=== PATIENT | female | born 1955 | race Caucasian/White ===

== ENCOUNTER → 2018-01-21 11:10 | Outpatient (CLI) | payer OTHER, SELFPAY ==
--- NOTE | 2018-01-21 11:16 | XR_ITS ---
XR hand RT min 3V HISTORY: ITS.REASON: RT THUMB PAIN ORDERING PHYSICIAN: Dee Winter PATIENT AGE: 62 years FINDINGS: No fracture or dislocation. No lytic or blastic change. There are mild osteoarthritic changes of the third metacarpophalangeal joint and minimal osteoarthritic change of the first metacarpophalangeal joint. No abnormal subluxation or abnormal soft tissue calcification. Minimal osteoarthritic changes also involve the first interphalangeal joint. IMPRESSION: Mild osteoarthritic change of the first metacarpal phalangeal joint, third metacarpophalangeal joint, and first interphalangeal joint otherwise negative
== END ==
PROVIDERS: PCP Family Medicine; Visit Provider Nurse Practitioner Family
DX: M79.644 Pain in right finger(s) (principal)
CPT/HCPCS: 73130

== ENCOUNTER → 2018-02-13 08:21 | Outpatient (CLI) | payer OTHER, SELFPAY ==
[2018-02-13 11:04] LABS: Chol/HDL Ratio 3.6 (1-3.5); Cholesterol 182 mg/dL (140-200); HDL Cholesterol 50 mg/dL (29-89); LDL Cholesterol 84 mg/dL (0-130); Triglycerides 241 mg/dL (30-200); Uric Acid 3.3 mg/dL (2.6-7.2); VLDL Cholesterol 48 mg/dL (0-40)
== END ==
PROVIDERS: Visit Provider Nurse Practitioner Family
DX: E78.2 Mixed hyperlipidemia (principal); I10 Essential (primary) hypertension; M79.644 Pain in right finger(s)
CPT/HCPCS: 36415; 80061; 84550

== ENCOUNTER → 2019-01-29 09:52 | Outpatient (CLI) | payer BC, SELFPAY ==
--- NOTE | 2019-01-29 10:01 | XR_ITS ---
XR knee RT 4V HISTORY: Pain ITS.REASON: ap, lateral, sunrise, mccracken weight bearing ORDERING PHYSICIAN: Monica Morgan MD PATIENT AGE: 63 years COMPARISON: None FINDINGS: There are mild osteoarthritic changes involving all 3 compartments greatest at the medial compartment. Small osteophytes are present in the radius small suprapatellar effusion. No fracture or dislocation. IMPRESSION: Mild osteoarthritis with possible small suprapatellar effusion
--- NOTE | 2019-01-29 10:01 | XR_ITS ---
XR knee LT 4V HISTORY: Knee pain ITS.REASON: ap, lateral, sunrise, mccracken weight bearing ORDERING PHYSICIAN: Monica Morgan MD PATIENT AGE: 63 years COMPARISON: None FINDINGS: Mild osteoarthritic changes involve all 3 compartments slightly greater at the medial compartment. No fracture or dislocation. There may be a small suprapatellar effusion. No lytic or blastic change. IMPRESSION: Mild osteoarthritis with possible small suprapatellar effusion
== END ==
PROVIDERS: PCP Family Medicine; Visit Provider Orthopaedic Surgery
DX: M25.562 Pain in left knee (principal); M25.561 Pain in right knee
CPT/HCPCS: 73564

== ENCOUNTER → 2019-02-03 08:08 | Outpatient (CLI) | payer BC, SELFPAY ==
[2019-02-03 09:47] LABS: Alanine Aminotransferase 28 U/L (12-78); Albumin Level 3.7 gm/dL (3.4-5.0); Albumin/Globulin Ratio 1.1 (1.1-1.8); Alkaline Phosphatase 86 U/L (46-116); Anion Gap 12.9 mEq/L (5-15); Aspartate Amino Transferase 15 U/L (15-37); Bilirubin,Total 0.6 mg/dL (0.2-1.0); Blood Urea Nitrogen 16 mg/dL (7-18); Calcium 8.9 mg/dL (8.5-10.1); Carbon Dioxide 30 mmol/L (21.0-32.0); Chloride 103 mmol/L (98-107); Chol/HDL Ratio 3.9 (1-3.5); Cholesterol 174 mg/dL (140-200); Creatinine,Serum 0.75 mg/dL (0.55-1.02); Estimated Glomerular Filt Rate 78 ml/min (>60); GFR (African American) 94 ML/MIN (>60); Globulin 3.3 gm/dl (1.3-3.2); Glucose 105 mg/dL (74-106); HDL Cholesterol 45 mg/dL (29-89); LDL Cholesterol 78 mg/dL (0-130); Potassium 3.9 mmoL/L (3.5-5.1); Sodium 142 mmol/L (136-145); Triglycerides 256 mg/dL (30-200); VLDL Cholesterol 51 mg/dL (0-40)
== END ==
PROVIDERS: Visit Provider Nurse Practitioner Family
DX: E78.2 Mixed hyperlipidemia (principal); E87.6 Hypokalemia; I10 Essential (primary) hypertension
CPT/HCPCS: 36415; 80053; 80061

== ENCOUNTER → 2019-06-10 09:50 | Outpatient (CLI) | payer BC, MEDICARE, SELFPAY ==
--- NOTE | 2019-06-10 09:55 | MM_ITS ---
PROCEDURE: MM DIG SCREENING MAMM BI W/CAD CLINICAL INDICATION: screening There is no personal or family history of breast cancer COMPARISON: [facility]B DIG MAMM-SCREEN NIDA from 01/19/2014 [facility]B DIG MAMM-SCREEN NIDA from 02/18/2015 DMSB DIG MAMM-SCREEN NIDA from 03/15/2016 TECHNIQUE: Standard CC and MLO images were obtained. R2 CAD reviewed. FINDINGS: Prominent somewhat heterogenic fibroglandular densities are seen in both breasts. There is a mole marker left breast. There are few benign-appearing calcifications in each breast. The findings are bilateral and symmetrical. There is no suspicious lesion and no suspicious microcalcifications. IMPRESSION: Moderate diffuse breast density with no suspicious lesions seen BI-RAD Category: 2 Benign Finding(s) FOLLOW-UP: 1YR 1 Year Follow-up (A letter has been sent to the patient regarding results of the study.) Dictated by: Dr. Haider Ackerman MD 06/16/2019 17:[address] Haider Ackerman MD in [place] 06/16/2019 17:04
--- NOTE | 2019-06-10 09:55 | XR_ITS ---
PROCEDURE: XR DEXA AXIAL SKELETON CLINICAL HISTORY: screening COMPARISON: No exams were available for comparison FINDINGS: The L1-L4 density has a T-score of 1.6. Mean hip density is 1.124 grams/centimeter sq with a T-score of 0.6 IMPRESSION: Normal bone density with low fracture risk. Recommend follow-up exam June 2021 Dictated by: Luc Uribe MD 06/10/2019 18:10 Electronically signed by Luc Uribe MD in [place] 06/10/2019 18:10
== END ==
PROVIDERS: PCP Family Medicine; Visit Provider Obstetrics & Gynecology
DX: Z12.31 Encounter for screening mammogram for malignant neoplasm of breast (principal); Z13.820 Encounter for screening for osteoporosis; Z78.0 Asymptomatic menopausal state
CPT/HCPCS: 77067; 77080

== ENCOUNTER → 2022-05-21 08:48 | Outpatient (CLI) | payer BC, MEDICARE, SELFPAY | PROVIDERS: PCP Family Medicine; Visit Provider Ophthalmology | DX: Z01.812 Encounter for preprocedural laboratory examination (principal); Z20.822 Contact with and (suspected) exposure to COVID-19 | CPT/HCPCS: C9803; U0003; U0005 ==

== ENCOUNTER → 2022-05-22 15:57 | Outpatient (CLI) | payer BC, MEDICARE, SELFPAY ==
--- NOTE | 2022-05-22 16:06 | MM_ITS ---
PROCEDURE INFORMATION: Exam: MG Bilateral Screening 3D Mammography Exam date and time: 05/22/2022 4:00 PM Age: 67 years old Clinical indication: Screening examination. No family history of breast cancer. TECHNIQUE: Imaging protocol: Bilateral Screening tomosynthesis and 2D mammography including computer-aided detection (CAD) when performed. COMPARISON: 1. MG MM DIG SCREENING MAMM BI W/CAD 06/10/2019 10:13 AM 2. MG DMSB DIG MAMM-SCREEN NIDA 03/15/2016 10:22 AM 3. MG DMSB DIG MAMM-SCREEN NIDA 02/18/2015 10:05 AM 4. MG DMSB DIG MAMM-SCREEN NIDA 01/19/2014 10:16 AM FINDINGS: MAMMOGRAPHY: Breast composition: There are scattered areas of fibroglandular density. Mass: No suspicious mass. Architectural distortion: None. Calcifications: No suspicious calcifications. Asymmetric density: None. Skin thickening: None. Axillary adenopathy: None. IMPRESSION: No mammographic evidence of malignancy. Annual screening is recommended unless otherwise clinically indicated. ASSESSMENT: BI-RADS Category 1: Negative
== END ==
PROVIDERS: PCP Family Medicine; Visit Provider Nurse Practitioner Family
DX: Z12.31 Encounter for screening mammogram for malignant neoplasm of breast (principal)
CPT/HCPCS: 77063; 77067

== ENCOUNTER → 2022-06-20 16:11 | Outpatient (POV) | payer BC, MEDICARE, SELFPAY | PROVIDERS: Visit Provider Dermatology | DX: Z00.00 Encounter for general adult medical examination without abnormal findings (principal) ==

== ENCOUNTER → 2022-06-24 08:50 | Outpatient (CLI) | payer BC, MEDICARE, SELFPAY | PROVIDERS: PCP Family Medicine; Visit Provider Ophthalmology | DX: Z01.812 Encounter for preprocedural laboratory examination (principal); Z20.822 Contact with and (suspected) exposure to COVID-19; H25.011 Cortical age-related cataract, right eye | CPT/HCPCS: C9803; U0003; U0005 ==

== ENCOUNTER 2022-06-27 08:07 | Day surgery (SDC) | payer BC, MEDICARE, SELFPAY ==
[2022-06-22 11:01] VITALS: BMI 30.3
[2022-06-27 08:48] VITALS: BP 148/74; PULSE 66; RESP 18; TEMP 36.2; O2SAT 96
[2022-06-27 09:50] VITALS: BP 131/63; PULSE 64; RESP 16; O2SAT 96
[2022-06-27 09:55] VITALS: BP 122/60; PULSE 58; RESP 16; O2SAT 97
[2022-06-27 10:00] VITALS: BP 120/62; PULSE 54; RESP 16; O2SAT 98
[2022-06-27 10:05] VITALS: BP 116/60; PULSE 55; RESP 16; O2SAT 99
[2022-06-27 10:08] VITALS: BP 114/70; PULSE 65; RESP 16; TEMP 36.8; O2SAT 95
== END 2022-06-27 10:24 | disposition home or self-care (01) ==
LOC: OR 08:09
PROVIDERS: PCP Family Medicine; Visit Provider Ophthalmology
PROC: (CPT 66984; principal; 2022-06-27 10:00)
DX: H26.9 Unspecified cataract (principal); Z79.899 Other long term (current) drug therapy
CPT/HCPCS: 66984; V2632

== ENCOUNTER 2022-12-12 08:29 | Emergency (ER) | payer MEDICARE, SELFPAY ==
[2022-12-12 08:40] VITALS: BP 140/78; PULSE 76; RESP 23; TEMP 36.9; O2SAT 94; BMI 31.1
--- NOTE | 2022-12-12 08:53 | XR_ITS ---
FINAL REPORT CLINICAL HISTORY: cough FINDINGS: Two views of the chest were obtained. The heart size and pulmonary vascularity are within normal limits. The mediastinum is normal. There are left mid lung opacities which may represent atelectasis or pneumonia. There is mild right lung base atelectasis. There is no pneumothorax. The bony thorax is intact. IMPRESSION: Left mid lung atelectasis or pneumonia. Mild right basilar atelectasis. Reviewed, Interpreted and Dictated by Bon Abreu III, MD Transcribed by Viky Mcfadden Authenticated and [facility]
--- NOTE | 2022-12-12 08:53 | EXP.UTC ---
Discharge Plan Disposition Patient Disposition: Home, Self-Care Condition: Good Prescriptions Prescriptions: New benzonatate 100 mg capsule 100 mg PO TID PRN (Reason: cough) Qty: 30 0RF azithromycin [Zithromax Z-Charly] 250 mg tablet See Rx Instructions .ROUTE .COMPLEX 5 Days Qty: 6 0RF Rx Instructions: For 250 mg dose pack: take 500 mg today (day 1), then 250 mg for 4 days (days 2-5) prednisone [prednisone] 20 mg tablet 20 mg PO BID 5 Days Qty: 10 0RF cefdinir 300 mg capsule 300 mg PO BID Qty: 20 0RF guaifenesin [Mucinex] 600 mg tablet extended release 12hr 1,200 mg PO BID PRN (Reason: cough) Qty: 20 0RF No Action celecoxib [Celebrex] 200 mg capsule 200 mg PO BID potassium chloride 10 mEq capsule, extended release 10 meq PO BID omeprazole 40 mg capsule,delayed release(DR/EC) 40 mg PO ONCE metoprolol tartrate 50 mg tablet 50 mg PO BID felodipine 10 mg tablet extended release 24 hr 10 mg PO ONCE hydrochlorothiazide 25 mg tablet 25 mg PO QAM conjugated estrogens [Premarin] 0.45 mg tablet 0.45 mg PO ONCE rosuvastatin [Crestor] 20 mg tablet 20 mg PO ONCE aspirin 81 mg tablet,chewable 81 mg PO ONCE cholecalciferol (vitamin D3) [Baby Vitamin D3] 400 unit/drop drops 400 unit PO ONCE omega 3-zuk-wee-fish oil [Fish Oil] 1,000 mg (120 mg-180 mg) capsule 1 cap PO DAILY Referrals Follow up/Referrals: Provider,Referral, MD [Primary Care Provider] - See instructions Activity Restrictions/Add. Instructions Additional Instructions/Restrictions: Start antibiotic today. Be sure to complete entire prescription even if feeling better Monitor temp. Tylenol every 4 hours as needed and / or ibuprofen every 6 hours as needed ( As long as your primary care physician has told you that it ok to take both. For fever/aches/pains ER if no less than 101 despite Tylenol or Motrin Humidifier/vaporizer or hot steamy shower Inhaler every 4-6 hours as needed like we discussed. If unsure how to use it, ask pharmacist to demonstrate how. Should help open airways and improve cough, wheezing, and shortness of breath Mucinex during the day for your cough and cough suppressant only at night. Be sure to drink lots of water. Insurance may not cover a prescriptions for mucinex. Might be cheaper to get 400mg tablets and take 2 tablet in the morning, mid-day and evening with lots of water. *Promethazine DM cough syrup will cause drowsiness. Use only at night. No driving, operating machinery or caring for small children after taking it *Tessalon Perles will not cause drowsiness but use at bedtime to help stop cough so that you may get some rest. *Start steroid today. Helps with inflammation therefore, cough and wheezing. Follow directions on the package. Reviewed side effects. Patient reports taking them before. Follow up IMMEDIATELY for new or worsening of symptoms OR no noticeable improvement over the next 48-72 hours. 911 immediately for any life threatening symptoms such as chest pain or difficulty breathing Clinical Impressions Clinical Impression: Pneumonia Stand Alone Forms Stand Alone Forms: Work/School Release Instructions Patient Instructions: Pneumonia-Adult Discharge ED Provider: Chikis Kuo [facility] General Stated complaint: Persistant cough Mode of Arrival: Ambulatory Source of Information: Patient Limitations: No Limitations Time Seen by Provider: 12/12/22 08:54 Description of Symptoms (Recalled from Triage Doc. by RN): PATIENT C/O COUGH X 1 WEEK HEENT Symptoms (Recalled from RN notes): No Resp Symptoms (Recalled from RN notes): Yes Skin Symptoms (Recalled from RN notes): No MS Symptoms (Recalled from RN notes): No Functional Status (Recalled from RN notes): WNL History of Present Illness Provider Complaint: Patient states that she has a lot of sinus issues Stat
[2022-12-12 09:42] VITALS: BP 140/78; PULSE 76; RESP 23; TEMP 36.9; O2SAT 94
== END 2022-12-12 09:46 | disposition home or self-care (01) ==
PROVIDERS: Emergency Provider Nurse Practitioner
DX: J18.9 Pneumonia, unspecified organism (principal); I10 Essential (primary) hypertension; E78.5 Hyperlipidemia, unspecified
CPT/HCPCS: 71046; 99212; 99214; G0463

== ENCOUNTER 2024-01-03 11:56 | Outpatient (CLI) | payer MEDICARE, SELFPAY ==
[2024-01-03 12:15] LABS: Basophils # 0.1 K/mm3 (0-0.2); Basophils % 1.1 % (0.1-2.0); Eosinophils # 0.1 K/mm3 (0.0-0.4); Eosinophils % 1.7 % (0.1-12.0); Hematocrit 36.4 % (37.0-47.0); Lymphocytes % 17.7 % (10-50); Mean Corpuscular HGB Conc 30.2 g/dL (31.8-35.4); Mean Corpuscular Hemoglobin 23.2 pg (27.0-31.2); Mean Corpuscular Volume 76.8 fl (81-99); Mean Platelet Volume 7.8 fl (7.4-10.4); Monocytes # 0.4 K/mm3 (0.1-1.0); Monocytes % 6.2 % (1.7-9.3); Neutrophils # 4.3 K/mm3 (1.8-7.8); Neutrophils % 73.4 % (37.0-80.0); Platelet Count 273 K/mm3 (142-424); Red Blood Count 4.74 M/mm3 (4.20-5.40); Red Cell Distribution Width 17.4 % (11.5-17.5); White Blood Count 5.8 K/mm3 (4.8-10.8)
[2024-01-03 13:00] LABS: Alanine Aminotransferase 44 U/L (12-78); Albumin Level 4.6 g/dl (3.5-5.0); Albumin/Globulin Ratio 1.9 (1.1-1.8); Alkaline Phosphatase 110 U/L (38-126); Anion Gap 10.7 mEq/L (5-15); Aspartate Amino Transferase 41 U/L (14-36); Bilirubin,Total 0.6 mg/dl (0.2-1.3); Blood Urea Nitrogen 18 mg/dl (7-17); Calcium 9.7 mg/dl (8.4-10.2); Carbon Dioxide 28 mmol/L (22.0-30.0); Chloride 105 mmol/L (98-107); Estimated Glomerular Filt Rate 83 ml/min (>60); GFR (African American) 100 ML/MIN (>60); Globulin 2.4 g/dL (1.3-3.2); Glucose 108 mg/dl (74-100); Potassium 3.7 mmoL/L (3.5-5.1); Sodium 140 mmol/L (136-145)
[2024-01-03 15:34] LABS: Iron 36 ug/dL (37-170)
[2024-01-03 15:43] LABS: Total Iron Binding Capacity 392 ug/dL (265-497)
[2024-01-03 16:09] LABS: Ferritin 6.58 ng/ml (11.1-264)
== END 2024-01-03 23:59 ==
LOC: LAB 11:57
PROVIDERS: PCP Nurse Practitioner; Visit Provider Internal Medicine Medical Oncology
DX: C67.9 Malignant neoplasm of bladder, unspecified (principal)
CPT/HCPCS: 36415; 80053; 82728; 83540; 83550; 85025

== ENCOUNTER 2024-01-10 13:56 | Outpatient (CLI) | payer MEDICARE, SELFPAY ==
--- NOTE | 2024-01-10 14:10 | CT_ITS ---
FINAL REPORT CLINICAL HISTORY: BLADDER CANCER FINDINGS: Axial CT images of the chest were obtained with contrast. Coronal reformatted images were also obtained. This study was performed with techniques to keep radiation doses as low as reasonably achievable, (ALARA). Individualized dose reduction techniques using automated exposure control or adjustment of mA and/or KV according to the patient''''s size were employed. There is mild mediastinal adenopathy. An AP window lymph node is seen measuring 26 mm which may be reactive or neoplastic. No axillary mass or adenopathy is identified. There is a calcified granuloma in the right upper lobe. There is mild atelectasis or scarring. No localized pulmonary inflammatory process is identified. Limited images of the upper abdomen reveal demonstrates fatty infiltration of the liver. There are several left renal cysts noted. IMPRESSION: Mild mediastinal adenopathy which may be reactive or neoplastic. Reviewed, Interpreted and Dictated by Bon Abreu III, MD Transcribed by Maggy Caballero Authenticated and [facility]
[2024-01-10] MEDS: SODIUM CHLORIDE 0.9% 10ML SYR (RAD ONLY) 10 ML IV (14:41)
[2024-01-10] MEDS: IOPAMIDOL-370 (76%);100ML BOTTLE 75 ML IV (14:41)
== END 2024-01-10 23:59 | disposition home or self-care (01) ==
LOC: RAD 13:56
PROVIDERS: PCP Nurse Practitioner; Visit Provider Internal Medicine Medical Oncology
DX: C67.9 Malignant neoplasm of bladder, unspecified (principal)
CPT/HCPCS: 71260; Q9967

== ENCOUNTER 2024-01-22 08:00 | Outpatient (CLI) | payer MEDICARE, SELFPAY ==
[2024-01-22] VITALS (15 sets, daily range): BP systolic 112–159; BP diastolic 55–71; PULSE 64–85; RESP 17–18; O2SAT 96–97; BMI 33.9
[2024-01-22 08:26] LABS: Basophils # 0.1 K/mm3 (0-0.2); Eosinophils # 0.1 K/mm3 (0.0-0.4); Eosinophils % 2.6 % (0.1-12.0); Hematocrit 37.5 % (37.0-47.0); Hemoglobin 11.7 g/dL (12.2-16.2); Lymphocytes # 0.8 K/mm3 (0.7-4.5); Lymphocytes % 17.5 % (10-50); Mean Corpuscular HGB Conc 31.2 g/dL (31.8-35.4); Mean Corpuscular Hemoglobin 24.6 pg (27.0-31.2); Mean Corpuscular Volume 78.9 fl (81-99); Mean Platelet Volume 9.2 fl (7.4-10.4); Monocytes # 0.3 K/mm3 (0.1-1.0); Monocytes % 6.1 % (1.7-9.3); Neutrophils # 3.4 K/mm3 (1.8-7.8); Neutrophils % 72.8 % (37.0-80.0); Platelet Count 249 K/mm3 (142-424); Red Blood Count 4.75 M/mm3 (4.20-5.40); Red Cell Distribution Width 22.2 % (11.5-17.5); White Blood Count 4.7 K/mm3 (4.8-10.8)
[2024-01-22 08:29] LABS: Chloride 106 mmol/L (98-107); Potassium 3.2 mmoL/L (3.5-5.1); Sodium 140 mmol/L (136-145)
[2024-01-22 08:32] LABS: Alanine Aminotransferase 56 U/L (12-78); Albumin Level 4.2 g/dl (3.5-5.0); Albumin/Globulin Ratio 1.7 (1.1-1.8); Alkaline Phosphatase 99 U/L (38-126); Anion Gap 8.2 mEq/L (5-15); Aspartate Amino Transferase 51 U/L (14-36); Bilirubin,Total 0.7 mg/dl (0.2-1.3); Blood Urea Nitrogen 18 mg/dl (7-17); Calcium 9.6 mg/dl (8.4-10.2); Carbon Dioxide 29 mmol/L (22.0-30.0); Creatinine Clearance Estimated 85 mL/min (50-200); Estimated Glomerular Filt Rate 83 ml/min (>60); GFR (African American) 100 ML/MIN (>60); Globulin 2.5 g/dL (1.3-3.2); Glucose 181 mg/dl (74-100); Total Protein,Serum 6.7 g/dl (6.3-8.2)
[2024-01-22] MEDS: POTASSIUM CHLORIDE 20 MEQ, MAGNESIUM SULFATE 2 GM in 0.9 % SODIUM CHLORIDE 1000ML 1,000 ML 507 MEQ IV ×2 (09:19→13:29)
[2024-01-22] MEDS: APREPITANT 125MG/80MG TRIFOLD PACK 1 PACKET PO (10:59)
[2024-01-22] MEDS: DEXAMETHASONE 4MG TABLET 12 MG PO (10:59)
[2024-01-22] MEDS: ONDANSETRON 4MG ODT 16 MG SL (11:00)
[2024-01-22] MEDS: CISPLATIN IV (11:27)
[2024-01-22] MEDS: SODIUM CHLORIDE 0.9% IV ×2 (11:27→15:25)
[2024-01-22] MEDS: GEMCITABINE HCL IV (15:25)
--- NOTE | 2024-01-24 15:54 | DIET.NUTRFU ---
Consulted secondary to first chemo visit. Patient denies any N/V, has anti-nausea medication prescribed. Wt stable no changes. No dietary concerns at this time. Provided contact information for any future concerns
== END 2024-01-22 16:10 | disposition home or self-care (01) ==
LOC: INF 08:02
PROVIDERS: PCP Nurse Practitioner; Visit Provider Internal Medicine Medical Oncology
DX: C67.9 Malignant neoplasm of bladder, unspecified (principal)
CPT/HCPCS: 80053; 85025; 96413; 96415; 96417; J8501; J9060; J9201

== ENCOUNTER 2024-01-29 08:58 | Outpatient (CLI) | payer MEDICARE, SELFPAY ==
[2024-01-29 09:12] VITALS: BMI 33.9
[2024-01-29 09:27] LABS: Basophils % 0.4 % (0.1-2.0); Eosinophils # 0.1 K/mm3 (0.0-0.4); Eosinophils % 0.6 % (0.1-12.0); Hematocrit 40.6 % (37.0-47.0); Hemoglobin 13.1 g/dL (12.2-16.2); Lymphocytes # 0.7 K/mm3 (0.7-4.5); Lymphocytes % 9.8 % (10-50); Mean Corpuscular HGB Conc 32.2 g/dL (31.8-35.4); Mean Corpuscular Volume 77.7 fl (81-99); Mean Platelet Volume 9.5 fl (7.4-10.4); Monocytes # 0.1 K/mm3 (0.1-1.0); Monocytes % 0.9 % (1.7-9.3); Neutrophils # 6.4 K/mm3 (1.8-7.8); Neutrophils % 88.2 % (37.0-80.0); Platelet Count 194 K/mm3 (142-424); Red Blood Count 5.22 M/mm3 (4.20-5.40); Red Cell Distribution Width 21.9 % (11.5-17.5); White Blood Count 7.3 K/mm3 (4.8-10.8)
[2024-01-29 09:28] LABS: MANUAL DIFFERENTIAL MANUAL DIFFERENTIAL (MANUAL DIFF)
[2024-01-29 09:38] LABS: Chloride 100 mmol/L (98-107); Sodium 133 mmol/L (136-145)
[2024-01-29 09:39] LABS: Potassium 3.1 mmoL/L (3.5-5.1)
[2024-01-29 09:40] LABS: Lymphocytes % 14 % (10-50); Neutrophils % 86 % (42-76); Platelet Estimate Normal; RBC Morphology Normal; Total Cells Counted 100
[2024-01-29 09:41] LABS: Alanine Aminotransferase 109 U/L (12-78); Alkaline Phosphatase 99 U/L (38-126); Aspartate Amino Transferase 41 U/L (14-36); Bilirubin,Total 0.7 mg/dl (0.2-1.3); Blood Urea Nitrogen 23 mg/dl (7-17); Creatinine Clearance Estimated 85 mL/min (50-200); Estimated Glomerular Filt Rate 71 ml/min (>60); GFR (African American) 86 ML/MIN (>60)
[2024-01-29 09:42] LABS: Albumin Level 4.2 g/dl (3.5-5.0); Albumin/Globulin Ratio 1.6 (1.1-1.8); Anion Gap 9.1 mEq/L (5-15); Calcium 9.3 mg/dl (8.4-10.2); Carbon Dioxide 27 mmol/L (22.0-30.0); Globulin 2.6 g/dL (1.3-3.2); Glucose 176 mg/dl (74-100); Total Protein,Serum 6.8 g/dl (6.3-8.2)
[2024-01-29 10:01] LABS: Magnesium 2.3 mg/dl (1.6-2.3)
[2024-01-29] MEDS: ONDANSETRON 4MG ODT 16 MG SL (10:07)
[2024-01-29] MEDS: DEXAMETHASONE 4MG TABLET 12 MG (10:08)
[2024-01-29] MEDS: GEMCITABINE HCL IV (10:41)
[2024-01-29] MEDS: SODIUM CHLORIDE 0.9% IV (10:41)
[2024-01-29] MEDS: 0.9 % SODIUM CHLORIDE 1000ML 1,000 ML 999 ML IV (10:42)
[2024-01-29 10:45] VITALS: BP 145/67; PULSE 63; RESP 18; TEMP 36.7; O2SAT 99
[2024-01-29 11:00] VITALS: BP 138/72; PULSE 65
[2024-01-29 11:15] VITALS: BP 144/68; PULSE 63
[2024-01-29 11:45] VITALS: BP 146/71; PULSE 68
[2024-01-29 12:15] VITALS: BP 145/70; PULSE 63
== END 2024-01-29 12:26 | disposition home or self-care (01) ==
LOC: INF 08:59
PROVIDERS: PCP Nurse Practitioner; Visit Provider Internal Medicine Medical Oncology
DX: C67.9 Malignant neoplasm of bladder, unspecified (principal)
CPT/HCPCS: 80053; 83735; 85007; 85025; 96413; J9201

== ENCOUNTER 2024-02-02 00:30 | Emergency (ER) | payer MEDICARE, SELFPAY ==
[2024-02-02 00:33] VITALS: BP 146/97; PULSE 86; RESP 16; TEMP 36.6; O2SAT 96; BMI 32.6
[2024-02-02] MEDS: ONDANSETRON 4MG/2ML VIAL 4 MG IV (01:01)
[2024-02-02] MEDS: LACTATED RINGERS 1000ML 1,000 ML 999 ML IV (01:01)
[2024-02-02 01:12] LABS: Basophils % 0.2 % (0.1-2.0); Eosinophils % 0.6 % (0.1-12.0); Hematocrit 37.3 % (37.0-47.0); Hemoglobin 12.2 g/dL (12.2-16.2); Lymphocytes # 0.7 K/mm3 (0.7-4.5); Mean Corpuscular HGB Conc 32.7 g/dL (31.8-35.4); Mean Corpuscular Hemoglobin 25.3 pg (27.0-31.2); Mean Corpuscular Volume 77.4 fl (81-99); Mean Platelet Volume 9.3 fl (7.4-10.4); Monocytes % 0.4 % (1.7-9.3); Neutrophils # 3.7 K/mm3 (1.8-7.8); Neutrophils % 82.8 % (37.0-80.0); Platelet Count 124 K/mm3 (142-424); Red Blood Count 4.81 M/mm3 (4.20-5.40); Red Cell Distribution Width 21.7 % (11.5-17.5); White Blood Count 4.4 K/mm3 (4.8-10.8)
[2024-02-02 01:13] LABS: Chloride 103 mmol/L (98-107); Sodium 133 mmol/L (136-145)
[2024-02-02 01:14] LABS: Potassium 3.1 mmoL/L (3.5-5.1)
[2024-02-02 01:16] LABS: Alanine Aminotransferase 88 U/L (12-78); Alkaline Phosphatase 89 U/L (38-126); Anion Gap 11.1 mEq/L (5-15); Aspartate Amino Transferase 55 U/L (14-36); Bilirubin,Total 0.6 mg/dl (0.2-1.3); Blood Urea Nitrogen 24 mg/dl (7-17); Carbon Dioxide 22 mmol/L (22.0-30.0); Creatinine Clearance Estimated 82 mL/min (50-200); Estimated Glomerular Filt Rate 99 ml/min (>60); GFR (African American) 120 ML/MIN (>60); Lipase 182 U/L (23-300)
[2024-02-02 01:17] LABS: Albumin Level 3.6 g/dl (3.5-5.0); Albumin/Globulin Ratio 1.3 (1.1-1.8); Calcium 9.4 mg/dl (8.4-10.2); Globulin 2.7 g/dL (1.3-3.2); Glucose 132 mg/dl (74-100); Total Protein,Serum 6.3 g/dl (6.3-8.2)
--- NOTE | 2024-02-02 01:31 | CT_ITS ---
PROCEDURE INFORMATION: Exam: CT Abdomen And Pelvis With Contrast Exam date and time: 02/02/2024 1:36 AM Age: 68 years old Clinical indication: Abdominal pain; Additional info: Lower abd pain/diarrhea, on chemo for bladder CA TECHNIQUE: Imaging protocol: Computed tomography of the abdomen and pelvis with contrast. Radiation optimization: All CT scans at this facility use at least one of these dose optimization techniques: automated exposure control; mA and/or kV adjustment per patient size (includes targeted exams where dose is matched to clinical indication); or iterative reconstruction. Contrast material: ISOVUE; Contrast volume: 75 ml; Contrast route: IV; COMPARISON: 1. CT CHEST W CON 01/10/2024 2:27 PM 2. CR XR CHEST 2V 12/12/2022 8:51 AM FINDINGS: Lungs: Scattered areas of bronchial wall thickening which are likely chronic inflammatory. A few areas of subpleural reticulation are noted, nonspecific. Liver: There are calcifications in the liver which most likely reflect calcified granulomas. Gallbladder and bile ducts: No acute process. Pancreas: There is fatty replacement of the pancreas. Mild peripancreatic stranding is noted, correlate for any concern of acute pancreatitis. Spleen: Normal. Adrenal glands: The adrenal glands appear normal. Kidneys and ureters: Simple appearing left upper pole renal cyst. Stomach and bowel: The patient is status post prior partial colectomy. Appendix: No evidence of appendicitis. Intraperitoneal space: Unremarkable. Vasculature: There is atherosclerotic disease of the visualized aorta and its major branch vessels. Lymph nodes: No lymphadenopathy. Urinary bladder: Mild wall thickening of the urinary bladder which appears nodular and asymmetric along the right lateral wall (image 42 series 1001). This is consistent with given history of bladder cancer. Reproductive: The patient has undergone prior hysterectomy. Bones/joints: There is diffuse degenerative disease of the visualized osseous structures. Soft tissues: Unremarkable. IMPRESSION: Mild peripancreatic stranding is noted, correlate for any concern of acute pancreatitis. COMMENTS: Consistent with the [employer]'s Incidental Findings Committee white paper (J Am Purnima Radiol 2018): Any incidental renal lesion less than 1 cm or classified as too small to characterize, or any incidental cystic renal lesion characterized as simple-appearing, is likely benign. No follow-up imaging is recommended for these lesions per consensus recommendations based on imaging criteria.
--- NOTE | 2024-02-02 01:37 | HMH.EDGENADL ---
Discharge Plan Disposition Patient Disposition: Home, Self-Care Condition: Good Prescriptions Prescriptions: New ondansetron 4 mg tablet,disintegrating 4 mg PO Q8H PRN (Reason: nausea and vomiting) 4 Days Qty: 12 0RF No Action meloxicam 15 mg tablet 15 mg PO DAILY calcium carbonate 600 mg calcium (1,500 mg) tablet 600 mg PO DAILY ferrous sulfate 325 mg (65 mg iron) tablet 325 mg PO DAILY ascorbate calcium (vitamin C) 500 mg tablet 500 mg PO DAILY omeprazole 40 mg capsule,delayed release(DR/EC) 40 mg PO ONCE metoprolol tartrate 50 mg tablet 50 mg PO BID felodipine 10 mg tablet extended release 24 hr 10 mg PO ONCE hydrochlorothiazide 25 mg tablet 25 mg PO QAM rosuvastatin [Crestor] 20 mg tablet 20 mg PO ONCE aspirin 81 mg tablet,chewable 81 mg PO ONCE cholecalciferol (vitamin D3) [Baby Vitamin D3] 400 unit/drop drops 400 unit PO ONCE potassium chloride 10 mEq capsule, extended release 20 meq PO BID Referrals Follow up/Referrals: Jocelyn Krishnan APRN [Primary Care Provider] - See instructions Activity Restrictions/Add. Instructions Additional Instructions/Restrictions: You were evaluated in the emergency department today. 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 Make sure that you are staying hydrated. Eat a very bland diet. Please follow-up closely with your oncologist as well as your primary care provider. Return to the emergency department for new or worsening symptoms. Clinical Impressions Clinical Impression: Nausea, vomiting and diarrhea, Chemotherapy induced diarrhea, Hypokalemia Instructions Patient Instructions: Coping with Nausea and Vomiting From Chemotherapy, Coping With Diarrhea Related to Chemotherapy Discharge ED Provider: Marlene Franklin General Adult HPI General Chief complaint: Nausea/Vomiting/Diarrhea Stated complaint: chemo treatment,diarrhea,abd pain,fatigue Time Seen by Provider: 02/02/24 00:39 Mode of Arrival: Wheelchair Source of Information: Patient Limitations: No Limitations Description of Symptoms (Recalled from ER Triage Doc. by RN): patient to ED in wheelchair with complaints of increased weakness, diarrhea, nausea, and stomach cramping. Patient with recent dx of bladder cancer and last chemo treatment was completed on 01/28. History of Present Illness HPI narrative: This patient is a 68-year-old female with a history of hypertension, hyperlipidemia, GERD, and bladder cancer for which she is currently on chemotherapy presenting to the emergency department for evaluation with concern for nausea, vomiting, and diarrhea. Patient reports that she had her most recent chemo treatment 01/29/2024, and since then she has not felt well. She has had a bad taste in her mouth, poor appetite, and profuse, loose diarrhea that is green-haroon in color. She states she is intermittently having lower abdominal pain and cramping. She notes that she is having to go to the bathroom to have a bowel movement approximately every 1/2 hour. She states she has had nausea and poor appetite, but she only vomited once around lunchtime. No fevers or other concerns noted at this time. She notes no changes in urine output or significant urinary symptoms. Related Data Home Medications Medication Instructions Recorded Confirmed aspirin 81 mg chewable tablet 81 mg PO ONCE Blood thinner 03/19/18 01/29/24 cholecalciferol (vitamin D3) 10 400 unit PO ONCE Supplement 03/19/18 01/29/24 mcg/drop (400 unit/drop) oral drops (Baby Vitamin D3) felodipine 10 mg tablet,extended 10 mg PO ONCE * 03/19/18 01/29/24 release 24 hr hydrochlorothiazide 25 mg tablet 25 mg PO QAM bp 03/19/18 01/29/24 metoprolol tartrate 50 mg tablet 50 mg PO BID bp 03/19/18 01/29/24 omeprazole 40 mg capsule,delayed 40 mg PO ONCE acid reflux 03/19/18 01/29/24 release rosuvastatin 20 mg tablet (Crestor) 20 mg PO ONCE Cholesterol 03/19/18 01/29/24 meloxicam 15 mg tablet 15 mg PO DAILY 01/03/24 01/29/24 potassium chloride 10 mEq 20 meq PO BID Supplement 01/03/24 01/29/24 capsule,extended release ascorbate calcium (vitamin C) 500 500 mg PO DAILY 01/11/24 01/29/24 mg tablet calcium carbonate 600 mg PO DAILY 01/11/24 01/29/24 ferrous sulfate 325 mg (65 mg 325 mg PO DAILY 01/11/24 01/29/24 iron) tablet Previous Rx's Medication Instructions Recorded ondansetron 4 mg disintegrating 4 mg PO Q8H PRN nausea and 02/02/24 tablet vomiting 4 days #12 tabs Allergies Allergy/AdvReac Type Severity Reaction Status Date / Time lisinopril Allergy Verified 01/11/24 10:43 [facility] Disclaimer: The information contained in this section may have been updated after the patient was seen, as this information can be updated by other users. Medical History Arthritis Sinus headache History of gastroesophageal reflux (GERD) History of cataract Allergies Hyperlipidemia Hypertension Surgical History Hx of oophorectomy History of partial hysterectomy H/O eye surgery Family History Grandfather Heart attack Grandmother Heart attack Social History Smoking Status: Never smoker alcohol intake: never substance use type: denies use current occupational status: retired Travel in the last 8 weeks: None ROS Obtained: Yes All systems reviewed & no additional complaints except as documented Physical Exam General General appearance: alert and in no apparent distress Head Head exam: atraumatic and normocephalic Eye Eye exam: Present normal appearance, PERRL and EOMI ENT ENT exam: Present normal exam, normal oropharynx, mucous membranes moist and normal external ear exam Neck Neck exam: Present normal inspection, full ROM and trachea midline; Absent tenderness Chest Chest inspection: Present normal inspection and symmetric chest wall rise; Absent tenderness Respiratory Respiratory exam: Present normal lung sounds bilaterally; Absent respiratory distress, wheezes, stridor or accessory muscle use Cardiovascular Cardiovascular exam: Present regular rate and normal rhythm Abdominal Exam Abdominal exam: Present soft; Absent distention, tenderness or guarding Extremities Exam Extremities exam: Present normal inspection, full ROM and normal capillary refill; Absent tenderness or edema Back Exam Back exam: Present normal inspection and full ROM; Absent tenderness Neurological Exam Neurological exam: Present alert, oriented X3, CN II-XII intact and normal gait; Absent motor sensory deficit Psychiatric Psychiatric exam: Present normal affect and normal mood Skin Skin exam: Present warm and dry Medical Decision Making Medical Records Medical records reviewed: Yes I reviewed the patient's medical records. Klever Inquiry Pt receiving controlled substance: No Vital Signs: 02/02/24 00:33 02/02/24 04:29 Temperature 97.8 F 97.8 F Temperature Source Oral Oral Pulse Rate 65 Pulse Rate [Right] 86 Respiratory Rate 16 14 Blood Pressure 128/74 Blood Pressure [Right Arm] 146/97 H Blood Pressure Mean [Right Arm] 113 Blood Pressure Source Automatic Cuff Blood Pressure Source [Right Arm] Automatic Cuff Blood Pressure Position Sitting Blood Pressure Position [Right Arm] Sitting 02 Sat by Pulse Oximetry 96 Oxygen Delivery Method Room Air Room Air Lab Data Lab results reviewed: Yes I reviewed the patient's lab results. Lab Results 02/02/24 01:00: WBC 4.4 L, RBC 4.81, Hgb 12.2, Hct 37.3, MCV 77.4 L, MCH 25.3 L, MCHC 32.7, RDW 21.7 H, Plt Count 124 L D, MPV 9.3, Neut % (Auto) 82.8 H, Lymph % (Auto) 16.0, [place] % (Auto) 0.4 L, Eos % (Auto) 0.6, Baso % (Auto) 0.2, Neut # (Auto) 3.7, Lymph # (Auto) 0.7, [place] # (Auto) 0.0 L, Eos # (Auto) 0.0, Baso # (Auto) 0.0, Sodium 133 L, Potassium 3.1 L, Chloride 103, Carbon Dioxide 22, Anion Gap 11.1, BUN 24 H, Creatinine 0.60, Estimated Creat Clear 82, Estimated GFR 99, Est GFR ( Amer) 120, Glucose 132 H, Calcium 9.4, Total Bilirubin 0.6, AST 55 H, ALT 88 H, Alkaline Phosphatase 89, Total Protein 6.3, Albumin 3.6, Globulin 2.7, Albumin/Globulin Ratio 1.3, Lipase 182 02/02/24 01:00: Lipase 217 02/02/24 01:00 02/02/24 01:00 Orders (Tests/Meds): ED MEDICATIONS Discontinued Medications Generic Name Dose Route Start Last Admin Trade Name Freq PRN Reason Stop Dose Admin Lactated Ringer's 1,000 mls @ 999 mls/hr 02/02/24 00:53 02/02/24 01:01 Lactated Ringer's 1000 Ml Bag IV 02/02/24 01:53 999 mls/hr .Q1H1M ONE Administration Potassium Chloride/Water 100 mls @ 100 mls/hr 02/02/24 01:45 02/02/24 03:14 Potassium Chloride 10meq/100ml Ivpb IV 02/02/24 03:44 100 mls/hr Q1H ABELARDO Administration Iopamidol 75 ml 02/02/24 01:51 02/02/24 01:52 Iopamidol-370 (76%);100ml Bottle IV 02/02/24 01:52 75 ml ONCE ONE Administration Ondansetron HCl 4 mg 02/02/24 00:53 02/02/24 01:01 Ondansetron 4mg/2ml Vial IV 02/02/24 00:54 4 mg ONCE ONE Administration Potassium Chloride 40 meq 02/02/24 01:45 02/02/24 01:52 Potassium Chloride 20meq Tab PO 02/02/24 01:46 40 meq ONCE ONE Administration Sodium Chloride 10 ml 02/02/24 01:51 02/02/24 01:52 Sodium Chloride 0.9% 10ml Syr (Rad Only) IV 03/03/24 01:50 10 ml NEEDED PRN Administration Maintain IV Site ORDERS Category Date Time Status CT abdomen pelvis w con Stat Cat Scan 02/02/24 01:31 Completed Complete Blood Count Auto Diff Stat Lab 02/02/24 01:00 Completed Comprehensive Metabolic Panel Stat Lab 02/02/24 01:00 Completed Lipase Stat Lab 02/02/24 01:00 Completed Lipase Stat Lab 02/02/24 01:00 Completed Medical Decision Narrative: In summary, this patient is a 68-year-old female presenting to the Emergency Department for evaluation of nausea, vomiting, and diarrhea after chemotherapy. Differential diagnoses considered include but are not limited to chemotherapy adverse reaction, colitis, viral gastroenteritis, bacterial gastroenteritis, dehydration, electrolyte derangements. Ruling out the most morbid conditions drove assessment. It should be noted patient's history includes bladder cancer on chemotherapy which is not at goal therapy. This complicates all aspects of care by increasing patient's risk for morbidity. I reviewed patient's past medical records and noted previous evaluation by oncology and 2 previous infusions on 01/22/2024 as well as 01/29/2024. On exam, the patient is nontoxic-appearing with reassuring vital signs on cardiac telemetry. She has some mild lower abdominal tenderness but otherwise abdominal exam is benign. Workup included BC, CMP, lipase, and CT abdomen pelvis with IV contrast. She was given a bolus of IV fluids as well as IV Zofran for symptomatic improvement.. I independently interpreted CT scan prior to the radiologist read and noted no obvious acute infection or colonic inflammation. Please see their read for final interpretation. They noted that she may have peripancreatic edema, however she has no epigastric tenderness and normal lipase. Labs were obtained that demonstrated hypokalemia, for which IV and oral replacement was ordered. She also has a very mild transaminitis, which is present on prior lab evaluation as well. She has mild leukopenia without neutropenia.. On multiple subsequent reassessments, the patient is resting comfortably with benign abdominal exam and reassuring vital signs on cardiac telemetry. Stool panel was ordered, however she was unable to have a bowel movement while here in the emergency department. She is tolerating oral intake with sips of fluids. After potassium replacement, patient was deemed to be appropriate for discharge home. Prescription for Zofran was provided as well as instructions for supportive management as an outpatient. Strict return precautions were given, and the patient was discharged after all questions were answered. Critical Care Critical Care Time Critical Care Time: No
[2024-02-02] MEDS: SODIUM CHLORIDE 0.9% 10ML SYR (RAD ONLY) 10 ML IV (01:52)
[2024-02-02] MEDS: IOPAMIDOL-370 (76%);100ML BOTTLE 75 ML IV (01:52)
[2024-02-02] MEDS: POTASSIUM CHLORIDE 20MEQ TAB 40 MEQ PO (01:52)
[2024-02-02] MEDS: KCl 10mEq/100ml 100 ML 100 MEQ IV ×2 (01:52→03:14)
[2024-02-02 04:29] VITALS: BP 128/74; PULSE 65; RESP 14; TEMP 36.6; O2SAT 94
[2024-02-02 04:31] LABS: Lipase 217 U/L (23-300)
== END 2024-02-02 04:48 | disposition home or self-care (01) ==
PROVIDERS: Emergency Provider Emergency Medicine; PCP Nurse Practitioner
DX: R10.9 Unspecified abdominal pain (principal); R19.7 Diarrhea, unspecified; R53.83 Other fatigue
CPT/HCPCS: 74177; 80053; 83690; 85025; J2405; Q9967

== ENCOUNTER 2024-02-04 10:33 | Outpatient (CLI) | payer MEDICARE, SELFPAY ==
[2024-02-04 10:42] VITALS: BMI 43.0
[2024-02-04 11:02] LABS: Chloride 105 mmol/L (98-107); Sodium 131 mmol/L (136-145)
[2024-02-04 11:03] LABS: Potassium 3.2 mmoL/L (3.5-5.1)
[2024-02-04 11:05] LABS: Alanine Aminotransferase 306 U/L (12-78); Albumin Level 3.7 g/dl (3.5-5.0); Albumin/Globulin Ratio 1.3 (1.1-1.8); Alkaline Phosphatase 167 U/L (38-126); Anion Gap 7.2 mEq/L (5-15); Aspartate Amino Transferase 258 U/L (14-36); Blood Urea Nitrogen 14 mg/dl (7-17); Calcium 8.9 mg/dl (8.4-10.2); Carbon Dioxide 22 mmol/L (22.0-30.0); Creatinine Clearance Estimated 54 mL/min (50-200); Estimated Glomerular Filt Rate 83 ml/min (>60); GFR (African American) 100 ML/MIN (>60); Globulin 2.9 g/dL (1.3-3.2); Glucose 155 mg/dl (74-100); Total Protein,Serum 6.6 g/dl (6.3-8.2)
[2024-02-04 11:23] LABS: Eosinophils % 1.3 % (0.1-12.0); Hemoglobin 12.2 g/dL (12.2-16.2); Lymphocytes # 0.1 K/mm3 (0.7-4.5); Lymphocytes % 33.3 % (10-50); Mean Corpuscular HGB Conc 32.2 g/dL (31.8-35.4); Mean Corpuscular Hemoglobin 25.1 pg (27.0-31.2); Mean Corpuscular Volume 77.9 fl (81-99); Mean Platelet Volume 9.6 fl (7.4-10.4); Monocytes % 1.9 % (1.7-9.3); Neutrophils # 0.2 K/mm3 (1.8-7.8); Neutrophils % 62.5 % (37.0-80.0); Platelet Count 65 K/mm3 (142-424); Red Blood Count 4.87 M/mm3 (4.20-5.40); Red Cell Distribution Width 21.6 % (11.5-17.5)
[2024-02-04 11:24] LABS: White Blood Count 0.4 K/mm3 (4.8-10.8)
[2024-02-04 11:26] LABS: MANUAL DIFFERENTIAL MANUAL DIFFERENTIAL (MANUAL DIFF)
[2024-02-04 12:11] LABS: Hypochromasia 1+; Lymphocytes % 28 % (10-50); Monocytes % 4 % (2-9); Neutrophils % 68 % (42-76); Platelet Estimate Marked Decrease; Total Cells Counted 25
--- NOTE | 2024-02-04 13:11 | PC.NURSE ---
1040 Patient here for complaints of vomiting, diarrhea, weakness, intermittent abdominal pain bilateral upper quadrants. Dr. Sorenson informed and order given to check CBC/CMP and would give further orders as needed pending results of labs. 1125 Dr. Sorenson notified of lab results WBC 0.4, platelets 65, neutrophil #0.2, sodium 131, potassium 3.2, AST 258, ALT 306, alkaline phosphatase 167. Patient to present to ED for further evaluation/admission per Dr. Sorenson recommendation. Patient and patient's verbalize understanding and patient assisted to ED admissions area/stable.
== END 2024-02-04 11:45 | disposition home or self-care (01) ==
PROVIDERS: PCP Family Medicine; Visit Provider Internal Medicine Medical Oncology
DX: C67.9 Malignant neoplasm of bladder, unspecified (principal)
CPT/HCPCS: 36415; 80053; 85007; 85025

== ENCOUNTER 2024-02-04 12:08 | Inpatient (IN) | payer MEDICARE, SELFPAY ==
[2024-02-04] VITALS (16 sets, daily range): BP systolic 110–147; BP diastolic 70–93; PULSE 80–114; RESP 16–24; TEMP 36.8–38.9; O2SAT 94–98; BMI 32.2; BMI 31.5
--- NOTE | 2024-02-04 12:20 | PC.NURSE ---
ROUNDED ON PT NO NEEDS AT THIS TIME,CALL LIGHT IN REACH
--- NOTE | 2024-02-04 12:23 | PC.NURSE ---
called lab to add on lipase to labs already obtained.
[2024-02-04] MEDS: LACTATED RINGERS 1000ML 1,000 ML 999 ML IV (12:26)
--- NOTE | 2024-02-04 12:27 | ED_ITS ---
Discharge Plan Disposition Patient Disposition: Admitted Chief Complaint: Abdominal Pain Prescriptions Prescriptions: No Action meloxicam 15 mg tablet 15 mg PO DAILY calcium carbonate 600 mg calcium (1,500 mg) tablet 600 mg PO DAILY ferrous sulfate 325 mg (65 mg iron) tablet 325 mg PO DAILY ascorbate calcium (vitamin C) 500 mg tablet 500 mg PO DAILY omeprazole 40 mg capsule,delayed release(DR/EC) 40 mg PO ONCE metoprolol tartrate 50 mg tablet 50 mg PO BID felodipine 10 mg tablet extended release 24 hr 10 mg PO ONCE hydrochlorothiazide 25 mg tablet 25 mg PO QAM rosuvastatin [Crestor] 20 mg tablet 20 mg PO ONCE aspirin 81 mg tablet,chewable 81 mg PO ONCE cholecalciferol (vitamin D3) [Baby Vitamin D3] 400 unit/drop drops 400 unit PO ONCE potassium chloride 10 mEq capsule, extended release 20 meq PO BID ondansetron 4 mg tablet,disintegrating 4 mg PO Q8H PRN (Reason: nausea and vomiting) 4 Days Qty: 12 0RF Referrals Follow up/Referrals: Jocelyn Krishnan APRN [Primary Care Provider] - See instructions Clinical Impressions Clinical Impression: Neutropenic fever, Thrombocytopenia, Transaminitis, Adverse effect of chemotherapy Instructions Patient Instructions: DI for Acute Abdominal Pain Discharge ED Provider: Tom Herr General Adult HPI General Chief complaint: Abdominal Pain Stated complaint: sick from chemo Time Seen by Provider: 02/04/24 12:12 Mode of Arrival: Wheelchair Source of Information: Patient Limitations: No Limitations Description of Symptoms (Recalled from ER Triage Doc. by RN): pt presents to ED from infusion c/o diarrhea and abdominal pain. pt states that she came into infusion this date to receive fluids. pt reports she is currently having chemo every 2 weeks for bladder cancer. pt states last chemo was last Sunday. History of Present Illness HPI narrative: Patient is a 68-year-old female past medical history of bladder cancer currently on chemotherapy who presents emergency department for evaluation of laboratory abnormalities. Patient was getting her blood drawn today, she gets her chemotherapy every 2 weeks, she had cycle 2 last week, per chart review it appears to be cisplatin/gemcitabine. She followed up for routine lab work today and was referred here for continued evaluation due to the abnormalities. Labs today are remarkable for leukopenia 0.4, platelet count 65, absolute neutropenia, mild hypokalemia 3.2, uptrending transaminitis without elevated bilirubin. Patient states that she has lower abdominal pain for which she was seen previously on Sunday where CT imaging was conducted which showed mild peripancreatic stranding, no nodule or asymmetric thickening of the bladder consistent with her history of bladder cancer and patient was deemed appropriate for discharge. Patient states her lower abdominal pain is persistent and unchanged since Sunday, she has no epigastric pain, no right upper quadrant pain. There is associated nonbloody vomiting and diarrhea that has been present since her chemotherapy was initiated. Related Data Home Medications Medication Instructions Recorded Confirmed aspirin 81 mg chewable tablet 81 mg PO ONCE Blood thinner 03/19/18 01/29/24 cholecalciferol (vitamin D3) 10 400 unit PO ONCE Supplement 03/19/18 01/29/24 mcg/drop (400 unit/drop) oral drops (Baby Vitamin D3) felodipine 10 mg tablet,extended 10 mg PO ONCE * 03/19/18 01/29/24 release 24 hr hydrochlorothiazide 25 mg tablet 25 mg PO QAM bp 03/19/18 01/29/24 metoprolol tartrate 50 mg tablet 50 mg PO BID bp 03/19/18 01/29/24 omeprazole 40 mg capsule,delayed 40 mg PO ONCE acid reflux 03/19/18 01/29/24 release rosuvastatin 20 mg tablet (Crestor) 20 mg PO ONCE Cholesterol 03/19/18 01/29/24 meloxicam 15 mg tablet 15 mg PO DAILY 01/03/24 01/29/24 potassium chloride 10 mEq 20 meq PO BID Supplement 01/03/24 01/29/24 capsule,extended release ascorbate calcium (vitamin C) 500 500 mg PO DAILY 01/11/24 01/29/24 mg tablet calcium carbonate 600 mg PO DAILY 01/11/24 01/29/24 ferrous sulfate 325 mg (65 mg 325 mg PO DAILY 01/11/24 01/29/24 iron) tablet Previous Rx's Medication Instructions Recorded ondansetron 4 mg disintegrating 4 mg PO Q8H PRN nausea and 02/02/24 tablet vomiting 4 days #12 tabs Allergies Allergy/AdvReac Type Severity Reaction Status Date / Time lisinopril Allergy Verified 01/11/24 10:43 [facility] Disclaimer: The information contained in this section may have been updated after the patient was seen, as this information can be updated by other users. Medical History Arthritis Sinus headache History of gastroesophageal reflux (GERD) History of cataract Allergies Hyperlipidemia Hypertension Surgical History Hx of oophorectomy History of partial hysterectomy H/O eye surgery Family History Grandfather Heart attack Grandmother Heart attack Social History Smoking Status: Never smoker alcohol intake: never substance use type: denies use current occupational status: retired Travel in the last 8 weeks: None ROS Obtained: Yes Systems reviewed as appropriate & no additional complaints except as documented Physical Exam General General appearance: alert and in no apparent distress Head Head exam: atraumatic and normocephalic Eye Eye exam: Present PERRL and EOMI ENT ENT exam: Present mucous membranes moist Neck Neck exam: Present normal inspection Chest Chest inspection: Present normal inspection and symmetric chest wall rise Respiratory Respiratory exam: Present normal lung sounds bilaterally; Absent respiratory distress Cardiovascular Cardiovascular exam: Present normal rhythm and tachycardia Abdominal Exam Abdominal exam: Present soft and tenderness (Mild, suprapubic. No epigastric or right upper quadrant tenderness to superficial or deep palpation) Extremities Exam Extremities exam: Present normal inspection Neurological Exam Neurological exam: Present alert Psychiatric Psychiatric exam: Present normal affect Skin Skin exam: Present warm and dry Medical Decision Making Klever Inquiry Pt receiving controlled substance: No Vital Signs: 02/04/24 12:09 02/04/24 12:14 02/04/24 12:35 Temperature 98.2 F Temperature Source Oral Pulse Rate 114 H 106 H Pulse Rate [Right Radial] 113 H Respiratory Rate 16 16 18 Blood Pressure 135/81 117/73 Blood Pressure [Right Arm] 135/81 Blood Pressure Mean 88 81 Blood Pressure Mean [Right Arm] 99 Blood Pressure Source Blood Pressure Source [Right Arm] Automatic Cuff Blood Pressure Position Blood Pressure Position [Right Arm] Sitting 02 Sat by Pulse Oximetry 96 97 98 Oxygen Delivery Method Room Air 02/04/24 12:36 02/04/24 13:00 02/04/24 13:30 Temperature 102.0 F H Temperature Source Rectal Pulse Rate 103 H 99 H 102 H Pulse Rate [Right Radial] Respiratory Rate 18 Blood Pressure 117/73 110/93 H Blood Pressure [Right Arm] Blood Pressure Mean Blood Pressure Mean [Right Arm] Blood Pressure Source Automatic Cuff Blood Pressure Source [Right Arm] Blood Pressure Position Sitting Blood Pressure Position [Right Arm] 02 Sat by Pulse Oximetry 98 98 96 Oxygen Delivery Method Room Air Room Air 02/04/24 14:00 02/04/24 14:30 Temperature Temperature Source Pulse Rate 103 H 100 H Pulse Rate [Right Radial] Respiratory Rate 20 20 Blood Pressure 124/70 125/71 Blood Pressure [Right Arm] Blood Pressure Mean 80 Blood Pressure Mean [Right Arm] Blood Pressure Source Blood Pressure Source [Right Arm] Blood Pressure Position Blood Pressure Position [Right Arm] 02 Sat by Pulse Oximetry 94 L 96 Oxygen Delivery Method Room Air Lab Data Lab Results 02/04/24 10:40: Lipase 44 02/04/24 12:33: Urine Color Yellow, Urine Appearance Clear, Urine pH 6.0, Ur Specific [place] >= 1.030, Urine Protein 1+, Urine Glucose (UA) Negative, Urine Ketones Negative, Urine Blood Negative, Urine Nitrate Negative, Urine Bilirubin 1+ A, Urine Urobilinogen 0.2, Ur Leukocyte Esterase Negative, Urine RBC None, Urine WBC Occasional, Ur Squamous Epith Cells 3-5, Urine Bacteria Trace, Urine Mucus 1+ 02/04/24 14:30: PT 10.9, INR 1.01, Lactate 2.5 H, Ammonia 39 H Orders (Tests/Meds): ED MEDICATIONS Generic Name Dose Route Start Last Admin Trade Name Freq PRN Reason Stop Dose Admin Potassium Chloride/Water 100 mls @ 50 mls/hr 02/04/24 12:55 02/04/24 13:31 Potassium Chloride 20meq/100ml Ivpb IV 02/04/24 16:54 50 mls/hr Q2H ABELARDO Administration Lactated Ringer's 1,920 mls @ 960 mls/hr 02/04/24 13:02 02/04/24 13:03 Lactated Ringer's 1000 Ml Bag 30 ml/kg infuse over 2 hr (1920 ml) 02/04/24 15:01 960 mls/hr IV Administration .Q2H ONE Discontinued Medications Generic Name Dose Route Start Last Admin Trade Name Freq PRN Reason Stop Dose Admin Lactated Ringer's 1,000 mls @ 999 mls/hr 02/04/24 12:21 02/04/24 12:26 Lactated Ringer's 1000 Ml Bag IV 02/04/24 13:21 999 mls/hr .Q1H1M ONE Administration Cefepime HCl 2 gm/ Sodium 100 mls @ 200 mls/hr 02/04/24 12:41 02/04/24 12:46 Chloride IV 02/04/24 13:10 200 mls/hr ONCE ONE Administration ORDERS Category Date Time Status US RUQ [US abdomen limited] Stat Exams 02/04/24 12:48 Completed Ammonia Stat Lab 02/04/24 14:30 Completed Lactic Acid Stat Lab 02/04/24 14:30 Completed Lipase Stat Lab 02/04/24 10:40 Completed PT INR [Prothrombin Time INR] Stat Lab 02/04/24 14:30 Completed UA [Urinalysis and Microscopic] Stat Lab 02/04/24 12:33 Completed Blood Culture Stat Micro 02/04/24 12:48 Received Medical Decision Narrative: In summary patient is 68-year-old female past medical history described above presents emergency department for evaluation of laboratory abnormalities in the setting of bladder cancer on chemotherapy. Patient is hemodynamically stable nontoxic-appearing upon arrival, afebrile. Hematologic labs from earlier today are remarkable for leukopenia, absolute neutropenia, thrombocytopenia. Patient is afebrile not has not had a fever at home therefore neutropenic fever is not a concern. Mild hypokalemia will be repleted orally. I suspect that all these findings are secondary to her chemotherapy. Patient's abdominal status is unchanged is Sunday and she previously had a CT scan therefore further imaging was considered but will be deferred. Patient does have a transaminitis however does not have any elevated bilirubin, lipase will be added on to rule out obstructive hepatobiliary pathology given that she is nontender I doubt this. Initial interventions include crystalloid bolus. Urinalysis will be obtained. Lipase is 44, urinalysis interpreted by me and not consistent with infection. PT/INR and ammonia will be drawn. Ultimately I suspect all of this is the result of patient's chemotherapy, cisplatin and gemcitabine have known hepatotoxicity for which patient has elevated transaminases without evidence of obstructive hepatobiliary pathology. Ultrasound read shows fatty liver without other acute pathology. Given this the case was discussed with hospital medicine who agreed to admit the patient their service for continued evaluation at this time. Critical Care Critical Care Time Critical Care Time: Yes Attestation: On 02/04/24, the high probability of a clinically significant, sudden or life threatening deterioration of the following system(s) required my full and direct attention, intervention and personal management. The time I documented below is in addition to time spent performing reported procedures but includes the following listed in this critical care notation. Total Time Total Critical Care Time: 40
[2024-02-04 12:31] LABS: Lipase 44 U/L (23-300)
[2024-02-04 12:40] LABS: Microscopic, Urine URINE MICROSCOPIC (MICROSCOPIC)
[2024-02-04 12:42] LABS: Appearance,Urine CLEAR (Clear); Blood, Urine Negative (Negative); Color,Urine YELLOW (Yellow); Glucose,Urine (UA) Negative (Negative); Ketones,Urine Negative (Negative); Leukocyte Esterase,Urine Negative (Negative); Nitrate,Urine Negative (Negative); Protein,Urine 1+ (Negative); Specific Gravity, Urine >= 1.030 (1.005-1.030); Urobilinogen,Urine 0.2 EU/dl (0.2)
[2024-02-04] MEDS: CEFEPIME HCL 2 GM in 0.9 % SODIUM CHLORIDE 100 ML IV (12:46)
--- NOTE | 2024-02-04 12:48 | US_ITS ---
FINAL REPORT CLINICAL HISTORY: transaminitis, neutropenic fever COMPARISON: None FINDINGS: Sonographic images of the right upper quadrant were obtained. The pancreas is partially obscured. There is fatty infiltration of the liver. The gallbladder appears normal without evidence of gallstones.There is no evidence of biliary ductal dilatation.The common duct measures 5 mm. Limited images of the right kidney are unremarkable. IMPRESSION: Fatty liver. Reviewed, Interpreted and Dictated by Bon Abreu III, MD Transcribed by Mary Becerril Authenticated and [facility]
[2024-02-04 12:49] LABS: Bilirubin,Urine 1+ (Negative)
[2024-02-04] MEDS: LACTATED RINGERS 1000ML 1,920 ML 960 ML IV (13:03)
--- NOTE | 2024-02-04 13:16 | PC.NURSE ---
PT IS GONE TO ULTRASOUND AT THIS TIME
[2024-02-04] MEDS: KCl 20mEq/100ml 100 ML 50 MEQ IV ×2 (13:31→15:49)
--- NOTE | 2024-02-04 14:07 | PC.NURSE ---
LAB COMING TO DRAW LACTIC
--- NOTE | 2024-02-04 14:17 | PC.NURSE ---
pt resting in bed. family member at bedside. denies need for anything. updated on care. no questions or concerns voiced. bed in lowest position. call light within reach.
[2024-02-04 14:24] LABS: Bacteria,Urine Trace /lpf; Mucus,Urine 1+ /lpf; WBC,Urine Occasional #/hpf (0-3)
[2024-02-04 14:46] LABS: Ammonia 39 umol/L (9-30); Lactic Acid 2.5 mmol/L (0.7-2.1)
--- NOTE | 2024-02-04 14:46 | PC.NURSE ---
ROUNDED ON PT SHE WAS GIVEN A WATER NO OTHER NEEDS AT THIS TIME,CALL LIGHT IN REACH
[2024-02-04 14:47] LABS: INR 1.01 (0.9-1.1); Prothrombin Time 10.9 seconds (10.1-12.5)
--- NOTE | 2024-02-04 14:54 | PC.NURSE ---
house aware of admission
--- NOTE | 2024-02-04 14:58 | PC.NURSE ---
pt is going to room 211 per house
--- NOTE | 2024-02-04 15:07 | PC.NURSE ---
called report to rolando gutierrez
--- NOTE | 2024-02-04 15:16 | HMH.PHAINT1 ---
Pharmacy Intervention Comments: HOME MEDICATION LIST VERIFIED USING LIST FROM OUTPATIENT PHARMACY
--- NOTE | 2024-02-04 15:20 | PC.NURSE ---
called to see if pt's room is ready for pt to come up. informed pt is being changed to stepdown status. [facility] Charge calling Dr. Suarez. Awaiting room assignment. House Aware.
--- NOTE | 2024-02-04 15:30 | PC.NURSE ---
pt to be admitted to room 216.
[2024-02-04] MEDS: HEPARIN SODIUM 5,000 UNIT/ML VIAL 5000 UNIT SQ (15:49)
[2024-02-04] MEDS: MORPHINE 2MG/ML SYRINGE 2 MG IV ×2 (15:53→21:24)
--- NOTE | 2024-02-04 15:53 | PC.NURSE ---
called rolando to update her on addition meds given. she verbalized understanding and stated they are cleaning the pt's room now.
--- NOTE | 2024-02-04 16:28 | PC.NURSE ---
admission completed while pt was in ED. pt going up to admission room at this time.
--- NOTE | 2024-02-04 16:33 | PC.NURSE ---
arrived to floor by w/c from ED
[2024-02-04] MEDS: LACTATED RINGERS 1000ML 1,000 ML 50 ML IV (16:39)
--- NOTE | 2024-02-04 17:35 | P.HP_ITS ---
History of Present Illness *Admission Date: 02/04/24 *Reason for visit:: abnormal labs, abdominal pain *History of present illness: Patient is a 68-year-old female with past medical history of bladder cancer, hyperlipidemia and hypertension who presents to the hospital from oncology office due to concern for lab abnormalities. Patient mentions she has been having lower abdominal pain, persistent Diarrhea, nausea and vomiting. She gets chemotherapy every 2 weeks. She has complaints of subjective fevers. Otherwise denied chest pain shortness of breath. [facility] Disclaimer: The information contained in this section may have been updated after the patient was seen, as this information can be updated by other users. Medical History Arthritis Sinus headache History of gastroesophageal reflux (GERD) History of cataract Allergies Hyperlipidemia Hypertension Surgical History Hx of oophorectomy History of partial hysterectomy H/O eye surgery Family History Grandfather Heart attack Grandmother Heart attack Social History (Updated 02/04/24 @ 16:26 by Agata Costello RN) Smoking Status: Never smoker alcohol intake: never substance use type: denies use current occupational status: retired Travel in the last 8 weeks: None Review of Systems Review of Systems Review of systems:: pertinent systems reviewed and negative unless documented below Meds Home Medications and Allergies Home Medications Medication Instructions Recorded Confirmed Type aspirin 81 mg chewable tablet 81 mg PO DAILY 03/19/18 01/29/24 History felodipine 10 mg tablet,extended 10 mg PO DAILY 03/19/18 02/04/24 History release 24 hr hydrochlorothiazide 25 mg tablet 25 mg PO DAILY 03/19/18 02/04/24 History metoprolol tartrate 50 mg tablet 50 mg PO BID 03/19/18 02/04/24 History omeprazole 40 mg capsule,delayed 40 mg PO DAILY 03/19/18 02/04/24 History release rosuvastatin 20 mg tablet (Crestor) 20 mg PO HS 03/19/18 02/04/24 History meloxicam 15 mg tablet 15 mg PO DAILY 01/03/24 02/04/24 History ascorbate calcium (vitamin C) 500 500 mg PO DAILY 01/11/24 02/04/24 History mg tablet ferrous sulfate 325 mg (65 mg 325 mg PO DAILY 01/11/24 01/29/24 History iron) tablet cholecalciferol (vitamin D3) 250 250 mcg PO DAILY 02/04/24 02/04/24 History mcg (10,000 unit) capsule potassium chloride 20 mEq 20 meq PO BID 02/04/24 02/04/24 History tablet,extended release(part/cryst) New Prescriptions to Start Prescriptions: Allergies Allergy/AdvReac Type Severity Reaction Status Date / Time lisinopril Allergy Verified 01/11/24 10:43 Exam Data for Last 24 hours Vital signs and Labs for Last 24 Hours: Temp Pulse Resp BP Pulse Ox O2 Del Method 98.3 F 80 21 131/74 95 Room Air 02/04/24 16:52 02/04/24 16:46 02/04/24 15:30 02/04/24 15:30 02/04/24 15:30 02/04/24 17:00 Laboratory Results - last 24 hr 02/04/24 10:40: Lipase 44 02/04/24 12:33: Urine Color Yellow, Urine Appearance Clear, Urine pH 6.0, Ur Specific [place] >= 1.030, Urine Protein 1+, Urine Glucose (UA) Negative, Urine Ketones Negative, Urine Blood Negative, Urine Nitrate Negative, Urine Bilirubin 1+ A, Urine Urobilinogen 0.2, Ur Leukocyte Esterase Negative, Urine RBC None, Urine WBC Occasional, Ur Squamous Epith Cells 3-5, Urine Bacteria Trace, Urine Mucus 1+ 02/04/24 14:30: PT 10.9, INR 1.01, Lactate 2.5 H, Ammonia 39 H I & O for Last 24 hours: Intake & Output 02/01/24 02/02/24 02/03/24 02/04/24 23:59 23:59 23:59 23:59 Weight 94.149 kg Constitutional Constitutional: no acute distress *Routine HEENT Exam Head: Present normocephalic Eye: Present EOMI and PERRL ENT: Present mucous membranes moist *Routine Neck Exam Neck: Present supple; Absent lymphadenopathy *Routine Respiratory Exam Respiratory: Present CTA bilaterally *Routine Cardiovascular Exam Cardiovascular: Present RRR *Routine Abdominal Exam Abdominal: Present soft and normoactive bowel sounds; Absent tenderness *Routine Rectal Exam Rectal:: deferred *Routine Genitalia Exam Genitalia:: deferred *Routine Extremities Exam Extremities: Absent cyanosis, clubbing or edema *Routine Skin Exam Skin: Present warm; Absent rash *Routine Neurological Exam Neurological: Present alert and oriented X3 Assessment and Plan *Assessment and plan (1) Adverse effect of chemotherapy: Status: Acute Category: Medical Code(s): T45.1X5A - Adverse effect of antineoplastic and immunosuppressive drugs, initial encounter (2) Transaminitis: Status: Acute Category: Medical Code(s): R74.01 - Elevation of levels of liver transaminase levels (3) Thrombocytopenia: Status: Acute Category: Medical Code(s): D69.6 - Thrombocytopenia, unspecified (4) Neutropenic fever: Status: Acute Category: Medical Code(s): D70.9 - Neutropenia, unspecified; R50.81 - Fever presenting with conditions classified elsewhere (5) Hypokalemia: Status: Acute Category: Medical Code(s): E87.6 - Hypokalemia (6) Chemotherapy induced diarrhea: Status: Acute Category: Medical Code(s): K52.1 - Toxic gastroenteritis and colitis; T45.1X5A - Adverse effect of antineoplastic and immunosuppressive drugs, initial encounter (7) Nausea, vomiting and diarrhea: Status: Acute Category: Medical Code(s): R11.2 - Nausea with vomiting, unspecified; R19.7 - Diarrhea, unspecified Plan Patient is a 68-year-old female with past medical history of bladder cancer, hyperlipidemia and hypertension who presents to the hospital from oncology office due to concern for lab abnormalities. Patient mentions she has been having lower abdominal pain, persistent Diarrhea, nausea and vomiting. She gets chemotherapy every 2 weeks. She has complaints of subjective fevers. Otherwise denied chest pain shortness of breath. Assessment and plan Abdominal pain likely secondary to hepatitis Transaminitis suspect due to chemotherapy Lactic acidosis Neutropenic fever Started on IV fluids Okay for regular diet for now, watch for nausea vomiting diarrhea Start empirical antibiotics with Zosyn in the setting of neutropenia Ultrasound abdomen performed negative for acute biliary pathology, no biliary duct dilation Monitor LFTs Hold rosuvastatin in setting of transaminitis Check CXR Thrombocytopenia Likely due to chemotherapy Monitor Hyponatremia Hypokalemia Likely due to decreased oral intake Continue IV fluids Monitor and replace electrolytes Chronic medical conditions Gallbladder cancer Hypertension Hyperlipidemia -Resume home amlodipine -Hold statins in the setting of transaminitis DVT prophylaxis-SCD for now given thrombo-cytopenia
--- NOTE | 2024-02-04 17:37 | XR_ITS ---
PROCEDURE INFORMATION: Exam: XR Chest Exam date and time: 02/04/2024 5:43 PM Age: 68 years old Clinical indication: Fever TECHNIQUE: Imaging protocol: Radiologic exam of the chest. Views: 1 view. COMPARISON: CT CHEST W CON 01/10/2024 2:27 PM FINDINGS: Lungs: Unremarkable. No consolidation. Pleural spaces: Unremarkable. No pleural effusion. No pneumothorax. Heart/Mediastinum: Unremarkable. No cardiomegaly. Bones/joints: Unremarkable. IMPRESSION: No acute findings.
[2024-02-04] MEDS: PIPERCILLIN/TAZO 3.375 GM in 0.9 % SODIUM CHLORIDE 50 ML IV ×2 (18:08→23:54)
[2024-02-04 18:32] LABS: Reflex Lactic Add Lactic Reflex
[2024-02-04 19:39] LABS: Lactic Acid Follow Up (RFLX 1) 1.2 mmol/L (0.7-2.1)
[2024-02-04 20:51] LABS: Adenovirus F 40/41, stool Not Detected (NotDetected); Astrovirus Not Detected (NotDetected); Campylobacter Not Detected (NotDetected); Clostridium Difficile A/B, PCR Not Detected (NotDetected); Cryptosporidium Not Detected (NotDetected); Cyclospora Cayetanesis Not Detected (NotDetected); Entamoeba histolytica Not Detected (NotDetected); Enteroaggregative E coli Not Detected (NotDetected); Enteropathogenic E coli Not Detected (NotDetected); Enterotoxigenic E coli Not Detected (NotDetected); Giardia lamblia Not Detected (NotDetected); Norovirus Not Detected (NotDetected); Plesimonas Shigalloides, PCR Not Detected (NotDetected); Rotavirus A Not Detected (NotDetected); Salmonella, PCR Not Detected (NotDetected); Sapovirus Not Detected (NotDetected); Shiga-like toxin E coli Not Detected (NotDetected); Shigella Enterovasive E coli Not Detected (NotDetected); Vibrio Cholerae Not Detected (NotDetected); Vibrio, PCR Not Detected (NotDetected); Yersinia Entercolitica, PCR Not Detected (NotDetected)
[2024-02-04] MEDS: PANTOPRAZOLE 40MG TABLET 40 MG PO (21:24)
[2024-02-04] MEDS: METOPROLOL TARTRATE 50MG TABLET 50 MG PO (21:25)
[2024-02-04] MEDS: ONDANSETRON 4MG/2ML VIAL 4 MG IV (21:30)
[2024-02-05] VITALS (16 sets, daily range): BP systolic 96–136; BP diastolic 56–87; PULSE 88–106; RESP 18–24; TEMP 36.9–37.7; O2SAT 94–105; BMI 31.3
[2024-02-05] MEDS: PIPERCILLIN/TAZO 3.375 GM in 0.9 % SODIUM CHLORIDE 50 ML IV ×4 (05:28→23:28)
[2024-02-05 06:46] LABS: Basophils % 0.1 % (0.1-2.0); Hematocrit 35.2 % (37.0-47.0); Hemoglobin 11.5 g/dL (12.2-16.2); Lymphocytes # 0.3 K/mm3 (0.7-4.5); Lymphocytes % 26.7 % (10-50); Mean Corpuscular HGB Conc 32.8 g/dL (31.8-35.4); Mean Corpuscular Hemoglobin 25.4 pg (27.0-31.2); Mean Corpuscular Volume 77.4 fl (81-99); Mean Platelet Volume 8.8 fl (7.4-10.4); Neutrophils # 0.7 K/mm3 (1.8-7.8); Neutrophils % 70.1 % (37.0-80.0); Red Blood Count 4.55 M/mm3 (4.20-5.40); Red Cell Distribution Width 21.9 % (11.5-17.5)
[2024-02-05 06:56] LABS: Anion Gap 10.5 mEq/L (5-15); Blood Urea Nitrogen 13 mg/dl (7-17); Calcium 8.2 mg/dl (8.4-10.2); Carbon Dioxide 20 mmol/L (22.0-30.0); Chloride 105 mmol/L (98-107); Creatinine Clearance Estimated 79 mL/min (50-200); Estimated Glomerular Filt Rate 71 ml/min (>60); GFR (African American) 86 ML/MIN (>60); Glucose 127 mg/dl (74-100); Sodium 133 mmol/L (136-145)
[2024-02-05 07:12] LABS: Potassium 2.5 mmoL/L (3.5-5.1)
[2024-02-05 07:13] LABS: Alanine Aminotransferase 224 U/L (12-78); Albumin Level 2.9 g/dl (3.5-5.0); Alkaline Phosphatase 122 U/L (38-126); Aspartate Amino Transferase 87 U/L (14-36); Bilirubin,Direct 0.3 mg/dl (0.0-0.4); Bilirubin,Indirect 0.3 mg/dL (0.0-0.9); Bilirubin,Total 0.6 mg/dl (0.2-1.3); Bilirubin,Unconjugated 0.3 mg/dL (0.0-1.1); Platelet Count 42 K/mm3 (142-424); Total Protein,Serum 5.2 g/dl (6.3-8.2)
[2024-02-05 07:14] LABS: MANUAL DIFFERENTIAL MANUAL DIFFERENTIAL (MANUAL DIFF)
[2024-02-05] MEDS: MORPHINE 2MG/ML SYRINGE 2 MG IV ×2 (07:33→15:30)
--- NOTE | 2024-02-05 08:00 | P.PN_ITS ---
Subjective *Date: 02/05/24 *Time: 17:22 Interval history: Tmax 102 yesterday afternoon. Temp overnight with maximum 99.7. Stable on room air. Feeling little bit better this morning. White cell count of 1, ANC 700. Potassium low today. Tolerating p.o. intake. Medical Exam Vital signs and Labs for Last 24 Hours: Vital Signs Temp Pulse Pulse Resp BP BP Pulse Ox 02/05/24 07:59 106 H 23 136/86 105 H 02/05/24 07:00 02/05/24 06:00 103 H 24 111/56 L 95 02/05/24 05:00 02/05/24 04:00 106 H 02/05/24 04:00 99.7 F H 02/05/24 04:00 104 H 23 130/77 94 L 02/05/24 02:42 101 H 94 L 02/05/24 02:41 02/05/24 02:00 102 H 23 123/76 94 L 02/05/24 01:15 127/75 02/05/24 00:29 02/05/24 00:00 93 H 02/05/24 00:00 98.8 F 100 H 23 95 02/04/24 22:52 02/04/24 22:00 107 H 24 140/87 94 L 02/04/24 21:00 02/04/24 20:00 110 H 02/04/24 20:00 110 H 97 02/04/24 20:00 99.0 F 110 H 18 147/81 H 97 02/04/24 18:28 02/04/24 18:00 02/04/24 17:00 02/04/24 16:52 98.3 F 02/04/24 16:49 113 H 20 121/76 97 02/04/24 16:46 80 02/04/24 15:30 103 H 21 131/74 95 02/04/24 15:17 98.7 F 98 H 20 124/70 02/04/24 15:00 98 H 20 124/70 97 02/04/24 14:30 100 H 20 125/71 96 02/04/24 14:00 103 H 20 124/70 94 L 02/04/24 13:30 102 H 96 02/04/24 13:00 99 H 110/93 H 98 02/04/24 12:36 102.0 F H 103 H 18 117/73 98 02/04/24 12:35 106 H 18 117/73 98 02/04/24 12:14 114 H 16 135/81 97 02/04/24 12:09 98.2 F 113 H 16 135/81 96 O2 Del Method 02/05/24 07:59 Room Air 02/05/24 07:00 Room Air 02/05/24 06:00 Room Air 02/05/24 05:00 Room Air 02/05/24 04:00 02/05/24 04:00 02/05/24 04:00 Room Air 02/05/24 02:42 Room Air 02/05/24 02:41 Room Air 02/05/24 02:00 Room Air 02/05/24 01:15 02/05/24 00:29 Room Air 02/05/24 00:00 02/05/24 00:00 Room Air 02/04/24 22:52 Room Air 02/04/24 22:00 Room Air 02/04/24 21:00 Room Air 02/04/24 20:00 02/04/24 20:00 Room Air 02/04/24 20:00 Room Air 02/04/24 18:28 Room Air 02/04/24 18:00 Room Air 02/04/24 17:00 Room Air 02/04/24 16:52 02/04/24 16:49 Room Air 02/04/24 16:46 02/04/24 15:30 Room Air 02/04/24 15:17 Room Air 02/04/24 15:00 02/04/24 14:30 Room Air 02/04/24 14:00 02/04/24 13:30 02/04/24 13:00 Room Air 02/04/24 12:36 Room Air 02/04/24 12:35 02/04/24 12:14 02/04/24 12:09 Room Air Intake and Output 02/04/24 02/05/24 02/05/24 23:59 07:59 15:59 Intake Total 270 / 270 40 / 40 Output Total 0 / 0 0 / 0 Balance 270 / 270 40 / 40 Intake: Intake, Oral Amount 270 / 270 Intake, Total IV Amount 40 / 40 Pipercillin/Tazo 3.375 gm In 0. 40 / 40 9 % Sodium Chloride 50 ml @ 100 mls/hr IV Q6H [facility] Rx#: [id number] Output: Output, Urine Amount 0 / 0 0 / 0 Other: Number of Unmeasured Voids 2 1 Number of Bowel Movements 1 1 Weight 94.149 kg 93.758 kg Patient Weight 02/05/24 23:59 Weight 93.758 kg Laboratory Results - last 24 hr 02/04/24 10:40: Lipase 44 02/04/24 12:33: Urine Color Yellow, Urine Appearance Clear, Urine pH 6.0, Ur Specific [place] >= 1.030, Urine Protein 1+, Urine Glucose (UA) Negative, Urine Ketones Negative, Urine Blood Negative, Urine Nitrate Negative, Urine Bilirubin 1+ A, Urine Urobilinogen 0.2, Ur Leukocyte Esterase Negative, Urine RBC None, Urine WBC Occasional, Ur Squamous Epith Cells 3-5, Urine Bacteria Trace, Urine Mucus 1+ 02/04/24 14:30: PT 10.9, INR 1.01, Lactate 2.5 H, Ammonia 39 H 02/04/24 19:09: Lactate 1.2 02/04/24 20:42: Stl Aeromonas (PCR) Not detected, Stl C. cayetanensis PCR Not detected, Stool Rotavirus (PCR) Not detected, Stl Adenov F 40/41 PCR Not detected, Stool Astrovirus (PCR) Not detected, Stool Campylobacter PCR Not detected, Stl C.difficile Tox PCR Not detected, Stool Cryptosporidium PCR Not detected, Stl E.coli Shiga Tox PCR Not detected, Stool E coli O157 PCR TNP, Stl Enterotoxigenic E PCR Not detected, Stool EPEC (PCR) Not detected, Stool EAEC (PCR) Not detected, Stl E. histolytica PCR Not detected, Stool Giardia Lamblia PCR Not detected, Stool Salmonella PCR Not detected, Stool Sapovirus (PCR) Not detected, Stl P. shigelloides PCR Not detected, Stl Shigella/EIEC PCR Not detected, St Y.enterocolitica PCR Not detected, Stool Vibrio (PCR) Not detected, Stl Vibrio cholerae PCR Not detected, Stl Norovirus GI/GII PCR Not detected 02/05/24 05:45: WBC 1.0 L* D, RBC 4.55, Hgb 11.5 L, Hct 35.2 L, MCV 77.4 L, MCH 25.4 L, MCHC 32.8, RDW 21.9 H, Plt Count 42 L* D, MPV 8.8, Neut % (Auto) 70.1, Lymph % (Auto) 26.7, [place] % (Auto) 2.0, Eos % (Auto) 1.0, Baso % (Auto) 0.1, Neut # (Auto) 0.7 L*, Lymph # (Auto) 0.3 L, [place] # (Auto) 0.0 L, Eos # (Auto) 0.0, Baso # (Auto) 0.0, Sodium 133 L, Potassium 2.5 L* D, Chloride 105, Carbon Dioxide 20 L, Anion Gap 10.5, BUN 13, Creatinine 0.80, Estimated Creat Clear 79, Estimated GFR 71, Est GFR ( Amer) 86, Glucose 127 H, Calcium 8.2 L, Total Bilirubin 0.6, Direct Bilirubin 0.3, Conjugated Bilirubin 0.0, Indirect Bilirubin 0.3, Unconjugated Bilirubin 0.3, AST 87 H D, ALT 224 H D, Alkaline Phosphatase 122, Total Protein 5.2 L, Albumin 2.9 L D I & O for Labs for Last 24 Hours: Intake & Output 02/02/24 02/03/24 02/04/24 02/05/24 23:59 23:59 23:59 23:59 Intake Total 270 / 270 40 / 40 Output Total 0 / 0 0 / 0 Balance 270 / 270 40 / 40 Weight 94.149 kg 93.758 kg Constitutional: Present no acute distress, obese and chronically ill appearing Head: Present atraumatic and normocephalic ENT: Present normal exam Respiratory: Absent rhonchi, wheezes or crackles Cardiac: Present Reg Rate and Rhythm GI: Present soft and tenderness (Throughout lower abdomen); Absent distention Extremities: Present normal inspection and full ROM; Absent tenderness or edema Skin: Present intact; Absent cyanosis Neuro: Present alert, awake and oriented x 3 Assessment and Plan *Assessment and plan (1) Neutropenic fever: Status: Acute Category: Medical Code(s): D70.9 - Neutropenia, unspecified; R50.81 - Fever presenting with conditions classified elsewhere (2) Transaminitis: Status: Acute Category: Medical Code(s): R74.01 - Elevation of levels of liver transaminase levels (3) Adverse effect of chemotherapy: Status: Acute Category: Medical Code(s): T45.1X5A - Adverse effect of antineoplastic and immunosuppressive drugs, initial encounter (4) Thrombocytopenia: Status: Acute Category: Medical Code(s): D69.6 - Thrombocytopenia, unspecified (5) Hypokalemia: Status: Acute Category: Medical Code(s): E87.6 - Hypokalemia (6) Chemotherapy induced diarrhea: Status: Acute Category: Medical Code(s): K52.1 - Toxic gastroenteritis and colitis; T45.1X5A - Adverse effect of antineoplastic and immunosuppressive drugs, initial encounter (7) Nausea, vomiting and diarrhea: Status: Acute Category: Medical Code(s): R11.2 - Nausea with vomiting, unspecified; R19.7 - Diarrhea, unspecified (8) 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 Patient mentions she has been having lower abdominal pain, persistent Diarrhea, nausea and vomiting. She gets chemotherapy every 2 weeks. She has complaints of subjective fevers, febrile to 102 on arrival. Fevers improving. Continues to be neutropenic. Continues to require inpatient management with IV antibiotics awaiting culture results. Problems addressed as follows: Neutropenic fever Pancytopenia - white cell count low at 1000, ANC of 700. Continue Zosyn 3.375 mg every 6 hours scheduled. Cultures obtained. Negative to date -Repeat CBC, CMP, magnesium ordered for the morning. -hemoglobin of 11.5 and platelets of 42. No active signs of bleeding Transaminitis -Abdominal pain secondary to her cancer as well as possible mild liver inflammation. Suspect secondary to chemotherapy. Monitoring liver enzymes daily. AST and ALT improving today. - Continue cefepime AST 87, ALT 224. Albumin 2.9. Repeat CMP ordered for the morning. -Cultures on the liver showing fatty liver, no biliary dilatation or stones -Holding Crestor Hyponatremia Hypokalemia - Likely due to decreased oral intake -Replace potassium today with 40 mEq orally 3 times a day. Potassium 2.5 on morning labs. -Repeat CMP and magnesium ordered for the morning. - sodium 133. Holding anticoagulation in the setting of thrombocytopenia Neutropenic diet, no daily meets or fresh granda or raw vegetables Full code
[2024-02-05] MEDS: POTASSIUM CHLORIDE 20MEQ TAB 40 MEQ PO ×3 (08:56→21:11)
[2024-02-05] MEDS: FELODIPINE 5 MG 10 MG PO (08:56)
[2024-02-05] MEDS: METOPROLOL TARTRATE 50MG TABLET 50 MG PO ×2 (08:56→21:11)
[2024-02-05] MEDS: CHOLECALCIFEROL 1,000 UNITS (25MCG) TABLET 25 MCG PO (08:57)
[2024-02-05] MEDS: ONDANSETRON 4MG/2ML VIAL 4 MG IV (09:26)
[2024-02-05 10:03] LABS: Hypochromasia 1+; Lymphocytes % 28 % (10-50); Monocytes % 4 % (2-9); Neutrophils % 68 % (42-76); Platelet Estimate Marked Decrease; Total Cells Counted 25
[2024-02-05] MEDS: LACTATED RINGERS 1000ML 1,000 ML 50 ML IV (12:05)
--- NOTE | 2024-02-05 17:31 | PC.NURSE ---
Pt continues to have diarrhea. Has c/o abdominal discomfort x2 this shift. Medicated per mar. Ambulates without difficulty. Remains on Neutropenic precautions. VS currently stable. Call light within reach.
[2024-02-05] MEDS: PANTOPRAZOLE 40MG TABLET 40 MG PO (21:12)
--- NOTE | 2024-02-05 21:17 | PC.NURSE ---
SENIOR DESIGN ENGINEERING SPECIALIST GAVE TELEPHONE ORDER TO GET BP Q4H INSTEAD OF Q2H SINCE PT IS WANTING TO REST MORE AND BPS HAVE BEEN STABLE
[2024-02-06] VITALS (8 sets, daily range): BP systolic 109–143; BP diastolic 67–86; PULSE 80–100; RESP 15–30; TEMP 36.6–36.9; O2SAT 95–98; BMI 30.5
[2024-02-06] MEDS: MORPHINE 2MG/ML SYRINGE 2 MG IV (00:19)
[2024-02-06] MEDS: ONDANSETRON 4MG/2ML VIAL 4 MG IV (00:19)
[2024-02-06] MEDS: PIPERCILLIN/TAZO 3.375 GM in 0.9 % SODIUM CHLORIDE 50 ML IV ×4 (05:47→23:26)
[2024-02-06 05:57] LABS: Basophils % 0.5 % (0.1-2.0); Hematocrit 35.1 % (37.0-47.0); Hemoglobin 11.3 g/dL (12.2-16.2); Lymphocytes # 0.5 K/mm3 (0.7-4.5); Lymphocytes % 36.1 % (10-50); Mean Corpuscular HGB Conc 32.1 g/dL (31.8-35.4); Mean Corpuscular Hemoglobin 25.2 pg (27.0-31.2); Mean Corpuscular Volume 78.4 fl (81-99); Mean Platelet Volume 9.9 fl (7.4-10.4); Monocytes # 0.1 K/mm3 (0.1-1.0); Monocytes % 4.3 % (1.7-9.3); Neutrophils # 0.8 K/mm3 (1.8-7.8); Neutrophils % 58.1 % (37.0-80.0); Platelet Count 61 K/mm3 (142-424); Red Blood Count 4.48 M/mm3 (4.20-5.40); Red Cell Distribution Width 21.9 % (11.5-17.5); White Blood Count 1.4 K/mm3 (4.8-10.8)
[2024-02-06 06:05] LABS: Alanine Aminotransferase 150 U/L (12-78); Albumin Level 3.1 g/dl (3.5-5.0); Albumin/Globulin Ratio 1.2 (1.1-1.8); Alkaline Phosphatase 119 U/L (38-126); Anion Gap 12.7 mEq/L (5-15); Aspartate Amino Transferase 41 U/L (14-36); Bilirubin,Total 0.4 mg/dl (0.2-1.3); Blood Urea Nitrogen 13 mg/dl (7-17); Calcium 8.7 mg/dl (8.4-10.2); Carbon Dioxide 20 mmol/L (22.0-30.0); Chloride 106 mmol/L (98-107); Creatinine Clearance Estimated 77 mL/min (50-200); Estimated Glomerular Filt Rate 71 ml/min (>60); GFR (African American) 86 ML/MIN (>60); Globulin 2.6 g/dL (1.3-3.2); Glucose 122 mg/dl (74-100); Sodium 136 mmol/L (136-145); Total Protein,Serum 5.7 g/dl (6.3-8.2)
[2024-02-06 06:11] LABS: Potassium 2.7 mmoL/L (3.5-5.1)
[2024-02-06] MEDS: POTASSIUM CHLORIDE 20MEQ TAB 40 MEQ PO ×3 (08:15→21:21)
[2024-02-06] MEDS: CHOLECALCIFEROL 1,000 UNITS (25MCG) TABLET 25 MCG PO (08:15)
[2024-02-06] MEDS: METOPROLOL TARTRATE 50MG TABLET 50 MG PO ×2 (08:15→21:21)
[2024-02-06] MEDS: FELODIPINE 5 MG 10 MG PO (08:15)
[2024-02-06] MEDS: KCl 10mEq/100ml 100 ML 100 MEQ IV ×4 (08:22→14:37)
[2024-02-06] MEDS: PANTOPRAZOLE 40MG TABLET 40 MG PO (10:53)
[2024-02-06] MEDS: CALCIUM POLYCARBOPHIL 625MG TAB 625 MG PO (10:53)
[2024-02-06] MEDS: LACTATED RINGERS 1000ML 1,000 ML 50 ML IV (11:33)
--- NOTE | 2024-02-06 16:14 | PC.NURSE ---
VS stable, no fevers noted. Lungs sounds clear and patient remained on room air. Potassium replaced iv and oral. IV antibiotics given.
--- NOTE | 2024-02-06 17:12 | EXP.ACUTE.PN ---
Subjective *Date: 02/06/24 *Time: 17:12 Interval history: Patient did well overnight with no further fevers. Has been afebrile for 48 hours. Still awaiting negative cultures for 48 hours. Potassium remains low this morning. Continuing to have loose stools. White cell count improved to 1.4 but still quite low with latrice neutropenia. No vomiting Medical Exam Vital signs and Labs for Last 24 Hours: Vital Signs Temp Pulse Pulse Resp BP Pulse Ox O2 Del Method 02/06/24 16:00 98.0 F 87 30 H 115/79 97 Room Air 02/06/24 15:05 Room Air 02/06/24 13:00 Room Air 02/06/24 12:00 90 02/06/24 12:00 97.8 F 90 24 109/67 L 96 Room Air 02/06/24 12:00 85 22 109/67 L 95 Room Air 02/06/24 11:00 Room Air 02/06/24 10:00 80 22 143/76 H 97 Room Air 02/06/24 09:00 Room Air 02/06/24 08:15 Room Air 02/06/24 08:00 100 H 02/06/24 08:00 98.1 F 02/06/24 08:00 99 H 22 137/83 96 Room Air 02/06/24 06:00 93 H 15 97 Room Air 02/06/24 05:00 Room Air 02/06/24 04:00 91 H 02/06/24 04:00 98.1 F 95 H 20 130/86 97 Nasal Cannula 02/06/24 03:00 Room Air 02/06/24 01:00 Room Air 02/06/24 00:00 89 02/06/24 00:00 98.4 F 95 H 15 135/85 95 02/05/24 23:00 Room Air 02/05/24 21:00 Room Air 02/05/24 20:00 Room Air 02/05/24 20:00 98.9 F 88 23 110/76 96 Room Air 02/05/24 20:00 102 H 02/05/24 18:36 Room Air 02/05/24 18:00 101 H 22 96/65 L 97 Room Air Intake and Output 02/06/24 02/06/24 02/06/24 07:59 15:59 23:59 Intake Total 540 / 540 Output Total 0 / 0 0 / 0 0 / 0 Balance 0 / 540 540 / 540 0 / 540 Intake: Intake, Oral Amount 540 / 540 Output: Output, Urine Amount 0 / 0 0 / 0 0 / 0 Other: Number of Unmeasured Voids 1 1 2 Number of Bowel Movements 1 Weight 91.49 kg Patient Weight 02/06/24 23:59 Weight 91.49 kg Laboratory Results - last 24 hr 02/06/24 05:24: WBC 1.4 L* D, RBC 4.48, Hgb 11.3 L, Hct 35.1 L, MCV 78.4 L, MCH 25.2 L, MCHC 32.1, RDW 21.9 H, Plt Count 61 L D, MPV 9.9, Neut % (Auto) 58.1, Lymph % (Auto) 36.1, [place] % (Auto) 4.3, Eos % (Auto) 1.0, Baso % (Auto) 0.5, Neut # (Auto) 0.8 L*, Lymph # (Auto) 0.5 L, [place] # (Auto) 0.1, Eos # (Auto) 0.0, Baso # (Auto) 0.0, Sodium 136, Potassium 2.7 L*, Chloride 106, Carbon Dioxide 20 L, Anion Gap 12.7, BUN 13, Creatinine 0.80, Estimated Creat Clear 77, Estimated GFR 71, Est GFR ( Amer) 86, Glucose 122 H, Calcium 8.7, Magnesium 2.0, Total Bilirubin 0.4, AST 41 H D, ALT 150 H D, Alkaline Phosphatase 119, Total Protein 5.7 L, Albumin 3.1 L, Globulin 2.6, Albumin/Globulin Ratio 1.2 I & O for Labs for Last 24 Hours: Intake & Output 02/03/24 02/04/24 02/05/24 02/06/24 23:59 23:59 23:59 23:59 Intake Total 270 / 270 1440 / 1440 540 / 540 Output Total 0 / 0 0 / 0 0 / 0 Balance 270 / 270 1440 / 1440 540 / 540 Weight 94.149 kg 93.758 kg 91.49 kg Constitutional: Present no acute distress, obese and chronically ill appearing Head: Present atraumatic and normocephalic ENT: Present normal exam Respiratory: Absent rhonchi, wheezes or crackles Cardiac: Present Reg Rate and Rhythm GI: Present soft and tenderness (Throughout lower abdomen); Absent distention Extremities: Present normal inspection and full ROM; Absent tenderness or edema Skin: Present intact; Absent cyanosis Neuro: Present alert, awake and oriented x 3 Assessment and Plan *Assessment and plan (1) Neutropenic fever: Status: Acute Category: Medical Code(s): D70.9 - Neutropenia, unspecified; R50.81 - Fever presenting with conditions classified elsewhere (2) Transaminitis: Status: Acute Category: Medical Code(s): R74.01 - Elevation of levels of liver transaminase levels (3) Adverse effect of chemotherapy: Status: Acute Category: Medical Code(s): T45.1X5A - Adverse effect of antineoplastic and immunosuppressive drugs, initial encounter (4) Thrombocytopenia: Status: Acute Category: Medical Code(s): D69.6 - Thrombocytopenia, unspecified (5) Hypokalemia: Status: Acute Category: Medical Code(s): E87.6 - Hypokalemia (6) Chemotherapy induced diarrhea: Status: Acute Category: Medical Code(s): K52.1 - Toxic gastroenteritis and colitis; T45.1X5A - Adverse effect of antineoplastic and immunosuppressive drugs, initial encounter (7) Nausea, vomiting and diarrhea: Status: Acute Category: Medical Code(s): R11.2 - Nausea with vomiting, unspecified; R19.7 - Diarrhea, unspecified (8) 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 Patient mentions she has been having lower abdominal pain, persistent Diarrhea, nausea and vomiting. She gets chemotherapy every 2 weeks. She has complaints of subjective fevers, febrile to 102 on arrival. No fever for 48 hours. Continues to be neutropenic. Continues to require inpatient management with IV antibiotics awaiting culture results. Problems addressed as follows: Neutropenic fever Pancytopenia - white cell count low at 1.4, Continue Zosyn 3.375 mg every 6 hours scheduled. Cultures obtained. Negative to date -Repeat CBC, CMP, magnesium ordered for the morning. -hemoglobin of 11.3 and platelets low but improving at 61, No active signs of bleeding Transaminitis -Abdominal pain secondary to her cancer as well as possible mild liver inflammation. Suspect secondary to chemotherapy. Monitoring liver enzymes daily. AST and ALT improving today. Bilirubin 0.4, AST 41, ALT 150. Alk phos 119. -Images of liver showing fatty liver, no biliary dilatation or stones -Holding Crestor Hyponatremia Hypokalemia - Likely due to decreased oral intake -Replace potassium today with 40 mEq orally 3 times a day. Potassium 2.7 on morning labs. Will also administer 40 mEq IV. BMP this afternoon -Repeat CMP and magnesium ordered for the morning. -Sodium normalized to 136, chloride 106. Holding anticoagulation in the setting of thrombocytopenia Neutropenic diet, no daily meets or fresh granda or raw vegetables Full code
[2024-02-06 17:44] LABS: Chloride 108 mmol/L (98-107); Potassium 3.9 mmoL/L (3.5-5.1); Sodium 136 mmol/L (136-145)
[2024-02-06 17:47] LABS: Anion Gap 10.9 mEq/L (5-15); Blood Urea Nitrogen 11 mg/dl (7-17); Carbon Dioxide 21 mmol/L (22.0-30.0); Creatinine Clearance Estimated 77 mL/min (50-200); Estimated Glomerular Filt Rate 71 ml/min (>60); GFR (African American) 86 ML/MIN (>60); Glucose 107 mg/dl (74-100)
[2024-02-06] MEDS: CALCIUM POLYCARBOPHIL 625MG TAB 1250 MG PO (21:21)
[2024-02-07] VITALS: BP 130/79; PULSE 70; PULSE 75; RESP 18; TEMP 37.1; O2SAT 98
[2024-02-07 04:00] VITALS: BP 113/71; PULSE 70; PULSE 77; RESP 22; TEMP 36.8; O2SAT 98; BMI 30.7
[2024-02-07] MEDS: PIPERCILLIN/TAZO 3.375 GM in 0.9 % SODIUM CHLORIDE 50 ML IV ×2 (05:33→11:39)
[2024-02-07 06:23] LABS: Basophils % 1.4 % (0.1-2.0); Eosinophils % 1.6 % (0.1-12.0); Hemoglobin 10.6 g/dL (12.2-16.2); Lymphocytes # 0.9 K/mm3 (0.7-4.5); Lymphocytes % 54.7 % (10-50); Mean Corpuscular HGB Conc 32.1 g/dL (31.8-35.4); Mean Corpuscular Hemoglobin 25.2 pg (27.0-31.2); Mean Corpuscular Volume 78.5 fl (81-99); Mean Platelet Volume 9.9 fl (7.4-10.4); Monocytes # 0.1 K/mm3 (0.1-1.0); Monocytes % 7.8 % (1.7-9.3); Neutrophils # 0.6 K/mm3 (1.8-7.8); Neutrophils % 34.5 % (37.0-80.0); Platelet Count 117 K/mm3 (142-424); Red Blood Count 4.21 M/mm3 (4.20-5.40); White Blood Count 1.6 K/mm3 (4.8-10.8)
[2024-02-07 06:26] LABS: Alanine Aminotransferase 106 U/L (12-78); Albumin Level 2.9 g/dl (3.5-5.0); Albumin/Globulin Ratio 1.1 (1.1-1.8); Alkaline Phosphatase 111 U/L (38-126); Aspartate Amino Transferase 39 U/L (14-36); Bilirubin,Total 0.3 mg/dl (0.2-1.3); Blood Urea Nitrogen 12 mg/dl (7-17); Calcium 8.6 mg/dl (8.4-10.2); Carbon Dioxide 21 mmol/L (22.0-30.0); Chloride 109 mmol/L (98-107); Creatinine Clearance Estimated 77 mL/min (50-200); Estimated Glomerular Filt Rate 83 ml/min (>60); GFR (African American) 100 ML/MIN (>60); Globulin 2.6 g/dL (1.3-3.2); Glucose 95 mg/dl (74-100); Sodium 138 mmol/L (136-145); Total Protein,Serum 5.5 g/dl (6.3-8.2)
[2024-02-07 06:33] LABS: MANUAL DIFFERENTIAL MANUAL DIFFERENTIAL (MANUAL DIFF)
[2024-02-07 07:48] LABS: Hypochromasia 1+; Lymphocytes % 60 % (10-50); Monocytes % 12 % (2-9); Neutrophils % 28 % (42-76); Platelet Estimate Moderate Decrease; Total Cells Counted 25
[2024-02-07] MEDS: POTASSIUM CHLORIDE 20MEQ TAB 40 MEQ PO (07:56)
[2024-02-07] MEDS: METOPROLOL TARTRATE 50MG TABLET 50 MG PO (07:57)
[2024-02-07] MEDS: CALCIUM POLYCARBOPHIL 625MG TAB 1250 MG PO (07:57)
[2024-02-07] MEDS: CHOLECALCIFEROL 1,000 UNITS (25MCG) TABLET 25 MCG PO (07:57)
[2024-02-07] MEDS: PANTOPRAZOLE 40MG TABLET 40 MG PO (07:57)
[2024-02-07] MEDS: FELODIPINE 5 MG 10 MG PO (07:57)
[2024-02-07] MEDS: ACETAMINOPHEN 325MG TAB 650 MG PO (07:58)
[2024-02-07 08:00] VITALS: BP 136/88; PULSE 86; RESP 22; O2SAT 99
[2024-02-07 08:07] VITALS: PULSE 90
--- NOTE | 2024-02-07 10:14 | P.DS_ITS ---
General Admission date:: 02/04/24 Discharge date: 02/07/24 HPI HPI HPI: Patient is a 68-year-old female with past medical history of bladder cancer, hyperlipidemia and hypertension who presents to the hospital from oncology office due to concern for lab abnormalities. Patient mentions she has been having lower abdominal pain, persistent Diarrhea, nausea and vomiting. She gets chemotherapy every 2 weeks. She has complaints of subjective fevers. Otherwise denied chest pain shortness of breath. Hospital Course Hospital Course Hospital Course: Patient is a 68-year-old female with past medical history of bladder cancer, hyperlipidemia and hypertension who presents to the hospital from oncology office due to concern for lab abnormalities. Patient mentions she has been having lower abdominal pain, persistent Diarrhea, nausea and vomiting. She gets chemotherapy every 2 weeks. She has complaints of subjective fevers, febrile to 102 on arrival. No further fevers during admission. Neutropenia slowly improving. Workup negative with negative cultures. Tolerating antibiotics. Hemodynamically stable. Plan for close follow-up with oncology. Problems addressed as follows: Neutropenic fever Pancytopenia -Fever 202 on admission. White cell count was very low at 0.4. Initiated on Zosyn. Cultures obtained. They have been negative at 48 hours. Diarrhea has been her main symptom, slowly improving. Labs showing improvement to white cell count of 1.6 on day of discharge. Platelets have improved to 117. Hemoglobin stable around 10.6-11.3. No active signs of bleeding. Will transition to oral antibiotics with Levaquin to complete 7-day course of antibiotics. Follow-up with oncology within a week. Blood cultures negative at 48 hours, urine culture -48 hours, stool panel negative. Stable to discharge home. Bowel movements decreasing. 3 in the past 24 hours prior to discharge. Transaminitis -Abdominal pain secondary to her cancer as well as possible mild liver inflammation. Suspect secondary to chemotherapy. Monitoring liver enzymes daily. AST and ALT have shown gradual improvement during admission. More or less normalized by day of discharge. Images of liver showing fatty liver, no biliary dilatation or stones -Holding Crestor, resume when liver function normalizes. Hyponatremia Hypokalemia - Likely due to decreased oral intake, improved during admission. Sodium normalized on day of discharge. Potassium improving at 3. Will continue supplementation for the next week. Needs repeat CBC, CMP, magnesium in 3 to 4 days. Outpatient order sent. Of note, magnesium normal at 2.0. Total time spent on discharge 35 minutes in counseling, documentation, chart rev iew, and direct care with patient. Exam Data for Last 24 hours Vital signs and Labs for Last 24 Hours: Temp Pulse Resp BP Pulse Ox O2 Del Method 98.3 F 90 22 136/88 99 Room Air 02/07/24 04:00 02/07/24 08:07 02/07/24 08:00 02/07/24 08:00 02/07/24 08:00 02/07/24 08:33 Laboratory Results - last 24 hr 02/06/24 17:30: Sodium 136, Potassium 3.9 D, Chloride 108 H, Carbon Dioxide 21 L, Anion Gap 10.9, BUN 11, Creatinine 0.80, Estimated Creat Clear 77, Estimated GFR 71, Est GFR ( Amer) 86, Glucose 107 H, Calcium 9.0 02/07/24 05:33: WBC 1.6 L*, RBC 4.21, Hgb 10.6 L, Hct 33.0 L, MCV 78.5 L, MCH 25 .2 L, MCHC 32.1, RDW 22.0 H, Plt Count 117 L D, MPV 9.9, Neut % (Auto) 34.5 L, Lymph % (Auto) 54.7 H, [place] % (Auto) 7.8, Eos % (Auto) 1.6, Baso % (Auto) 1.4, Neut # (Auto) 0.6 L*, Lymph # (Auto) 0.9, [place] # (Auto) 0.1, Eos # (Auto) 0.0, Baso # (Auto) 0.0, Total Counted 25, Neutrophils % (Manual) 28 L, Lymphocytes % (Manual) 60 H, Monocytes % (Manual) 12 H, Platelet Estimate Moderate decrease, Hypochromasia 1+, Sodium 138, Potassium 3.0 L D, Chloride 109 H, Carbon Dioxide 21 L, Anion Gap 11.0, BUN 12, Creatinine 0.70, Estimated Creat Clear 77, Estimated GFR 83, Est GFR ( Amer) 100, Glucose 95, Calcium 8.6, Magnesium 2.0, Total Bilirubin 0.3, AST 39 H, ALT 106 H D, Alkaline Phosphatase 111, Total Protein 5.5 L, Albumin 2.9 L, Globulin 2.6, Albumin/Globulin Ratio 1.1 I & O for Last 24 hours: Intake & Output 02/04/24 02/05/24 02/06/24 02/07/24 23:59 23:59 23:59 23:59 Intake Total 270 / 270 1440 / 1440 810 / 810 550 / 550 Output Total 0 / 0 0 / 0 0 / 0 0 / 0 Balance 270 / 270 1440 / 1440 810 / 810 550 / 550 Weight 94.149 kg 93.758 kg 91.49 kg 92.079 kg Constitutional Constitutional: no acute distress and cooperative *Routine HEENT Exam Head: Present normocephalic Eye: Present EOMI and PERRL ENT: Present mucous membranes moist *Routine Neck Exam Neck: Present supple; Absent lymphadenopathy *Routine Respiratory Exam Respiratory: Present CTA bilaterally *Routine Cardiovascular Exam Cardiovascular: Present RRR *Routine Abdominal Exam Abdominal: Present soft, normoactive bowel sounds and tenderness (minimal) *Routine Rectal Exam Patient deferred: visual exam *Routine Exam Patient deferred: external exam *Routine Extremities Exam Extremities: Absent cyanosis, clubbing or edema *Routine Skin Exam Skin: Present warm; Absent rash *Routine Neurological Exam Neurological: Present alert, oriented X3 and moving all extremities; Absent altered mental status Results Data Completed and Pending Labs on day of discharge: Labs from last 24 hours 02/07/24 02/06/24 05:33 17:30 WBC 1.6 L* RBC 4.21 Hgb 10.6 L Hct 33.0 L MCV 78.5 L MCH 25.2 L MCHC 32.1 RDW 22.0 H Plt Count 117 L D MPV 9.9 Neut % (Auto) 34.5 L Lymph % (Auto) 54.7 H [place] % (Auto) 7.8 Eos % (Auto) 1.6 Baso % (Auto) 1.4 Neut # (Auto) 0.6 L* Lymph # (Auto) 0.9 [place] # (Auto) 0.1 Eos # (Auto) 0.0 Baso # (Auto) 0.0 Total Counted 25 Neutrophils % (Manual) 28 L Lymphocytes % (Manual) 60 H Monocytes % (Manual) 12 H Platelet Estimate Moderate decrease Hypochromasia 1+ Sodium 138 136 Potassium 3.0 L D 3.9 D Chloride 109 H 108 H Carbon Dioxide 21 L 21 L Anion Gap 11.0 10.9 BUN 12 11 Creatinine 0.70 0.80 Estimated Creat Clear 77 77 Estimated GFR 83 71 Est GFR ( Amer) 100 86 Glucose 95 107 H Calcium 8.6 9.0 Magnesium 2.0 Total Bilirubin 0.3 AST 39 H ALT 106 H D Alkaline Phosphatase 111 Total Protein 5.5 L Albumin 2.9 L Globulin 2.6 Albumin/Globulin Ratio 1.1 DS: Diagnosis Discharge Diagnosis (1) Neutropenic fever: Status: Acute Code(s): D70.9 - Neutropenia, unspecified; R50.81 - Fever presenting with conditions classified elsewhere (2) Transaminitis: Status: Acute Code(s): R74.01 - Elevation of levels of liver transaminase levels (3) Adverse effect of chemotherapy: Status: Acute Code(s): T45.1X5A - Adverse effect of antineoplastic and immunosuppressive drugs, initial encounter (4) Thrombocytopenia: Status: Acute Code(s): D69.6 - Thrombocytopenia, unspecified (5) Hypokalemia: Status: Acute Code(s): E87.6 - Hypokalemia (6) Chemotherapy induced diarrhea: Status: Acute Code(s): K52.1 - Toxic gastroenteritis and colitis; T45.1X5A - Adverse effect of antineoplastic and immunosuppressive drugs, initial encounter (7) Nausea, vomiting and diarrhea: Status: Resolved Code(s): R11.2 - Nausea with vomiting, unspecified; R19.7 - Diarrhea, unspecified (8) Class 1 drug-induced obesity with body mass index (BMI) of 31.0 to 31.9 in adult: Status: Acute Code(s): E66.1 - Drug-induced obesity; Z68.31 - Body mass index [BMI] 31.0-31.9, adult (9) Bladder cancer: Status: Acute Code(s): C67.9 - Malignant neoplasm of bladder, unspecified Meds Home Medications and Allergies Home Medications Medication Instructions Recorded Confirmed Type aspirin 81 mg chewable tablet 81 mg PO DAILY 03/19/18 01/29/24 History felodipine 10 mg tablet,extended 10 mg PO DAILY 03/19/18 02/04/24 History release 24 hr hydrochlorothiazide 25 mg tablet 25 mg PO DAILY 03/19/18 02/04/24 History metoprolol tartrate 50 mg tablet 50 mg PO BID 03/19/18 02/04/24 History omeprazole 40 mg capsule,delayed 40 mg PO DAILY 03/19/18 02/04/24 History release rosuvastatin 20 mg tablet (Crestor) 20 mg PO HS 03/19/18 02/04/24 History meloxicam 15 mg tablet 15 mg PO DAILY 01/03/24 02/04/24 History ascorbate calcium (vitamin C) 500 500 mg PO DAILY 01/11/24 02/04/24 History mg tablet ferrous sulfate 325 mg (65 mg 325 mg PO DAILY 01/11/24 01/29/24 History iron) tablet cholecalciferol (vitamin D3) 250 250 mcg PO DAILY 02/04/24 02/04/24 History mcg (10,000 unit) capsule amoxicillin 500 mg-potassium 1 tab PO TID 4 days #10 tabs 02/07/24 Rx clavulanate 125 mg tablet (Augmentin) ondansetron HCl 4 mg tablet 4 mg PO Q8H PRN nausea and 02/07/24 Rx vomiting 5 days #15 tabs potassium chloride 20 mEq 20 meq PO TID 30 days #90 tabs 02/07/24 Rx tablet,extended release(part/cryst) New Prescriptions to Start Prescriptions: amoxicillin-pot clavulanate [Augmentin] Tong Perez ondansetron HCl Tong Perez potassium chloride Tong Perez Allergies Allergy/AdvReac Type Severity Reaction Status Date / Time lisinopril Allergy Verified 01/11/24 10:43 Discharge Plan Disposition Patient Disposition: Home, Self-Care Condition: Good Discharge Order Discharge Orders: Discharge Order (Routine); Ordered 02/07/24 Ordered By: Tong Perez Follow up Plan Follow up with: Jocelyn Kirshnan APRN [Primary Care Provider] - 02/14/24 9:30 am Abhishek Sorenson MD [Staff Physician] - 02/12/24 9:15 am Prescriptions/Medication Reconciliation: New ondansetron HCl 4 mg tablet 4 mg PO Q8H PRN (Reason: nausea and vomiting) 5 Days Qty: 15 0RF amoxicillin-pot clavulanate [Augmentin] 500-125 mg tablet 1 tab PO TID 4 Days Qty: 10 0RF Continued meloxicam 15 mg tablet 15 mg PO DAILY ferrous sulfate 325 mg (65 mg iron) tablet 325 mg PO DAILY ascorbate calcium (vitamin C) 500 mg tablet 500 mg PO DAILY omeprazole 40 mg capsule,delayed release(DR/EC) 40 mg PO DAILY metoprolol tartrate 50 mg tablet 50 mg PO BID felodipine 10 mg tablet extended release 24 hr 10 mg PO DAILY hydrochlorothiazide 25 mg tablet 25 mg PO DAILY aspirin 81 mg tablet,chewable 81 mg PO DAILY cholecalciferol (vitamin D3) 250 mcg (10,000 unit) capsule 250 mcg PO DAILY Patient Comments: TAKE ONE CAPSULE BY MOUTH EVERY DAY Changed potassium chloride 20 mEq tablet,ER particles/crystals 20 meq PO TID 30 Days Qty: 90 0RF Patient Comments: TAKE ONE TABLET BY MOUTH TWICE DAILY Held rosuvastatin [Crestor] 20 mg tablet 20 mg PO HS Hold Instructions: pending follow-up with PCP or Oncology and normalization of liver enzymes Other Ambulatory Orders: Complete Blood Count Auto Diff (Routine) Timeframe: 3 Days Facility: [facility] - Location: Laboratory Ordered By: Tong Perez Comprehensive Metabolic Panel (Routine) Timeframe: 3 Days Facility: [facility] - Location: Laboratory Ordered By: Tong Perez Problem Reconciliation Problems Reviewed?: Yes Patient Discharge Instructions ACTIVITY: Continue current activity DIET: continue same diet Patient Instructions: DI for Sepsis -- Adult, Nausea and Vomiting-Adult, DI for Neutropenic Fever Providers Primary Care Provider: Jocelyn Krishnan Admit Provider: Rama Suarez Attending Provider: Rama Suarez
[2024-02-07 12:00] VITALS: BP 110/62; PULSE 70; RESP 16; TEMP 36.6; O2SAT 97
--- NOTE | 2024-02-08 14:26 | CARE MANAGER ---
Contacted patient related to hospital discharge. She states that she is doing better. She has new medications, is aware of changes to Potassium, and also to hold her Rosuvastatin. She is aware of follow up appointments and reminded her of need to get blood work in 3 days. She denies any questions or concerns. HAL Zaragoza
== END 2024-02-07 13:02 | disposition home or self-care (01) | DRG 394 ==
LOC: ER 14:56 → 2ND 15:04
PROVIDERS: Internal Medicine Adolescent Medicine; Admitting Provider Internal Medicine; Emergency Provider Emergency Medicine; PCP Nurse Practitioner; Visit Provider Internal Medicine
DX: K52.1 Toxic gastroenteritis and colitis (principal); D61.818 Other pancytopenia; E87.1 Hypo-osmolality and hyponatremia; E87.20 Acidosis, unspecified; T45.1X5A Adverse effect of antineoplastic and immunosuppressive drugs, initial encounter; C67.9 Malignant neoplasm of bladder, unspecified; K21.9 Gastro-esophageal reflux disease without esophagitis; E78.5 Hyperlipidemia, unspecified; I10 Essential (primary) hypertension; M19.90 Unspecified osteoarthritis, unspecified site; D69.6 Thrombocytopenia, unspecified; E87.6 Hypokalemia; R74.01 Elevation of levels of liver transaminase levels; E66.1 Drug-induced obesity; Z68.30 Body mass index [BMI] 30.0-30.9, adult
CPT/HCPCS: 36415; 71045; 74177; 76705; 80048; 80053; 80076; 81001; 82140; 83605; 83690; 83735; 85007; 85025; 85610; 87040; 87506; 99291; J2405; J2543; Q9967

== ENCOUNTER 2024-02-11 08:18 | Outpatient (CLI) | payer MEDICARE, SELFPAY ==
[2024-02-11 08:52] LABS: Basophils # 0.1 K/mm3 (0-0.2); Basophils % 2.8 % (0.1-2.0); Eosinophils # 0.1 K/mm3 (0.0-0.4); Eosinophils % 1.1 % (0.1-12.0); Hematocrit 33.7 % (37.0-47.0); Hemoglobin 10.8 g/dL (12.2-16.2); Lymphocytes # 1.4 K/mm3 (0.7-4.5); Mean Corpuscular Hemoglobin 25.3 pg (27.0-31.2); Mean Platelet Volume 8.4 fl (7.4-10.4); Monocytes # 0.3 K/mm3 (0.1-1.0); Monocytes % 6.6 % (1.7-9.3); Neutrophils # 2.6 K/mm3 (1.8-7.8); Neutrophils % 58.5 % (37.0-80.0); Platelet Count 546 K/mm3 (142-424); Red Blood Count 4.27 M/mm3 (4.20-5.40); Red Cell Distribution Width 22.8 % (11.5-17.5); White Blood Count 4.5 K/mm3 (4.8-10.8)
[2024-02-11 10:09] LABS: Chloride 109 mmol/L (98-107); Sodium 138 mmol/L (136-145)
[2024-02-11 10:10] LABS: Potassium 4.3 mmoL/L (3.5-5.1)
[2024-02-11 10:12] LABS: Alanine Aminotransferase 70 U/L (12-78); Albumin Level 3.4 g/dl (3.5-5.0); Albumin/Globulin Ratio 1.4 (1.1-1.8); Alkaline Phosphatase 119 U/L (38-126); Anion Gap 9.3 mEq/L (5-15); Aspartate Amino Transferase 48 U/L (14-36); Bilirubin,Total 0.4 mg/dl (0.2-1.3); Blood Urea Nitrogen 5 mg/dl (7-17); Calcium 8.9 mg/dl (8.4-10.2); Carbon Dioxide 24 mmol/L (22.0-30.0); Estimated Glomerular Filt Rate 122 ml/min (>60); GFR (African American) 148 ML/MIN (>60); Globulin 2.5 g/dL (1.3-3.2); Glucose 136 mg/dl (74-100); Total Protein,Serum 5.9 g/dl (6.3-8.2)
== END 2024-02-11 23:59 | disposition home or self-care (01) ==
LOC: LAB 08:20
PROVIDERS: PCP Nurse Practitioner; Visit Provider Internal Medicine Adolescent Medicine
DX: D70.9 Neutropenia, unspecified (principal); R50.81 Fever presenting with conditions classified elsewhere; E87.6 Hypokalemia
CPT/HCPCS: 36415; 80053; 85025

== ENCOUNTER 2024-02-12 09:56 | Outpatient (CLI) | payer MEDICARE, SELFPAY ==
[2024-02-12 10:01] VITALS: BMI 31.7
[2024-02-12 10:34] LABS: Iron 48 ug/dL (37-170)
[2024-02-12 10:44] LABS: Total Iron Binding Capacity 235 ug/dL (265-497)
[2024-02-12 11:12] LABS: Ferritin 51.8 ng/ml (11.1-264)
== END 2024-02-12 10:27 | disposition home or self-care (01) ==
LOC: INF 09:57
PROVIDERS: PCP Nurse Practitioner; Visit Provider Internal Medicine Medical Oncology
DX: C67.9 Malignant neoplasm of bladder, unspecified (principal); E61.1 Iron deficiency
CPT/HCPCS: 36415; 82728; 83540; 83550

== ENCOUNTER 2024-05-06 07:23 | Outpatient (CLI) | payer MEDICARE, SELFPAY ==
--- NOTE | 2024-05-06 07:33 | CT_ITS ---
FINAL REPORT CLINICAL HISTORY: BLADDER CANCER COMPARISON: 02/02/2024 FINDINGS: CT OF THE ABDOMEN AND PELVIS WITH CONTRAST Axial CT images of the abdomen and pelvis were obtained after the administration of oral and iv contrast. Coronal reformatted images were also obtained and reviewed.This study was performed with techniques to keep radiation doses as low as reasonably achievable (ALARA). Individualized dose reduction techniques using automated exposure control or adjustment of mA and/or kV according to the patient's size were employed. Abdomen: There is diffuse fatty infiltration of the liver. No hepatic masses are seen. The spleen is normal in size. No adrenal mass is present. There has been interval improvement in the peripancreatic stranding consistent with improved pancreatitis. There are several bilateral renal cysts measuring up to 27 mm. In addition, there are bilateral less than 10 mm fat attenuation renal masses consistent with small angiomyolipomas. There is a nonobstructing stone in the lower pole of the left kidney measuring 10 mm which is stable. The aorta is normal in caliber. There are several borderline sized retroperitoneal nodes which are stable. Pelvis: The appendix is not identified but there are no secondary signs of appendicitis. There has been interval improvement in the right lateral bladder wall thickening with mild persistent right lateral bladder wall thickening noted. There are postoperative changes in the pelvis including from hysterectomy. There is no evidence of bowel obstruction. There are several borderline size inguinal nodes which are stable. There are several small sclerotic foci in the right pelvis which are stable and favored to represent bone islands. No new bony abnormality identified. IMPRESSION: Improved right bladder wall thickening may represent improved neoplastic involvement. No new mass or adenopathy identified. Improved pancreatitis. Nonobstructing left renal stone. Reviewed, Interpreted and Dictated by Bon Abreu III, MD Transcribed by Mary Becerril Authenticated and [facility]
--- NOTE | 2024-05-06 07:33 | CT_ITS ---
FINAL REPORT CLINICAL HISTORY: bladder cancer COMPARISON: 01/10/2024 FINDINGS: Axial CT images of the chest were obtained with contrast. Coronal reformatted images were also obtained. This study was performed with techniques to keep radiation doses as low as reasonably achievable, (ALARA). Individualized dose reduction techniques using automated exposure control or adjustment of mA and/or KV according to the patient's size were employed. There is mild mediastinal adenopathy. The lateral AP window node measures 26 mm and is stable. Other nodes are also visually stable. There are borderline bilateral hilar lymph nodes. No axillary mass or adenopathy is identified. On lung window images, no pulmonary mass or dominant pulmonary nodule is identified. There is a calcified granuloma in the right upper lobe. There is mild atelectasis at the lung bases. There is no acute chest wall abnormality. There are moderate degenerative changes in the thoracic spine. IMPRESSION: Stable mediastinal adenopathy. Reviewed, Interpreted and Dictated by Bon Abreu III, MD Transcribed by Mary Becerril Authenticated and [facility]
[2024-05-06 08:07] LABS: Blood Urea Nitrogen 18 mg/dl (7-17); Estimated Glomerular Filt Rate 83 ml/min (>60); GFR (African American) 100 ML/MIN (>60)
[2024-05-06] MEDS: IOPAMIDOL-370 (76%);100ML BOTTLE 75 ML IV (08:51)
[2024-05-06] MEDS: SODIUM CHLORIDE 0.9% 10ML SYR (RAD ONLY) 10 ML IV (08:51)
== END 2024-05-06 23:59 | disposition home or self-care (01) ==
LOC: RAD 07:24
PROVIDERS: PCP Nurse Practitioner; Visit Provider Internal Medicine Medical Oncology
DX: C67.9 Malignant neoplasm of bladder, unspecified (principal)
CPT/HCPCS: 36415; 71260; 74177; 82565; 84520; Q9967

== ENCOUNTER 2024-08-08 16:54 | Emergency (ER) | payer MEDICARE, SELFPAY ==
[2024-08-08] VITALS (13 sets, daily range): BP systolic 75–115; BP diastolic 48–71; PULSE 97–127; RESP 16–32; TEMP 37.2; O2SAT 94–100; BMI 27.6
--- NOTE | 2024-08-08 17:03 | CT_ITS ---
PROCEDURE INFORMATION: Exam: CTA Abdomen and Pelvis With Contrast Exam date and time: 08/08/2024 6:51 PM Age: 69 years old Clinical indication: Abdominal pain; Other: Diffuse; Additional info: Severe diffuse abd pain out of proportion TECHNIQUE: Imaging protocol: Computed tomographic angiography of the abdomen and pelvis with contrast. Exam focused on the arteries. 3D rendering (Not supervised by radiologist): MIP and/or 3D reconstructed images were created by the technologist. Radiation optimization: All CT scans at this facility use at least one of these dose optimization techniques: automated exposure control; mA and/or kV adjustment per patient size (includes targeted exams where dose is matched to clinical indication); or iterative reconstruction. Contrast material: ISOVUE; Contrast volume: 70 ml; Contrast route: INTRAVENOUS (IV); COMPARISON: CT ABDOMEN PELVIS W CON 05/06/2024 8:38 AM FINDINGS: Tubes, catheters and devices: Percutaneous gastrostomy tube in place. Aorta: No aortic aneurysm. No aortic dissection. Celiac trunk and mesenteric arteries: No occlusion or significant stenosis. Renal arteries: No occlusion or significant stenosis. Right iliac arteries: No occlusion or significant stenosis. Left iliac arteries: No occlusion or significant stenosis. Veins: IVC filter appears to be in good position. Liver: Liver is diffusely fatty. No focal hepatic abnormality. Gallbladder and biliary ducts: Unremarkable. No calcified stones. No ductal dilation. Pancreas: Unremarkable. No mass. No ductal dilation. Spleen: Spleen appears normal in size. Mild heterogeneous density within the posterior portion of the spleen suspected to be due to early phase of contrast. Adrenal glands: Unremarkable. No mass. Kidneys and ureters: Moderate bilateral hydronephrosis. Single moderate-sized calyceal stone in the lower left kidney measuring 10 mm in diameter. Kidneys otherwise unremarkable. 2.6 cm simple appearing cortical cyst noted in the left kidney. Stomach and bowel: Urinary diversion ileostomy present in the right lower quadrant. Left lower quadrant small bowel ostomy in place. Bowel loops are normal in caliber. No evidence of obstruction. Appendix: No evidence of appendicitis. Intraperitoneal space: Unremarkable. No free air. No significant fluid collection. Lymph nodes: Unremarkable. No enlarged lymph nodes. Urinary bladder: Urinary bladder is surgically absent. Reproductive: Uterus is surgically absent. No adnexal abnormality. Bones/joints: Moderate degenerative disc changes of the lumbar spine. Facet arthropathy at L4-L5 with grade 1 anterolisthesis of L4. No vertebral body compression or acute fracture. Soft tissues: Unremarkable. IMPRESSION: 1. 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 Mild left nephrolithiasis also noted. 2. Fatty liver COMMENTS: For patients with an IVC filter, recommend assessment for a management plan for the patient's IVC filter. If there is no established management plan, recommend referral to an interventional clinician on a nonemergent basis for evaluation.
--- NOTE | 2024-08-08 17:04 | CT_ITS ---
PROCEDURE INFORMATION: Exam: CTA Chest With Contrast Exam date and time: 08/08/2024 6:51 PM Age: 69 years old Clinical indication: Cough; Additional info: Cough, history of pe, hypoxemia TECHNIQUE: Imaging protocol: Computed tomographic angiography of the chest with contrast. Exam focused on the arteries. 3D rendering (Not supervised by radiologist): MIP and/or 3D reconstructed images were created by the technologist. Radiation optimization: All CT scans at this facility use at least one of these dose optimization techniques: automated exposure control; mA and/or kV adjustment per patient size (includes targeted exams where dose is matched to clinical indication); or iterative reconstruction. Contrast material: ISOVUE; Contrast volume: 70 ml; Contrast route: INTRAVENOUS (IV); COMPARISON: CT CHEST W CON 05/06/2024 8:38 AM FINDINGS: Pulmonary arteries: Moderate-sized filling defect compatible with pulmonary embolus at the bifurcation of the left main pulmonary artery extending into left upper and lower lobar branches. Scattered filling defects compatible with pulmonary emboli within segmental and subsegmental pulmonary artery branches in the right upper and lower lung lobes. Aorta: Unremarkable. No aortic aneurysm. No aortic dissection. Lungs: Subsegmental atelectasis or scarring noted in the lingula. Moderate airspace disease noted in the dependent portions of the bilateral lower lung lobes. Lungs are otherwise clear. Pleural spaces: Unremarkable. No pneumothorax. No pleural effusion. Heart: Unremarkable. No cardiomegaly. No pericardial effusion. Heart RV/LV ratio: RV/LV ratio is 1.3 Lymph nodes: Unremarkable. No enlarged lymph nodes. Kidneys: Partially visualized hydronephrosis of the left kidney. Bones/joints: Moderate degenerative disc changes throughout the thoracic spine. No vertebral body compression or acute fracture. Soft tissues: Unremarkable. IMPRESSION: 1. Moderate-sized pulmonary embolus in the left main pulmonary artery as well as multiple small pulmonary emboli in the right upper and lower lobes. 2. Elevated RV/LV ratio compatible with an element of right heart strain 3. Moderate bilateral lower lobe infiltrates
--- NOTE | 2024-08-08 17:09 | PC.NURSE ---
RT AWARE OF VBG
[2024-08-08] MEDS: 0.9 % SODIUM CHLORIDE 1000ML 2,000 ML 1000 ML IV (17:10)
--- NOTE | 2024-08-08 17:14 | ECG_ITS ---
APPROVED REPORT Exam: Resting ECG HR:126 bpm ECG Measurements Heart Rate 126 AXES VT 167 P 64 QRSd 89 QRS -53 QT 309 T 77 QTc 383 Conclusion SINUS TACHYCARDIA POSSIBLE ANTERIOR MYOCARDIAL INFARCTION , OF INDETERMINATE AGE [30 ms Q WAVE IN V3/V4, OR R < 0.2 mV IN V4] INFERIOR MYOCARDIAL INFARCTION , OF INDETERMINATE AGE [40+ ms Q WAVE AND/OR ST/T ABNORMALITY IN II/aVF] Electronically signed by : YANN BEARD, 08/09/2024 15:04:40
[2024-08-08 17:17] LABS: VBG Base Excess 2.9 mmol/L (-2.4-2.3); VBG HCO3 27.5 mmol/L (23-30); VBG Oxygen Saturation 64.5 % (50-70); VBG PCO2 44.5 mmol/L (35-51); VBG PH 7.41 mmol/L (7.31-7.41); VBG PO2 36.9 mmol/L (28-40); VBG Total CO2 28.9 mmol/L (23-27)
[2024-08-08 17:20] LABS: Basophils # 0.1 K/mm3 (0-0.2); Basophils % 0.4 % (0.1-2.0); Eosinophils # 0.1 K/mm3 (0.0-0.4); Eosinophils % 0.2 % (0.1-12.0); Hematocrit 35.6 % (37.0-47.0); Hemoglobin 11.9 g/dL (12.2-16.2); Lymphocytes # 0.5 K/mm3 (0.7-4.5); Lymphocytes % 1.5 % (10-50); Mean Corpuscular HGB Conc 33.4 g/dL (31.8-35.4); Mean Corpuscular Hemoglobin 27.2 pg (27.0-31.2); Mean Corpuscular Volume 81.5 fl (81-99); Mean Platelet Volume 7.7 fl (7.4-10.4); Monocytes # 0.5 K/mm3 (0.1-1.0); Monocytes % 1.5 % (1.7-9.3); Neutrophils # 29.7 K/mm3 (1.8-7.8); Neutrophils % 96.3 % (37.0-80.0); Platelet Count 747 K/mm3 (142-424); Red Blood Count 4.37 M/mm3 (4.20-5.40); Red Cell Distribution Width 18.1 % (11.5-17.5); White Blood Count 30.8 K/mm3 (4.8-10.8)
[2024-08-08 17:20] LABS: Lactate Venous 5.4 mmol/L (0.4-2.0)
--- NOTE | 2024-08-08 17:21 | PC.NURSE ---
RESP CALLED WITH CRITICAL RESULT LACTIC 5.4. DR BEARD NOTIFIED. NO NEW ORDERS.
--- NOTE | 2024-08-08 17:25 | PC.NURSE ---
LAB CALLED WITH CRITICAL RESULT WBC 30.8. DR BEARD NOTIFIED. NO NEW ORDERS.
[2024-08-08 17:27] LABS: MANUAL DIFFERENTIAL MANUAL DIFFERENTIAL (MANUAL DIFF)
[2024-08-08] MEDS: AMPICILLIN/SULBACTAM 3 GM in 0.9 % SODIUM CHLORIDE 100 ML IV (17:29)
[2024-08-08] MEDS: HYDROMORPHONE 2MG/ML SYRINGE 0.5 MG IV (17:29)
--- NOTE | 2024-08-08 17:32 | ED_ITS ---
Discharge Plan Disposition Patient Disposition: Xfer Short-Term Hosp Chief Complaint: Abdominal Pain Prescriptions Prescriptions: No Action meloxicam 15 mg tablet 15 mg PO DAILY ferrous sulfate 325 mg (65 mg iron) tablet 325 mg PO DAILY omeprazole 40 mg capsule,delayed release(DR/EC) 40 mg PO DAILY metoprolol tartrate 50 mg tablet 50 mg PO BID felodipine 10 mg tablet extended release 24 hr 10 mg PO DAILY hydrochlorothiazide 25 mg tablet 25 mg PO DAILY rosuvastatin [Crestor] 20 mg tablet 20 mg PO HS cholecalciferol (vitamin D3) 250 mcg (10,000 unit) capsule 250 mcg PO DAILY Patient Comments: TAKE ONE CAPSULE BY MOUTH EVERY DAY potassium chloride 20 mEq tablet,ER particles/crystals 20 meq PO TID 30 Days Qty: 90 0RF Patient Comments: TAKE ONE TABLET BY MOUTH TWICE DAILY Referrals Follow up/Referrals: Hermes Sorensen MD [Primary Care Provider] - See instructions Clinical Impressions Clinical Impression: Obstructive cardiovascular shock, Acute massive pulmonary embolism, Sepsis, ANDRES (acute kidney injury) Stand Alone Forms Stand Alone Forms: Transfer Record - ED Instructions Patient Instructions: DI for Acute Abdominal Pain Print Language Print Language: Italian Discharge ED Provider: Delvis Forbes General Adult HPI General Chief complaint: Abdominal Pain Stated complaint: Nauseas with vomiting, diaphoretic Time Seen by Provider: 08/08/24 17:01 Mode of Arrival: EMS Source of Information: Patient and EMS Limitations: No Limitations Description of Symptoms (Recalled from ER Triage Doc. by RN): [facility] FROM [facility] FOR ABDOMINAL PAIN FOR THE LAST FEW DAYS, PT STATES IT IS INTERMITTENT AND RATES IT 8/10, ALSO REPORTS N/V, PT DOES HAVE AN ILEOSTOMY AND UROSTOMY, REPORTS ACHING AND SWEATING, DENIES DIARRHEA, PT ALSO HAS A PEG TUBE, HX BLADDER CANCER IN THE PAST AND HX OF RECCURRENT BOWEL OBSTRUCTIONS WITH A LOT OF SCAR TISSUE REASONING FOR ILEOSTOMY AND UROSTOMY, HASN'T BEEN ABLE TO COMPLETE AN TOLERATE TUBE FEEDINGS THE LAST FEW DAYS, FSBS 181 VIA EMS History of Present Illness HPI narrative: Please note that above description of symptoms, in this electronic medical record under categorization of recalled from ER triage doctor by RN are reflective of an initial nursing assessment, however, is not reflective of my full history and physical exam that was personally taken and clarified. Consequentially, this preceding description of symptoms, which may include the patient's categorized chief complaint in the EMR, do not reflect my personal clinical impression, and the ultimate description of history of present illness and patient stated complaints should be deferred to this section of the note. Unless stated otherwise or congruent with this section of the note, additional signs, symptoms, or incongruence should be interpreted as inaccurate with my clinical impression. Related Data Home Medications ?Medication ?Instructions ?Recorded ?Confirmed felodipine 10 mg tablet,extended 10 mg PO DAILY 03/19/18 08/05/24 release 24 hr hydrochlorothiazide 25 mg tablet 25 mg PO DAILY 03/19/18 08/05/24 metoprolol tartrate 50 mg tablet 50 mg PO BID 03/19/18 08/05/24 omeprazole 40 mg capsule,delayed 40 mg PO DAILY 03/19/18 08/05/24 release rosuvastatin 20 mg tablet (Crestor) 20 mg PO HS 03/19/18 08/05/24 meloxicam 15 mg tablet 15 mg PO DAILY 01/03/24 08/05/24 ferrous sulfate 325 mg (65 mg 325 mg PO DAILY 01/11/24 08/05/24 iron) tablet cholecalciferol (vitamin D3) 250 250 mcg PO DAILY 02/04/24 08/05/24 mcg (10,000 unit) capsule Previous Rx's ?Medication ?Instructions ?Recorded potassium chloride 20 mEq 20 meq PO TID 30 days #90 tabs 02/07/24 tablet,extended release(part/cryst) Allergies Allergy/AdvReac Type Severity Reaction Status Date / Time lisinopril Allergy Verified 08/05/24 10:49 [facility] Disclaimer: The information contained in this section may have been updated after the patient was seen, as this information can be updated by other users. Medical History Arthritis Sinus headache History of gastroesophageal reflux (GERD) History of cataract Allergies Hyperlipidemia Hypertension Surgical History Hx of oophorectomy History of partial hysterectomy H/O eye surgery hole in retina Family History Grandfather Heart attack Grandmother Heart attack Social History (Reviewed 08/05/24 @ 10:50 by AIRAM Wu Smoking Status: Never smoker alcohol intake: never substance use type: denies use current occupational status: retired Travel in the last 8 weeks: None Other Medical History Have you received the Flu Vaccine for this season: No Have you received the Pneumonia Vaccine: Yes ROS Obtained: Yes All systems reviewed & no additional complaints except as documented Physical Exam General General appearance: alert, obese and other (Acutely on chronically ill- appearing) Head Head exam: atraumatic and normocephalic Eye Eye exam: Present normal appearance, PERRL and EOMI Neck Neck exam: Present normal inspection, full ROM and trachea midline Respiratory Respiratory exam: Present normal lung sounds bilaterally; Absent respiratory distress, wheezes, stridor, accessory muscle use or prolonged expiratory phase Cardiovascular Cardiovascular exam: Present normal rhythm, tachycardia and other (Pulses equal symmetric in upper and lower extremities) Abdominal Exam Abdominal exam: Present soft, tenderness, guarding, incision (Well-healing midline incision) and other (Urostomy in place right side of abdomen with normal output. Ileostomy in place left side of abdomen with minimal output. Patient states that it has not been changed since yesterday and has probably less than 30 mL); Absent distention, rebound, rigidity or pulsatile mass Extremities Exam Extremities exam: Absent edema Neurological Exam Neurological exam: Present alert, oriented X3 and CN II-XII intact; Absent motor sensory deficit Skin Skin exam: Present warm and diaphoresis; Absent erythema Medical Decision Making Medical Records Medical records reviewed: Yes I reviewed the patient's medical records. Screening: Per USPSTF and CDC recommendations, given the prevalence of disease in our region, it is our hospital?s policy to screen for HIV and viral Hepatitis for all patients aged 18 and over and those with ongoing risk factors. Klever Inquiry Pt receiving controlled substance: No Klever was queried for this patient: No Vital Signs: 08/08/24 16:54 08/08/24 16:57 08/08/24 17:00 Temperature 99.0 F Temperature Source Axillary Pulse Rate 126 H 127 H Pulse Rate [Left Radial] 126 H Respiratory Rate 24 26 H 30 H Blood Pressure 97/71 L 91/58 L Blood Pressure [Right Arm] 97/71 L Blood Pressure Mean 78 69 Blood Pressure Mean [Right Arm] 79 Blood Pressure Source [Right Arm] Automatic Cuff Blood Pressure Position [Right Arm] Sitting 02 Sat by Pulse Oximetry 94 L 96 95 Oxygen Delivery Method Room Air Oxygen Flow Rate (LPM) 08/08/24 17:15 08/08/24 17:24 08/08/24 17:30 Temperature Temperature Source Pulse Rate 117 H 120 H 111 H Pulse Rate [Left Radial] Respiratory Rate 30 H 32 H 18 Blood Pressure 91/60 L 92/62 L 85/60 L Blood Pressure [Right Arm] Blood Pressure Mean 65 70 Blood Pressure Mean [Right Arm] Blood Pressure Source [Right Arm] Blood Pressure Position [Right Arm] 02 Sat by Pulse Oximetry 95 94 L 99 Oxygen Delivery Method Nasal Cannula Oxygen Flow Rate (LPM) 2 08/08/24 17:45 08/08/24 18:00 08/08/24 18:15 Temperature Temperature Source Pulse Rate 108 H 100 H 100 H Pulse Rate [Left Radial] Respiratory Rate 20 17 16 Blood Pressure 88/57 L 80/50 L 84/51 L Blood Pressure [Right Arm] Blood Pressure Mean 54 58 Blood Pressure Mean [Right Arm] Blood Pressure Source [Right Arm] Blood Pressure Position [Right Arm] 02 Sat by Pulse Oximetry 99 99 98 Oxygen Delivery Method Nasal Cannula Oxygen Flow Rate (LPM) 2 08/08/24 18:30 08/08/24 18:39 08/08/24 19:00 Temperature Temperature Source Pulse Rate 98 H 97 H 102 H Pulse Rate [Left Radial] Respiratory Rate 16 18 18 Blood Pressure 75/48 L 92/55 L 115/67 Blood Pressure [Right Arm] Blood Pressure Mean 53 65 78 Blood Pressure Mean [Right Arm] Blood Pressure Source [Right Arm] Blood Pressure Position [Right Arm] 02 Sat by Pulse Oximetry 98 97 95 Oxygen Delivery Method Oxygen Flow Rate (LPM) Lab Data Lab Results 08/08/24 17:03: WBC 30.8 H*, RBC 4.37, Hgb 11.9 L, Hct 35.6 L, MCV 81.5, MCH 27.2, MCHC 33.4, RDW 18.1 H, Plt Count 747 H, MPV 7.7, Neut % (Auto) 96.3 H, L ymph % (Auto) 1.5 L, [place] % (Auto) 1.5 L, Eos % (Auto) 0.2, Baso % (Auto) 0.4, N eut # (Auto) 29.7 H, Lymph # (Auto) 0.5 L, [place] # (Auto) 0.5, Eos # (Auto) 0.1, Baso # (Auto) 0.1, Total Counted 100, Neutrophils % (Manual) 96 H, Lymphocytes % (Manual) 2 L, Monocytes % (Manual) 2, Platelet Estimate Moderate increase, Microcytosis 2+, PT 11.0, INR 0.98, APTT 26.1 08/08/24 17:03: APTT 24.2 L, Sodium 123 L, Potassium 4.8, Chloride 80 L, Carbon Dioxide 25, Anion Gap 22.8 H, BUN 77 H, Creatinine 2.20 H, Estimated Creat Clear 31, Estimated GFR 22 L, Est GFR ( Amer) 27 L, Glucose 197 H, Lactate 3.9 H, Calcium 9.7, Total Bilirubin 1.2, AST 106 H, ALT 149 H, Alkaline Phosphatase 811 H, Troponin I 0.08 H, NT-Pro-B Natriuret Pep 5090 H, Total Protein 9.2 H D, Albumin 4.3, Globulin 4.9 H, Albumin/Globulin Ratio 0.9 L, Lipase 218 08/08/24 17:04: VBG pH 7.41, VBG pCO2 44.5, VBG pO2 36.9, VBG HCO3 27.5, VBG Total CO2 28.9 H, VBG O2 Saturation 64.5, VBG Base Excess 2.9 H, VBG Lactic Acid 5.4 H 08/08/24 17:15: Blood Type A Positive, Antibody Screen Negative 08/08/24 17:03 08/08/24 17:03 Orders (Tests/Meds): ED MEDICATIONS Generic Name Dose Route Start Last Admin Trade Name Kazq PRN Reason Stop Dose Admin Heparin Sodium (Porcine) 5,000 unit 08/08/24 19:09 08/08/24 19:12 Heparin Sodium 5,000 Unit/Ml Vial IV 08/08/24 19:10 5,000 unit ONCE ONE Administration Norepinephrine/Dextrose 8 mg in 250 mls @ 3.75 mls/hr 08/08/24 18:38 Norepinephrine 8mg/250ml-D5w Premix IV 09/07/24 18:37 .Q24H ABELARDO Protocol 2 MCG/MIN Heparin Sodium/Dextrose 500 mls @ 30 mls/hr 08/08/24 21:00 08/08/24 20:19 Heparin 25,000 Units In D5w 500ml Premix IV 09/07/24 20:59 30 mls/hr .[id number] ABELARDO Administration 1,500 UNITS/HR Miscellaneous 1 each 08/08/24 19:15 Heparin Drip Consult NOTAPPLIC 09/07/24 19:14 CONSULT PHARMACY ABELARDO Discontinued Medications Generic Name Dose Route Start Last Admin Trade Name Fredavid PRN Reason Stop Dose Admin Alteplase, Recombinant 100 mg 08/08/24 19:30 Alteplase Recombinant 100mg Vial IV 08/08/24 19:31 ONCE ONE Hydromorphone HCl 0.5 mg 08/08/24 17:26 08/08/24 17:29 Hydromorphone 2mg/Ml Syringe IV 08/08/24 17:27 0.5 mg ONCE ONE Administration Sodium Chloride 2,000 mls @ 1,000 mls/hr 08/08/24 17:01 08/08/24 17:10 Sod Chlor 0.9% 1000ml Bag IV 08/08/24 19:00 1,000 mls/hr .Q2H ONE Administration Ampicillin Sodium/Sulbactam 100 mls @ 200 mls/hr 08/08/24 17:20 08/08/24 17:29 Sodium 3 gm/ Sodium Chloride IV 08/08/24 17:21 200 mls/hr ONCE ONE Administration Iopamidol 70 ml 08/08/24 18:51 08/08/24 18:52 Iopamidol-370 (76%);100ml Bottle IV 08/08/24 18:52 70 ml ONCE ONE Administration Sodium Chloride 10 ml 08/08/24 18:51 08/08/24 18:52 Sodium Chloride 0.9% 10ml Syr (Rad Only) IV 08/08/24 18:52 10 ml ONCE ONE Administration Sodium Chloride 50 ml 08/08/24 18:51 08/08/24 18:52 0.9 % Sodium Chloride 50 Ml Vial IV 08/08/24 18:52 50 ml ONCE ONE Administration ORDERS Category Date Time Status Type and Screen Stat BBK 08/08/24 17:[address] angio abdomen pelvis Stat Cat Scan 08/08/24 17:[address] angio chest PE protocol Stat Cat Scan 08/08/24 17:04 Completed Complete Blood Count Auto Diff Stat Lab 08/08/24 17:03 Completed Comprehensive Metabolic Panel Stat Lab 08/08/24 17:03 Completed HIV (1&2) Antibody Rapid Stat Lab 08/08/24 17:04 Received Hep C Ab with Reflex to RNA Stat Lab 08/08/24 17:04 Received Lactic Acid Stat Lab 08/08/24 17:03 Completed Lipase Stat Lab 08/08/24 17:03 Completed NT Pro Brain Natriuretic Pep. Stat Lab 08/08/24 17:03 Completed PT INR [Prothrombin Time INR] Stat Lab 08/08/24 17:03 Completed PTT Heparin (inpatient only) Stat Lab 08/08/24 17:03 Completed PTT [Activated Partial Thrombo Time] Stat Lab 08/08/24 17:03 Completed Troponin I Q3H Lab 08/08/24 20:15 Ordered Troponin I Q3H Lab 08/08/24 23:15 Ordered Troponin I Stat Lab 08/08/24 17:03 Completed Blood Culture Stat Micro 08/08/24 17:04 Received Venous Blood Gas Stat RT 08/08/24 17:04 Completed Medical Decision Narrative: This is an incredibly ill-appearing 69-year-old female presenting with abdominal pain and decreased ability to tolerate feeds. Patient at [facility]. 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 Patient states that she has had crescendo abdominal pain for the last 3 to 4 days. Per residential facility, they have attempted multiple times to feed patient via feeding tube, patient intolerant of the feeds and continues vomiting, so finally called EMS to have her brought to the emergency department for further evaluation. Patient states that she is having diffuse, severe abdominal pain that is across her lower abdomen, does not radiate. Has never had pain like this in the past. Feels as if she has been febrile breaking out in sweats, no objective temperatures that were febrile have been measured. States that her ileostomy has not been changed in about 48 hours, currently has about 30 mL of output. Also states that she has had intermittent cough, nonproductive of sputum. No chest pain, shortness of breath, bloody or bilious vomit, bloody ostomy output, or any other concerns. History obtained the patient, outside facility review, EMS. On arrival, patient appears very very ill. She is tachycardic, hypotensive, tachypneic. She is afebrile, but she is 94% on 2 L nasal cannula which she does not typically wear at home. Lung sounds are actually clear bilaterally, no murmurs gallops rubs on cardiac exam. Pulses equal and symmetric in upper and lower extremities, minimal lower extremity edema, nonpitting. Abdomen is soft, but diffusely tender. No evidence of rebound or rigidity, but patient does appear to be guarding involuntarily. Midline surgical incision appears to be very well-healing. She has not urostomy in the right side of the abdomen, ileostomy and left side the abdomen, G-tube in the upper abdomen, no obvious abnormalities here, patient does have minimal ileostomy output. Differential includes sepsis, SBO, colitis, diverticulitis, nephrolithiasis, UTI, , cholecystitis, choledocholithiasis, appendicitis, hepatitis, torsion, aortic pathology, mesenteric ischemia among others. Patient placed on vehicle monitor technician and continuous pulse oximetry with initial blood pressure 88/57, pulse rate 108 and 94% on room air. 99% on 2 L nasal cannula. Tachypnea improved from around 30 breaths/min to around 22 with oxygen as well. EKG independently interpreted and patient has sinus tachycardia 126 bpm with MI depression in 2, 3, aVF as well as nonspecific T wave inversions in aVL. No evidence of acute occlusive NM. MI 167, QRS 89, QTc 383 patient given empiric sepsis bolus, empiric Unasyn as well as 0.5 mg Dilaudid. Independent interpretation of workup demonstrates leukocytosis of nearly 31,000 with neutrophilia. Patient's coags are normal. VBG with normal pH/CO2/O2/bicarb, however lactate 5.4. Regarding chemistry, hyponatremia 123 and hypochloremia. Anion gap of nearly 23. BUN 77 and creatinine 2.2 in the setting of ANDRES with normal baseline kidney function. LFTs all elevated with the exception of bilirubin: AST 106, ALT 149, alkaline phosphatase 811. Initial troponin elevated 0.08 and BNP elevated at over 5000. CT imaging was ordered, on independent interpretation this demonstrates massive PE with primarily left pulmonary artery involvement, also other scattered PEs. No intra-abdominal abnormality acutely. Because patient keeps having intermittent hypotensive pressures 70s over 40s, bouncing around and intermittently having pressures 120s over 70s with right heart strain 1.3-1 RV to LV ratio, massive PE, hypotension, candidate for thrombolytics. Conversation regarding risks and benefits were had with patient and family at bedside, after shared decision making, both opted for administration of thrombolytics. tPA mixed after consultation with pharmacy. [facility] was contacted and interactive discussion had with critical care physician on. Dr. Rodriguez recommended thrombolytics followed by heparin drip and transfer. Prior to this, 3 ultrasound-guided IVs were placed. tPA administered, heparin drip started. Patient flown to [facility] for further definitive management. Volunteer Services Director disclaimer Much of this encounter note is an electronic visitor service assistant spoken language to printed text. Electronic visitor service assistant of the spoken language may permit errors. Although I have reviewed the note, some errors may still exist. Procedures Limited Ultrasound Indication:: Ultrasound-guided line placement Indication: -Difficult access and need for multiple medications Identified structures: -Bilateral radial, ulnar, basilic and cephalic veins Location/access site: -Right basilic vein Vessel patency: -Patent Direct visualization? -Yes Impression: Successful placement Images were saved to permanent archive The study was technically adequate CPT Codes: Venipuncture: 03464-74 Age <3 yo: 63037-79 Age >3yo: 87884-49 Central line <5 yo: 85783-12 Central line >5 yo: 86301-28 This study was performed by me, and I personally interpreted all images/videos. Based on my clinical judgement, these images were adequate adequate and did not require further imaging Views:: Ultrasound-guided line placement Indication: -Difficult access and need for multiple medications Identified structures: -Bilateral radial, ulnar, basilic and cephalic veins Location/access site: -Right antecubital fossa vein distal to right cephalic vein Vessel patency: -Patent Direct visualization? -Yes Impression: Successful placement Images were saved to permanent archive The study was technically adequate CPT Codes: Venipuncture: 09850-73 Age <3 yo: 22366-50 Age >3yo: 58092-45 Central line <5 yo: 31845-05 Central line >5 yo: 04892-82 This study was performed by me, and I personally interpreted all images/videos. Based on my clinical judgement, these images were adequate adequate and did not require further imaging Findings:: Ultrasound-guided line placement Indication: -Difficult access and need for multiple medications Identified structures: -Bilateral radial, ulnar, basilic and cephalic veins Location/access site: -Left basilic vein Vessel patency: -Patent Direct visualization? -Yes Impression: Successful placement Images were saved to permanent archive The study was technically adequate CPT Codes: Venipuncture: 15887-84 Age <3 yo: 05067-62 Age >3yo: 72319-15 Central line <5 yo: 29059-25 Central line >5 yo: 14573-36 This study was performed by me, and I personally interpreted all images/videos. Based on my clinical judgement, these images were adequate adequate and did not require further imaging Critical Care Critical Care Time Critical Care Time: Yes (Hematology, cardiopulmonary) Attestation: On 08/08/24, the high probability of a clinically significant, sudden or life threatening deterioration of the following system(s) required my full and direct attention, intervention and personal management. The time I documented below is in addition to time spent performing reported procedures but includes the following listed in this critical care notation. Total Time Total Critical Care Time: 60
[2024-08-08 17:33] LABS: Albumin Level 4.3 g/dl (3.5-5.0); Chloride 80 mmol/L (98-107); Sodium 123 mmol/L (136-145)
[2024-08-08 17:34] LABS: Activated Partial Thrombo Time 26.1 seconds (22.8-30.6); INR 0.98 (0.9-1.1); Potassium 4.8 mmoL/L (3.5-5.1)
[2024-08-08 17:36] LABS: Alanine Aminotransferase 149 U/L (12-78); Albumin/Globulin Ratio 0.9 (1.1-1.8); Alkaline Phosphatase 811 U/L (38-126); Anion Gap 22.8 mEq/L (5-15); Aspartate Amino Transferase 106 U/L (14-36); Bilirubin,Total 1.2 mg/dl (0.2-1.3); Blood Urea Nitrogen 77 mg/dl (7-17); Calcium 9.7 mg/dl (8.4-10.2); Carbon Dioxide 25 mmol/L (22.0-30.0); Creatinine Clearance Estimated 31 mL/min (50-200); Estimated Glomerular Filt Rate 22 ml/min (>60); GFR (African American) 27 ML/MIN (>60); Globulin 4.9 g/dL (1.3-3.2); Glucose 197 mg/dl (74-100); Lipase 218 U/L (23-300); Total Protein,Serum 9.2 g/dl (6.3-8.2)
[2024-08-08 17:39] LABS: Lactic Acid 3.9 mmol/L (0.7-2.1)
[2024-08-08 17:48] LABS: Troponin I 0.08 ng/ml (0.00-0.034)
[2024-08-08 18:00] LABS: NT Pro Brain Natriuretic Pep. 5090 pg/mL (0-125)
[2024-08-08 18:36] LABS: Lymphocytes % 2 % (10-50); Monocytes % 2 % (2-9); Neutrophils % 96 % (42-76); Platelet Estimate Moderate Increase; Total Cells Counted 100
[2024-08-08 18:37] LABS: Microcytosis 2+
[2024-08-08] MEDS: 0.9 % SODIUM CHLORIDE 50 ML VIAL IV (18:52)
[2024-08-08] MEDS: IOPAMIDOL-370 (76%);100ML BOTTLE 70 ML IV (18:52)
[2024-08-08] MEDS: SODIUM CHLORIDE 0.9% 10ML SYR (RAD ONLY) 10 ML IV (18:52)
--- NOTE | 2024-08-08 18:59 | PC.NURSE ---
PT RETURNED FROM RADIOLOGY
--- NOTE | 2024-08-08 19:01 | PC.NURSE ---
BP NOTED AT 115/67 ONCE PT RETURNED FROM CT. HOLD LEVO PER .
[2024-08-08] MEDS: HEPARIN SODIUM 5,000 UNIT/ML VIAL 5000 UNIT IV (19:12)
--- NOTE | 2024-08-08 19:13 | PC.NURSE ---
DR BEARD IS SPEAKING TO DR ZHENG AT THIS TIME
--- NOTE | 2024-08-08 19:19 | PC.NURSE ---
I spoke with Jeffrey ROSEN consulting a dose for a thrombolytic for PE. Jeffrey is going to put in the order fot TPA
[2024-08-08 19:26] LABS: PTT Heparin (inpatient only) 24.2 Seconds (50-75)
--- NOTE | 2024-08-08 19:33 | PC.NURSE ---
[facility] AWARE OF POSSIBLE TRANSFER TO [facility]. CHECKING AIR AND WILL GET BACK WITH US
--- NOTE | 2024-08-08 20:04 | PC.NURSE ---
Called [facility] at 19:50. ETA 36 minutes
--- NOTE | 2024-08-08 20:06 | PC.NURSE ---
spoke with [facility] reports [facility] is now coming to get pt, and will be approx 30min ETA. MD Forbes at bedside getting 2nd USG IV before admin of TPA
--- NOTE | 2024-08-08 20:17 | PC.NURSE ---
attempted to call report to [facility], states they will call me back
[2024-08-08] MEDS: HEPARIN 25,000 UNITS/D5W 500 ML 30 UNIT IV (20:19)
[2024-08-08] MEDS: ALTEPLASE RECOMBINANT 100MG VIAL 100 MG IV (20:25)
--- NOTE | 2024-08-08 20:34 | PC.NURSE ---
called report to Clive HONG at [facility] ICU
[2024-08-08 21:19] LABS: Reflex Lactic Add Lactic Reflex
[2024-08-08 21:48] LABS: HIV (1&2) Antibody Rapid NONREACTIVE (NONREACTIVE)
[2024-08-09 05:13] LABS: HCV Ab Non Reactive (Non Reactive)
--- NOTE | 2024-08-09 05:15 | PC.NURSE ---
Addendum entered by Tiffanie Brown RN 08/09/24 05:21: 0- pt neurologically intact, A&OX4, PERRLA, social service manager strength equal. 2054 - no changes. 2102- pt DC with air methods, no change in neuro status Original Note: TPA started 08/08/23 @2024. Pt neurologically intact. 2039- Pt neurologically intact, A&OX 4,.
--- NOTE | 2024-08-12 08:11 | PC.NURSE ---
BLOOD CULTURE RESULTS FAXED TO EDWARDO AT [facility], [place]. [phone]
== END 2024-08-08 21:03 | disposition short-term general hospital (02) ==
PROVIDERS: Emergency Provider Emergency Medicine; PCP Family Medicine
DX: A41.9 Sepsis, unspecified organism (principal); I26.99 Other pulmonary embolism without acute cor pulmonale; R57.8 Other shock; R10.9 Unspecified abdominal pain; R11.2 Nausea with vomiting, unspecified; R61 Generalized hyperhidrosis; N17.9 Acute kidney failure, unspecified
CPT/HCPCS: 71275; 74174; 80053; 82803; 83605; 83690; 83880; 84484; 85007; 85025; 85027; 85610; 85730; 86803; 86850; 87040; 87186; 87389; 93005; 96361; 96374; 96375; 99291; J0295; J1171; J1644; J2997; J7030; Q9967

== ENCOUNTER 2024-12-17 13:45 | Outpatient (CLI) | payer MEDICARE, SELFPAY ==
[2024-12-17 14:36] LABS: Basophils % 0.4 % (0.1-2.0); Eosinophils # 0.1 K/mm3 (0.0-0.4); Eosinophils % 1.9 % (0.1-12.0); Hematocrit 39.1 % (37.0-47.0); Hemoglobin 12.7 g/dL (12.2-16.2); Lymphocytes % 14.2 % (10-50); Mean Corpuscular HGB Conc 32.5 g/dL (31.8-35.4); Mean Corpuscular Hemoglobin 28.3 pg (27.0-31.2); Mean Corpuscular Volume 87.1 fl (81-99); Mean Platelet Volume 10.9 fl (7.4-10.4); Monocytes # 0.4 K/mm3 (0.1-1.0); Monocytes % 5.2 % (1.7-9.3); Neutrophils # 5.2 K/mm3 (1.8-7.8); Neutrophils % 77.7 % (37.0-80.0); Platelet Count 274 K/mm3 (142-424); Red Blood Count 4.49 M/mm3 (4.20-5.40); Red Cell Distribution Width 15.3 % (11.5-17.5); White Blood Count 6.7 K/mm3 (4.8-10.8)
[2024-12-17 14:56] LABS: Albumin Level 4.8 g/dl (3.5-5.0); Chloride 108 mmol/L (98-107); Potassium 4.2 mmoL/L (3.5-5.1); Sodium 137 mmol/L (136-145)
[2024-12-17 14:59] LABS: Alanine Aminotransferase 80 U/L (12-78); Albumin/Globulin Ratio 1.8 (1.1-1.8); Alkaline Phosphatase 177 U/L (38-126); Anion Gap 18.2 mEq/L (5-15); Aspartate Amino Transferase 88 U/L (14-36); Bilirubin,Total 0.8 mg/dl (0.2-1.3); Blood Urea Nitrogen 17 mg/dl (7-17); Carbon Dioxide 15 mmol/L (22.0-30.0); Estimated Glomerular Filt Rate 40 ml/min (>60); GFR (African American) 49 ML/MIN (>60); Globulin 2.7 g/dL (1.3-3.2); Total Protein,Serum 7.5 g/dl (6.3-8.2)
[2024-12-17 15:00] LABS: Glucose 128 mg/dl (74-100)
== END 2024-12-17 23:59 | disposition home or self-care (01) ==
LOC: LAB 13:47
PROVIDERS: PCP Nurse Practitioner; Visit Provider Internal Medicine Medical Oncology
DX: C67.9 Malignant neoplasm of bladder, unspecified (principal)
CPT/HCPCS: 36415; 80053; 85025

== ENCOUNTER 2024-12-26 14:38 | Outpatient (CLI) | payer MEDICARE, SELFPAY ==
--- NOTE | 2024-12-26 14:45 | CT_ITS ---
FINAL REPORT TECHNIQUE: Axial images were obtained through the chest without contrast. CLINICAL HISTORY: Bladder Cancer COMPARISON: 05/06/2024 and CTA 08/08/2024 FINDINGS: There are few small scattered mediastinal lymph nodes which appear calcified, particularly in the right paratracheal, precarinal, and right hilar regions. These are stable compared to the prior study. The heart size is normal. There is no pericardial or pleural effusion. There is a calcified granuloma in the right upper lobe. Scarring is noted in the lingula. There is a small nodule in the right middle lobe measuring 5 mm well seen on image 44 series 4 which is unchanged. IMPRESSION: Calcified residual old granulomatous disease. Stable right middle lobe nodule. Reviewed, Interpreted and Dictated by Miko Mejía MD Transcribed by Mary Becerril Authenticated and [facility]
--- NOTE | 2024-12-26 14:45 | CT_ITS ---
FINAL REPORT TECHNIQUE: Axial images through the abdomen and pelvis were performed without contrast. This study was performed with techniques to keep radiation doses as low as reasonably achievable, (ALARA). Individualized dose reduction techniques using automated exposure control or adjustment of mA and/or kV according to the patient's size were employed. CLINICAL HISTORY: Bladder Cancer COMPARISON: 05/06/2024 FINDINGS: Abdomen: There is diffuse fatty infiltration of the liver. The gallbladder is present. Calcified granulomas are seen in the spleen. The liver measures up to 21 cm in craniocaudal dimension. The spleen measures up to 11 cm in craniocaudal dimension. The pancreas and adrenal glands are unremarkable. There is a multitude of nonobstructing stones in the left collecting system, largest measuring up to 12 mm in the lower pole. There is moderate left hydronephrosis and hydroureter. The hydroureter extends to the level of the loop ileostomy. An IVC filter is present. Pelvis: There are changes from interval cystectomy and ileostomy. Two new ostomies are present with an ostomy in the right and left anterior pelvic perdomo. There are extensive postsurgical changes in the anterior pelvis. The superior rectum appears oversewn. IMPRESSION: Fatty liver with hepatomegaly. Nonobstructing stone lower pole left kidney. Left hydronephrosis and hydroureter to the level of loop ileostomy could be due to reflux or stricture. Extensive interval postoperative change of the pelvis with creation of left and right anterior abdominal wall ostomies. Reviewed, Interpreted and Dictated by Miko Mejía MD Transcribed by Mary Becerril Authenticated and [facility]
== END 2024-12-26 23:59 | disposition home or self-care (01) ==
LOC: RAD 14:38
PROVIDERS: PCP Nurse Practitioner; Visit Provider Internal Medicine Medical Oncology
DX: C67.9 Malignant neoplasm of bladder, unspecified (principal)
CPT/HCPCS: 71250; 74176

== ENCOUNTER 2025-03-31 10:55 | Outpatient (CLI) | payer MEDICARE, SELFPAY ==
--- OUTSIDE RECORDS SUMMARY | 2025-03-31 10:58 | XMS_ITS | Clinical Summary ---
Author Organization [employer] ([place], [place], [place], [place]) Address [address] [place] [address] Care Team Providers Care Degreaser Name Role Phone Unavailable Primary Care Provider Unavailabl e Social History Tobacco Use Types Packs/Day Years Used Date Smoking Tobacco: Never Assessed Food Insecurity Answer Date Recorded Food run out past 12 months Not on file 12/30 Food did not last past 12 months Not on file 01/16/2024 Employment Answer Date Recorded Help finding and keeping a job Not on file 0 01/16/2024 Family and Community Support Answer Sachin e Recorded Help with Day to Day Activities Not on file 01/16/2024 Feeling Lonely or Isolated Not on file 01/15 Educational Attainment Answer Date Kiran rded Speak language other than Montenegrin at home Not on file 01/16/2024 Want help with school or training Not on file 01/16/2024 Substance Use Answer Date Recorded Used prescription meds for non-medical reasons N ot on file 01/16/2024 Used illegal drugs past 12 months Not on file 01/16/2024 Comments Unknown Sex and Gender Information Value Date Recorded Sex Assigned at Not on file Legal Sex Female 7:47 PM CDT Gender Identity Not on file Sexual Orientation Not on file Plan of Treatment Health Maintenance Due Date Last Done Comments CT Colonography 1954 Colonoscopy 1954 Colorectal Cancer Screening 1954 DXA SCAN 1954 FOBT/FIT 1954 Fit-DNA (Cologuard) 1954 Sigmoidoscopy 1954 Depression Screening (12+) 1966 Tobacco Cessation Counseling and Screening (12+) 1966 Hepatitis C Screening 1972 DTAP/TDAP/TD VACCINES (1 - Tdap) 1973 Breast Cancer Screening 1994 Shingles Vaccine (Zoster) (1 of 2) 2004 Pneumococcal 50+ years (2 of 2 - PCV) 01/24/2018 COVID-19 VACCINE ( - season) 2024 Falls Risk Screening 10/01/2024 Influenza Vaccine (Season Ended) 2025 07/16/20 18, 07/24/2017 Respiratory Syncytial Virus (RSV) Adult or (1 - 1-dose 75+ series) 2029
--- OUTSIDE RECORDS SUMMARY | 2025-03-31 10:58 | XMS_ITS | Referral Summary ---
Author Organization [employer] ([place], [place], [place], [place]) Address [address] [place] [address] Care Team Providers Care Cloud Solutions Architect Name Role Phone Unavailable Primary Care Provider [...] Date Kiran rded Speak language other than Austrian at home Not on file 01/16/2024 Want [...] Orientation Not on file Plan of Treatment Not on file
--- OUTSIDE RECORDS SUMMARY | 2025-03-31 10:58 | XMS_ITS | Clinical Summary ---
Author Organization [facility] Address [address] [place] [address] Phone Care Team Providers Care Bagger Meat Name Role Phone Unavailable Unavailable Conditions or Problems No information available. Medications No information available. Medications Administered No information available. Allergies, Adverse Reactions, Alerts No information available. Results No information available. Plan of Care No information available. Procedures No information available. Vital Signs No information available. Immunizations No information available. Advance Directives No information available.
[2025-03-31 11:17] LABS: Hematocrit 38.8 % (37.0-47.0); Hemoglobin 12.3 g/dL (12.2-16.2); Immature Granulocytes % 0.5 %; Mean Corpuscular HGB Conc 31.7 g/dL (31.8-35.4); Mean Corpuscular Hemoglobin 28.6 pg (27.0-31.2); Mean Corpuscular Volume 90.2 fl (81-99); Nucleated Red Blood Cells % 0 %; Platelet Count 286 K/mm3 (142-424); Red Blood Count 4.30 M/mm3 (4.20-5.40); Red Cell Distribution Width-SD 47.3 fL; White Blood Count 7.7 K/mm3 (4.8-10.8)
--- OUTSIDE RECORDS SUMMARY | 2025-03-31 11:58 | XMS_ITS | CCD ---
Author Organization Unknown Care Team Providers Care Nitriles Lab Technician Name Role Phone Non Engaged, [facility] Primary Care Provider Unav ailable Unavailable Chronic Care Management Unavaila ble Summary Purpose DataExchange Insurance Providers Payer name Policy type / Coverage type Covered alliance party ID Effective Begin Date Effective End Date [facility] [id number] Unknown Unknown Family History Family History data not found Medication Administered No Medication Administered data Reason For Visit No Reason For Visit data Medical Equipment No Medical Equipment data Advance Directives No Advance Directive data
--- OUTSIDE RECORDS SUMMARY | 2025-03-31 11:58 | XMS_ITS | CCD ---
Author Organization Unknown Care Team Providers Care Manager Talent Acquisition Name Role Phone Non Engaged, [facility] Primary Care Provider Unav ailable Unavailable Chronic Care Management Unavaila ble Summary Purpose DataExchange Insurance Providers Payer name Policy type / Coverage type Covered constitution party ID Effective Begin Date Effective End Date [facility] [id number] Unknown Unknown Family History Family History data not found Medication Administered No Medication Administered data Reason For Visit No Reason For Visit data Medical Equipment No Medical Equipment data Advance Directives No Advance Directive data
[2025-03-31 12:20] LABS: Alanine Aminotransferase 65 U/L (12-78); Albumin Level 4.6 g/dl (3.5-5.0); Albumin/Globulin Ratio 1.4 (1.1-1.8); Alkaline Phosphatase 157 U/L (38-126); Anion Gap 19.9 mEq/L (5-15); Aspartate Amino Transferase 67 U/L (14-36); Bilirubin,Total 0.8 mg/dl (0.2-1.3); Blood Urea Nitrogen 19 mg/dl (7-17); Calcium 10.2 mg/dl (8.4-10.2); Carbon Dioxide 12 mmol/L (22.0-30.0); Chloride 109 mmol/L (98-107); Creatinine,Serum 1.40 mg/dl (0.52-1.04); Estimated Glomerular Filt Rate 37 ml/min (>60); GFR (African American) 45 ML/MIN (>60); Globulin 3.2 g/dL (1.3-3.2); Glucose 137 mg/dl (74-100); Potassium 3.9 mmoL/L (3.5-5.1); Sodium 137 mmol/L (136-145); Total Protein,Serum 7.8 g/dl (6.3-8.2)
== END 2025-03-31 23:59 | disposition home or self-care (01) ==
LOC: LAB 10:56
PROVIDERS: PCP Nurse Practitioner; Visit Provider Internal Medicine Medical Oncology
DX: C67.9 Malignant neoplasm of bladder, unspecified (principal)
CPT/HCPCS: 36415; 80053; 85025

== ENCOUNTER 2025-07-03 06:54 | Outpatient (CLI) | payer MEDICARE, SELFPAY ==
--- OUTSIDE RECORDS SUMMARY | 2025-05-20 13:15 | XMS_ITS | Encounter Summary ---
Author Organization [facility] Address [address] [id number] Care Team Providers Care Patient Financial Representative Name Role Phone Pcp, No Primary Care Provider Unavailabl e Reason for Visit * Consultation (Routine) - Closed Specialty Diagnoses / Procedures Referred By Contac t Referred To Contact Cardiology Diagnoses Presence of IVC filter History of pulmonary embolism History of DVT (deep vein thrombosis) Abhishek Gamino MD [address] [facility] [address] [place] [address] Phone: tel: fax: Scott Bustamante MD [address] [place] [address] Phone: tel: fax: Referral ID Status Reason Start Date Expiration Date V isits Requested Visits Authorized [id number] Closed Specialty Services Required 04/21/2025 10/21/2026 1 1 Encounter Details Date Type Department Care Team (Late st Contact Info) Description 05/20/2025 1:15 PM EDT Office Visit [facility] [place] [facility] [address] [facility] [place] [address] Scott Bustamante MD [address] [place] [address] Presence of IVC filter (Primary [...] Notes * Progress Notes - Tiffanie Nunez, GRANITE POLISHER MACHINE - 05/20/2025 1:15 PM EDT Images from the original note were not included. Cardiology Consult Date of Visit 05/20/25 Referring Provider Abhishek Gamino MD History of Present Illness Today, Dr. Scott Bustamante and I saw Sherry Owen, a 70 y.o. female at [facility] [place] for consultation regarding IVC filter removal at [...] 1. Presence of IVC filter Case Request Concrete Mason: Vena Cava Filter Removal - Concrete Mason IMPRESSION and PLAN: # IVC Filter -Outside [...] scheduled accordingly. -Continue follow up with referring Event Staff Member FOLLOW UP: as needed A total time [...] contact us with any questions. Tiffanie Nunez, GRANITE POLISHER MACHINE [1] No past surgical history on file. [...] 07/17/2025 7:30 AM EDT Hospital Encounter Cardiac Concrete Mason [address] [place] [phone] Scott Bustamante MD [address] [place] [phone] Presence of IVC filter 07/17/2025 7:30 AM EDT - 07/17/2025 9:00 AM EDT Surgery Cardiac Concrete Mason [address] [place] [phone] Scott Bustamante MD [address] [place] [phone] Vena Cava Filter Removal - Concrete Mason [[id number] (CPT )] documented as of this encounter [...] documented as of this encounter Care Teams Patient Financial Representative Relationship Specialty Start Date End Date Pcp, [place] [address] PCP - General Family Medicine 05/20/25 documented as of this encounter
--- OUTSIDE RECORDS SUMMARY | 2025-07-03 06:57 | XMS_ITS | Clinical Summary ---
Author Organization [facility] Address [address] [place] [address] Phone Care Team Providers Care Supervisor Telephone Information Name Role Phone Unavailable Unavailable Conditions or Problems No information available. Medications No information available. Medications Administered No information available. Allergies, Adverse Reactions, Alerts No information available. Results No information available. Plan of Care No information available. Procedures No information available. Vital Signs No information available. Immunizations No information available. Advance Directives No information available.
--- OUTSIDE RECORDS SUMMARY | 2025-07-03 06:57 | XMS_ITS | Clinical Summary ---
Author Organization [facility] Address [address] [place] [address] Care Team Providers Care Copy Manager Name Role Phone Pcp, No Primary Care Provider Unavailabl e Allergies Active Allergy Reactions Criticality Noted Date Comments Lisinopril Hives,Swelling High 05/21/2024 SWELLING AROUND THE EYES NO BREATHING PROBLEMS Medications acetaminophen (Tylenol Extra Strength) 500 MG tablet Take 1 capsule by mouth. Active ALPRAZolam (Xanax) 0.25 MG tablet TAKE ONE TABLET BY MOUTH TWICE DAILY MAY CAUSE DROWSINESS Active Eliquis 5 MG tablet take one tablet by mouth twice daily as directed Active busPIRone (Buspar) 10 MG tablet Take 1 tablet by mouth 2 times a day. Active escitalopram (Lexapro) 10 MG tablet Take 1 tablet by mouth 1 time each day. 4 Active folic acid (Folvite) 1 MG tablet Take 1 tablet by mouth 1 time each day. 4 Active omeprazole (PriLOSEC) [address] capsule Take 1 capsule by mouth daily. Active QUEtiapine (SEROquel) 25 MG tablet Take 1 tablet by mouth 1 time each day. 4 Active sodium bicarbonate 650 MG tablet Take 1 tablet by mouth every 8 hours. 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 [place] [address] Scott Bustamante MD Presence of IVC filter (Primary Dx) 05/20/2025 Travel 05/18/2025 Telephone Count includes the [facility] [place] [address] [address] [place] [phone] Scott Bustamante MD [facility] Clinical Concern/Question 04/21/2025 Orders Only [facility] [address] [place] [id number] Linda Chopra RN Presence of IVC filter (Primary Dx); History of pulmonary embolism; History of DVT (deep vein thrombosis) from Last 3 Months Immunizations Immunization Administration Dates Next Due Influenza Vaccine, Quadrivalent, Adjuvanted 07/02 Influenza, High-dose, Split Virus, Trivalent, Injectable, preservative free 07/24/2019 Influenza, high-dose, quadrivalent 07/25/2023 Influenza, injectable, quadrivalent 07/16/2018,1 Pneumococcal Conjugate PCV 13 03/17/2020 Pneumococcal Polysaccharide PPV23 01/24/2017 Tdap 05/16/2022 Zoster, Recombinant 10/18/2020 Social History Tobacco Use Types Packs/Day Years [...] on file Sexual Orientation Not on file Last Filed Vital Signs Vital Sign Reading [...] Mass Index 30 05/20/2025 1:26 PM EDT Plan of Treatment Upcoming Encounters Date Type Department Care Team (Latest Contact Info) Description 07/17/2025 7:30 AM EDT Hospital Encounter [facility] [address] [place] [address] Scott Bustamante MD [address] [place] [address] Presence of IVC filter 07/17/2025 7:30 AM EDT - 07/17/2025 9:00 AM EDT Surgery [facility] [address] [place] [address] Scott Bustamante MD [address] [place] [address] Vena 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 )] Health Maintenance Due Date Last Done Comments [facility]-Bone Density Scan 1954 [facility]-Hepatitis C Screening 1954 [facility]-Medicare Annual Wellness (AWV) 1954 [facility]-Infant/Child/Adol SDOH Screenings 1954 [facility]- SDOH Screenings 1972 [facility]-Adult SDOH Screenings 1972 CT Colonography 1999 Colonoscopy 1999 FIT-DNA 1999 FIT 1999 FOBT 1999 Sigmoidoscopy 1999 [facility]-Colorectal Cancer Screening 1999 [facility]-Breast Cancer Screening 2004 [facility]-Zoster Vaccines (2 of 2) 12/13/2020 10/18/2020 [facility]-Pneumococcal Vaccine: 50+ Years (3 of 3 - PCV20 or PCV21) 03/17/2025 03/17/2020, 01/24/2017 [id number] Vaccine ( season) 2025 07/27/2023, 08/30/2022, 04/19/2022, Additional history exists [facility]-Influenza Vaccine (#1) 06/01/202507/25, 07/22/2021, 07/24/2019, Additional history exists [facility]-Diabetes: Hemoglobin A1C 08/08/2025 08/08/2024, 05/21/2024 [facility]-Depression Screening 05/20/2026 05/20/2025, 05/02 [facility]-RSV Vaccine: 60+ Years or (1 - 1-dose 75+ series) 2029 [facility]-DTaP,Tdap,and Td Vaccines (2 - Td or Tdap) 05/16/2032 05/16/2022 [facility]-Obesity Intervention Completed 05/20/2025 HPV Vaccines Aged Out No longer eligi ble based on patient's age to complete this topic [facility]-HIB Vaccines Aged Out No longer e ligible based on patient's age to complete this topic [facility]-Hepatitis A Vaccines Aged Out No longer eligible based on patient's age to complete this topic [facility]-IPV Vaccines Aged Out No longer e ligible based on patient's age to complete this topic [facility]-Rotavirus Vaccines Aged Out No lo nger eligible based on patient's age to complete this topic Insurance [facility] MEDICARE Care Teams Copy Manager Relationship Specialty Start Date End Date Pcp, [place] [address] PCP - General Family Medicine 05/20/25
--- OUTSIDE RECORDS SUMMARY | 2025-07-03 06:57 | XMS_ITS | Clinical Summary ---
[facility] Address [address] [place] [address] Care Team Providers Care Nutrition Technician Name Role Phone Arslan Sorensen MD Primary Care Provider [phone] Allergies Active Allergy Reactions Criticality Noted Date Comments Lisinopril Hives,Swelling Medium 05/21/2024 SWELLING AROUND THE EYES NO BREATHING PROBLEMS Medications omeprazole (priLOSEC) 40 MG capsule Take 1 capsule by mouth Daily. Active escitalopram (LEXAPRO) 10 MG tablet Take 1 tablet by mouth Daily. 4 Active apixaban (ELIQUIS) 5 MG tablet tabletIndication s:DVT/PE (active thrombosis) 1 tablet by Per PEG Tube route Every 12 (Twelve) Hours. Indications: DVT/PE (active thrombosis) 4 Active Additional Information Patient taking differently:5 mgOralEvery 12 Hours Scheduled, Indications: DVT/PE (active thrombosis), Reported on 04/14/2025 busPIRone (BUSPAR) 10 MG tablet Take 1 tablet by mouth 3 (Three) Times a Day. 4 Active Additional Information Patient taking differently:10 mg Oral2 Times Daily, Reported on 04/14/2025 folic acid (FOLVITE) 1 MG tablet Take 1 tablet by mouth Daily. 4 Active QUEtiapine (SEROquel) 25 MG tablet Take 1 tablet by mouth Every Night. 4 Active sodium bicarbonate 650 MG tablet Take 2 tablets by mouth 3 (Three) Times a Day. 4 Active Acetaminophen (TYLENOL EXTRA STRENGTH PO) Take 1 capsule by mouth Every 6 (Six) Hours As Needed. Active ALPRAZolam (XANAX) 0.25 MG tablet Take 1 tablet by mouth 2 (Two) Times a Day As Needed. Active Active Problems Problem Noted Date Diagnosed Date Abdominal pain 08/26/2024 Lobar pneumonia 08/26/2024 Sepsis, resolved 08/26/2024 Pulmonary embolus 08/08/2024 History of LLE deep vein thr ombosis (DVT) & L main PA PE (06/26/24) 08/08/2024 Anxiety and depression 07/09/2024 S/P percutaneous endoscopic gastrostomy (PEG) tube placement, 07/03/2024 07/09/2024 Severe malnutrition 07/05/2024 Acute DVT (deep venous thrombosis) 06/28/2024 Overview (06/28/2024): Venous duplex (06/27/2024): Acute right lower extremity deep vein thrombosis noted in the common femoral. Acute left lower extremity deep vein thrombosis noted in the external iliac, proximal femoral, mid femoral, distal femoral, popliteal, posterial tibial and peroneal. 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 Currently has an IVC filter in place. Previous echo showed no signs of right heart strain. Still is very short of breath with activity. Sinus tachycardia on ECG but reports that rates normally jump at doctor's office. Reports readings less than 100 at home. Clinical exam is relatively normal with no signs of heart failure. Ordering a CT PE scan to evaluate for any residual thrombus burden Ordering echo to evaluate right sided structures and RVSP to exclude pulmonary hypertension Recommended that she discuss with Dr. Sorenson regarding hypercoagulable workup versus duration of anticoagulation. Will forward our note for his review After the above has been completed, will need to decide on when her IVC filter can be safely retrieved Continue Eliquis until seen by hematology Orders: CT Angiogram Chest Pulmonary Embolism; Future Adult Transthoracic Echo Complete W/ Cont if Necessary Per Protocol; Future ECG 12 Lead Assessment & Plan (12/02/2024 5:32 PM EST): Patient has IVC filter. No significant swelling or edema on exam today. We did discuss potentially retrieving this but patient is a bit exhausted from her prolonged hospitalization last year and would like to hold off for now. Will continue anticoagulation as above and discuss filter retrieval at a later point in time Acute pulmonary embolism without acute cor pulmo nale 06/28/2024 Overview (06/28/2024): CT angiogram of the chest (06/26/2024):Large embolus within the left main pulmonary artery extending into left lower lung segmental and segment but no arteries with additional embolus in a right upper lung pulmonary artery. No evidence for right heart strain. Echo (06/27/2024): LVEF 63%. Grade 1 diastolic dysfunction. No significant valvular abnormality. 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 Currently has an IVC filter in place. Previous echo showed no signs of right heart strain. Still is very short of breath with activity. Sinus tachycardia on ECG but reports that rates normally jump at doctor's office. Reports readings less than 100 at home. Clinical exam is relatively normal with no signs of heart failure. Ordering a CT PE scan to evaluate for any residual thrombus burden Ordering echo to evaluate right sided structures and RVSP to exclude pulmonary hypertension Recommended that she discuss with Dr. Sorenson regarding hypercoagulable workup versus duration of anticoagulation. Will forward our note for his review After the above has been completed, will need to decide on when her IVC filter can be safely retrieved Continue Eliquis until seen by hematology Orders: CT Angiogram Chest Pulmonary Embolism; Future Adult Transthoracic Echo Complete W/ Cont if Necessary Per Protocol; Future ECG 12 Lead Assessment & Plan (12/02/2024 5:32 PM EST): Pulmonary embolism and DVTs likely provoked in the setting of malignancy and postoperative state. She is status post IVC filter since June. Apparently this is retrievable. Doing well on Eliquis without any bleeding complications. Most recent echo in August 24 showed normal EF and normal RVSP. No signs of right heart strain. Shock is probably septic Sinus tachycardia on ECG today but patient reports that she is anxious about being here. Exam was quite normal with no signs of heart failure or volume overload. Will continue Eliquis for at least total of 6 months Patient is going to see Dr. Sorenson, her oncologist, later this week. I advised that she discuss possible hypercoagulable testing with him and discuss duration of anticoagulation. Any recommendations or input are appreciated. Orders: ECG 12 Lead Chronic deep vein thrombosis (DVT) of left upper extremity 06/28/2024 Bladder cancer 05/28/2024 S/P cystectomy with ileal conduit 05/28/2024 HTN (hypertension) 05/28/2024 Assessment & Plan (03/04/2025 6:26 PM EDT): Relatively well-controlled. Goal less than 130/80. Previously on metoprolol. Continue monitoring off of medications May need a low-dose of metoprolol if she remains tachycardic. Will probably get a Holter before then to investigate heart rate variability. Assessment & Plan (12/02/2024 5:32 PM EST): Carries this diagnosis and was previously on metoprolol. Blood pressure is now borderline. Will monitor for now as she recovers from her multiple comorbidities and will reassess at next visit HLD (hyperlipidemia) 05/28/2024 Assessment & Plan (03/04/2025 6:26 PM EDT): Carries diagnosis. Will address at subsequent visits. Assessment & Plan (12/02/2024 5:32 PM EST): Carries this diagnosis. No recent lipid panel. Will address at subsequent visits and calculate ASCVD risk Elevated hemoglobin A1c 05/28/2024 Resolved Problems Problem Noted Date Diagnosed Date Resolved Date Pulmonary embolism 08/08/2024 Encounters Date Type Department Care Team Description 04/29/2025 9:36 AM EDT - 04/29/2025 11:59 PM EDT Hospital Encounter [facility] [address] [place] [address] Bandar Carrillo MD Malignant neoplasm of urinary bladder, unspecified site Discharge Disposition: Home or Self Care 04/29/2025 Travel 04/14/2025 10:15 AM EDT - 04/14/2025 11:15 AM EDT Surgery [facility] [employer] [address] [place] [address] Abhishek Gamino MD Device Retrieval [27836 (CPT )] 04/14/2025 8:08 AM EDT - 04/14/2025 3:03 PM EDT Hospital Encounter [facility] [address] [place] [address] Abhishek Gamino MD Acute deep vein thrombosis (DVT) of proximal vein of both lower extremities; Other acute pulmonary embolism without acute cor pulmonale; History of recurrent deep vein thrombosis (DVT) Discharge Disposition: Home or Self Care 04/14/2025 Telephone [facility]IOLOG[facility] [address] [place] [address] Anil Rosenbaum MD 04/14/2025 Travel 04/07/2025 Prep for Surgery [facility] [address] [place] [address] Chichi Quinones, TIRE CLASSIFIER History of recurrent deep vein thrombosis (DVT) (Primary Dx) from Last 3 Months Immunizations Immunization Administration Dates Next Due 31-influenza Vac Quardvalent Preservativ 018,07/24/2017 Fluad Quad 65+ 07/22/2021 Fluzone High-Dose 65+YRS 07/24/2019 Fluzone High-Dose 65+yrs 07/25/2023 Pneumococcal Conjugate 13-Valent (PCV13) 020 Pneumococcal Polysaccharide (PPSV23) 01/24/2017 Shingrix 10/18/2020 Tdap 05/16/2022 Family History Medical History Relation Name Comments Heart attack Father Adi Breen Relation Name Status Comments Father Adi Breen Social History Tobacco Use Types Packs/Day Years Used Date Smoking Tobacco: Never Passive Smoke Exposure: Never Smokeless Tobacco: Never Tobacco Cessation:Counseling Given: Not Answered Comments:None Alcohol Use Standard Drinks/Week Comments Never 0 (1 standard drink = 0.6 oz pur e alcohol) [facility] Utilities Answer Date Recorded In the past 12 months has [employer], [employer], or [employer] threatened to shut off services in your home? No 08/11/2024 AUDIT-C Answer Date Recorded Q1: How often do you have a drink containing alcohol? Never 04/14/2025 Q2: How many drinks containi ng alcohol do you have on a typical day when you are drinking? Patient does not drink Q3: How often do you have si x or more drinks on one occasion? Never 04/14/2025 Overall Financial Resource Strain (CARDIA) Answe r Date Recorded How hard is it for you to pa y for the very basics like food, housing, medical care, and heating? Not hard at all 05/29/2024 [facility] - Occupational Stress Questionnaire Answer Date Recorded Do you feel stress - tense, restless, nervous, or anxious, or unable to sleep at night because your mind is troubled all the time - these days? Not at all 05/29/2024 Exercise Vital Sign Answer Date Recorde d On average, how many days pe r week do you engage in moderate to strenuous exercise (like a brisk walk)? 7 days 08/11/2024 On average, how many minutes do you engage in exercise at this level? 20 min 08/11/2024 Hunger Vital Sign Answer Date Recorded Within the past 12 months, y ou worried that your food would run out before you got the money to buy more. Never true 08/11/20 24 Within the past 12 months, t he food you bought just didn't last and you didn't have money to get more. Never true 08/11/2024 PRAPARE - Transportation Answer Date Re corded In the past 12 months, has l ack of transportation kept you from medical appointments or from getting medications? No 08/01 In the past 12 months, has l ack of transportation kept you from meetings, work, or from getting things needed for daily living? No 08/11/2024 Abuse Screen Answer Date Recorded Feels Unsafe at Home or Work/School no 04/14/2025 Feels Threatened by Someone no 03/31 Does Anyone Try to Keep You From Having Contact with Others or Doing Things Outside Your Home? no 04/14/2025 Physical Signs of Abuse Present no 04/14/2025 Housing Stability Answer Date Recorded Current Living Arrangements home 03/31 Potentially Unsafe Housing Conditions none 04/14/2025 Family and Community Support Answer Sachin e Recorded If for any reason you need h elp with day-to-day activities such as bathing, preparing meals, shopping, managing finances, etc., do you get the help you need? I don't need any help 08/11/2024 Lonely or Isolated Not on file 08/11/2024 Employment Answer Date Recorded Do you want help finding or keeping work or a job? I do not need or want help 08/11/2024 Disabilities Answer Date Recorded Difficulty Concentrating, Remembering or Making Decisions no 04/14/2025 Difficulty Managing Errands Independently no 04/14/2025 Education Answer Date Recorded Do you want help with school or training? For example, starting or completing job training or getting a high school diploma, GED or equivalent No 08/11/2024 Preferred Language Costa [place]ican 08/11/2024 PHQ-2 Answer Date Recorded Retired PHQ-9: Brief Depression Severity Measure Score 0 05/29/2024 Comments Unknown Sex and Gender Information Value Date Recorded Sex Assigned at Female 03/07/2025 10:11 AM EDT Legal Sex Female 11:14 AM EDT Gender Identity Not on file Sexual Orientation Straight 03/07/2025 10 :11 AM EDT Last Filed Vital Signs Vital Sign Reading Time Taken Comments Blood Pressure 105/77 04/14/2025 2:45 PM EDT post ambulation Pulse 85 04/14/2025 2:30 PM EDT Temperature 36.3 C (97.4 F) 04/14/2025 8:31 AM EDT Respiratory Rate 16 04/14/2025 11:4 8 AM EDT Oxygen Saturation 96% 04/14/2025 2:4 5 PM EDT Inhaled Oxygen Concentration - - Weight 84 kg (185 lb 3.2 oz) 04/14/2025 8:21 AM EDT Height 172.7 cm (5' 8 ) 04/14/2025 8:21 AM EDT Body Mass Index 28.16 04/14/2025 8:21 AM EDT Plan of Treatment Upcoming Encounters Date Type Department Care Team (Late st Contact Info) Description 07/08/2025 1:45 PM EDT Office Visit [facility] [address] [facility] [address] [place] [id number] Anil Rosenbaum MD [address] [facility] [address] [place] [address] 11/24/2025 2:00 PM EST Office Visit [facility] [address] [facility] [address] [place] [id number] Bandar Carrillo MD [address] [facility] [address] [place] [address] Health Maintenance Due Date Last Done Comments DXA SCAN 1954 MAMMOGRAM 1994 COLOGUARD 1999 COLON CANCER SCREENING 5 YEA R SIGMOIDOSCOPY [address] COLONOGRAPHY 1999 FIT Testing (1 year) 1999 ZOSTER VACCINE (2 of 2) 12/13/2020 10/18/2020 ANNUAL WELLNESS VISIT 05/21/2024 Pneumococcal Vaccine 50+ (3 of 3 - PCV20 or PCV21) 03/17/2025 03/17/2020, 01/24/2017 INFLUENZA VACCINE 05/01/2025 07/25/2023, , 07/24/2019, Additional history exists COVID-19 Vaccine (7 - 2024-2 6 season) 2025 07/27/2023, 08/30/2022, 04/19/2022, Additional history exists LIPID PANEL 06/03/2025 06/03/2024 COLORECTAL CANCER SCREENING 07/05/2025 FECAL OCCULT BLOOD TEST 07/05/2025 07/05/2024 TDAP/TD VACCINES (2 - Td or Tdap) 05/16/2032 022 HEPATITIS C SCREENING Completed 07/14/2024 Medical Devices Implanted Type Area Slitting Machine Operator Helper Device Identifier Shelf Expiration Date Model / Serial / Lot Clipapplr M/ Endo Ligaclip 20clp 11in - [id number] Implanted:Qty : 1 on 05/28/2024 by Nilay Cadena Jr., MD at [facility] Implant N/A: Bladder [employer] J [employer] J [id number] 12/29/2028 [id number] / / [id number] Description:MULTIPLE CLIPS U SED Clipapplr M/ Endo Ligaclip 13in Lg - [id number] Implanted:Qty : 1 on 05/28/2024 by Nilay Cadena Jr., MD at [facility] Implant N/A: Bladder [employer] J [employer] J [id number] 05/31/2028 [id number] / / [id number] Description:MULTIPLE CLIPS U SED Stplr Lnr Cut Prox 75mm Adonay Tlc75 - [id number] Implanted:Qty : 2 on 05/28/2024 by Nilay Cadena Jr., MD at [facility] Implant N/A: Abdomen [employer] J 02/28/2029 [id number] / / [id number] Reload Stplr Lnr Cut Prox 75mm Adonay Tcr75 - [id number] Implanted:Qty : 4 on 05/28/2024 by Nilay Cadena Jr., MD at [facility] Implant N/A: Abdomen [employer] AND J [id number] 02/28/2029 [id number] / / [id number] Description:RELOAD Stplr Lnr Cut 60mm Grn Ta60 Tx60g - [id number] Implanted:Qty : 1 on 05/28/2024 by Nilay Cadena Jr., MD at [facility] Implant N/A: Abdomen [employer] J [employer] J 01/28/2029 [id number] / / [id number] Reload Stplr Lnr Cut Tx60 Reg 3.5 Adonay - [id number] Implanted:Qty : 3 on 05/28/2024 by Nilay Cadena Jr., MD at [facility] Implant N/A: Abdomen [employer] J [employer] J [id number] 12/29/2026 [id number] / / [id number] Stnt Urnry Divr 7f90cm - [id number] Implanted:Qty : 2 on 05/28/2024 by Nilay Cadena Jr., MD at [facility] Implant N/A: Ureter [employer] [id number] 12/27/2027 [id number] / / [id number] Description:BILATERAL URETER Fltr Jug Vena Cava Shira Del - [id number] Implanted:Qty : 1 on 06/28/2024 by Imer Baer MD at [facility] Implant BARD PERIPHERAL VASCULAR 01/28/2025 [id number] / / [id number] Procedures Procedure Name Priority Date/Time Associated Diagnosis Comments FL BARIUM ENEMA WATER SOLUBLE SINGLE CONTRAST Routine 04/29/2025 11:26 AM EDT Malignant neoplasm of urinary bladder, unspecified site EP STUDY Routine 04/14/2025 11:42 AM EDT Acute deep vein thrombosis (DVT) of proximal vein of both lower extremities Other acute pulmonary embolism without acute cor pulmonale BASIC METABOLIC PANEL STAT 04/14/2025 8:29 AM EDT CBC (NO DIFF) STAT 04/14/2025 8:29 AM EDT HEPATITIS PANEL, ACUTE Routine 07/14/2024 3:42 AM EDT OCCULT BLOOD X 1, STOOL Routine 07/05/2024 12:33 PM EDT CHOLESTEROL, TOTAL Add-On 06/03/2024 7: 16 AM EDT from Last 3 Months or Most Recently Relevant to Health Maintenance Results * FL Barium Enema Water Soluble Single Contrast (04/29/2025 11:26 AM EDT) Anatomical Region Laterality Modality Body N/A Radio Fluoroscop y 04/29/2025 11:3 9 AM EDT Impressions 04/29/2025 5:00 PM EDT Impression: Status post partial colectomy, and distal small bowel resection. No extravasation of contrast or postoperative strictures were seen in the area of the colonic anastomosis, or distal small bowel anastomosis that was opacified with contrast during this exam. Report dictated by: Aida Glasgow PA-c I have personally reviewed this case and agree with the findings above: Electronically Signed: Dima Mosqueda MD 04/29/2025 5:00 PM EDT Workstation ID: [id number] Narrative 04/29/2025 5:00 PM EDT FL BARIUM ENEMA WATER SOLUBLE SINGLE CONTRAST Date of Exam: 04/29/2025 9:30 AM EDT Indication: c67.9. Comparison: None available. Technique: Book Shelver imaging of the abdomen was obtained. The enema tip was carefully placed in the rectum without difficulty. A single contrast study using water-soluble contrast was performed. The colon was filled in a retrograde fashion. Overhead and fluoroscopic digital spot films were obtained. Fluoroscopic Time: 4 minutes Number of Images: 24 associated fluoroscopic series were saved Findings: Book Shelver imaging reveals a nonobstructive bowel gas pattern. Multiple surgical clips are visible in the pelvis, and abdomen. An ostomy device is visible in the right lower quadrant. An ostomy device is visible in the left lower quadrant. IVC filter present. It is recommended that all patients with IVC filter in place have an active management care plan to monitor their IVC filter. If a care plan is not in place, patient should have a nonemergent referral to an interventional specialist for establishment of an IVC filter management care plan. A small calcification is seen in the left upper quadrant, which likely represents left lower pole renal stone, as seen on previous abdomen imaging performed on 07/02/2024. Contrast was seen refluxing the small bowel, and the patient's ileostomy device. The colon demonstrates postoperative changes that are consistent with a partial colectomy. The colonic anastomosis in the pelvis appears to be intact, and no extravasation of contrast was seen. No colonic postoperative strictures were seen. A few filling defects seen within the colon likely represent stool, and/or mucous secretions. The distal small bowel between the patient's cecum, and ileostomy device appeared grossly normal. The patient has a surgical history of a small bowel resection, and anastomosis in this area, and no extravasation of contrast was seen. No postoperative strictures were seen within this area of distal small bowel. Normal evacuation of contrast was noted. These results were immediately discussed with Dr. Bandar Carrillo. Procedure Note Dima Mosqueda MD - 04/29/2025 FL BARIUM ENEMA WATER SOLUBLE SINGLE CONTRAST Date of Exam: 04/29/2025 9:30 AM EDT Indication: c67.9. Comparison: None available. Technique: Book Shelver imaging of the abdomen was obtained. The enema tip wascarefully placed in the rectum without difficulty. A single contrast studyusing water- soluble contrast was performed. The colon was filled in aretrograde fashion. Overhead and fluoroscopic digital spot films were obtained. Fluoroscopic Time: 4 minutes Number of Images: 24 associated fluoroscopic series were saved Findings: Book Shelver imaging reveals a nonobstructive bowel gas pattern. Multiplesurgical clips are visible in the pelvis, and abdomen. An ostomy device isvisible in the right lower quadrant. An ostomy device is visible in theleft lower quadrant. IVC filter present. It is recommended that all patients with IVC filter in place have anactive management care plan to monitor their IVC filter. If a care plan isnot in place, patient should have a nonemergent referral to aninterventional specialist for establishment of an IVC filter management care plan. A small calcification is seen in theleft upper quadrant, which likely represents left lower pole renal stone,as seen on previous abdomen imaging performed on 07/02/2024. Contrast was seen refluxing the small bowel, and the patient's ileostomydevice. The colon demonstrates postoperative changes that are consistentwith a partial colectomy. The colonic anastomosis in the pelvis appears deana intact, and no extravasation of contrast was seen. No colonic postoperative strictures were seen. A fewfilling defects seen within the colon likely represent stool, and/ormucous secretions. The distal small bowel between the patient's cecum, andileostomy device appeared grossly normal. The patient has a surgical history of a small bowel resection, andanastomosis in this area, and no extravasation of contrast was seen. Nopostoperative strictures were seen within this area of distal small bowel.Normal evacuation of contrast was noted. These results were immediately discussed with Dr. Roberts. IMPRESSION: Impression: Status post partial colectomy, and distal small bowel resection. Noextravasation of contrast or postoperative strictures were seen in thearea of the colonic anastomosis, or distal small bowel anastomosis thatwas opacified with contrast during this exam. Report dictated by: Aida Glasgow PA-c I have personally reviewed this case and agree with the findings above: Electronically Signed: Dima Mosqueda MD 04/29/2025 5:00 PM EDT Workstation ID: [id number] Bandar Garza MD IM FLUOROSCOPY ORDERABLES Final Result * DEVICE RETRIEVAL (04/14/2025 11:42 AM EDT) Anatomical Region Laterality Modality X-Ray Angiograph y Addenda Addendum by Abhishek Gamino MD on 04/14/2025 2:19 PM EDT Unsuccessful attempt at IVC filter explant, likely due to endothelialization of the filter. Procedure Narrative Indication(s) for this Procedure: History of IVC filter placement. Procedure(s) Performed: Right internal jugular venous access with ultrasound guidance Catheter placement in the IVC followed by venography Description of the Procedure: An 8Fr [place] sheath was placed in the right internal jugular vein with micropuncture technique and concurrent real-time ultrasound to visualize needle entry. A 5 Mal[place]ian Omni Flush catheter over an 035 Simmons guidewire was placed in the right common iliac vein. Venography of the IVC was performed. The sheath was exchanged for an 11 Maldivian BARD IVC retrieval sheath. Heparin was given for anticoagulation. Attempts at staring the IVC filter were unsuccessful with a [place] retrieval kit, Ensnare, and [place] snare. Protamine was given for heparin reversal. The sheath was removed. Manual hemostasis was applied. Angiographic Findings: IVC: No DVT was identified Risks, benefits and alternatives were discussed with the patient and/or family. Plan is for minimal sedation. Under my direct supervision, intravenous minimal sedation sedation was administered during the course of this procedure with continuous monitoring of hemodynamic parameters and level of consciousness by an independent trained observer. Less than 20 mL of estimated blood loss during the case. No specimen was collected during the case. Recommendations Patient previously evaluated by hematology, Dr Sorenson, who has suggested that the patient could reasonably come off her anticoagulation if/once the IVC filter is explanted. As such, referral placed to Dr Bustamante, [facility], for attempt at IVC filter explant with rigid forceps. us Abhishek Gamino MD CV ELECTROPHYSIOLOGY ORDERABLES Edited Result - Final * (ABNORMAL) CBC (No Diff) (04/14/2025 8:29 AM EDT) WBC 5.82 3.40 - 10.80 10*3/mm3 04/14/2025 8:57 AM EDT [facility] RBC 4.21 3.77 - 5.28 10*6/mm3 04/14/2025 8:57 AM EDT [facility] Hemoglobin 12.2 12.0 - 15.9 g/dL 04/14/2025 8:57 AM EDT [facility] Hematocrit 39.2 34.0 - 46.6 % 04/14/2025 8:57 AM EDT [facility] MCV 93.1 79.0 - 97.0 fL 04/14/2025 8:57 AM EDT [facility] MCH 29.0 26.6 - 33.0 pg 04/14/2025 8:57 AM EDT [facility] MCHC 31.1(L) 31.5 - 35.7 g/dL 04/14/2025 8:57 AM EDT [facility] RDW 14.6 12.3 - 15.4 % 04/14/2025 8:57 AM EDT [facility] RDW-SD 50.0 37.0 - 54.0 fl 04/14/2025 8:57 AM EDT [facility] MPV 10.3 6.0 - 12.0 fL 04/14/2025 8:57 AM EDT [facility] Platelets 237 140 - 450 10*3/mm3 04/14/2025 8:57 AM EDT [facility] Blood Line / Unknown 04/14/2025 8: 29 AM EDT 04/14/2025 8:53 AM EDT us Chichi Quinones TIRE CLASSIFIER LAB BLOOD ORDERABLES Final R esult [facility]
[address] [place] [address], * (ABNORMAL) Basic Metabolic Panel (04/14/2025 8:29 AM EDT) Glucose 106(H) 65 - 99 mg/dL 04/14/2025 9:27 AM EDT [facility] BUN 16.2 8.0 - 23.0 mg/dL 04/14/2025 9:27 AM EDT [facility] Creatinine 1.27(H) 0.57 - 1.00 mg/dL 04/14/2025 9:27 AM EDT [facility] Sodium 138 136 - 145 mmol/L 04/14/2025 9:27 AM EDT [facility] Potassium 4.2 3.5 - 5.2 mmol/L 04/14/2025 9:27 AM EDT [facility] Chloride 106 98 - 107 mmol/L 04/14/2025 9:27 AM EDT [facility] CO2 19.0(L) 22.0 - 29.0 mmol/L 04/14/2025 9:27 AM EDT [facility] Calcium 9.5 8.6 - 10.5 mg/dL 04/14/2025 9:27 AM EDT [facility] BUN/Creatinine Ratio 12.8 7.0 - 25.0 04/14/2025 9:27 AM EDT [facility] Anion Gap 13.0 5.0 - 15.0 mmol/L 04/14/2025 9:27 AM EDT [facility] eGFR 45.6(L) >60.0 mL/min/1.7 3 04/14/2025 9:27 AM EDT [facility] Blood Line / Unknown 04/14/2025 8: 29 AM EDT 04/14/2025 8:53 AM EDT Narrative [facility] - 04/14/2025 9:27 AM EDT GFR Categories in Chronic Kidney Disease (CKD) GFR Category GFR (mL/min/1.73) Interpretation G1 90 or greater Normal or high (1) G2 60-89 Mild decrease (1) G3a 45-59 Mild to moderate decrease G3b 30-44 Moderate to severe decrease G4 15-29 Severe decrease G5 14 or less Kidney failure (1)In the absence of evidence of kidney disease, neither GFR category G1 or G2 fulfill the criteria for CKD. eGFR calculation 2020 CKD-EPI creatinine equation, which does not include race as a factor Chichi Quinones APRN LAB BLOOD ORDERABLES Final R esult Performing Organization Address [facility]/ZIP Co de Phone Number [facility]
[address] [place] [address], * (ABNORMAL) Hepatitis Panel, Acute (07/14/2024 3:42 AM EDT) Hepatitis B Surface Ag Non-Reacti ve Non-Reacti ve 07/14/2024 4:55 AM EDT [facility] Hep A IgM Non-Reacti ve Non-Reacti ve 07/14/2024 4:55 AM EDT [facility] Hep B C IgM Reactive(A ) Non-Reacti ve 07/14/2024 4:55 AM EDT [facility] Hepatitis C Ab Non-Reacti ve Non-Reacti ve 07/14/2024 4:55 AM EDT [facility] Blood Venipuncture / Unknown 07/14/2024 3:42 AM EDT 07/14/2024 4:08 AM EDT Narrative [facility] - 07/14/2024 4:55 AM EDT Results may be falsely decreased if patient taking Biotin. Whitney Lozoya MD LAB BLOOD ORDERABLES Final Result Performing Organization Address [facility]/ZIP Co de Phone Number [facility]
[address] [place] [address], * (ABNORMAL) Occult Blood X 1, Stool - Stool, Per Rectum (07/05/2024 12:33 PM EDT) Fecal Occult Blood Positive( A) Negative DISK DIFFUSION 07/05/2024 1:06 PM EDT [facility] Stool Specimen from rectum / Unknown Collection / Unknown 07/05/2024 12:33 PM EDT 07/05/2024 12:42 PM EDT Selvin Conteh MD BODY FLUIDS AND STOOLS OR DERABLES Final Result Performing Organization Address [facility] Co de Phone Number [facility]
[address] [place] [address], * Cholesterol, Total (06/03/2024 7:16 AM EDT) Total Cholesterol 99 0 - 200 mg/dL 06/03/2024 10:29 AM EDT [facility] Blood Venipuncture / Unknown 06/03/2024 7:16 AM EDT 06/03/2024 7:42 AM EDT Narrative [facility] - 06/03/2024 10:29 AM EDT Cholesterol Reference Ranges (U.S. Department fo Health and Human Services ATP III Classifications) Desirable <200 mg/dl Borderline High 200-239 mg/dl High Risk >240 mg/dl Roxann AnayaD LAB BLOOD ORDERABLES Final Result Performing Organization Address City/[facility]/ZIP Co de Phone Number [facility]
[address] [place] [address], from Last 3 Months or Most Recently Relevant to Health Maintenance Insurance [id number] [facility] [address] MEDICARE ADVANTAGE HMO Advance Directives Documents on File Type Date Recorded Patient Emergency Medical Technician/Driver Expl anation LIVING WILL - SCAN 05/30/2024 2:14 PM [facility] NG WILL DIRECTIVE, [facility], 05/30/2024 * CPR (Attempt to Resuscitate) (Latest Code Status on File) Date Activated Date Inactivated Comments 04/14/2025 12:11 PM 04/14/2025 5:09 PM Question Answer Comments Code Status (Patient has no pulse and is not breathing): CPR (Attempt to Resuscitate) Medical Interventions (Patie nt has pulse or is breathing): Full Support * CPR (Attempt to Resuscitate) Date Activated Date Inactivated Comments 08/09/2024 5:14 AM 08/26/2024 11:31 PM Question Answer Comments Code Status (Patient has no pulse and is not breathing): CPR (Attempt to Resuscitate) Medical Interventions (Patie nt has pulse or is breathing): Full Support * No CPR (Do Not Attempt to Resuscitate) Date Activated Date Inactivated Comments 08/08/2024 10:54 PM 08/09/2024 5:14 AM Question Answer Comments Code Status (Patient has no pulse and is not breathing): No CPR (Do Not Attempt to Resuscitate) Medical Interventions (Patie nt has pulse or is breathing): Limited Support Medical Intervention Limits: No intubation (DNI) * CPR (Attempt to Resuscitate) Date Activated Date Inactivated Comments 08/08/2024 9:33 PM 08/08/2024 10:54 PM Question Answer Comments Code Status (Patient has no pulse and is not breathing): CPR (Attempt to Resuscitate) Medical Interventions (Patie nt has pulse or is breathing): Full Support * CPR (Attempt to Resuscitate) Date Activated Date Inactivated Comments 05/28/2024 5:21 PM 07/15/2024 3:19 PM Question Answer Comments Code Status (Patient has no pulse and is not breathing): CPR (Attempt to Resuscitate) Medical Interventions (Patie nt has pulse or is breathing): Full Level Of Support Discussed With: Patient Care Teams Nutrition Technician Relationship Specialty Start Date End Date Arslan Sorensen MD [address] [place] [address] PCP - General Family Medicine 05/21/24
--- OUTSIDE RECORDS SUMMARY | 2025-07-03 06:57 | XMS_ITS | Data Portability ---
Author Organization [facility] HUSSEIN KentS [place] CLOSED Address [address] [address] [place] [address] Care Team Providers Care Special Needs Nanny Name Role Phone JATINDER TRAN Referring Provider Assessment Encounter Date Assessment Date Assessment LastModified by Organization Details LastModified Time 12/01/2024 12/01/2024 69-year-old female with muscle invasive bladder cancer presenting for follow-up. The patient underwent a cystectomy complicated by adhesions and bowel injury. Managing associated UTIs and ileostomy. Requires oncological follow-up. Ileostomy: Follow-up with surgery for management and potential reversal. Muscle Invasive Bladder Cancer: Ongoing follow-up with oncology is necessary for monitoring. Urinary Tract Infection Uti: Manage UTIs as they occur; consider prophylactic methods. [email or web address] Not available 12/04/2024 07:24:12 03/09/2025 03/09/2025 69-year-old female with history of muscle invasive bladder cancer presenting for follow-up. Current recovery displays improvement. Follow-ups with oncology and general surgery are scheduled. No new complications reported. Muscle Invasive Bladder Cancer: - Follow-up scheduled with oncology in March. - Regular follow-ups with general surgery. - Recovery monitored for signs of recurrence. - Provide supportive care to aid recovery. [email or web address] Not available 03/09/2025 15:18:10 Plan of Treatment Reminders Order Date Submit Date Provider Last Modified By Organization Details Last Modified Time Details Appointments None recorded. Lab urinalysi s panel, auto 2023 024 [facility] [place] [facility], [address], [place], [address], 4 10:52:06 urinalysi s panel, auto 2023 024 [facility] [place] [facility], [address], [address], [place], [address], 4 08:59:10 Referral medical oncologis t referral - Bladder Cancer & Neoadjuva nt chemother apy 2023 024 [email or web address] Abhishek Sorenson MD, [address], [place], [address], 4 09:22:32 Procedures None recorded. Surgeries cystectom y, complete, with ureteroil eal conduit or sigmoid bladder, including intestine anastomos is (SURG) 2023 024 [email or web address], [address], [place], [address], 4 12:08:[address], abdomen + pelvis, w/ contrast - CT ABD/PEL W/CONTRAS T PLEASE CALL ELIZABETH SEGUNDO AT #[phone] , effective 4 - 4, for procedure code [id number] 2023 024 [facility] (Centralized Scheduling), [address] [facility], [place], [address], 4 15:12:57 Medication Orders None recorded. Patient TargetsNo targets recorded. Patient Instructions Encounter Date Encounter Id Patient Instructions Last Modified By Organization Details Last Modified Time 11/12/2023 [id number] [facility] 11/18/2023 08:59:10 Plan for restaging with imaging since it has been since July that she had her TURBT. Depending on imaging results, we may need to consider surgery versus neoadjuvant therapy. [facility] Not available 11/18/2023 08:58:15 12/26/2023 [id number] Plan for referra l to medical oncology for consideration of neoadjuvant chemotherapy. Plan for cystectomy down the road. We talked about cystectomy and urinary diversion today. Will talk in more detail at upcoming appointments. [facility] Not available 12/26/2023 08:13:02 03/10/2024 [id number] Suffering, long discussion about radical cystectomy, and ilial conduit urinary diversion. We talked about Risks benefits, and alternatives and including, but not limited to bleeding, infection, small bowel obstruction, urine, ureteral stricture. We also talked about issues because of her previous surgery and potential open surgery because of this. [facility] Not available 03/15/2024 10:53:15 12/01/2024 [id number] learning about healthy weight [facility] Not available 12/08/2024 18:58:55 - Continue follow-up with your oncologist for cancer monitoring. - Maintain hygiene and proper care for your ileostomy to prevent leaks. - Watch for signs of urinary tract infection and seek care if symptoms appear. - Attend your follow-up appointment with general surgery for ileostomy management. - Make sure to inform your healthcare providers of any new symptoms or changes in your condition. [email or web address] Not available 12/04/2024 07:24:13 03/09/2025 [id number] - Continue to rest and allow your body to heal. - Attend all scheduled follow-up appointments with your oncologist in March and your regular check-ups with general surgery. - Monitor for any new symptoms or changes and report them promptly. - Engage in light activities as tolerated to strengthen muscles. - Remember to take any prescribed medications as directed by your healthcare professional. [email or web address] Not available 03/09/2025 15:18:12 Reason for Referral Bladder Cancer & Neoadjuvant chemotherapy Referring Physician: Heber Shelton, Urology, Encounter Date: 12/26/2023 Results Created Date Observation Date Name Description Value Unit Range Abnormal Flag Note LastModifiedBy Organization Detail LastModifiedTime 11/12/19 24 11/12/2023 urina lysis panel , auto Unknown Analyte Clean Catch Not Available [facility] [place] [facility] [address], [place], [address], 11/12/2023 18:47:27 11/12/19 24 11/12/2023 urina lysis panel , auto Unknown Analyte Yellow Not Available [facility] [address], [place], [address], 11/12/2023 18:47:27 11/12/19 24 11/12/2023 urina lysis panel , auto Unknown Analyte Clear Not Available [facility] [place] [address], [place], [address], 11/12/2023 18:47:27 11/12/19 24 11/12/2023 urina lysis panel , auto Unknown Analyte 1.010 Not Available [facility] [place] [address], [place], [address], 11/12/2023 18:47:27 11/12/19 24 11/12/2023 urina lysis panel , auto Unknown Analyte 1.003- 1.035 Not Available [facility] [place] [facility] [address], [place], [address], 11/12/2023 18:47:27 11/12/19 24 11/12/2023 urina lysis panel , auto Unknown Analyte 5.0 Not Available [facility] [place] [address], [place], [address], 11/12/2023 18:47:27 11/12/19 24 11/12/2023 urina lysis panel , auto Unknown Analyte 5.0-8. 0 Not Available [facility] [place] [facility] [place] [address], [place], [address], 11/12/2023 18:47:27 11/12/19 24 11/12/2023 urina lysis panel , auto Unknown Analyte Negati ve Not Available [facility] [place] [facility] [address], [place], [address], 11/12/2023 18:47:27 11/12/19 24 11/12/2023 urina lysis panel , auto Unknown Analyte Negati ve Not Available [facility] [place] [facility] [address], [place], [address], 11/12/2023 18:47:27 11/12/19 24 11/12/2023 urina lysis panel , auto Unknown Analyte Negati ve Not Available [facility] [place] [facility] [address], [place], [address], 11/12/2023 18:47:27 11/12/19 24 11/12/2023 urina lysis panel , auto Unknown Analyte Negati ve Not Available [facility] [place] [facility] [address], [place], [address], 11/12/2023 18:47:27 11/12/19 24 11/12/2023 urina lysis panel , auto Unknown Analyte Negati ve Not Available [facility] [place] [facility] [address], [place], [address], 11/12/2023 18:47:27 11/12/19 24 11/12/2023 urina lysis panel , auto Unknown Analyte Negati ve Not Available [facility] [place] [facility] [address], [place], [address], 11/12/2023 18:47:27 11/12/19 24 11/12/2023 urina lysis panel , auto Unknown Analyte Normal Not Available [facility] [place] [facility] [address], [place], [address], 11/12/2023 18:47:27 11/12/19 24 11/12/2023 urina lysis panel , auto Unknown Analyte Normal Not Available [facility] [address], [place], [address], 11/12/2023 18:47:27 11/12/19 24 11/12/2023 urina lysis panel , auto Unknown Analyte Negati ve Not Available [facility] [address], [place], [address], 11/12/2023 18:47:27 11/12/19 24 11/12/2023 urina lysis panel , auto Unknown Analyte Negati ve Not Available [facility] [address], [place], [address], 11/12/2023 18:47:27 11/12/19 24 11/12/2023 urina lysis panel , auto Unknown Analyte Normal Not Available [facility] [address], [place], [address], 11/12/2023 18:47:27 11/12/19 24 11/12/2023 urina lysis panel , auto Unknown Analyte Normal 1 mg/dl Not Available [facility] [address], [place], [address], 11/12/2023 18:47:27 11/12/19 24 11/12/2023 urina lysis panel , auto Unknown Analyte Negati ve Not Available [facility] [place] [facility] [address], [place], [address], 11/12/2023 18:47:27 11/12/19 24 11/12/2023 urina lysis panel , auto Unknown Analyte Negati ve Not Available [facility] [place] [facility] [address], [place], [address], 11/12/2023 18:47:27 11/12/19 24 11/12/2023 urina lysis panel , auto Unknown Analyte Negati ve Not Available [facility] [place] [facility] [address], [place], [address], 11/12/2023 18:47:27 11/12/19 24 11/12/2023 urina lysis panel , auto Unknown Analyte Negati ve Not Available [facility] [place] [facility] [address], [place], [address], 11/12/2023 18:47:27 03/11/20 24 03/11/2024 urina lysis panel , auto Unknown Analyte Clean Catch Not Available [facility] [place] [facility] [address], [place], [address], 03/11/2024 08:06:22 03/11/20 24 03/11/2024 urina lysis panel , auto Unknown Analyte Yellow Not Available [facility] [address], [place], [address], 03/11/2024 08:06:22 03/11/20 24 03/11/2024 urina lysis panel , auto Unknown Analyte Clear Not Available [facility] [place] [facility] [address], [place], [address], 03/11/2024 08:06:22 03/11/20 24 03/11/2024 urina lysis panel , auto Unknown Analyte 1.010 Not Available [facility] [place] [facility] [address], [place], [address], 03/11/2024 08:06:22 03/11/20 24 03/11/2024 urina lysis panel , auto Unknown Analyte 1.003- 1.035 Not Available [facility] [place] [facility] [address], [place], [address], 03/11/2024 08:06:22 03/11/20 24 03/11/2024 urina lysis panel , auto Unknown Analyte 5.0 Not Available [facility] [address], [place], [address], 03/11/2024 08:06:22 03/11/20 24 03/11/2024 urina lysis panel , auto Unknown Analyte 5.0-8. 0 Not Available [facility] [place] [facility] [address], [place], [address], 03/11/2024 08:06:22 03/11/20 24 03/11/2024 urina lysis panel , auto Unknown Analyte Negati ve Not Available [facility] [place] [facility] [address], [place], [address], 03/11/2024 08:06:22 03/11/20 24 03/11/2024 urina lysis panel , auto Unknown Analyte Negati ve Not Available [facility] [place] [facility] [address], [place], [address], 03/11/2024 08:06:22 03/11/20 24 03/11/2024 urina lysis panel , auto Unknown Analyte Negati ve Not Available [facility] [place] [facility] [address], [place], [address], 03/11/2024 08:06:22 03/11/20 24 03/11/2024 urina lysis panel , auto Unknown Analyte Negati ve Not Available [facility] [address], [place], [address], 03/11/2024 08:06:22 03/11/20 24 03/11/2024 urina lysis panel , auto Unknown Analyte Negati ve Not Available [facility] [address], [place], [address], 03/11/2024 08:06:22 03/11/20 24 03/11/2024 urina lysis panel , auto Unknown Analyte Negati ve Not Available [facility] [address], [place], [address], 03/11/2024 08:06:22 03/11/20 24 03/11/2024 urina lysis panel , auto Unknown Analyte Normal Not Available [facility] [address], [place], [address], 03/11/2024 08:06:22 03/11/20 24 03/11/2024 urina lysis panel , auto Unknown Analyte Normal Not Available [facility] [place] [facility] [address], [place], [address], 03/11/2024 08:06:22 03/11/20 24 03/11/2024 urina lysis panel , auto Unknown Analyte Negati ve Not Available [facility] [address], [place], [address], 03/11/2024 08:06:22 03/11/2003/11/2024 urina lysis panel , auto Unknown Analyte Negati ve Not Available [facility] [address], [place], [address], 03/11/2024 08:06:22 03/11/20 24 03/11/2024 urina lysis panel , auto Unknown Analyte Normal Not Available [facility] [address], [place], [address], 03/11/2024 08:06:22 03/11/20 24 03/11/2024 urina lysis panel , auto Unknown Analyte Normal 1 mg/dl Not Available [facility] [address], [place], [address], 03/11/2024 08:06:22 03/11/20 24 03/11/2024 urina lysis panel , auto Unknown Analyte Negati ve Not Available [facility] [address], [place], [address], 03/11/2024 08:06:22 03/11/20 24 03/11/2024 urina lysis panel , auto Unknown Analyte Negati ve Not Available [facility] [place] [facility] [address], [place], [address], 03/11/2024 08:06:22 03/11/20 24 03/11/2024 urina lysis panel , auto Unknown Analyte Negati ve Not Available [facility] [place] [facility] [address], [place], [address], 03/11/2024 08:06:22 03/11/20 24 03/11/2024 urina lysis panel , auto Unknown Analyte Negati ve Not Available [facility] [place] [facility] [address], [place], [address], 03/11/2024 08:06:22 12/14/19 24 12/14/2023 CT, abdom en + pelvi s, w/ contr ast No observ ation record ed. [facility] [address] [facility], [place], [address], 12/26/2023 08:11:47 03/17/20 24 02/02/2024 CT, abdom en + pelvi s, w/ contr ast No observ ation record ed. [facility] Not Available 2023 21:33:25 05/21/20 24 05/21/2024 XR, chest , 2 view No observ ation record ed. [facility] Not Available 2023 15:45:32 05/21/20 24 05/21/2024 elect citlali diogr am No observ ation record ed. [facility] Not Available 2023 16:56:16 Result Notes None recorded. Problems Name Problem SNOMED Code Status Onset Date Resolution Date Notes Provider Name and Address Organization Details Recorded Time Malignant neoplasm of urinary bladder 844282945 Active 024 HEBER SHELTON JR, MD [facility] [place], [address], [facility] 08:57:45 Problem Notes None recorded. Procedures Surgical History Date Name Laterality Status Provider Name and Address Organization Details Recorded Time 05/01/20 24 excision of urinary bladder completed Derianelene Rohit [facility] 12/01/2024 13:04:03 [facility]ste[facility] 11/12/2023 18:46:07 [facility] 11/12/2023 18:46:25 [facility] urinary bladder [facility] 11/12/2023 18:46:38 excision of basal cell carcinoma completed [facility] 11/12/2023 18:46:47 Imaging Results None recorded. Procedure Notes None recorded. Medical Equipment None Reported. Allergies Allergen ID Allergen Name Allergen Category Reaction Reaction Severity Criticality Documentation Date Start Date Code Code System Note Provider Name and Address Organization Details Recorded Time 801055 lisinopri l medicatio n Not available Not available Not available 11/12/2023 54204 RxNorm [facility] 18:43:58 Medications Name Sig Start Date Stop Date Status Note LastModified by Organization Details LastModified Time Flagyl 500 mg tablet Take 1 tablet every 8 hours by oral route. 2023 active Not Available Not Available Not Avai lable Asprin Ec Low Dose 81 mg tablet,delayed release Take 1 tablet every day by oral route. active Not Available Not Available No t Available meloxicam active Not Available Not Lyndsay ilable Not Available potassium acetate active Not Available Not Available Not Available calcium active Not Available Not Avail able Not Available omeprazole active Not Available Not Av ailable Not Available hydrochlorothiaz samantha active Not Available Not Available Not Available Vitamin D active Not Available Not Lyndsay ilable Not Available felodipine active Not Available Not Av ailable Not Available metoprolol succinate active Not Available Not Available No t Available rosuvastatin active Not Available Not Available Not Available Golytely 236 gram-22.74 gram-6.74 gram-5.86 gram oral solution Take 4000 mL by oral route as directe d. 2023 active Not Available Not Available Not Avai lable Vitals Date Recorded Body height Body mass index (BMI) Body weight Provider Name and Address Organization Details Last Updated DateTime 11/12/2023 172.72 cm 33.5 kg/m2 83776.32 g Toby Bee [facility] 11/12/2023 18:43:46 Date Recorded Body height Body mass index (BMI) Body weight Provider Name and Address Organization Details Last Updated DateTime 12/01/2024 172.72 cm 25.2 kg/m2 78761.33 g Toby Garciat [facility] 12/01/2024 13:02:51 Date Recorded Body height Body mass index (BMI) Body weight Provider Name and Address Organization Details Last Updated DateTime 12/26/2023 172.72 cm 33.5 kg/m2 47109.32 jacques Garciat [facility] 12/26/2023 07:56:22 Date Recorded Body height Body mass index (BMI) Body weight Provider Name and Address Organization Details Last Updated DateTime 03/09/2025 172.72 cm 27.4 kg/m2 32881.63 g Janine Espana [facility] 03/09/2025 15:20:43 Date Recorded Body height Body mass index (BMI) Body weight Provider Name and Address Organization Details Last Updated DateTime 03/10/2024 172.72 cm 33.1 kg/m2 24724.14 g Summer Smith [facility] 03/11/2024 08:06:10 Social History Question Answer Notes LastModified by Organizat ion Details LastModified Time Tobacco Smoking Status Never Smoker Toby Garciat [facility] 11/12/2023 18:45:59 What Was The Date Of Your Most Recent Tobacco Screening? 03/09/2025 [email or web address] Information not available 03/09/2025 Sex: Female Functional Status Question Answer Note LastModified by Organization D etails LastModified Time What is your level of alcohol consumption? None [email or web address] Information not available 11/12/2023 Mental Status None recorded. Family History Relationship Description Onset Age of this Age Resolved Age Notes LastModified by Organization Details LastModified Time Father No current problems or disability [email or web address] Not available 11/12 18:45:47 Mother No current problems or disability [email or web address] Not available 11/12 18:45:47 Medical History Condition Response Coronary Artery Disease N Other N Gout N Kidney Stones N Kidney Cyst N Enlarged Prostate N Heart Arrhythmia N Emphysema N Erectile Dysfunction N Head Trauma/Injury N Sexually Transmitted Disease N Depression Y Pneumonia N Incontinence N Prostate Problems N Cancer Prostate N Paralysis N Anxiety Disorder Y Hemorrhoids N Obesity N Arthritis Y Infertility N Acid Reflux (GERD) Y Cancer Y Hematuria N Stroke N Neck Injury N Previous Radiation Therapy? N Neurologic Disorder N Kidney Disease N Heart Conditions N Kidney or Bladder Problems Y Urinary Problems N Constipation N Brain Injury N Ulcers N Prostate Hypertrophy N Low Testosterone N Tuberculosis N Previous Chemotherapy? Y AIDS/HIV N BPH N Urinary Tract Infection N Asthma N Cardiac Disease N Thyroid Disorder N Hepatitis N PCOS N Colon Cancer N Hernia N Colon/Rectal Disorders N Ostomy N Glaucoma N Pacemaker N Anesthesia Complications N Genitourinary Disease N Chronic Kidney Disease N Radiation Therapy N Bladder or Kidney Problems Y Back Injury N High Cholesterol Y High PSA N Liver Disease N Nervous System Disorder N Organ Transplant N Dialysis N Allergies/Hayfever N False Teeth N Chronic Obstructive Pulmonary Disease N Parkinson's Disease N Chemotherapy Y Anemia N Transplant N Chest Pain N Back Pain N Multiple Sclerosis N Proteinuria N Heart Attack (PA) N Mental Illness N Diabetes N Ovarian Cancer N Seizures/Epilepsy N Genitourinary problem(s) N Congestive Heart Failure (CHF) N Kidney Failure N Sleep Apnea N Bronchitis N Heart Disease N Hypertension Y Gynecological History Statement/Question Response Female Hormone Problem N # of Pregnancies 0 Abnormal Periods N # of Births 0 Could you be now? N Current Control Method hysterectom y Uterus/Ovaries Problem N Obstetrics History GPAL:G 0 P 0 0 0 0 Past Encounters Encounter ID Performer Location Encounter Start Date Encounter Closed Date Diagnosis/Indication Diagnosis SNOMED-CT Code Diagnosis ICD10 Code Diagnosis IMO Codes Diagnosis Note [id number] HEBER SHELTON JR, MD [facility] [address] [facility],[address] [address] 11/12/2023 13:38:38 11/12/2023 19:06:23 Malignant neoplasm of urinary bladder 054252491 C67.9 [id number] HEBER SHELOTN JR, MD [address] [address] [place] [address] 12/26/2023 07:55:37 12/26/2023 08:26:44 Malignant neoplasm of urinary bladder [id number] C67.9 [id number] HEBER SHELTON JR, MD [facility] [address] [facility] [address] [place] [address] 03/10/2024 14:00:27 03/10/2024 15:55:18 Malignant neoplasm of urinary bladder [id number] C67.9 [id number] HEBER SHELTON JR, MD [facility] [address] [facility] [address] [facility] [place] [address] 12/01/2024 12:57:26 12/01/2024 17:08:30 Malignant neoplasm of urinary bladder [id number] C67.9 [id number] HEBER SHELTON JR, MD [facility] [address] [facility] [address] [place] [address] 03/09/2025 15:08:07 03/09/2025 15:33:20 Malignant neoplasm of urinary bladder [id number] C67.9 Health Concerns Section Related Observation LastModified by Organization Detai ls LastModified Time None Recorded Concern Status LastModified by Organization Details LastModified Time None Recorded Advance Directives Directive None Recorded Payers Insurance Date Sequence Insurance Name Policy Number Policy Orozco Covered Member ID Orozco Member ID Guarantor Name 03/24/2025 1 [place] [employer] [facility] (MEDICARE REPLACEMENT REGIONAL PPO) [id number] Elizabeth Segundo [id number] Elizabeth Segundo Notes Date Note Type Note Provider Name and Address Organization Details Recorded Time 11/12/2023 text/html patient is in today as a referral from another urologist for consideration of muscle invasive bladder cancer. She underwent transurethral resection of bladder tumor July 2023, showing urothelial carcinoma with squamous differentiation invading into the muscle layer of the bladder. She's no longer have a hematuria. She has had undergone CT scan imaging at that time which is not available for review today. Patient relates a significant history of abdominal surgery for what sounds like diverticulitis. She did have colostomy on the left side at that time. HEBER SHELTON JR, MD [address] [place] [address], [phone], [facility] 11/18/2023 08:59:13 12/26/2023 text/html patient is in today as a referral from another urologist for consideration of muscle invasive bladder cancer. She underwent transurethral resection of bladder tumor July 2023, showing urothelial carcinoma with squamous differentiation invading into the muscle layer of the bladder. She's no longer have a hematuria. CT scan of the abdomen pelvis November 2023 does not show any sign of metastatic disease Patient relates a significant history of abdominal surgery for what sounds like diverticulitis. She did have colostomy on the left side at that time. Visit today is being conducted via telehealth using both audio/video. The patient confirms that he/she is physically located in [place] at the time of this visit. Patient expressed understanding of audio/video telehealth as a billable visit and has consented. Patient also expressed understanding that not every condition can be appropriately addressed via telehealth and that this telehealth visit may need to be converted to an in-person visit or may even result in a recommendation to go to the E.R. at the provider s discretion in order to provide the best possible care. HEBER SHELTON JR, MD [address] [place] [address], [phone], [facility] 12/26/2023 08:14:09 03/10/2024 text/html patient is in today as a referral from another urologist for consideration of muscle invasive bladder cancer. She underwent transurethral resection of bladder tumor July 2023, showing urothelial carcinoma with squamous differentiation invading into the muscle layer of the bladder. She's no longer have a hematuria. CT scan of the abdomen pelvis November 2023 does not show any sign of metastatic disease Patient relates a significant history of abdominal surgery for what sounds like diverticulitis. She did have colostomy on the left side at that time. Patient attempted to undergo neoadjuvant chemotherapy, but did not tolerate well. She's here today to discuss moving ahead with surgical therapy. HEBER SHELTON JR, MD [address] [place] [address], [phone], [facility] 03/15/2024 10:54:13 12/01/2024 text/html The patient is a 69-year-old female presenting with follow-up for muscle invasive bladder cancer. The patient underwent neoadjuvant chemotherapy, followed by robotic-assisted laparoscopic radical cystectomy in May 2024. 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 She reports urinary drainage is functioning well and minor leakage issues with ileostomy bags. The patient has experienced UTIs post-surgery but is managing well with ongoing care. The patient is advised to follow up with general surgery for the ileostomy and her oncologist for cancer management. HEBER SHELTON JR, MD [address] [place] [address], [phone], [facility] 12/08/2024 18:58:58 03/09/2025 text/html The patient is a 69-year-old female presenting with follow-up for muscle invasive bladder cancer. The patient underwent neoadjuvant chemotherapy, followed by robotic-assisted laparoscopic radical cystectomy in May 2024. 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 The patient is advised to follow up with general surgery for the ileostomy and her oncologist for cancer management. The patient is a 69-year-old female presenting with recovery concerns post muscle invasive bladder cancer surgery. Experienced a complex postoperative course following long hospitalization. Recovery trajectory includes improvements in strength and condition. Follow-ups scheduled with oncology in March and general surgery regularly. HEBER SHELTON JR, MD [address] [place] [address], [phone], [facility] 03/23/2025 07:09:30 OBGyn Episode No OBEpisode recorded.
--- OUTSIDE RECORDS SUMMARY | 2025-07-03 06:57 | XMS_ITS | Encounter Summary ---
Author Organization [facility] Address [address] [id number] Care Team Providers Care Orthodontist Assistant Name Role Phone Pcp, No Primary Care Provider Unavailabl e Reason for Visit * Reason Onset Date Comments HCN Clinical Concern/Question 05/18/2025 Encounter Details Date Type Department Care Team (Late st Contact Info) Description 05/18/2025 Telephone [facility] [place] [address] [facility] [place] [address] Scott Bustamante MD [address] [place] [address] HCN Clinical Concern/Question Social History Tobacco Use Types Packs/Day Years Used Date Smoking Tobacco: Never Assessed Comments Unknown Sex and Gender Information Value Date Recorded Sex Assigned at Not on file Legal Sex Female 8:44 PM EDT Gender Identity Not on file Sexual Orientation Not on file documented as of this encounter Miscellaneous Notes * Telephone Encounter - Linda Chopra RN - 05/18/2025 4:03 PM EDT Spoke with patient, clarified that this is just a consult on Sunday not the actual procedure andDrAmando Bustamante will review all her imaging and come up with a plan with her for procedure. Went over directions to our office. * Telephone Encounter - Jazmin Smith - 05/18/2025 2:49 PM EDT Clinical Concern/Question Reason for Call: Patient has medication questions. Best contact number: [phone] (mobile) Optimal time of day to reach caller: ANYTIME Additional comments/information from caller: None Note: Please do not reply to this message. Follow-up communication and further actions as a result of this message need to be communicated with the patient directly, if the patient is not active onMyChart. If the patient is active on MyChart, they will receive notification of the communication/outcome via MyChart. documented in this encounter Plan of Treatment Upcoming Encounters Date Type Department Care Team (Latest Contact Info) Description 07/17/2025 7:30 AM EDT Hospital Encounter Cardiac Plastic Cutter [address] [place] [address] Scott Bustamante MD [address] [place] [address] Presence of IVC filter 07/17/2025 7:30 AM EDT - 07/17/2025 9:00 AM EDT Surgery Cardiac Plastic Cutter [address] [place] [address] Scott Bustamante MD [address] [place] [phone] Vena Cava Filter Removal - Plastic Cutter [18472 (CPT )] documented as of this encounter Visit Diagnoses Not on filedocumented in this encounter Care Teams Orthodontist Assistant Relationship Specialty Start Date End Date Pcp, No [address] [place] [address] PCP - General Family Medicine 04/21/25 05/19/25 documented as of this encounter
--- OUTSIDE RECORDS SUMMARY | 2025-07-03 06:57 | XMS_ITS | Data Portability ---
Author Organization [place] - [place] [facility] & [facility] Address [address] [place] [address] Care Team Providers Care Advertising Writer Name Role Phone EDNA PAULSON Primary Care Provider Assessment No assessment recorded. Plan of Treatment Reminders Order Date Submit Date Provider Last Modified By Organization Details Last Modified Time Details Appointments None recorded. Lab urinalysis , dipstick [email or web address], [address], 3 08:21:40 Referral None recorded. Procedures None recorded. Surgeries None recorded. Imaging CT, abdomen + pelvis, w/wo contrast 2022 023 [email or web address] [facility] ([facility], [address] [facility], [place], [address], 3 08:16:48 Medication Orders None recorded. Patient TargetsNo targets recorded. Patient InstructionsNo instructions recorded. Reason for Referral None Reported. Results Created Date Observation Date Name Description Value Unit Range Abnormal Flag Note LastModifiedBy Organization Detail LastModifiedTime 06/27/2006/27/2023 urina lysis , dipst ick Leukocytes (reference range) small Not Available [address], [address], 06/27/2023 14:59:06 06/27/2006/27/2023 urina lysis , dipst ick Nitrite (reference range:) negati ve Not Available [address], [address], 06/27/2023 14:59:06 06/27/20 23 06/27/2023 urina lysis , dipst ick Urobilinogen (reference range) 0.2 Not Available [address], [address], 06/27/2023 14:59:06 06/27/20 23 06/27/2023 urina lysis , dipst ick Protein (reference range) trace Not Available [address], [address], 06/27/2023 14:59:06 06/27/20 23 06/27/2023 urina lysis , dipst ick pH (reference range 5-8.5) 6.0 Not Available [address], [address], 06/27/2023 14:59:06 06/27/20 23 06/27/2023 urina lysis , dipst ick Blood (reference range:) large Not Available [address], [address], 06/27/2023 14:59:06 06/27/20 23 06/27/2023 urina lysis , dipst ick Specific [place] (reference range) 1.010 Not Available [address], [address], 06/27/2023 14:59:06 06/27/20 23 06/27/2023 urina lysis , dipst ick Ketone (reference range) negati ve Not Available [address], [address], 06/27/2023 14:59:06 06/27/20 23 06/27/2023 urina lysis , dipst ick Bilirubin (reference range) negati ve Not Available [facility] [address], [address], 06/27/2023 14:59:06 06/27/20 23 06/27/2023 urina lysis , dipst ick Glucose (reference range) negati ve Not Available [facility] [address], [address], 06/27/2023 14:59:06 06/27/20 23 06/27/2023 urina lysis , dipst ick Color (reference range: yellow-brown ) Yellow Not Available [facility] [address], [address], 06/27/2023 14:59:06 07/11/2007/11/2023 BUN blood urea nitrogen 21 mg/dL 7-18 high Not Available [facility] (Lab Registration) [address], [place], [address], 07/11/2023 08:32:44 07/11/2007/11/2023 BUN note Unles s other montez noted testi ng perfo rmed at: [facility] [address] [place] [address] [phone] Omid erickson MD CLIA: [id number] Not Available [facility] (Lab Registration) [address], [place], [address], 07/11/2023 08:32:44 07/11/2007/11/2023 CREAT ININE creatinine 0.9 mg/dL 0.6-1. 0 Not Available [facility] (Lab Registration) [address], [place], [address], 07/11/2023 08:32:45 07/11/20 23 07/11/2023 CREAT ININE estimated glom filtration rate 66 mL/mi n >60- Not Available [facility] (Lab Registration) [address] , [place], [address], 07/11/2023 08:32:45 07/11/2007/11/2023 CREAT ININE note Unles s other montez noted testi ng perfo rmed at: [facility] [address] [place] [address] [phone] Omid erickson MD CLIA: [id number] Not Available [facility] (Lab Registration) [address] , [place], [address], 07/11/2023 08:32:45 07/13/2007/13/2023 RFS-P ATHOL OGY SPECI MEN REQUE ST pathreq Patho logy [address] [place] [address] Phone or [phone] Fax Shaq claros Jr., M.D., Medic al [facility] [address] : [place] [address] Phone Numbe r: [phone] Omid erickson M.D. PATHO LOGY REPOR T Patie nt Name: SANYA DEVLIN Date of : 1954 Age/S ex: 68/F Accou nt Numbe r: [id number] Medic al Recor d Numbe r: [id number] Order ing MD: MATEO TRAN AM Date Colle cted : 07/13 Date Recei poli : 07/13 Date Repor samreen : 07/17 Exam: Biops y Acces maryam# : [id number] Labor atory #: [id number] Copie s To: STARLA CONLEY IE Techn ician : Clini maliha Histo ry TURBT , malig nant tumor of urina ry bladd er Previ ous Patie nt Histo ry and Files ELIZABETH SEGUNDO ([birth year] F) i??SS N: [id number] ?? 1. C19-0 [id number] , DateC ollec samreen: 06/27 1: VAGIN AL CUFF THIN PREP Diagn osis: Negat ria for intra epith elial lesio n or malig manav Multi ple facto rs can influ ence accur acy of Pap tests ; there fore, scree marian at regul ar inter vals is neces siva for early cance r detec tion. HPVTe st: HPV16 : NEGAT RIA HPV18 : NEGAT RIA HR HPV NON 16/18 : NEGAT RIA COMME NT:In clude s the follo wing HR HPV types : 31,33 ,35,3 9,45, 51,52 ,56,5 8,59, 66,68 . TEST INFOR MATIO N: HR HPV PCR HR HPV testi ng was perfo rmed on the [employer] RHETT 4800 syste m. This test utili zes targe t DNA ampli ficat ion by PCR and nucle ic acid hybri dzati on for the detec tion of 14 high risk genot ypes. The test ident ifies HPV 16 and HPV 18 separ ately , while concu rrent ly detec ting a pool of 12 addit ional high risk types (31,3 3,35, 39,45 ,51,5 2,56, 58,59 ,66,6 8). 2. S09-0 30017 , Date ollec samreen: 12/23 1: Diagn osis: RANDO M GASTR IC BIOPS IES: Mild chron ic gastr itis witho ut activ ity Negat ria for intes tinal metap lasia and dyspl gabriele Cresy l fast viole t stain , with appro priat e contr ols, is negat ria for Helic obact er pylor i DISTA L ESOPH AGEAL BIOPS IES: Squam ous mucos a with minim al basal layer hyper plasi a and sligh t vascu lar ectas ia Gastr ic cardi a type mucos a showi ng chron ic gastr itis witho ut activ ity Histo logic featu res are sugge stive of reflu x esoph agiti s Negat ria for intes tinal metap lasia , suppo rted by Alcia n Blue/ PAS stain with appro priat e contr ols Negat ria for dyspl gabriele Legal ly authe ntica samreen by OMID CHOWDHURY MD 07-17 08:19 :00 ESOPH AGEAL BIOPS IES: Squam ous mucos a with sligh t basal layer hyper plasi a, mild vascu lar ectas ia, and mild incre as in intra epith elial leuko cytes , sugge stive but not diagn ostic of reflu x esoph agiti s Negat ria for intes tinal metap lasia and dyspl gabriele (see COMME NT) 3. S04-0 18175 , DateC ollec samreen: 08/19 1: Diagn osis: SKIN BIOPS Y RIGHT BREAS T: Sebor rheic kerat osis JLB/d ls [id number] Curre nt Speci men Proce dure: Trans ureth ral resec tion of bladd er tumor Tumor site: Bladd er, not other montez speci fied Histo logic type: Uroth elial carci noma with squam ous diffe renti ation Perce ntage of squam ous diffe renti ation : 15% Histo logic grade : High grade Tumor exten t: Tumor invad es muscu kamari propr ia Lymph atic and/o r lymph vascu lar invas ion: Prese nt Tumor confi gurat ion: Papil tomasa Muscu kamari propr ia: Prese nt in speci men Assoc iated epith elial lesio ns: Not ident ified Addit ional findi ngs: Not ident ified Note: Dr. Tran has been notif ied of the above diagn osis on 07/16 . BodyS ite URINA RY BLADD ER, TUR SubSi te NEOPL ASM Gross Descr iptio n Label ed as blad rosalba neopl asm , consi sting of multi ple piece s of ordonez-p ink bladd er TUR that weigh s 9.7 g and measu res 6.3 x 4.2 x 0.9 cm in aggre gate. Repre senta tive porti ons are submi tted in casse ttes A1-A5 . SOG Micro scopi c Descr iptio n Pleas e see CAP narendra col. 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 4 low Not Available [facility] (Pre-Op Clinic) [address] [place] [address] [place], [address], 07/14/2023 06:12:54 07/14/2007/14/2023 CBC W/ AUTO DIFF HGB 9.5 g/dL 12.0-1 5.0 low Not Available [facility] (Pre-Op Clinic) [address] [place] [address] [place], [address], 07/14/2023 06:12:54 07/14/2007/14/2023 CBC W/ AUTO DIFF HCT 30.9 % 35-49 low Not Available [facility] (Pre-Op Clinic) [address] [place] [address] [place], [address], 07/14/2023 06:12:54 07/14/20 23 07/14/2023 CBC W/ AUTO DIFF MCV 78.0 fL 80.0-1 00.0 low Not Available [facility] (Pre-Op Clinic) [address] [place] [address] [place], [address], 07/14/2023 06:12:54 07/14/2007/14/2023 CBC W/ AUTO DIFF MCH 24.0 pg 26.0-3 2.0 low Not Available [facility] (Pre-Op Clinic) [address] [place] [address] [place], [address], 07/14/2023 06:12:54 07/14/2007/14/2023 CBC W/ AUTO DIFF MCHC 30.7 g/dL 32.0-3 6.0 low Not Available [facility] (Pre-Op Clinic) [address] [place] [address] [place], [address], 07/14/2023 06:12:54 07/14/2007/14/2023 CBC W/ AUTO DIFF RDW 16.3 % 11.5-1 4.5 high Not Available [facility] (Pre-Op Clinic) [address] [place] [address] [place], [address], 07/14/2023 06:12:54 07/14/2007/14/2023 CBC W/ AUTO DIFF platelet count 252 K/uL 142-42 4 Not Available [facility] (Pre-Op Clinic) [address] [place] [address] [place], [address], 07/14/2023 06:12:54 07/14/2007/14/2023 CBC W/ AUTO DIFF MPV 11.4 fL 6.8-10 .2 high Not Available [facility] (Pre-Op Clinic) [address] [place] [address] [place], [address], 07/14/2023 06:12:54 07/14/2007/14/2023 CBC W/ AUTO DIFF neutrophil % 78.0 % 50-70 high Not Available [facility] (Pre-Op Clinic) [address] [place] [address] [place], [address], 07/14/2023 06:12:54 07/14/2007/14/2023 CBC W/ AUTO DIFF lymphocyte % 13.4 % 18.0-4 2.0 low Not Available [facility] (Pre-Op Clinic) [address] [place] [address] [place], [address], 07/14/2023 06:12:54 07/14/2007/14/2023 CBC W/ AUTO DIFF monocyte % 7.4 % 2.0-11 .0 Not Available [facility] (Pre-Op Clinic) [address] [place] [address] [place], [address], 07/14/2023 06:12:54 07/14/2007/14/2023 CBC W/ AUTO DIFF eosinophil % 0.4 % 1.0-3. 0 low Not Available [facility] (Pre-Op Clinic) [address] [place] [address] [place], [address], 07/14/2023 06:12:54 07/14/2007/14/2023 CBC W/ AUTO DIFF basophil % 0.4 % 0.0-2. 0 Not Available [facility] (Pre-Op Clinic) [address] [place] [address] [place], [address], 07/14/2023 06:12:54 07/14/2007/14/2023 CBC W/ AUTO DIFF immature granulocytes % 0.4 % 0.0-0. 8 Not Available [facility] (Pre-Op Clinic) [address] [place] [address] [place], [address], 07/14/2023 06:12:54 07/14/2007/14/2023 CBC W/ AUTO DIFF nucleated red blood cells % 0.0 % Not Available [facility] (Pre-Op Clinic) [address] [place] [address] [place], [address], 07/14/2023 06:12:54 07/14/2007/14/2023 CBC W/ AUTO DIFF neutrophil # 6.26 K/uL Not Available [facility] (Pre-Op Clinic) [address] [place] [address] [place], [address], 07/14/2023 06:12:54 07/14/2007/14/2023 CBC W/ AUTO DIFF lymphocyte # 1.07 K/uL Not Available [facility] (Pre-Op Clinic) [address] [place] [address] [place], [address], 07/14/2023 06:12:54 07/14/2007/14/2023 CBC W/ AUTO DIFF monocyte # 0.59 K/uL Not Available [facility] (Pre-Op Clinic) [address] [place] [address] [place], [address], 07/14/2023 06:12:54 07/14/2007/14/2023 CBC W/ AUTO DIFF eosinophil # 0.03 K/uL Not Available [facility] (Pre-Op Clinic) [address] [place] [address] [place], [address], 07/14/2023 06:12:54 07/14/2007/14/2023 CBC W/ AUTO DIFF basophil # 0.03 K/uL Not Available [facility] (Pre-Op Clinic) [address] [place] [address] [place], [address], 07/14/2023 06:12:54 07/14/2007/14/2023 CBC W/ AUTO DIFF immature gramulocytes # 0.03 K/uL Not Available [facility] (Pre-Op Clinic) [address] [place] [address] [place], [address], 07/14/2023 06:12:54 07/14/2007/14/2023 CBC W/ AUTO DIFF nucleated red blood cells # 0.00 k/uL Not Available [facility] (Pre-Op Clinic) [address] [place] [address] [place], [address], 07/14/2023 06:12:54 07/14/2007/14/2023 CBC W/ AUTO DIFF manual differential NO Not Available [facility] (Pre-Op Clinic) [address] [place] [address] [place], [address], 07/14/2023 06:12:54 07/14/2007/14/2023 CBC W/ AUTO DIFF note Unles s other montez noted testi ng perfo rmed at: [facility] [address] [place] [address] Omid erickson MD Not Available [facility] (Pre-Op Clinic) [address] [place] [address] [place], [address], 07/14/2023 06:12:54 07/11/2007/11/2023 CT ABD/p adenike wow [facility] [address] [place] [place] [address] Phone: Fax: Name: ELIZABETH SEGUNDO Exam Date: 2022 : 954 Age 68 years Gender : F Access ion: [id number] Physic estrellita: JULIA TRAN Facili ty: [facility] Facili ty HSV: Outpat ient Exam: CT ABD/PE LVIS WOW CT ABDOME N AND PELVIS WITHOU T AND WITH CONTRA ST HISTOR Y: Malign ant tumor of the urinar y bladde r. PROCED URE: Pre-an d postco ntrast imagin g was obtain ed throug h the abdome n and pelvis . Axial images were obtain ed from the lung bases to the pubic symphy sis by comput ed tomogr aphy.T his study was perfor med with techni ques to keep radiat ion doses as low as reason ably achiev able, (ALARA ). FINDIN GS: ABDOME N: A 4 mm nodule is identi fied in the right middle lobe on image 5. A 2 mm nodule is identi fied in the right middle lobe on image 9. There is basal atelec tasis. There is athero sclero sis. The heart is normal in size. The liver is normal . The spleen is unrema rkable . No adrena l mass is presen t. The pancre as is normal . There is no hydron ephros is or discre te ureter al stone. Multip le cystic lesion s are identi fied in the right kidney measur ing up to 3 cm. There is a nonobs tructi ng stone in the left kidney measur ed 12 mm. The aorta is normal in calibe r. There is no free fluid or adenop athy. There are no abnorm ally dilate d loops of bowel. PELVIS : The append ix and uterus are absent by histor y. There is an enhanc ing mass identi fied in the right aspect of the urinar y bladde r measur ing 5.6 x 3.6 x 3.3 cm weren' t for malign ayan. There is no signif icant free fluid or adenop athy. No acute osseou s abnorm ality is identi fied. IMPRES MARYAM: Indete rminat e pulmon autumn nodule s. Follow -up CT of the chest in 6 months recomm ended. Enhanc ing urinar y bladde r mass worris ome for malign ayan. Direct visual izatio n recomm ended. Images review ed, interp reted and dictat ed by Dr. Murillo. Transc ribed by Taiwo Marie PA-C Dictat ed By: EMMETT MURILLO Transc ribed By: EMMETT MURILLO Transc ribed On: 2022 12:43 PM Electr onical ly signed by: EMMETT MURILLO 2022 Thank you for referr ing ELIZABETH SEGUNDO to [facility]. Legall y authen ticate d by POPE EMMETT Perez DO 2022- 12:43: 22 CC'ed Logic: Orderi ng Provid er: CHELSEA Lucas CC Provid er: OPAL Lemos Attend ing Provid er: CHELSEA Lucas Referr ing Provid er: CHELSEA Lucas Admitt ing Provid er: CHELSEA Lucas [email or web address] [facility] (Radiology) [address] , [place], [address], 07/12/2023 10:56:12 07/16/20 23 07/16/2023 elect rocar diogr am No observ ation record ed. [email or web address] [facility] Medical Records [address] [place] [address] [place], [address], 07/24/2023 08:19:04 Result Notes None recorded. Problems Name Problem SNOMED Code Status Onset Date Resolution Date Notes Provider Name and Address Organization Details Recorded Time Primary osteoporosis 005726518 Active 2022 Eagle peralta [facility] & [place] 3 13:36:49 Problem Notes None recorded. Procedures Surgical History Date Name Laterality Status Provider Name and Address Organization Details Recorded Time 06/27/20 23 Cystoscopy-Femal e completed Gunner Tran Jr, MD [address] [place] [address] Drive, [address], [place], [address], [facility] & [place] 06/27/2023 15:31:09 partial hysterectomy completed Aretha Maher [facility] & [place] 06/25/2023 16:08:12 procedure on skin completed Aretha CONTRERAS [facility] & [place] 06/25/2023 16:08:42 Imaging Results None recorded. Procedure Notes None recorded. Medical Equipment None Reported. Allergies Allergen ID Allergen Name Allergen Category Reaction Reaction Severity Criticality Documentation Date Start Date Code Code System Note Provider Name and Address Organization Details Recorded Time 62834 lisinopri l medicatio n Not available Not available Not available 06/25/2023 26911 RxNorm Aretha peralta DIANE [facility] & [place] 3 16:07:10 Medications Name Sig Start Date Stop Date Status Note LastModified by Organization Details LastModified Time celecoxib 200 mg capsule Take 1 capsule every day by oral route. active Not Available Not Available No t Available azithromyci n 250 mg tablet TAKE 2 TABLETS BY MOUTH ON DAY 1, THEN TAKE 1 TABLET DAILY ON DAYS 2-5 06/25 completed Not Available Not Available Not Available meloxicam 15 mg tablet active Not Available Not Available Not Available prednisone 20 mg tablet TAKE ONE TABLET BY MOUTH TWICE DAILY FOR 5 DAYS -- FINISH ALL MEDICINE -- --TAKE WITH FOOD-- 06/25 completed Not Available Not Available Not Available omeprazole 40 mg capsule,del ayed release TAKE ONE CAPSULE BY MOUTH EVERY DAY active Not Available Not Available No t Available calcium 600 mg (as calcium carbonate 1,500 mg) tablet TAKE ONE TABLET BY MOUTH TWICE DAILY active Not Available Not Available No t Available benzonatate 100 mg capsule TAKE ONE CAPSULE BY MOUTH THREE TIMES DAILY NEEDED FOR cough -SWALLOW WHOLE. DO NOT CRUSH OR CHEW- 06/25 completed Not Available Not Available Not Available metoprolol tartrate 50 mg tablet TAKE ONE TABLET BY MOUTH TWICE DAILY active Not Available Not Available No t Available felodipine ER 10 mg tablet,exte nded release 24 hr TAKE ONE TABLET BY MOUTH EVERY DAY active Not Available Not Available No t Available hydrochloro thiazide 25 mg tablet TAKE ONE TABLET BY MOUTH EVERY DAY active Not Available Not Available No t Available cefdinir 300 mg capsule TAKE ONE CAPSULE BY MOUTH EVERY TWELVE HOURS -- FINISH ALL MEDICINE -- active Not Available Not Available No t Available cholecalcif marco (vitamin D3) 25 mcg (1,000 unit) capsule TAKE ONE CAPSULE BY MOUTH EVERY DAY active Not Available Not Available No t Available rosuvastati n 20 mg tablet TAKE ONE TABLET BY MOUTH EVERY DAY AT BEDTIME active Not Available Not Available No t Available potassium chloride ER 10 mEq tablet,exte nded release(par t/cryst) TAKE ONE TABLET BY MOUTH ONCE DAILY active Not Available Not Available No t Available aspirin active Not Available Not Avail able Not Available calcium 06/27 completed Not Available Not Available Not Available Vitamin D3 06/27 completed Not Available Not Available Not Available celecoxib 06/27 completed Not Available Not Available Not Available Mucus Relief ER 600 mg tablet, extended release TAKE TWO TABLETS BY MOUTH TWICE DAILY NEEDED FOR cough 06/25 completed Not Available Not Available Not Available Vitals Date Recorded Body temperature Provider Name a nd Address Organization Details Last Updated DateTime 06/27/2023 98 [degF] Dary [place] - [facility] & [place] 06/27/2023 13:43:31 Date Recorded Body height Body mass index (BMI) Body weight Provider Name and Address Organization Details Last Updated DateTime 06/27/2023 172.72 cm 33.5 kg/m2 10352.32 g Eagle Gonzalez [place] - [facility] & [place] 06/27/2023 13:35:30 Social History None recorded. Functional Status Question Answer Note LastModified by Organization D etails LastModified Time What is your level of alcohol consumption? None [email or web address] Information not available 06/26/2023 Mental Status None recorded. Family History Nothing Reported Notes:mother alive father de ceased heart disease Medical History No medical history recorded. Gynecological HistoryNo gynecological history recorded. Obstetrics History GPAL:G 0 P 0 0 0 0 Past Encounters Encounter ID Performer Location Encounter Start Date Encounter Closed Date Diagnosis/Indication Diagnosis SNOMED-CT Code Diagnosis ICD10 Code Diagnosis IMO Codes Diagnosis Note [id number] Gunner Tran Jr, MD [facility] [address] [address] 06/27/2023 13:15:34 06/27/2023 14:43:02 Malignant neoplasm of urinary bladder 362751935 C67.9 68-year-ol d white female with intermitte nt gross hematuria for the last year. The hematuria has worsened over the past month. Cystoscopy was performed today showing a 4 cm tumor and smaller satellite lesions in the right lateral base of the bladder. I discussed the findings with the patient and TURBT was recommende d. We will go ahead and set up a CT abdomen pelvis as well for staging. Health Concerns Section Related Observation LastModified by Organization Detai ls LastModified Time None Recorded Concern Status LastModified by Organization Details LastModified Time None Recorded Advance Directives Directive None Recorded Payers Insurance Date Sequence Insurance Name Policy Number Policy Orozco Covered Member ID Orozco Member ID Guarantor Name 07/10/2023 2 [place] Elizabeth Segundo [id number] Elizabeth Segundo 07/26/2023 1 [place] [employer] [place] [employer] (MEDICARE REPLACEMENT HMO) [id number] Elizabeth Segundo [id number] Elizabeth Segundo Notes Date Note Type Note Provider Name and Address Organization Details Recorded Time 06/27/2023 text/html patient is a 68-year-old white female referred for gross hematuria. Patient states she is had intermittent gross hematuria for the last year. She states it was present about every month until past month when it has been present on most days. She states the urine pretty red in the mornings that clears by noon time. She denies any injury. She denies any lower urinary tract symptoms or dysuria. No imaging has been performed. Gunner Tran Jr, MD [address] [place] [address], [address], [place], [address], [facility] - [place] & [place] 06/27/2023 15:33:11 OBGyn Episode No OBEpisode recorded.
--- OUTSIDE RECORDS SUMMARY | 2025-07-03 06:57 | XMS_ITS | Encounter Summary ---
Author Organization Healthcare Address [facility] [place] [id number] Care Team Providers Care Automotive Salesperson Name Role Phone Pcp, No Primary Care Provider Unavailabl e Encounter Details Date Type Department Care Team (Latest Contact Info) Description 05/20/2025 Travel Social History Tobacco Use Types Packs/Day Years Used Date Smoking Tobacco: Never Smokeless Tobacco: Never Alcohol Use Standard Drinks/Week Comments Never 0 [...] on file documented as of this encounter Functional Status * AUDIT-C Score [...] things Not at all 05/20/2025 1:36 PM EDT Stephanie Gould CNA Feeling down, depressed, or hopeless Not at all 05/20/2025 1:36 PM EDT Stephanie Gould CNA Patient Health Questionnaire-2 Score 0 05/20/2025 1:36 PM EDT Dany Gould CNA * Question Answer Date of Assessment Author Trouble falling or staying asleep, or sleeping too much Not at all 05/20/2025 1:36 PM EDT Stephanie Gould CNA Feeling tired or having little energy Not at all 05/20/2025 1:36 PM EDT Stephanie Gould CNA Poor appetite or overeating Not at all 05/20/2025 1: 36 PM EDT Stephanie Gould CNA Feeling bad about yourself - or that you are a failure or have let yourself or your family down Not at all 05/20/2025 1:36 PM EDT Stephanie Gould CNA Trouble concentrating on things, such as reading the newspaper or watching television Not at all 05/20/2025 1:36 PM EDT Stephanie Gould CNA Moving or speaking so slowly that other people could have noticed? Or the opposite - being so fidgety or restless that you have been moving around a lot more than usual. Not at all 05/20/2025 1:36 PM EDT Stephanie Gould CNA Thoughts that you would be better off or hurting yourself in some way Not at all 05/20/2025 1:36 PM EDT Stephanie Gould CNA Patient Health Questionnaire-9 Score 0 05/20/2025 1:36 PM EDT Dany Gould CNA * How difficult have these problems made it for you to do your work, take care of things at home, or get along with other people? Answer Date of Assessment Author Not difficult at all 05/20/2025 1:36 PM EDT Stephanie Parsons CNA documented as of this encounter Plan of Treatment Upcoming Encounters Date Type Department Care Team (Latest Contact Info) Description 07/17/2025 7:30 AM EDT Hospital Encounter Cardiac Bail Agent [address] [place] [phone] Scott Bustamante MD [address] [place] [phone] Presence of IVC filter 07/17/2025 7:30 AM EDT - 07/17/2025 9:00 AM EDT Surgery Cardiac Bail Agent [address] [place] [phone] Scott Bustamante MD [address] [place] [address] Vena Cava Filter Removal - Bail Agent [03712 (CPT )] documented as of this encounter Visit Diagnoses Not on filedocumented in this encounter Additional Health Concerns Assessment Noted Time PHQ-9 Depression Total Score: 0 05/20/20 1:36 PM EDT A fall risk assessment has been complete d for the patient 05/20/2025 1:36 PM EDT A Body Mass Index follow-up plan has been documented for the patient 05/20/2025 2:48 PM EDT documented as of this encounter Care Teams Automotive Salesperson Relationship Specialty Start Date End Date Pcp, No [address] [place] [address] PCP - General Family Medicine 05/20/25 documented as of this encounter
--- OUTSIDE RECORDS SUMMARY | 2025-07-03 06:57 | XMS_ITS | Clinical Summary ---
Author Organization [employer] ([place], [place], [place], [place]) Address [address] [place] [address] Care Team Providers Care Yard Supervisor Name Role Phone Unavailable Primary Care Provider [...] Date Kiran rded Speak language other than Equatorial Guinean at home Not on file 01/16/2024 Want [...] years (2 of 2 - PCV) 01/24/2018 Falls Risk Screening 10/01/2024 COVID-19 VACCINE (1 - season) 2025 Influenza Vaccine (#1) 2025 07/16/2018, 2016 Respiratory Syncytial Virus (RSV) Adult or (1 - 1-dose 75+ series) 2029
--- OUTSIDE RECORDS SUMMARY | 2025-07-03 06:57 | XMS_ITS ---
Author Organization [facility] Address [address] [place] [address] Care Team Providers Care Tunnel Worker Name Role Phone Arslan Sorensen MD Primary Care Provider [phone] Active Problems Problem Noted Date Diagnosed Date [...] calculate ASCVD risk Elevated hemoglobin A1c 05/28/2024 Current Treatment and Therapy Plans No current plan information found. Past Treatment and Therapy Plans No past plan information found. Lifetime Dose Tracking * Chemical Lifetime Dose Automatic Entry Manual Entr y Cumulative Air Kerma 687 mGy 0 mGy 687 mGy Resolved Problems Problem Noted Date Diagnosed Date Resolved Date Pulmonary embolism 08/08/2024 4
--- OUTSIDE RECORDS SUMMARY | 2025-07-03 06:57 | XMS_ITS | Referral Summary ---
Author Organization [employer] ([place], [place], [place], [place]) Address [address] [place] [address] Care Team Providers Care Petroleum Products District Supervisor Name Role Phone Unavailable Primary Care [...] Date Kiran rded Speak language other than Zambian at home Not on file 01/16/2024 Want [...]
--- NOTE | 2025-07-03 07:00 | CT_ITS ---
FINAL REPORT TECHNIQUE: Axial images through the abdomen and pelvis were performed without contrast. This study was performed with techniques to keep radiation doses as low as reasonably achievable, (ALARA). Individualized dose reduction techniques using automated exposure control or adjustment of mA and/or kV according to the patient's size were employed. CLINICAL HISTORY: bladder cancer COMPARISON: 12/26/2024 FINDINGS: Abdomen: There is moderate diffuse fatty infiltration of the liver which is enlarged to 21 cm. The gallbladder is partially contracted. Calcified granulomas are present within the spleen. The pancreas and adrenal glands are unremarkable. Again seen is a stone in the lower pole the left kidney measuring up to 1.2 cm in greatest dimension. There is moderate left hydronephrosis and hydroureter to the level of the loop ileostomy. Pelvis: Bilateral anterior pelvic wall ostomies are present, one presumed representing loop ileostomy. The urinary bladder is unremarkable. The appendix is not visualized. There appears to be contrast throughout the colon. Postsurgical changes are noted at the rectosigmoid junction. An IVC filter is present. There is no adenopathy. IMPRESSION: Unchanged from the previous exam. Moderate left hydronephrosis and hydroureter to the level of loop ileostomy. Large stone lower pole left renal collecting system. Fatty liver with hepatomegaly. Reviewed, Interpreted and Dictated by Miko Mejía MD Transcribed by Mary Becerril Authenticated and [facility]
--- NOTE | 2025-07-03 07:00 | CT_ITS ---
FINAL REPORT TECHNIQUE: Axial images were obtained through the chest without contrast. Coronal and sagittal reconstructions obtained and reviewed. This study was performed with techniques to keep radiation doses as low as reasonably achievable, (ALARA). Individualized dose reduction techniques using automated exposure control or adjustment of mA and/or kV according to the patient's size were employed. CLINICAL HISTORY: bladder cancer COMPARISON: 12/26/2024 FINDINGS: No significant mediastinal mass. Calcified mediastinal and right hilar lymph nodes are noted. The heart size is normal. There is no pericardial or pleural effusion. Calcified granuloma in the right upper lobe. There is a 5 mm noncalcified nodule in the right middle lobe is well-seen on image 44 series 4. There is a second tiny nodule seen in the periphery measuring 2 mm on image 50 of series 4. Both nodules are stable. No new nodules identified. IMPRESSION: Stable right middle lobe nodules with no new nodules identified. Reviewed, Interpreted and Dictated by Miko Mejía MD Transcribed by Mary Becerril Authenticated and [facility]
--- OUTSIDE RECORDS SUMMARY | 2025-07-03 07:57 | XMS_ITS | CCD ---
Author Organization Unknown Care Team Providers Care Toolroom Attendant Name Role Phone Non Engaged, [facility] Primary Care Provider Unav ailable Unavailable Chronic Care Management Unavaila ble Summary Purpose DataExchange Insurance Providers Payer name Policy type / Coverage type Covered libertarian ID Effective Begin Date Effective End Date [facility] [id number] Unknown Unknown Family History Family History data not found Medication Administered No Medication Administered data Reason For Visit No Reason For Visit data Medical Equipment No Medical Equipment data Advance Directives No Advance Directive data
== END 2025-07-03 23:59 | disposition home or self-care (01) ==
LOC: RAD 06:55
PROVIDERS: PCP Nurse Practitioner; Visit Provider Internal Medicine Medical Oncology
DX: C67.9 Malignant neoplasm of bladder, unspecified (principal); E87.6 Hypokalemia; R91.8 Other nonspecific abnormal finding of lung field; N13.30 Unspecified hydronephrosis; N13.4 Hydroureter; N20.0 Calculus of kidney; K76.0 Fatty (change of) liver, not elsewhere classified; R16.0 Hepatomegaly, not elsewhere classified; Z98.890 Other specified postprocedural states
CPT/HCPCS: 71250; 74176

== ENCOUNTER 2025-07-07 10:30 | Outpatient (CLI) | payer MEDICARE, SELFPAY ==
--- OUTSIDE RECORDS SUMMARY | 2025-05-20 13:15 | XMS_ITS | Encounter Summary ---
Author Organization [facility] Address [address] [id number] Care Team Providers Care Dairy Grazer Name Role Phone Pcp, No Primary Care Provider Unavailabl e Reason for Visit * Consultation (Routine) - Closed Specialty Diagnoses / Procedures Referred By Contac t Referred To Contact Cardiology Diagnoses Presence of IVC filter History of pulmonary embolism History of DVT (deep vein thrombosis) Abhishek Gamino MD [address] [facility] [address] [place] [address] Phone: tel: fax: Scott Bustamante MD [address] [place] [address] Phone: tel: fax: Referral ID Status Reason Start Date Expiration Date V isits Requested Visits Authorized [id number] Closed Specialty Services Required 04/21/2025 10/21/2026 1 1 Encounter Details Date Type Department Care Team (Late st Contact Info) Description 05/20/2025 1:15 PM EDT Office Visit [facility] [place] [address] [facility] [place] [address] Scott Bustamante MD [address] [place] [address] Presence of IVC filter (Primary Dx) Social History Tobacco Use Types Packs/Day Years Used Date Smoking Tobacco: Never Smokeless Tobacco: Never Tobacco Cessation:Counseling Given: Not Answered Alcohol Use Standard Drinks/Week Comments Never 0 (1 standard drink = 0.6 oz pur e alcohol) PHQ-2 Answer Date Recorded Patient Health Questionnaire-2 Score 0 05/20/2025 PHQ-9 Answer Date Recorded Patient Health Questionnaire-9 Score 0 05/20/2025 AUDIT-C Answer Date Recorded Q1: How often do you have a drink containing alcohol? Never 05/20/2025 Q2: How many drinks containi ng alcohol do you have on a typical day when you are drinking? Patient does not drink Q3: How often do you have si x or more drinks on one occasion? Never 05/20/2025 Comments Unknown Sex and Gender Information Value Date Recorded Sex Assigned at Not on file Legal Sex Female 8:44 PM EDT Gender Identity Not on file Sexual Orientation Not on file documented as of this encounter Last Filed Vital Signs Vital Sign Reading Time Taken Comments Blood Pressure 122/83 05/20/2025 1:26 PM EDT Pulse 110 05/20/2025 1:26 PM EDT Temperature - - Respiratory Rate - - Oxygen Saturation 96% 05/20/2025 1:26 PM EDT Inhaled Oxygen Concentration - - Weight 89.5 kg (197 lb 5 oz) 05/20/2025 1:26 PM EDT Height 172.7 cm (5' 8 ) 05/20/2025 1:26 PM EDT Body Mass Index 30 05/20/2025 1:26 PM EDT documented in this encounter Functional Status * AUDIT-C Score Answer Date of Assessment Author 0 05/20/2025 1:30 PM EDT Stephanie Gould CNA * Question Answer Date of Assessment Author Q1: How often do you have a drink containing alcohol? Never 05/20/2025 1:30 PM EDT Stephanie Gould CNA Q2: How many drinks containing alcohol do you have on a typical day when you are drinking? Patient does not drink 05/20/2025 1:30 PM EDT Stephanie Gould CNA Q3: How often do you have six or more drinks on one occasion? Never 05/20/2025 1:30 PM EDT Stephanie Gould CNA * Over the past 2 weeks, how often have you been bothered by any of the following problems? Question Answer Date of Assessment Author Little interest or pleasure in doing things Not at all 05/20/2025 1:36 PM EDStephanie Artis CNA Feeling down, depressed, or hopeless Not at all 05/20/2025 1:36 PM EDT Stephanie Gould CNA Patient Health Questionnaire-2 Score 0 05/20/2025 1:36 PM EDT Dany Gould CNA * Question Answer Date of Assessment Author Trouble falling or staying asleep, or sleeping too much Not at all 05/20/2025 1:36 PM Stephanie Pena CNA Feeling tired or having little energy Not at all 05/20/2025 1:36 PM ANGT Stephanie Gould CNA Poor appetite or overeating Not at all 05/20/2025 1: 36 PM Stephanie Pena CNA Feeling bad about yourself - or that you are a failure or have let yourself or your family down Not at all 05/20/2025 1:36 PM Stephanie Pena CNA Trouble concentrating on things, such as reading the newspaper or watching television Not at all 05/20/2025 1:36 PM ANGT Stephanie Gould CNA Moving or speaking so slowly that other people could have noticed? Or the opposite - being so fidgety or restless that you have been moving around a lot more than usual. Not at all 05/20/2025 1:36 PM Stephanie Pena CNA Thoughts that you would be better off or hurting yourself in some way Not at all 05/20/2025 1:36 PM EDStephanie Artis CNA Patient Health Questionnaire-9 Score 0 05/20/2025 1:36 PM Dany Pena CNA * How difficult have these problems made it for you to do your work, take care of things at home, or get along with other people? Answer Date of Assessment Author Not difficult at all 05/20/2025 1:36 PM EDT Stephanie Parsons CNA documented as of this encounter Miscellaneous Notes * Progress Notes - Tiffanie Nunez, HYDROGENATION STILL OPERATOR - 05/20/2025 1:15 PM EDT Images from the original note were not included. Cardiology Consult Date of Visit 05/20/25 Referring Provider Abhishek Gamino MD History of Present Illness Today, Dr. Scott Bustamante and I saw Sherry Owen, a 70 y.o. female at [facility] [place] for consultation regarding IVC filter removal at the request of Abhishek Gamino MD. 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 Underwent attempt of IVC filter removal at OSH 04/14/2024, but was unsuccessful. The patient reports intermittent episodes of exertional shortness of breath that occur unpredictably, without a consistent trigger. These episodes are sometimes accompanied by a sensation of chest pressure, which resolves with rest. She describes the symptoms as mild to moderate in intensity. She denies palpitations, lightheadedness, syncope, lower extremity edema, orthopnea, or paroxysmal nocturnal dyspnea. Aside from these occasional episodes, she reports no other cardiac-related symptoms andis generally able to perform her usual daily activities. Past Surgical History Surgical History[1] Family History Family History[2] Social History Social History[3] Current Medications Current Medications[4] Allergies Allergies[5] Review of Systems 14 point ROS negative except as listed in HPI. Vitals Visit Vitals BP 122/83 (BP Location: Left arm, Patient Position: Sitting) Pulse 110 Ht 1.727 m (5' 8 ) Wt 89.5 kg (197 lb 5 oz) SpO2 96% BMI 30.00 kg/m?? Physical Exam Vitals and nursing note reviewed. Constitutional: Appearance: Normal appearance. HENT: Head: Normocephalic and atraumatic. Cardiovascular: Rate and Rhythm: Normal rate and regular rhythm. Pulses: Normal pulses. Heart sounds: Normal heart sounds. Pulmonary: Effort: Pulmonary effort is normal. Breath sounds: Normal breath sounds. Musculoskeletal: General: Normal range of motion. Cervical back: Normal range of motion. Skin: General: Skin is warm and dry. Capillary Refill: Capillary refill takes less than 2 seconds. Neurological: Mental Status: She is alert and oriented to person, place, and time. Psychiatric: Mood and Affect: Mood normal. Behavior: Behavior normal. Lab Review Lab Results Component Value Date/Time WBC 5.82 04/14/2025 08 RBC 4.21 04/14/2025828 HGB 12.2 04/14/2025 08 HCT 39.2 04/14/2025828 Lab Results Component Value Date/Time GLUCOSE 106 (H) 04/14/2025828 BUN 16.2 04/14/2025828 CREATININE 1.27 (H) 04/14/2025828 NA 138 04/14/2025828 K 4.2 04/14/2025828 CL 106 04/14/2025828 Lab Results Component Value Date/Time AST 97 (H) 08/13/2024758 ALT 150 (H) 08/13/2024758 Lab Results Component Value Date/Time HGBA1C 5.9 (H) 08/08/20242246 Lab Results Component Value Date/Time TSH 2.58 08/08/20242246 ASSESSMENT AND PLAN Visit Diagnoses and Orders 1. Presence of IVC filter Case Request Boomswing Operator: Vena Cava Filter Removal - Boomswing Operator IMPRESSION and PLAN: # IVC Filter -Outside catheterization imaging was reviewed by Dr. Bustamante, who determined that the patient is an appropriate candidate for IVC filter retrieval. -The plan is to proceed with an attempt at filter removal via catheter-based approach. -Risks, benefits, and potential alternatives will be discussed with the patient prior to intervention. -A catheterization order has been placed, and the procedure will be scheduled accordingly. -Continue follow up with referring Cruise Counselor FOLLOW UP: as needed A total time of 30 minutes was spent by MD and CARYN addressing the current illness, reviewing records (prior imaging, lab work, etc), and formulating a plan. The patient is agreeable to the plan and all pertinent questions were answered. The patient's cardiac evaluation was discussed with Dr. Scott Bustamante who agrees with the plan. Abhishek Gamino MD, thank you for the consultation. Please do not hesitate to contact us with any questions. Tiffanie Nunez, HYDROGENATION STILL OPERATOR [1] No past surgical history on file. [2] No family history on file. [3] Social History Tobacco Use Smoking status: Never Smokeless tobacco: Never Substance Use Topics Alcohol use: Never Drug use: Never [4] Current Outpatient Medications: acetaminophen (Tylenol Extra Strength) 500 MG tablet, Take 1 capsule by mouth., Disp: , Rfl: ALPRAZolam (Xanax) 0.25 MG tablet, TAKE ONE TABLET BY MOUTH TWICE DAILY MAY CAUSE DROWSINESS, Disp:, Rfl: busPIRone (Buspar) 10 MG tablet, Take 1 tablet by mouth 2 times a day., Disp: , Rfl: Eliquis 5 MG tablet, take one tablet by mouth twice daily as directed, Disp: , Rfl: escitalopram (Lexapro) 10 MG tablet, Take 1 tablet by mouth 1 time each day., Disp: , Rfl: folic acid (Folvite) 1 MG tablet, Take 1 tablet by mouth 1 time each day., Disp: , Rfl: omeprazole (PriLOSEC) [address] capsule, Take 1 capsule by mouth daily., Disp: , Rfl: QUEtiapine (SEROquel) 25 MG tablet, Take 1 tablet by mouth 1 time each day., Disp: , Rfl: sodium bicarbonate 650 MG tablet, Take 1 tablet by mouth every 8 hours., Disp: , Rfl: [5] Allergies Allergen Reactions Lisinopril Hives and Swelling SWELLING AROUND THE EYES NO BREATHING PROBLEMS documented in this encounter Plan of Treatment Upcoming Encounters Date Type Department Care Team (Latest Contact Info) Description 07/17/2025 7:30 AM EDT Hospital Encounter Cardiac Boomswing Operator [address] [place] [phone] Scott Bustamante MD [address] [place] [phone] Presence of IVC filter 07/17/2025 7:30 AM EDT - 07/17/2025 9:00 AM EDT Surgery Cardiac Boomswing Operator [address] [place] [phone] Scott Bustamante MD [address] [place] [phone] Vena Cava Filter Removal - Boomswing Operator [[id number] (CPT )] documented as of this encounter Visit Diagnoses Diagnosis Presence of IVC filter- Primary Presence of IVC filter- Primary Presence of IVC filter documented in this encounter Additional Health Concerns Assessment Noted Time PHQ-9 Depression Total Score: 0 05/20/20 1:36 PM EDT A fall risk assessment has been complete d for the patient 05/20/2025 1:36 PM EDT A Body Mass Index follow-up plan has been documented for the patient 05/20/2025 2:48 PM EDT documented as of this encounter Care Teams Dairy Grazer Relationship Specialty Start Date End Date Pcp, [place] [address] PCP - General Family Medicine 05/20/25 documented as of this encounter
--- OUTSIDE RECORDS SUMMARY | 2025-07-07 10:33 | XMS_ITS | Clinical Summary ---
Author Organization [facility] Address [address] [place] [address] Care Team Providers Care Belly Roller Name Role Phone Pcp, No Primary Care [...] Description 05/20/2025 1:15 PM EDT Office Visit [facility] [address] [place] [address] Scott Bustamante MD Presence of IVC filter (Primary Dx) 05/20/2025 Travel 05/18/2025 Telephone [facility] [place] [address] [facility] [place] [phone] Scott Bustamante MD HCN Clinical Concern/Question 04/21/2025 Orders Only [facility] [address] [place] [phone] Linda Chopra RN Presence of IVC filter [...] 07/17/2025 7:30 AM EDT Hospital Encounter Cardiac Reagent Tender Helper [address] [place] [address] Scott Bustamante MD [address] [place] [address] Presence of IVC filter 07/17/2025 7:30 AM EDT - 07/17/2025 9:00 AM EDT Surgery Cardiac Reagent Tender Helper [address] [place] [address] Scott Bustamante MD [address] [place] [address] Vena Cava Filter Removal - Reagent Tender Helper [69465 (CPT )] Health Maintenance Due Date Last [...] - PCV20 or PCV21) 03/17/2025 03/17/2020, 01/24/2017 [id number] Vaccine ( season) 2025 07/27/2023, 08/30/2022, 04/19/2022, [...] patient's age to complete this topic Insurance [facility] MEDICARE Care Teams Belly Roller Relationship Specialty Start Date End Date Pcp, [place] [address] PCP - General Family Medicine 05/20/25
--- OUTSIDE RECORDS SUMMARY | 2025-07-07 10:33 | XMS_ITS | Clinical Summary ---
Author Organization [facility] Address [address] [place] [address] Care Team Providers Care Master Rigger Name Role Phone Arslan Sorensen MD Primary Care Provider [phone] Allergies Active Allergy Reactions Criticality Noted Date [...] Encounter [facility] XRAY [address] [place] [address] Bandar Carrillo MD Malignant neoplasm of urinary bladder, unspecified site Discharge Disposition: Home or Self Care 04/29/2025 Travel 04/14/2025 10:15 AM EDT - 04/14/2025 11:15 AM EDT Surgery [facility] CORDUROY CUTTING SUPERVISOR [address] [place] [address] Abhishek Gamino MD Device Retrieval [68113 (CPT )] 04/14/2025 8:08 AM EDT - 04/14/2025 3:03 PM EDT Hospital Encounter [facility] CVOU [address] [place] [address] Abhishek Gamino MD Acute deep vein thrombosis (DVT) of proximal vein of both lower extremities; Other acute pulmonary embolism without acute cor pulmonale; History of recurrent deep vein thrombosis (DVT) Discharge Disposition: Home or Self Care 04/14/2025 Telephone [facility] [address] [place] [address] Anil Rosenbaum MD 04/14/2025 Travel 04/07/2025 Prep for Surgery [facility] ORD[facility] ONLY [address] [place] [address] Chichi uQinones, CLOTHESPIN DRIER OPERATOR History of recurrent deep vein thrombosis (DVT) [...] drink = 0.6 oz pur e alcohol) [facility] Utilities Answer Date Recorded In the past 12 months has [employer], [employer], or [employer] threatened to shut off services in your [...] and heating? Not hard at all 05/29/2024 [facility] - [...] GED or equivalent No 08/11/2024 Preferred Language Togolese 08/11/2024 PHQ-2 Answer Date Recorded Retired PHQ-9: [...] Description 07/08/2025 1:45 PM EDT Office Visit [facility] [address] [facility] [address] [place] [phone] Anil Rosenbaum MD [address] [facility] [address] [place] [address] 11/24/2025 2:00 PM EST Office Visit [facility] [address] [facility] [address] [place] [phone] Bandar Carrillo MD [address] [facility] [address] [place] [address] Health Maintenance Due Date Last Done Comments [...] Completed 07/14/2024 Medical Devices Implanted Type Area Warp Worker Device Identifier Shelf Expiration Date Model / Serial / Lot Clipapplr M/ Endo Ligaclip 20clp 11in - [id number] Implanted:Qty : 1 on 05/28/2024 by Nilay Cadena Jr., MD at [facility] Implant N/A: Bladder [employer] J [employer] J [id number] 12/29/2028 [id number] / / [id number] Description:MULTIPLE CLIPS U SED Clipapplr M/ Endo Ligaclip 13in Lg - [id number] Implanted:Qty : 1 on 05/28/2024 by Nilay Cadena Jr., MD at [facility] Implant N/A: Bladder [employer] J [employer] J [id number] 05/31/2028 MCL20 / / [id number] Description:MULTIPLE CLIPS U SED Stplr Lnr Cut Prox 75mm Adonay Tlc75 - [id number] Implanted:Qty : 2 on 05/28/2024 by Nilay Cadena Jr., MD at [facility] Implant N/A: Abdomen [employer] J [employer] J 02/28/2029 TLC75 / / [id number] Reload Stplr Lnr Cut Prox 75mm Adonay Tcr75 - [id number] Implanted:Qty : 4 on 05/28/2024 by Nilay Cadena Jr., MD at [facility] Implant N/A: Abdomen [employer] OF AND J [id number] 02/28/2029 TCR75 / / [id number] Description:RELOAD Stplr Lnr Cut 60mm Grn Ta60 Tx60g - [id number] Implanted:Qty : 1 on 05/28/2024 by Nilay Cadena Jr., MD at [facility] Implant N/A: Abdomen [employer] J [employer] J 01/28/2029 [id number] / / [id number] Reload Stplr Lnr Cut Tx60 Reg 3.5 Adonay - [id number] Implanted:Qty : 3 on 05/28/2024 by Nilay Cadena Jr., MD at [facility] Implant N/A: Abdomen [employer] J AND J [id number] 12/29/2026 [id number] / / [id number] Stnt Urnry Divr 7f90cm - [id number] Implanted:Qty : 2 on 05/28/2024 by Nilay Cadena Jr., MD at [facility] Implant N/A: Ureter [employer] [id number] 12/27/2027 [id number] / / [id number] Description:BILATERAL URETER Fltr Jug Vena Cava Shira Del - [id number] Implanted:Qty : 1 on 06/28/2024 by Imer Baer MD at [facility] Implant BARD PERIPHERAL VASCULAR 01/28/2025 [id number] / / [id number] Procedures Procedure Name Priority Date/Time Associated Diagnosis [...] MD 04/29/2025 5:00 PM EDT Workstation ID: [id number] Narrative 04/29/2025 5:00 PM EDT FL BARIUM ENEMA WATER SOLUBLE SINGLE CONTRAST Date of Exam: 04/29/2025 9:30 AM EDT Indication: c67.9. Comparison: None available. Technique: Mems Process Engineer imaging of the abdomen was obtained. The enema tip was carefully placed in the rectum without difficulty. A single contrast study using water-soluble contrast was performed. The colon was filled in a retrograde fashion. Overhead and fluoroscopic digital spot films were obtained. Fluoroscopic Time: 4 minutes Number of Images: 24 associated fluoroscopic series were saved Findings: Mems Process Engineer imaging reveals a nonobstructive bowel gas pattern. [...] EDT Indication: c67.9. Comparison: None available. Technique: Mems Process Engineer imaging of the abdomen was obtained. The enema tip wascarefully placed in the rectum without difficulty. A single contrast studyusing water- soluble contrast was performed. The colon was filled in aretrograde fashion. Overhead and fluoroscopic digital spot films were obtained. Fluoroscopic Time: 4 minutes Number of Images: 24 associated fluoroscopic series were saved Findings: Mems Process Engineer imaging reveals a nonobstructive bowel gas pattern. [...] MD 04/29/2025 5:00 PM EDT Workstation ID: [id number] Bandar Garza MD IM FLUOROSCOPY ORDERABLES Final [...] venography Description of the Procedure: An 8Fr Bastrop sheath was placed in the right internal jugular vein with micropuncture technique and concurrent real-time ultrasound to visualize needle entry. A 5 Ghanaian Omni Flush catheter over an 035 Simmons guidewire was placed in the right common iliac vein. Venography of the IVC was performed. The sheath was exchanged for an 11 Ghanaian BARD IVC retrieval sheath. Heparin was given for anticoagulation. Attempts at staring the IVC filter were unsuccessful with a Haralson retrieval kit, Ensnare, and [place] snare. Protamine was given for heparin reversal. [...] As such, referral placed to Dr Bustamante, [facility], for attempt at IVC filter explant [...] 04/14/2025 8:53 AM EDT us Chichi Quinones CLOTHESPIN DRIER OPERATOR LAB BLOOD ORDERABLES Final R esult [facility]
[address] [place] [address], * (ABNORMAL) Basic Metabolic Panel (04/14/2025 8:29 [...] ORDERABLES Final R esult Performing Organization Address [facility]/ZIP Co de Phone Number [facility]
[address] [place] [address], * (ABNORMAL) Hepatitis Panel, Acute (07/14/2024 3:42 [...] BLOOD ORDERABLES Final Result Performing Organization Address [facility]/ZIP Co de Phone Number [facility]
[address] [place] [address], * (ABNORMAL) Occult Blood X 1, Stool - Stool, Per Rectum (07/05/2024 12:33 PM EDT) Fecal Occult Blood Positive( A) Negative DISK DIFFUSION 07/05/2024 1:06 PM EDT [facility] Stool Specimen from rectum / Unknown Collection / Unknown 07/05/2024 12:33 PM EDT 07/05/2024 12:42 PM EDT Selvin Conteh MD BODY FLUIDS AND STOOLS OR DERABLES Final Result Performing Organization Address [facility] Co de Phone Number [facility]
[address] [place] [address], * Cholesterol, Total (06/03/2024 7:16 AM EDT) [...] BLOOD ORDERABLES Final Result Performing Organization Address City/[facility]/ZIP Co de Phone Number [facility]
[address] [place] [address], from Last 3 Months or Most Recently Relevant to Health Maintenance Insurance Advance Directives Documents on File Type Date Recorded Patient Criminal Intelligence Specialist Expl anation LIVING WILL - SCAN 05/30/2024 [...] Of Support Discussed With: Patient Care Teams Master Rigger Relationship Specialty Start Date End Date Arslan Sorensen MD [address] [place] [address] PCP - General Family Medicine 05/21/24
--- OUTSIDE RECORDS SUMMARY | 2025-07-07 10:33 | XMS_ITS | Encounter Summary ---
Author Organization [facility] Address [address] [place] [id number] Care Team Providers Care Spreader Operator Automatic Name Role Phone Pcp, No Primary Care Provider Unavailabl e Reason for Visit * Reason Onset Date Comments HCN Clinical Concern/Question 05/18/2025 Encounter Details Date Type Department Care Team (Late st Contact Info) Description 05/18/2025 Telephone [facility] [place] [address] [facility] [place] [address] Scott Bustamante MD [address] [place] [address] HCN Clinical Concern/Question Social History Tobacco Use [...] Patient has medication questions. Best contact number: [phone] (mobile) Optimal time of day to reach [...] 07/17/2025 7:30 AM EDT Hospital Encounter Cardiac Automotive Shop Foreman [address] [place] [address] Scott Bustamante MD [address] [place] [address] Presence of IVC filter 07/17/2025 7:30 AM EDT - 07/17/2025 9:00 AM EDT Surgery Cardiac Automotive Shop Foreman [address] [place] [address] Scott Bustamante MD [address] [place] [address] Vena Cava Filter Removal - Automotive Shop Foreman [33955 (CPT )] documented as of this encounter Visit Diagnoses Not on filedocumented in this encounter Care Teams Spreader Operator Automatic Relationship Specialty Start Date End Date Pcp, No [address] [place] [address] PCP - General Family Medicine 04/21/25 05/19/25 documented as of this encounter
--- OUTSIDE RECORDS SUMMARY | 2025-07-07 10:33 | XMS_ITS | Encounter Summary ---
Author Organization Healthcare Address [facility] [place] [id number] Care Team Providers Care Coding Analyst Name Role Phone Pcp, No Primary Care [...] 07/17/2025 7:30 AM EDT Hospital Encounter Cardiac Side Framer [address] [place] [address] Scott Bustamante MD [address] [place] [address] Presence of IVC filter 07/17/2025 7:30 AM EDT - 07/17/2025 9:00 AM EDT Surgery Cardiac Side Framer [address] [place] [address] Scott Bustamante MD [address] [place] [address] Vena Cava Filter Removal - Side Framer [05439 (CPT )] documented as of this encounter [...] documented as of this encounter Care Teams Coding Analyst Relationship Specialty Start Date End Date Pcp, No [address] [place] [address] PCP - General Family Medicine 05/20/25 documented as of this encounter
--- OUTSIDE RECORDS SUMMARY | 2025-07-07 10:33 | XMS_ITS | Clinical Summary ---
Author Organization [employer] ([place], [place], [place], [place]) Address [address] [place] [address] Care Team Providers Care Interdisciplinary Professor Name Role Phone Unavailable Primary Care Provider [...] Date Kiran rded Speak language other than Belgian at home Not on file 01/16/2024 Want [...]
--- OUTSIDE RECORDS SUMMARY | 2025-07-07 10:33 | XMS_ITS ---
Author Organization [facility] Address [address] [place] [address] Care Team Providers Care Direct Mail Manager Name Role Phone Arslan Sorensen MD Primary Care Provider [phone] Active Problems Problem Noted Date Diagnosed Date [...]
--- OUTSIDE RECORDS SUMMARY | 2025-07-07 10:33 | XMS_ITS | Referral Summary ---
Author Organization [employer] ([place], [place], [place], [place]) Address [address] [place] [address] Care Team Providers Care Viscosity Worker Name Role Phone Unavailable Primary Care Provider [...] Date Kiran rded Speak language other than Macanese at home Not on file 01/16/2024 Want [...]
--- OUTSIDE RECORDS SUMMARY | 2025-07-07 11:33 | XMS_ITS | CCD ---
Author Organization Unknown Care Team Providers Care Rail Layer Name Role Phone Non Engaged, [facility] Primary Care Provider Unav ailable Unavailable Chronic Care Management Unavaila ble Summary Purpose DataExchange Insurance Providers Payer name Policy type / Coverage type Covered republican ID Effective Begin Date Effective End Date [facility] [id number] Unknown Unknown Family History Family History data not found Medication Administered No Medication Administered data Reason For Visit No Reason For Visit data Medical Equipment No Medical Equipment data Advance Directives No Advance Directive data
--- OUTSIDE RECORDS SUMMARY | 2025-07-07 11:33 | XMS_ITS | CCD ---
Author Organization Unknown Care Team Providers Care Keel Press Operator Name Role Phone Non Engaged, [facility] Primary Care Provider Unav ailable Unavailable Chronic Care Management Unavaila ble Summary Purpose DataExchange Insurance Providers Payer name Policy type / Coverage type Covered constitution party ID Effective Begin Date Effective End Date [facility] [id number] Unknown Unknown Family History Family History data not found Medication Administered No Medication Administered data Reason For Visit No Reason For Visit data Medical Equipment No Medical Equipment data Advance Directives No Advance Directive data
[2025-07-07 12:04] LABS: Hematocrit 36.5 % (37.0-47.0); Hemoglobin 11.6 g/dL (12.2-16.2); Immature Granulocytes % 0.6 %; Mean Corpuscular HGB Conc 31.8 g/dL (31.8-35.4); Mean Corpuscular Hemoglobin 28.6 pg (27.0-31.2); Mean Corpuscular Volume 90.1 fl (81-99); Nucleated Red Blood Cells % 0 %; Platelet Count 299 K/mm3 (142-424); Red Blood Count 4.05 M/mm3 (4.20-5.40); Red Cell Distribution Width-SD 46.4 fL; White Blood Count 8.4 K/mm3 (4.8-10.8)
[2025-07-07 12:35] LABS: Alanine Aminotransferase 31 U/L (12-78); Albumin Level 4.2 g/dl (3.5-5.0); Albumin/Globulin Ratio 1.4 (1.1-1.8); Alkaline Phosphatase 182 U/L (38-126); Anion Gap 20.9 mEq/L (5-15); Aspartate Amino Transferase 41 U/L (14-36); Bilirubin,Total 0.9 mg/dl (0.2-1.3); Blood Urea Nitrogen 17 mg/dl (7-17); Calcium 9.6 mg/dl (8.4-10.2); Carbon Dioxide 13 mmol/L (22.0-30.0); Chloride 108 mmol/L (98-107); Creatinine,Serum 1.50 mg/dl (0.52-1.04); Estimated Glomerular Filt Rate 34 ml/min (>60); GFR (African American) 41 ML/MIN (>60); Globulin 2.9 g/dL (1.3-3.2); Glucose 149 mg/dl (74-100); Potassium 3.9 mmoL/L (3.5-5.1); Sodium 138 mmol/L (136-145); Total Protein,Serum 7.1 g/dl (6.3-8.2)
== END 2025-07-07 23:59 | disposition home or self-care (01) ==
LOC: LAB 10:31 → INF 11:07
PROVIDERS: PCP Nurse Practitioner; Visit Provider Internal Medicine Medical Oncology
DX: C67.9 Malignant neoplasm of bladder, unspecified (principal)
CPT/HCPCS: 36415; 80053; 85025; 99211; G0463

== ENCOUNTER 2025-08-25 14:26 | Outpatient (CLI) | payer MEDICARE, SELFPAY ==
--- OUTSIDE RECORDS SUMMARY | 2025-07-08 12:45 | XMS_ITS | Encounter Summary ---
Author Organization [facility] Address [address] [place] [address] Care Team Providers Care [employer] Name Role Phone Arslan Sorensen MD Primary Care Provider [phone] Reason for Visit * Reason Comments Other acute pulmonary embolism without a cute cor pulmonale Encounter Details Date Type Department Care Team (Latest Contact Info) Description 07/08/2025 1:45 PM EDT Office Visit [facility] [address] [facility] [address] [phone] Anil Rosenbaum MD [address] [place] [address] [address] [place] [address] Other acute pulmonary embolism without acute cor pulmonale (Primary Dx); History of recurrent deep vein thrombosis (DVT); COLLAZO (dyspnea on exertion); Primary hypertension; Mixed hyperlipidemia Social History Tobacco Use Types Packs/Day Years Used Date Smoking Tobacco: Never Passive Smoke Exposure: Never Smokeless Tobacco: Never Comments:None Alcohol Use Standard Drinks/Week Comments Never 0 (1 standard drink = 0.6 oz pur e alcohol) [facility] Utilities Answer Date Recorded In the past 12 months has [employer], gas, oil, or water company threatened to shut off services in your [...] and heating? Not hard at all 05/29/2024 [facility] Occupational Stress Questionnaire Answer Date [...] Arrangements home 03/31 Potentially Unsafe Housing Conditions Not on karla e 04/14/2025 Family and Community Support Answer Sachin [...] GED or equivalent No 08/11/2024 Preferred Language Turkish 08/11/2024 PHQ-2 Answer Date Recorded Retired PHQ-9: Brief Depression Severity Measure Score 0 05/29/2024 Comments Unknown Sex and Gender Information Value Date Recorded Sex Assigned at Female 03/07/2025 10:11 AM EDT Legal Sex Female 11:14 AM EDT Gender Identity Not on file Sexual Orientation Straight 03/07/2025 10 :11 AM EDT documented as of this encounter Last Filed Vital Signs Vital Sign Reading Time Taken Comments Blood Pressure 122/76 07/08/2025 1:47 PM EDT Pulse 110 07/08/2025 1:47 PM EDT Temperature - - Respiratory Rate - - Oxygen Saturation 98% 07/08/2025 1:47 PM EDT Inhaled Oxygen Concentration - - Weight 86.6 kg (191 lb) 07/08/2025 1:47 PM EDT Height 172.7 cm (5' 8 ) 07/08/2025 1:47 PM EDT Body Mass Index 29.04 07/08/2025 1:47 PM EDT documented in this encounter Progress Notes * Anil Rosenbaum MD - 07/08/2025 1:45 PM EDTAssociated Problem(s): Pulmonary embolus 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 Repeat CT PE negative for any residual thrombus Echo showed normal LV and RV function with borderline abnormal RV strain Plans for IVC filter removal at with Dr. Bustamante later this month Continue Eliquis until she is seen by her traffic expert, Dr. Sorenson. Preferably before end of the year. Will defer repeat leg ultrasound to Dr. 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 Repeat CT PE negative for any residual thrombus Echo showed normal LV and RV function with borderline abnormal RV strain Plans for IVC filter removal at with Dr. Bustamante later this month Continue Eliquis until she is seen by her traffic expert, Dr. Sorenson. Preferably before end of the year. Will defer repeat leg ultrasound to Dr. Sorenson as well * Anil Rosenbaum MD - 07/08/2025 1:45 PM EDTAssociated Problem(s): HTN (hypertension) Controlled. Goal less than 130/80. Previously on metoprolol. Continue monitoring off of medications * Anil Rosenbaum MD - 07/08/2025 1:45 PM EDTAssociated Problem(s): HLD (hyperlipidemia) Tolerating statin without myalgia Continue rosuvastatin * Anil Rosenbaum MD - 07/08/2025 1:45 PM EDT Images from the original note were not included. [facility] Cardiology Office Follow Up Note Sherry Owen [id number] 07/08/2025 Primary Care Provider: Arslan Sorensen MD Chief Complaint Patient presents with Other acute pulmonary embolism without acute cor pulmonale Subjective History of Present Illness: History of Present Illness The patient is a 70-year-old female with a history of pulmonary embolisms (PEs) and deep vein thrombosis (DVTs), status post inferior vena cava (IVC) filter placement, who presents for follow-up of her DVT/PE. Since her last visit, patient had a CT PE scan that showed resolution of her PEs. Echocardiogram showed no RV failure or elevated RVSP. We referred her on for IVC filter retrieval with Dr. Gamino but this was unsuccessful because of epithelialization of the filter. Patient was subsequently referred onto [facility] where Dr. Bustamante evaluated her and has scheduled her for IVC filter removal later this month. Patient had CT scans of the chest and abdomen and outside hospital to exclude malignancy, but no ultrasound of the legs has been performed recently. She continues to take Eliquis twice daily without any bleeding complications such as blood in stool, urine, or coughing up blood. There is no history of heart attack or stroke. She experiences occasional shortness of breath, which has been a consistent issue since the onset of her lung clots. Her primary care physician increased her anxiety medication, Lexapro, which has helped alleviate her chest pain. Shortness of breath occurs during physical activity but not at rest. 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 Has been more sedentary recently She is currently on a statin for cholesterol management and reports no muscle aches. 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 History of DVT and PE (June 2024) -- Hypercoagulability in the setting of malignancy -- CTPE 06/24: Large PE left main pulmonary artery extending into left lower lung segmental and segment but no arteries with additional embolus in a right upper lung pulmonary artery. No evidence for right heart strain. -- s/p retrievable [place] IVC filter in infrarenal location, placed 06/27/2024 by MICHAEL/Imer Baer MD -- TTE 06/24: EF 64%, LVH, grade 1 diastolic dysfunction. Normal right heart strain. -- Venous duplexes 2023: Chronic LUE DVT in brachial, acute RLE DVT (common femoral), acute left DVT (external iliac, proximal femoral, mid femoral, distal femoral, popliteal, posterior tibial, and peroneal) -- Echo 03/2025: EF 70%. Normal RV. Abnormal RV free wall strain (-20.3%). Trace TR. Normal RVSP -- CT PE 03/2025: No evidence of PE -- Unable to retrieve filter@[facility] 03/2025 ([facility] referred to [place] ([place]) 2. History of shock (septic versus obstructive) requiring tPA, thought to be due to possible right heart strain and evidence of pulmonary bullae (August 2024) -- TTE 08/24: EF >70%, normal RVSP -- LE duplex: Acute RLE and LLE DVT (proximal femoral) 3. Hypertension 4. Hyperlipidemia 5. History of bladder cancer status post cystectomy and ileal conduit with subsequent complication of DVT/PEs Review of Systems: Review of Systems Constitutional: Negative. Respiratory: Positive for shortness of breath. Negative for cough and chest tightness. Cardiovascular: Negative. Gastrointestinal: Negative. Musculoskeletal: Negative. Neurological: Negative. I have reviewed and/or updated the patient's past medical, past surgical, family, social history, problem list and allergies as appropriate. Current Outpatient Medications: Acetaminophen (TYLENOL EXTRA STRENGTH PO), Take 1 capsule by mouth Every 6 (Six) Hours As Needed., Disp: , Rfl: ALPRAZolam (XANAX) 0.25 MG tablet, Take 1 tablet by mouth 2 (Two) Times a Day As Needed., Disp: , Rfl: apixaban (ELIQUIS) 5 MG tablet tablet, 1 tablet by Per PEG Tube route Every 12 (Twelve) Hours. Indications: DVT/PE (active thrombosis) (Patient taking differently: Take 1 tablet by mouth Every 12 (Twelve) Hours. Indications: DVT/PE (active thrombosis)), Disp: , Rfl: busPIRone (BUSPAR) 10 MG tablet, Take 1 tablet by mouth 3 (Three) Times a Day. (Patient taking differently: Take 1 tablet by mouth 2 (Two) Times a Day.), Disp: , Rfl: escitalopram (LEXAPRO) 10 MG tablet, Take 1 tablet by mouth Daily., Disp: , Rfl: folic acid (FOLVITE) 1 MG tablet, Take 1 tablet by mouth Daily., Disp: , Rfl: omeprazole (priLOSEC) 40 MG capsule, Take 1 capsule by mouth Daily., Disp: , Rfl: QUEtiapine (SEROquel) 25 MG tablet, Take 1 tablet by mouth Every Night., Disp: , Rfl: rosuvastatin (CRESTOR) 20 MG tablet, Take 1 tablet by mouth Daily., Disp: , Rfl: sodium bicarbonate 650 MG tablet, Take 2 tablets by mouth 3 (Three) Times a Day., Disp: , Rfl: traMADol (ULTRAM) 50 MG tablet, Take 1 tablet by mouth Every 8 (Eight) Hours As Needed., Disp: , Rfl: Objective Vitals: Vitals: 07/08/25 1347 BP: 122/76 BP Location: Left arm Patient Position: Sitting Cuff Size: Adult Pulse: 110 SpO2: 98% Weight: 86.6 kg (191 lb) Height: 172.7 cm (68 ) Physical Exam: Vitals reviewed. Constitutional: Appearance: Healthy appearance. Not in distress. Cardiovascular: Normal rate. Regular rhythm. Normal S1. Normal S2. Murmurs: There is no murmur. No gallop. No click. No rub. Pulses: Intact distal pulses. Edema: Peripheral edema absent. Skin: General: Skin is warm and dry. Results Review: I reviewed the patient's new clinical results. I reviewed the patient's new imaging results and agree with the interpretation. 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 Repeat CT PE negative for any residual thrombus Echo showed normal LV and RV function with borderline abnormal RV strain Plans for IVC filter removal at with Dr. Bustamante later this month Continue Eliquis until she is seen by her traffic expert, Dr. Sorenson. Preferably before end of the year. Will defer repeat leg ultrasound to Dr. Sorenson as well COLLAZO (dyspnea on exertion) Exertional dyspnea has been stable since her initial diagnosis of PE. Workup with echo and CT has been unremarkable. No chest pain to raise concern for cardiac angina. Most likely deconditioning withprolonged hospitalization and multiple comorbidities. Personally reviewed her CT PE protocol and nocoronary calcium noted. Reached a shared decision to forego any functional testing at this time. Patient will try to increase activity on her own and let us know if she develops any significant limitations Primary hypertension Controlled. Goal less than 130/80. Previously on metoprolol. Continue monitoring off of medications Mixed hyperlipidemia Tolerating statin without myalgia Continue rosuvastatin Plan Preventative Cardiology: Tobacco Cessation: N/A Obstructive Sleep Apnea Screening: Deffered Advanced Care Planning ACP discussion was held with the patient during this visit. Patient has an advance directive in EMRwhich is still valid. Follow Up: Return in about 6 months (around 01/06/2026). Patient or patient medical device sales representative verbalized consent for the use of Ambient Listening during the visit with Anil Rosenbaum MD for chart documentation. 07/08/2025 16:29 EDT Thank you for allowing me to participate in the care of your patient. Please do not hesitate to contact me with additional questions or concerns. Electronically signed by Anil Rosenbaum MD, 07/08/25, 4:29 PM EDT. documented in this encounter Plan of Treatment Upcoming Encounters Date Type Department Care Team (Late st Contact Info) Description 11/24/2025 2:00 PM EST Office Visit [facility] GENERAL SURGERY [address] [facility] [address] [place] [phone] Bandar Carrillo MD [address] [facility] [address] [place] [address] 01/13/2026 1:45 PM EDT Office Visit [facility] C[facility]IOLOGY [address] [facility] [address] [place] [phone] Anil Rosenbaum MD [address] [facility] [address] [place] [address] documented as of this encounter Visit Diagnoses Diagnosis Other acute pulmonary embolism without acute cor pulmonale- Primary History of recurrent deep vein thrombosis (DVT) COLLAZO (dyspnea on exertion) Other dyspnea and respiratory abnormality Primary hypertension Unspecified essential hypertension Mixed hyperlipidemia documented in this encounter Care Teams [employer] Relationship Specialty Start Date End Date Arslan Sorensen MD [address] [place] [address] PCP - General Family Medicine 05/21/24 documented as of this encounter
--- OUTSIDE RECORDS SUMMARY | 2025-07-17 05:14 | XMS_ITS | Encounter Summary ---
Author Organization Healthcare Address [address] [id number] Care Team Providers Care Clinical Team Lead Name Role Phone Pcp, No Primary Care Provider Unavailabl e Reason for Visit * Auth/Cert (Routine) Specialty Diagnoses / Procedures Referred By Michael t Referred To Contact Diagnoses Presence of IVC filter Presence of IVC filter [Z95.828] Procedures MT RTRVL INTRVAS VC FILTR W/WO ACS VSL SELXN RS&I Vena Cava Filter Removal - [facility] [employer] Scott Bustamante MD [address] [place] [address] Phone: tel: fax: Cardiac [facility] [address] [place] [address] Phone: tel: Referral ID Status Reason Start Date Expiration Date Visits Re quested Visits Authorized [id number] 1 1 Encounter Details Date Type Department Care Team (Latest Contact Info) Description 07/17/2025 6:14 AM EDT - 07/17/2025 1:15 PM EDT Hospital Encounter Cardiac [facility] [address] [place] [id number] Scott Bustamante MD [address] [place] [address] Presence of IVC filter Discharge Disposition: Home or Self Care Social History Tobacco Use Types Packs/Day Years [...] Sign Reading Time Taken Comments Blood Pressure 113/69 07/17/2025 12:00 PM EDT Pulse 81 07/17/2025 12:00 PM EDT Temperature 36.6 C (97.9 F) 07/17/2025 10:20 AM EDT Respiratory Rate 12 07/17/2025 12:00 PM EDT Oxygen Saturation 97% 07/17/2025 12:00 PM EDT Inhaled Oxygen Concentration - - Weight 87.2 kg (192 lb 3.9 oz) 07/17/2025 7:00 A M EDT Height 172.7 cm (5' 8 ) 07/17/2025 7:00 AM EDT Body Mass Index 29.23 07/17/2025 7:00 AM EDT documented in this encounter Functional Status [...] things Not at all 05/20/2025 1:36 PM Stephanie Pena CNA Feeling down, depressed, or hopeless Not at all 05/20/2025 1:36 PM Stephanie Pena CNA Patient Health Questionnaire-2 Score 0 05/20/2025 1:36 PM Dany Pena CNA * Question Answer Date of Assessment Author Trouble falling or staying asleep, or sleeping too much Not at all 05/20/2025 1:36 PM Stephanie Pena CNA Feeling tired or having little energy Not at all 05/20/2025 1:36 PM Stephanie Pena CNA Poor appetite or overeating Not at all 05/20/2025 1: 36 PM Stephanie Pena CNA Feeling bad about yourself - or that you are a failure or have let yourself or your family down Not at all 05/20/2025 1:36 PM Stephanie Pena CNA Trouble concentrating on things, such as reading the newspaper or watching television Not at all 05/20/2025 1:36 PM Stephanie Pena CNA Moving or speaking so slowly that other people could have noticed? Or the opposite - being so fidgety or restless that you have been moving around a lot more than usual. Not at all 05/20/2025 1:36 PM Stephanie Pena CNA Thoughts that you would be better off or hurting yourself in some way Not at all 05/20/2025 1:36 PM Stephanie Pena CNA Patient Health Questionnaire-9 Score 0 05/20/2025 1:36 PM Dany Pena CNA * Calculated C-SSRS Risk Score (Lifetime/Recent) Answer Date of Assessment Author No Risk Indicated 07/17/2025 7:15 AM EDT Rochelle Dale RN * How difficult have these problems made it for you to do your work, take care of things at home, or get along with other people? Answer Date of Assessment Author Not difficult at all 05/20/2025 1:36 PM EDT Stephanie Parsons CNA * Question Answer Date of Assessment Author 1. Wish to be (Past 1 Month) No 025 7:15 AM EDT Lory Dale RN 2. Non-Specific Active Suici natividad Thoughts (Past 1 Month) No 07/17/2025 7:15 AM EDT Lory Dale RN 6. Suicidal Behavior (Lifetime) No 7:15 AM EDT Lory Dale RN documented as of this encounter Medications at Time of Discharge acetaminophen (Tylenol Extra Strength) 500 MG tablet Take 1 capsule by mouth. ALPRAZolam (Xanax) 0.25 MG tablet TAKE ONE TABLET BY MOUTH TWICE DAILY MAY CAUSE DROWSINESS busPIRone (Buspar) 10 MG tablet Take 1 tablet by mouth 2 times a day. escitalopram (Lexapro) 10 MG tablet Take 1 tablet by mouth 1 time each day. 07/10/2024 folic acid (Folvite) 1 MG tablet Take 1 tablet by mouth 1 time each day. 07/16/2024 omeprazole (PriLOSEC) [address] capsule Take 1 capsule by mouth daily. QUEtiapine (SEROquel) 25 MG tablet Take 1 tablet by mouth 1 time each day. 07/15/2024 rosuvastatin (Crestor) 20 MG tablet Take 1 tablet by mouth nightly. sodium bicarbonate 650 MG tablet Take 1 tablet by mouth every 8 hours. traMADol (Ultram) 50 MG tablet Take 1 tablet by mouth every 8 hours as needed for severe pain. Eliquis 5 MG tablet take one tablet by mouth twice daily as directed documented as of this encounter Miscellaneous Notes * Nursing Note - Lory Dale RN - 07/17/2025 1:12 PM EDT Patient received verbal and written discharge teaching and verbalized understanding with Xavier at bedside. Patient was able to ambulate and void prior to discharge. Right I J and right groin sites are clean, dry, and intact without any signs of bleeding or hematoma. Vital signs were within normal limits prior to discharge. All PIVs were removed prior to discharge. Patient was transported by myself via wheelchair to be driven home by Xavier. * Althea Taylor - Lory Dale RN - 07/17/2025 11:15 AM EDT Images from the original note were not included. [id number] Bleeding or Hematoma After Cardiac Catheterization You recently had cardiac catheterization. A catheter was put into your body through a puncture of an artery in your groin or arm. You might have bleeding from this site. When bleeding occurs, it may drip or spurt from the site. Or it may collect in a lump (hematoma) under the skin. This often needsurgent evaluation in an emergency room. First put direct pressure on the site, and call 911 or havesomeone take you to the emergency room. In the emergency room, more pressure will be put on the site to stop bleeding. You may be sent home if the bleeding can be controlled and you are feeling well enough. To prevent repeat bleeding, take some precautions at home. If the bleeding starts again, follow the advice below. Home care For the next 48 hours: ? Don't do any strenuous activity. ? Don't climb any stairs if possible. ? Don't lift anything greater than 5 pounds. ? If the puncture site is in your arm or wrist, don't lie on that arm. ? If your puncture site is in the groin, don't strain at bowel movements. ? Don't scrub the site when bathing. It's fine to get it wet after your health care provider says it's okay, but don't scrub it or massage it. Don't take a tub bath for 3 days after the procedure. ? Don't drive for the next 48 hours. If bleeding happens again, call 911. Take the following steps to stop the bleeding until help arrives: ? Lie on your back. ? Place a clean cloth or gauze pad over the puncture site. Then hold firm pressure right on the site. Or have someone else apply firm pressure using the gauze pad or washcloth. ? If the site is in your arm or wrist, keep your arm straight and raised above the level of your heart. If the site is in your groin, have someone else hold pressure on the site. ? Don't press too hard! If you press too hard, your leg and foot (or arm and hand) will not get blood flow, and the skin under your toenails or fingernails may turn white. The skin should look pink, like the toenails on your other foot. When the toenail is pressed, it will turn white, but when you stop pressing on the nail it will turn pink again. This is called capillary refill. If there is someone with you, they can check it. ? If your toes, foot, or leg start feeling numb, tingly, or cold, ease up on the pressure. You are probably pressing too hard. ? As soon as emergency care arrives, they will take over your care. Follow-up care Follow up with your health care provider, or as advised. Ask your provider for a contact number to call. Call 911 Call 911 if any of these occur: ? Chest pain or pressure ? Any bleeding from the site ? Feeling weak or faint ? Trouble breathing ? Lump (hematoma) is quickly getting larger ? Coolness, numbness, tingling, or skin color changes in the leg or arm with the puncture site When to get medical advice Contact your health care provider or get medical care right away if you have: ? Increased pain, redness, swelling, or drainage from the puncture site. ? Nausea or vomiting. ? A fever of 100.4??F (38??C) or higher, or as directed by your provider. Last Reviewed Date: 2024 00:00:00 ?? [id number] [employer]. All rights reserved. This information is not intended as a substitute for professional medical care. Always follow your healthcare professional's instructions. * H&P - Lena Dawkins MD - 07/17/2025 7:35 AM EDT History of Present Illness Sherry Owen is a 70 y.o. 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 Past Medical History[1] Surgical History[2] Family History[3] Social History Socioeconomic History Marital status: Spouse name: Not on file Number of children: Not on file Years of education: Not on file Highest education level: Not on file Occupational History Not on file Tobacco Use Smoking status: Never Smokeless tobacco: Never Substance and Sexual Activity Alcohol use: Never Drug use: Never Sexual activity: Not on file Other Topics Concern Not on file Social History Narrative Not on file Social Drivers of Health Financial Resource Strain: Low Risk (05/29/2024) Received from [facility] Overall Financial Resource Strain (CARDIA) Difficulty of Paying Living Expenses: Not hard at all Food Insecurity: No Food Insecurity (08/11/2024) Received from [facility] Hunger Vital Sign Within the past 12 months, you worried that your food would run out before you got the money to buymore.: Never true Within the past 12 months, the food you bought just didn't last and you didn't have money to get more.: Never true Transportation Needs: No Transportation Needs (08/11/2024) Received from [facility] PRAPARE - Transportation In the past 12 months, has lack of transportation kept you from medical appointments or from getting medications?: No In the past 12 months, has lack of transportation kept you from meetings, work, or from getting things needed for daily living?: No Physical Activity: Insufficiently Active (08/11/2024) Received from [facility] Exercise Vital Sign On average, how many days per week do you engage in moderate to strenuous exercise (like a brisk walk)?: 7 days On average, how many minutes do you engage in exercise at this level?: 20 min Stress: No Stress Concern Present (05/29/2024) Received from [facility] [employer] [place] [facility] [employer] - Occupational Stress Questionnaire Feeling of Stress : Not at all Social Connections: Unknown (08/11/2024) Received from [facility] Family and Community Support If for any reason you need help with day-to-day activities such as bathing, preparing meals, shopping, managing finances, etc., do you get the help you need?: I don't need any help Lonely or Isolated: Not on file Intimate Partner Violence: Not At Risk (04/14/2025) Received from [facility] Abuse Screen Feels Unsafe at Home or Work/School: no Feels Threatened by Someone: no Does Anyone Try to Keep You From Having Contact with Others or Doing Things Outside Your Home?: no Physical Signs of Abuse Present: no Housing Stability: Not At Risk (04/14/2025) Received from [facility] Housing Stability Current Living Arrangements: home Potentially Unsafe Housing Conditions: none Allergies: Allergies[4] Medications: Current Outpatient Medications Medication Instructions acetaminophen (Tylenol Extra Strength) 500 MG tablet 1 capsule ALPRAZolam (Xanax) 0.25 MG tablet TAKE ONE TABLET BY MOUTH TWICE DAILY MAY CAUSE DROWSINESS busPIRone (BUSPAR) 10 mg, 2 times daily Eliquis 5 MG tablet take one tablet by mouth twice daily as directed escitalopram (LEXAPRO) 10 mg, ZZ Daily RT folic acid (FOLVITE) 1 mg, ZZ Daily RT omeprazole (PRILOSEC) 40 mg, Daily QUEtiapine (SEROQUEL) 25 mg, ZZ Daily RT rosuvastatin (CRESTOR) 20 mg, Nightly sodium bicarbonate 650 mg, Every 8 hours traMADol (ULTRAM) 50 mg, Every 8 hours PRN Review of Systems: 10 point Review of systems was reviewed and is negative other than what is noted in the HPI. Vitals: Visit Vitals BP (!) 140/75 Pulse 78 Temp 36.8 ??C (98.3 ??F) (Oral) Ht 1.727 m (5' 8 ) Wt 87.2 kg (192 lb 3.9 oz) SpO2 97% BMI 29.23 kg/m?? Physical Exam: General: well-appearing, NAD HEENT: NC/AT, EOMI, anicteric sclerae Cardiovascular: RRR, no m/r/g, no JVD or LE edema Respiratory: CTAB, no increased work of breathing Abdomen: soft, NT/ND, normoactive bowel sounds Skin: warm, dry, acyanotic Neuro: A/O x 3, grossly nonfocal Psychiatric: appropriate mood and affect Labs: Reviewed Imaging: Reviewed Assessment & Plan IVC Filter in Place PLAN - Proceed with IVC filter removal Lenajamie Dawkins MD Interventional Product Trainer, PGY-8 [1] Past Medical History: Diagnosis Date History of DVT (deep vein thrombosis) History of pulmonary embolus (PE) Hyperlipidemia Hypertension [2] Past Surgical History: Procedure Laterality Date HYSTERECTOMY IVC FILTER PLACEMENT 06/2024 OVARIAN CYST REMOVAL [3] History reviewed. No pertinent family history. [4] Allergies Allergen Reactions Lisinopril Hives and Swelling SWELLING AROUND THE EYES NO BREATHING PROBLEMS Cosigned by Scott Bustamante MD at 07/17/2025 1:31 PM EDT Associated attestation - Scott Bustamante MD - 07/17/2025 1:31 PM EDT I saw and evaluated the patient with the resident/fellow. I discussed the case with the resident/fellow and agree with the findings and plan as documented. * Pre-Sedation Procedural Documentation - Lena Dawkins MD - 07/17/2025 7:34 AM EDT Images from the original note were not included. CARDIOLOGY SEDATION PRE-PROCEDURAL ASSESSMENT AND SEDATION PLAN OF CARE Indication for procedure: The encounter diagnosis was Presence of IVC filter. Planned Procedure: IVC filter removal Relevant past medical history: DVT and PE s/p IVC filter placement 06/2024, HTN, HLD, bladder cancer s/p cystetomy with ileal conduit Previous problems with surgery, anesthesia or sedation: No Previous family history or problems with anesthesia or sedation: No Relevant Labs: Lab Results Component Value Date CREATININE 1.27 (H) 04/14/2025 EGFR 32 07/17/2025 Planned Sedation/Anesthesia: Moderate Airway assessment: normal Mallampati Score: III (soft and hard palate and base of uvula visible) ASA: ASA 3 - Patient with moderate systemic disease with functional limitations Directed physical examination: Vitals: 07/17/25 0700 BP: (!) 140/75 Pulse: 78 Resp: 14 Temp: 36.8 ??C (98.3 ??F) SpO2: 97% GENERAL: Awake, alert, NAD HEENT: NCAT NECK: No appreciable JVD CARDIAC: Regular rate, regular rhythm, normal S1/S2, no m/r/g, 2+ radial pulses bilaterally PULM: CTAB without increased work of breathing ABD: Soft, NT, ND EXT: Warm and well perfused, no LE edema SKIN: No rashes or lesions NEURO: A&Ox4, moving all extremities spontaneously Benefits, risks and alternatives of procedure and planned sedation have been discussed with the patient and/or their inventory representative. All questions answered and they agree to proceed. Cosigned by Scott Bustamante MD at 07/22/2025 2:44 PM EDT Associated attestation - Scott Bustamante MD - 07/22/2025 2:44 PM EDT agree documented in this encounter Plan of Treatment Not on file documented as of this encounter Procedures Procedure Name Priority Date/Time Associated Diagnosis Comments VENA CAVA FILTER REMOVAL - CLIENT RETENTION SPECIALIST Routine 07/17/2025 10:07 AM EDT Presence of IVC filter POCT CREATININE ISTAT UNSOLICITED RESULTS Routine 07/17/2025 6:52 AM EDT documented in this encounter Results * VENA CAVA FILTER REMOVAL - CLIENT RETENTION SPECIALIST (07/17/2025 10:07 AM EDT) Anatomical Region Laterality Modality Other Narrative 07/17/2025 2:57 PM EDT CONCLUSIONS: 1. Unsuccessful attempt at removal of IVC filter. 2. This was a reasonable aggressive effort, with care to not fracture or distort the filter. 3. This filter can be removed with a destructive approach. RECOMMENDATIONS: 1. Follow up in clinic to discuss options. Procedure Details PROCEDURES PERFORMED: 1. Attempted removal of IVC filter (not successful). INDICATIONS: 1. Retained IVC filter. PROCEDURE DESCRIPTION: The procedure, risks, benefits and alternatives were explained and informed consent was obtained. The patient was taken to the catheterization laboratory in the fasting state. The patient was sedated with midazolam and fentanyl. A time-out protocol was observed. Sterile conditions were maintained. The right neck and the femoral areas were prepped, draped and anesthetized with 1% lidocaine. Venous access was obtained under ultrasound guidance. Sheaths were placed in the right internal jugular and common femoral veins. IVC angiography was performed using a 6 [place] multipurpose catheter. The IVC was patent and there was no significant retained thrombus. A filter retrieval snare system was inserted without difficulty. The filter was tilted and the apex hook was embedded in the wall of the could not be engaged with the snare. Attempts were made to free the apex hook using a vascular retrieval forceps. Attempts were made to insert 10 and 12 mm balloons around the perimeter of the filter. None of these efforts was successful. It should be noted that all reasonable attempts to free the apex hook were made with care to not fracture or distort the filter. The procedure was terminated short of damaging the filter. The catheters were removed and the femoral puncture sites were closed with manual compression. Sedation was discontinued and the patient was observed until awake. The patient was transferred to recovery in stable condition with no complications. CONCLUSIONS: 1. Unsuccessful attempt at removal of IVC filter. 2. This was a reasonable aggressive effort, with care to not fracture or distort the filter. 3. This filter can be removed with a destructive approach. RECOMMENDATIONS: 1. Follow up in clinic to discuss options. us Tiffanie Nunez APRN CV INVASIVE VASCULAR PROCEDU RES Final Result * (ABNORMAL) POCT creatinine (07/17/2025 6:52 AM EDT) Pathologist [facility] Creatinine, Point of Care 1.7(H) 0.6 - 1.1 mg/dL 07/17/2025 6:56 AM EDT HEALTHCARE LAB POCT eGFR 32 mL/min/1. 73m*2 07/17/2025 6:56 AM EDT [facility] Fixed Income Manager ID Sherry Colvin 07/17/2025 6:56 AM EDT [facility] LAB Device ID [id number] 07/17/2025 6:56 AM EDT HEALTHCARE LAB Comment 07/17/2025 6:56 AM EDT [facility] Comment:Testing performed on i-STAT at the point of care. Reported eGFRcr in mL/min/1.73m2 is based the CKD-EPI 2020 equation that does not use a race coefficient. Blood Venous blood specimen / Unknown 07/17/2025 6:52 AM EDT 07/17/2025 6:56 AM EDT us Scott Bustamante MD LAB POINT OF CARE TE ST DOCKED DEVICE UNSOLICITED RESULTS Final Result [facility] [address] LAB [address] [place] [address] documented in this encounter Visit Diagnoses Diagnosis Presence of IVC filter- Primary Presence of IVC filter documented in this encounter Admitting Diagnoses Diagnosis Presence of IVC filter documented in this encounter Administered Medications Inactive Administered Medications - up to 3 most recent administrations Medication Order MAR Action Action Date Dose Rate Site sodium chloride 0.9 % flush 10 mL 10 mL, Intravenous, Every 12 hours, First dose on Sun07/17/25 at 1115, Until Discontinued, Routine, On Unit - Preprocedure sodium chloride 0.9 % flush 10 mL 10 mL, Intravenous, As needed, Starting on Sun07/17/25 at 1020, Until Sun07/17/25 at 1515, Routine, On Unit - Preprocedure, line care sodium chloride 0.9 % flush 10 mL 10 mL, Intravenous, Every 12 hours, First dose on Sun07/17/25 at 0830, Until Discontinued, Routine, Holding - Preprocedure sodium chloride 0.9 % flush 10 mL 10 mL, Intravenous, As needed, Starting on Sun07/17/25 at 0736, Until Sun07/17/25 at 1515, Routine, Holding - Preprocedure, line care documented in this encounter Active and Recently Administered Medications Times are shown in EDT. Scheduled Medication Order 07/15/2025 07/16/2025 07/17/2025 sodium chloride 0.9 % flush 10 mL(Linked Group 1) 10 mL, Intravenous, Every 12 hours, First dose on Sun07/17/25 at 1115, Until Discontinued, Routine, On Unit - Preprocedure 1115 (Canceled Entry - Provider: Automatic Discharge Provider - Comment: Automatically canceled at discontinue of medication order) sodium chloride 0.9 % flush 10 mL(Linked Group 2) 10 mL, Intravenous, Every 12 hours, First dose on Sun07/17/25 at 0830, Until Discontinued, Routine, Holding - Preprocedure 0830 (Canceled Entry - Provider: Automatic Discharge Provider - Comment: Automatically canceled at discontinue of medication order) PRN Medication Order 07/15/2025 07/16/2025 07/17/2025 fentaNYL (Sublimaze) injection (CANCELED) As needed, Starting on Sun07/17/25 at 0813, Until Sun07/17/25 at 1016, Routine, Intraprocedure 0813 (Given - Provid er: Alejandro Medley)0828 (Given - Provider: Alejandro Medley)0902 (Given - Provider: Alejandro Medley)0938 (Given - Provider: Alejandro Medley)0956 (Given - Provider: Alejandro Medley)1006 (Given - Provider: Alejandro Medley) iodixanol (VISIPaque) 320 MG/ML injection (CANCELED) As needed, Starting on Sun07/17/25 at 1007, Until Sun07/17/25 at 1016, Routine, Intraprocedure 1007 (Given - Provid er: Scott Bustamante MD - Comment: IVC filter removal) lidocaine (Xylocaine) 1 % injection (CANCELED) As needed, Starting on Sun07/17/25 at 0831, Until Sun07/17/25 at 1016, Routine, Intraprocedure 0831 (Given - Provid er: Scott Bustamante MD) midazolam (Versed) injection (CANCELED) As needed, Starting on Sun07/17/25 at 0812, Until Sun07/17/25 at 1016, Routine, Intraprocedure 0812 (Given - Provid er: Alejandro Medley)0828 (Given - Provider: Alejandro Medley)0902 (Given - Provider: Alejandro Medley)0938 (Given - Provider: Alejandro Medley)0940 (Given - Provider: Alejandro Medley)0950 (Given - Provider: Alejandro Medley) sodium chloride 0.9 % flush 10 mL(Linked Group 1) 10 mL, Intravenous, As needed, Starting on Sun07/17/25 at 1020, Until Sun07/17/25 at 1515, Routine, On Unit - Preprocedure, line care sodium chloride 0.9 % flush 10 mL(Linked Group 2) 10 mL, Intravenous, As needed, Starting on Sun07/17/25 at 0736, Until Sun07/17/25 at 1515, Routine, Holding - Preprocedure, line care Linked Groups Order Group 1: Insert peripheral IV (CANCELED) Once, On Sun07/17/25 at 1021, For 1 occurrence, On Unit - Preprocedure And Saline lock IV (CANCELED) Once, On Sun07/17/25 at 1021, For 1 occurrence, On Unit - Preprocedure And sodium chloride 0.9 % flush 10 mLJump to med 10 mL, Intravenous, Every 12 hours, First dose on Sun07/17/25 at 1115, Until Discontinued, Routine, On Unit - Preprocedure And sodium chloride 0.9 % flush 10 mLJump to med 10 mL, Intravenous, As needed, Starting on Sun07/17/25 at 1020, Until Sun07/17/25 at 1515, Routine, On Unit - Preprocedure, line care Group 2: Insert peripheral IV (CANCELED) Once, On Sun07/17/25 at 0737, For 1 occurrence, If a device procedure must have two IV lines with one in the left., Holding - Preprocedure And Saline lock IV (CANCELED) Once, On Sun07/17/25 at 0737, For 1 occurrence, Holding - Preprocedure And sodium chloride 0.9 % flush 10 mLJump to med 10 mL, Intravenous, Every 12 hours, First dose on Sun07/17/25 at 0830, Until Discontinued, Routine, Holding - Preprocedure And sodium chloride 0.9 % flush 10 mLJump to med 10 mL, Intravenous, As needed, Starting on Sun07/17/25 at 0736, Until Sun07/17/25 at 1515, Routine, Holding - Preprocedure, line care documented in this encounter Additional Health Concerns Assessment Noted Time PHQ-9 Depression Total Score: 0 05/20/20 1:36 PM EDT A fall risk assessment has been complete d for the patient 05/20/2025 1:36 PM EDT A Body Mass Index follow-up plan has been documented for the patient 07/17/2025 12:39 PM EDT documented as of this encounter Care Teams Clinical Team Lead Relationship Specialty Start Date End Date Pcp, [place] [address] PCP - General Family Medicine 05/20/25 documented as of this encounter
--- OUTSIDE RECORDS SUMMARY | 2025-07-17 06:30 | XMS_ITS | Encounter Summary ---
Author Organization Healthcare Address [address] [id number] Care Team Providers Care Black Oxide Coating Equipment Tender Name Role Phone Pcp, No Primary Care Provider Unavailabl e Reason for Visit * Auth/Cert (Routine) Specialty Diagnoses / Procedures Referred By Michael t Referred To Contact Diagnoses Presence of IVC filter Presence of IVC filter [Z95.828] Procedures SC RTRVL INTRVAS VC FILTR W/WO ACS VSL SELXN RS&I Vena Cava Filter Removal - Commercial Insulator Scott Bustamante MD [address] [place] [address] Phone: tel: fax: Cardiac Commercial Insulator [address] [place] [address] Phone: tel: Referral ID Status Reason Start Date Expiration Date Visits Re quested Visits Authorized [id number] 1 1 Encounter Details Date Type Department Care Team (Late st Contact Info) Description 07/17/2025 7:30 AM EDT - 07/17/2025 8:15 AM EDT Surgery Cardiac Commercial Insulator [address] [place] [address] Scott Bustamante MD [address] [place] [address] Vena Cava Filter Removal - Commercial Insulator [38675 (CPT )] Surgery Details Date/Time Status Location OR Service Patient Class Case Class Case Type Trauma Case? 07/17/2025 7:30 AM Posted [facility] [employer] MOLDER [facility] [employer]ODU[employer] MOLDER 03 Cardiovascular [facility] Outpatient Surgery E-Elect derek Panel 1 Procedure LRB Anes Op Region Wound Class Comments Vena Cava Filter Removal - Commercial Insulator N/A Surgeon Surgeon Role Service Panel Scott Bustamante MD Primary Cardiovascular 1 documented in this encounter Social History Tobacco Use Types Packs/Day Years [...] Sign Reading Time Taken Comments Blood Pressure 140/75 07/17/2025 7:00 AM EDT Pulse 78 07/17/2025 7:00 AM EDT Temperature 36.8 C (98.3 F) 07/17/2025 7:00 AM EDT Respiratory Rate 14 07/17/2025 7:00 AM EDT Oxygen Saturation 97% 07/17/2025 7:43 AM EDT Inhaled Oxygen Concentration - - Weight [...] Patient does not drink 05/20/2025 1:30 PM EDStephanie Artis CNA Q3: How often do you have six or more drinks on one occasion? Never 05/20/2025 1:30 PM Stephanie Pena CNA * Over the past 2 weeks, [...] Not at all 05/20/2025 1:36 PM Stephanie Pean CNA Patient Health Questionnaire-9 Score 0 05/20/2025 1:36 PM EDT Dany Gould CNA * Calculated C-SSRS Risk Score (Lifetime/Recent) [...] (Past 1 Month) No 07/17/2025 7:15 AM ANGT Lory Dale RN 6. Suicidal Behavior (Lifetime) No 7:15 AM EDT oLry Dale RN documented as of this encounter [...] to be driven home by Xavier. * [facility] [employer] - Lory Dale RN - 07/17/2025 11:15 AM EDT Images from the original note were not included. [id number] Bleeding or Hematoma After Cardiac Catheterization You [...] provider. Last Reviewed Date: 2024 00:00:00 ?? [id number] The [employer]. All rights reserved. This information is not [...] Resource Strain: Low Risk (05/29/2024) Received from [facility] Overall Financial Resource Strain (CARDIA) Difficulty of Paying Living Expenses: Not hard at all Food Insecurity: No Food Insecurity (08/11/2024) Received from [facility] Hunger Vital Sign Within the past 12 months, you worried that your food would run out before you got the money to buymore.: Never true Within the past 12 months, the food you bought just didn't last and you didn't have money to get more.: Never true Transportation Needs: No Transportation Needs (08/11/2024) Received from [facility] PRAPARE - Transportation In the past 12 months, has lack of transportation kept you from medical appointments or from getting medications?: No In the past 12 months, has lack of transportation kept you from meetings, work, or from getting things needed for daily living?: No Physical Activity: Insufficiently Active (08/11/2024) Received from [facility] Exercise Vital Sign On average, how many days per week do you engage in moderate to strenuous exercise (like a brisk walk)?: 7 days On average, how many minutes do you engage in exercise at this level?: 20 min Stress: No Stress Concern Present (05/29/2024) Received from [facility] [place] [facility] [employer] [facility] - Occupational Stress Questionnaire Feeling of Stress : Not at all Social Connections: Unknown (08/11/2024) Received from [facility] Family and Community Support If for any reason you need help with day-to-day activities such as bathing, preparing meals, shopping, managing finances, etc., do you get the help you need?: I don't need any help Lonely or Isolated: Not on file Intimate Partner Violence: Not At Risk (04/14/2025) Received from [facility] Abuse Screen Feels Unsafe at Home or Work/School: no Feels Threatened by Someone: no Does Anyone Try to Keep You From Having Contact with Others or Doing Things Outside Your Home?: no Physical Signs of Abuse Present: no Housing Stability: Not At Risk (04/14/2025) Received from [facility] Housing Stability Current Living Arrangements: home Potentially [...] PLAN - Proceed with IVC filter removal Lena Dawkins MD Interventional Oliving Machine Operator, PGY-8 [1] Past Medical History: Diagnosis Date [...] been discussed with the patient and/or their area representative. All questions answered and they agree to proceed. Cosigned by Scott Bustamante MD at 07/22/2025 2:44 PM EDT Associated attestation - Scott Bustamante MD - 07/22/2025 2:44 PM EDT agree documented in this encounter Plan of Treatment Not on file documented as of this encounter Procedures Procedure Name Priority Date/Time Associated Diagnosis Comments VENA CAVA FILTER REMOVAL - TOILET PRODUCTS MOLDER Routine 07/17/2025 10:07 AM EDT Presence of IVC filter POCT CREATININE ISTAT UNSOLICITED RESULTS Routine 07/17/2025 6:52 AM EDT documented in this encounter Results * VENA CAVA FILTER REMOVAL - TOILET PRODUCTS MOLDER (07/17/2025 10:07 AM EDT) Anatomical Region Laterality [...] IVC angiography was performed using a 6 Japanese multipurpose catheter. The IVC was patent and [...] Follow up in clinic to discuss options. Tiffanie Nunez APRN CV INVASIVE VASCULAR PROCEDU RES Final Result * (ABNORMAL) POCT creatinine (07/17/2025 6:52 AM EDT) Creatinine, Point of Care 1.7(H) 0.6 - 1.1 mg/dL 07/17/2025 6:56 AM EDT [facility] POCT eGFR 32 mL/min/1. 73m*2 07/17/2025 6:56 AM EDT [email or web address] Patternmaker Metal ID Sherry Colvin 07/17/2025 6:56 AM EDT [facility] Device ID [id number] 07/17/2025 6:56 AM EDT [facility] Comment 07/17/2025 6:56 AM EDT [facility] Comment:Testing performed on i-STAT at the point of care. Reported eGFRcr in mL/min/1.73m2 is based the CKD-EPI 2020 equation that does not use a race coefficient. Blood Venous blood specimen / Unknown 07/17/2025 6:52 AM EDT 07/17/2025 6:56 AM EDT us Scott Bustamante MD LAB POINT OF CARE TE ST DOCKED DEVICE UNSOLICITED RESULTS Final Result [facility] [address] [facility] [address] [place] [address] documented in this encounter Visit Diagnoses Diagnosis Presence of IVC filter- Primary Presence of IVC filter documented in this encounter Admitting Diagnoses Diagnosis Presence of IVC filter documented in this encounter Administered Medications Inactive Administered Medications - up to 3 most recent administrations Medication Order MAR Action Action Date Dose Rate Site fentaNYL (Sublimaze) injection As needed, Starting on Sun07/17/25 at 0813, Until Sun07/17/25 at 1016, Routine, Intraprocedure Given 07/17/2025 10:06 AM EDT 50 mcg Given 07/17/2025 9:56 AM EDT 50 mcg Given 07/17/2025 9:38 AM EDT 25 mcg iodixanol (VISIPaque) 320 MG/ML injection As needed, Starting on Sun07/17/25 at 1007, Until Sun07/17/25 at 1016, Routine, Intraprocedure Given 07/17/2025 10:07 AM EDT 15 mL lidocaine (Xylocaine) 1 % injection As needed, Starting on Sun07/17/25 at 0831, Until Sun07/17/25 at 1016, Routine, Intraprocedure Given 07/17/2025 8:31 AM EDT 5 mL Right Internal Jugul ar midazolam (Versed) injection As needed, Starting on Sun07/17/25 at 0812, Until Sun07/17/25 at 1016, Routine, Intraprocedure Given 07/17/2025 9:50 AM EDT 1 mg Given 07/17/2025 9:40 AM EDT 1 mg Given 07/17/2025 9:38 AM EDT 1 mg sodium chloride 0.9 % flush 10 mL [...] er: Alejandro Medley)0828 (Given - Provider: Alejandro Galindo)0902 (Given - Provider: Alejandro Galindo)0938 (Given - Provider: Alejandro Galindo)0956 (Given - Provider: Alejandro Galindo)1006 (Given - Provider: Alejandro Medley) iodixanol (VISIPaque) [...] Provider: Alejandro Medley)0902 (Given - Provider: Alejandro Floreses)0938 (Given - Provider: Alejandro Galindo)0940 (Given - Provider: Alejandro Galindo)0950 (Given - Provider: Alejandro Medley) sodium chloride [...] documented as of this encounter Care Teams Black Oxide Coating Equipment Tender Relationship Specialty Start Date End Date Pcp, [place] [address] PCP - General Family Medicine 05/20/25 documented as of this encounter
--- NOTE | 2025-08-25 14:30 | CT_ITS ---
FINAL REPORT TECHNIQUE: Axial imaging of the chest is obtained after the administration of contrast. 3-D MIP reformatted images were also obtained and reviewed per PE protocol. This study was performed with techniques to keep radiation doses as low as reasonably achievable (ALARA). Individualized dose reduction techniques using automated exposure control or adjustment of mA and/or kV according to the patient's size were employed. CLINICAL HISTORY: dyspnea, hx of PE COMPARISON: 07/03/2025 CT of the chest, 08/08/2024 CTA of the chest FINDINGS: The pulmonary arteries are well filled. There is no evidence of pulmonary embolus. There is no aortic dissection. Heart size is normal. There is no axillary lymphadenopathy. There are a few mildly prominent AP window and bilateral hilar nodes. There are several less than 5 mm in size left upper lobe pulmonary nodules, which are stable. There is a 6 mm nodule in the right minor fissure, stable. There is a right middle lobe 3 mm nodule, also stable. There is no pleural effusion. A small pericardial effusion is present. There is incomplete imaging of moderate hydronephrosis of the upper pole of the left kidney. No other acute abdominal abnormalities are identified. No acute osseous abnormality. IMPRESSION: 1. No evidence of pulmonary embolism or aortic dissection. 2. Bilateral pulmonary nodules are present, stable since the prior exam. 3. Incomplete imaging of moderate hydronephrosis of the upper pole of the left kidney, also seen on the prior exam. Consider CT of the abdomen and pelvis for further evaluation. Reviewed, Interpreted and Dictated by Brigid Delcid MD Transcribed by Kelly Smith Authenticated and [facility]
--- OUTSIDE RECORDS SUMMARY | 2025-08-25 14:37 | XMS_ITS | CCD ---
Author Organization Unknown Care Team Providers Care Crayon Painter Name Role Phone Non Engaged, [employer] Primary Care Provider Unav ailable Unavailable Chronic Care Management Unavaila ble Summary Purpose DataExchange Insurance Providers Payer name Policy type / Coverage type Covered alliance party ID Effective Begin Date Effective End Date [facility] [id number] Unknown Unknown Family History Family History data not found Medication Administered No Medication Administered data Reason For Visit No Reason For Visit data Medical Equipment No Medical Equipment data Advance Directives No Advance Directive data
--- OUTSIDE RECORDS SUMMARY | 2025-08-25 14:38 | XMS_ITS | Encounter Summary ---
[facility] Address [address] [place] [address] Care Team Providers Care Pipe Smoking Machine Operator Name Role Phone Arslan Sorensen MD Primary Care Provider [phone] Encounter Details Date Type Department Care Team (Late st Contact Info) Description 07/08/2025 Telephone [facility] CARDIOLOGY [address] [facility] [address] [place] [address] Anil Rosenbaum MD [address] [place] [address] Social History Tobacco Use Types Packs/Day Years Used Date Smoking Tobacco: Never Passive Smoke Exposure: Never Smokeless Tobacco: Never Comments:None Alcohol Use Standard Drinks/Week Comments Never 0 (1 standard drink = 0.6 oz pur e alcohol) [facility] Utilities Answer Date Recorded In the past [address] [employer], gas, oil, or water [employer] threatened to shut off services in your [...] and heating? Not hard at all 05/29/2024 [place] [facility] [employer] - Occupational Stress [...] GED or equivalent No 08/11/2024 Preferred Language Guyanese 08/11/2024 PHQ-2 Answer Date Recorded Retired PHQ-9: Brief Depression Severity Measure Score 0 05/29/2024 Comments Unknown Sex and Gender Information Value Date Recorded Sex Assigned at Female 03/07/2025 10:11 AM EDT Legal Sex Female 11:14 AM EDT Gender Identity Not on file Sexual Orientation Straight 03/07/2025 10 :11 AM EDT documented as of this encounter Miscellaneous Notes * Telephone Encounter - Anne Alvarez RN - 07/08/2025 1:58 PM EDT Records requested from [facility] for CT of Chest and Abdomen. documented in this encounter Plan of Treatment Upcoming Encounters Date Type Department Care Team (Late st Contact Info) Description 11/24/2025 2:00 PM EST Office Visit [facility] GENERAL SURGERY [address] [facility] [address] [place] [address] Bandar Carrillo MD [address] [facility] [address] [place] [address] 01/13/2026 1:45 PM EDT Office Visit [facility] CARDIOLOGY [address] [facility] [address] [place] [address] Anil Rosenbaum MD [address] [facility] [address] [place] [address] documented as of this encounter Visit Diagnoses Not on filedocumented in this encounter Care Teams Pipe Smoking Machine Operator Relationship Specialty Start Date End Date Arslan Sorensen MD [address] [place] [address] PCP - General Family Medicine 05/21/24 documented as of this encounter
--- OUTSIDE RECORDS SUMMARY | 2025-08-25 14:38 | XMS_ITS | Clinical Summary ---
Author Organization [facility] Address [address] [facility] [address] [place] [address] Phone Care Team Providers Care Copyist Name Role Phone Unavailable Unavailable Conditions or Problems No information available. Medications No information available. Medications Administered No information available. Allergies, Adverse Reactions, Alerts No information available. Results No information available. Plan of Care No information available. Procedures No information available. Vital Signs No information available. Immunizations No information available. Advance Directives No information available.
--- OUTSIDE RECORDS SUMMARY | 2025-08-25 14:38 | XMS_ITS | Clinical Summary ---
Author Organization [facility] Address [address] [place] [address] Care Team Providers Care Oracle Software Engineer Name Role Phone Arslan Sorensen MD Primary Care Provider [phone] Allergies Active Allergy Reactions Criticality Noted Date [...] 12 (Twelve) Hours. Indications: DVT/PE (active thrombosis) Active Additional Information Patient taking differently:5 mgOralEvery 12 Hours Scheduled, Indications: DVT/PE (active thrombosis), Reported on 07/08/2025 busPIRone (BUSPAR) 10 MG tablet Take 1 tablet by mouth 3 (Three) Times a Day. Active Additional Information Patient taking differently:10 mg Oral2 Times Daily, Reported on 07/08/2025 folic acid (FOLVITE) 1 MG tablet Take 1 tablet by mouth Daily. Active QUEtiapine (SEROquel) 25 MG tablet Take 1 tablet by mouth Every Night. Active sodium bicarbonate 650 MG tablet Take 2 tablets by mouth 3 (Three) Times a Day. Active Acetaminophen (TYLENOL EXTRA STRENGTH PO) Take 1 capsule by mouth Every 6 (Six) Hours As Needed. Active ALPRAZolam (XANAX) 0.25 MG tablet Take 1 tablet by mouth 2 (Two) Times a Day As Needed. 5 Active rosuvastatin (CRESTOR) 20 MG tablet Take 1 tablet by mouth Daily. 5 Active traMADol (ULTRAM) 50 MG tablet Take 1 tablet by mouth Every 8 (Eight) Hours As Needed. 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 Repeat CT PE negative for any residual thrombus Echo showed normal LV and RV function with borderline abnormal RV strain Plans for IVC filter removal at with Dr. Bustamante later this month Continue Eliquis until she is seen by her adobe cq developer, Dr. Sorenson. Preferably before end of the year. Will defer repeat leg ultrasound to Dr. 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 Repeat CT PE negative for any residual thrombus Echo showed normal LV and RV function with borderline abnormal RV strain Plans for IVC filter removal at with Dr. Bustamante later this month Continue Eliquis until she is seen by her adobe cq developer, Dr. Sorenson. Preferably before end of the year. Will defer repeat leg ultrasound to Dr. Sorenson as well Anxiety and depression 07/09/2024 S/P percutaneous endoscopic [...] 05/28/2024 HTN (hypertension) 05/28/2024 Assessment & Plan (07/08/2025 2:29 PM EDT): Controlled. Goal less than 130/80. Previously on metoprolol. Continue monitoring off of medications Assessment & Plan (03/04/2025 6:26 PM EDT): [...] visit HLD (hyperlipidemia) 05/28/2024 Assessment & Plan (07/08/2025 2:29 PM EDT): Tolerating statin without myalgia Continue rosuvastatin Assessment & Plan (03/04/2025 6:26 PM EDT): Carries diagnosis. Will address at subsequent visits. Assessment & Plan (12/02/2024 5:32 PM EST): Carries this diagnosis. No recent lipid panel. Will address at subsequent visits and calculate ASCVD risk Elevated hemoglobin A1c 05/28/2024 Resolved Problems Problem Noted Date Diagnosed Date Resolved Date Pulmonary embolism 08/08/2024 4 Encounters Date Type Department Care Team Description 07/08/2025 1:45 PM EDT Office Visit [facility] [address] [facility] [address] [place] [address] Anil Rosenbaum MD Other acute pulmonary embolism without acute cor pulmonale (Primary Dx); History of recurrent deep vein thrombosis (DVT); COLLAZO (dyspnea on exertion); Primary hypertension; Mixed hyperlipidemia 07/08/2025 Telephone [facility] [address] [facility] [address] [place] [address] Anil oRsenbaum MD 07/08/2025 Travel from Last 3 Months Immunizations Immunization Administration [...] drink = 0.6 oz pur e alcohol) [facility] Utilities Answer Date Recorded In the past 12 months has th e electric, gas, oil, or water [employer] threatened to shut off services in your [...] and heating? Not hard at all 05/29/2024 [facility] [place] of Occupat ional Health - Occupational Stress [...] GED or equivalent No 08/11/2024 Preferred Language Moldovan 08/11/2024 PHQ-2 Answer Date Recorded Retired PHQ-9: [...] Pulse 110 07/08/2025 1:47 PM EDT Temperature 36.3 C (97.4 F) 04/14/2025 8:31 AM EDT Respiratory Rate 16 04/14/2025 11:48 AM EDT Oxygen Saturation 98% 07/08/2025 1:47 PM EDT Inhaled Oxygen Concentration - - Weight 86.6 kg (191 lb) 07/08/2025 1:47 PM EDT Height 172.7 cm (5' 8 ) 07/08/2025 1:47 PM EDT Body Mass Index 29.04 07/08/2025 1:47 PM EDT Plan of Treatment Upcoming Encounters Date Type Department Care Team (Late st Contact Info) Description 11/24/2025 2:00 PM EST Office Visit [facility] [address] [facility] [address] [place] [address] Bandar Carrillo MD [address] [facility] [address] [place] [address] 01/13/2026 1:45 PM EDT Office Visit [facility] [address] [facility] [address] [place] [address] Anil Rosenbaum MD [address] [facility] [address] [place] [address] Health Maintenance Due Date Last Done Comments [...] , 07/24/2019, Additional history exists COVID-19 Vaccine (5 - 2024-2 6 season) 2025 07/27/2023, 08/30/2022, 04/19/2022, Additional history exists LIPID PANEL 06/03/2025 06/03/2024 COLORECTAL CANCER SCREENING 07/05/2025 FECAL OCCULT BLOOD TEST 07/05/2025 07/05/2024 TDAP/TD VACCINES (2 - Td or Tdap) 05/16/2032 022 HEPATITIS C SCREENING Completed 07/14/2024 Medical Devices Implanted Type Area Mail Technician Device Identifier Shelf Expiration Date Model / Serial / Lot Clipapplr M/ Endo Ligaclip 20clp 11in Md - [id number] Implanted:Qty : 1 on 05/28/2024 by Nilay Cadena Jr., MD at [facility] Implant N/A: Bladder [employer] J AND J [id number] 12/29/2028 [id number] / / [id number] Description:MULTIPLE CLIPS U SED Clipapplr M/ Endo Ligaclip 13in Lg - [id number] Implanted:Qty : 1 on 05/28/2024 by Nilay Cadena Jr., MD at [facility] Implant N/A: Bladder [employer] OF AND J [id number] 05/31/2028 [id number] / / [id number] Description:MULTIPLE CLIPS U SED Stplr Lnr Cut Prox 75mm Adonay Tlc75 - [id number] Implanted:Qty : 2 on 05/28/2024 by Nilay Cadena Jr., MD at [facility] Implant N/A: Abdomen [employer] J AND J 02/28/2029 [id number] / / [id number] Reload Stplr Lnr Cut Prox 75mm Adonay Tcr75 - [id number] Implanted:Qty : 4 on 05/28/2024 by Nialy Cadena Jr., MD at [facility] Implant N/A: Abdomen [employer] J AND J [id number] 02/28/2029 TCR75 / / [id number] Description:RELOAD Stplr Lnr Cut 60mm Grn Ta60 Tx60g - [id number] Implanted:Qty : 1 on 05/28/2024 by Nilay Cadena Jr., MD at [facility] Implant N/A: Abdomen [employer] J AND J 01/28/2029 [id number] / / [id number] Reload Stplr Lnr Cut Tx60 Reg 3.5 Adonay - [id number] Implanted:Qty : 3 on 05/28/2024 by Nilay Cadena Jr., MD at [facility] Implant N/A: Abdomen [employer] J AND J [id number] 12/29/2026 [id number] / / [id number] Stnt Urnry Divr 7f90cm - [id number] Implanted:Qty : 2 on 05/28/2024 by Nilay Cadena Jr., MD at [facility] Implant N/A: Ureter [employer] [id number] 12/27/2027 [id number] / / [id number] Description:BILATERAL URETER Fltr Jug Vena Cava Shira Del - [id number] Implanted:Qty : 1 on 06/28/2024 by Imer Baer MD at [facility] Implant BARD PERIPHERAL VASCULAR 01/28/2025 [id number] / / [id number] Procedures Procedure Name Priority Date/Time Associated Diagnosis Comments SCANNED - IMAGING 07/03/2025 HEPATITIS PANEL, ACUTE Routine 07/14/2024 3:42 AM EDT OCCULT BLOOD X 1, STOOL Routine 07/05/2024 12:33 PM EDT CHOLESTEROL, TOTAL Add-On 06/03/2024 7: 16 AM EDT from Last 3 Months or Most Recently Relevant to Health Maintenance Results * IMAGING SCANNED (07/03/2025) Anatomical Region Laterality Modality Radiographic Ankita ging us Anil Rosenbaum MD IMG DIAGNOSTIC IMAGING ORDERABL ES Final Result * (ABNORMAL) Hepatitis Panel, Acute (07/14/2024 3:42 AM EDT) Hepatitis B Surface Ag Non-Reacti ve Non-Reacti ve 07/14/2024 4:55 AM EDT [facility] Hep A IgM Non-Reacti ve Non-Reacti ve 07/14/2024 4:55 AM EDT [facility] Hep B C IgM Reactive(A ) Non-Reacti ve 07/14/2024 4:55 AM EDT [facility] Hepatitis C Ab Non-Reacti ve Non-Reacti ve 07/14/2024 4:55 AM EDT [facility] Blood Venipuncture / Unknown 07/14/2024 3:42 AM EDT 07/14/2024 4:08 AM EDT Narrative [facility] - 07/14/2024 4:55 AM EDT Results may be falsely decreased if patient taking Biotin. Whitney Lozoya MD LAB BLOOD ORDERABLES Final Result Performing Organization Address City/[facility]/ZIP Co de Phone Number [facility]
[address] [place] [address], * (ABNORMAL) Occult Blood X 1, Stool - Stool, Per Rectum (07/05/2024 12:33 PM EDT) Fecal Occult Blood Positive( A) Negative DISK DIFFUSION 07/05/2024 1:06 PM EDT [facility] Stool Specimen from rectum / Unknown Collection / Unknown 07/05/2024 12:33 PM EDT 07/05/2024 12:42 PM EDT Selvin Conteh MD BODY FLUIDS AND STOOLS OR DERABLES Final Result [facility]
[address] [place] [address], [place] [phone] * Cholesterol, Total (06/03/2024 7:16 AM EDT) Total Cholesterol 99 0 - 200 mg/dL 06/03/2024 10:29 AM EDT [facility] Blood Venipuncture / Unknown 06/03/2024 7:16 AM EDT 06/03/2024 7:42 AM EDT Narrative [facility] - 06/03/2024 10:29 AM EDT Cholesterol Reference Ranges (U.S. Department fo Health and Human Services ATP III Classifications) Desirable <200 mg/dl Borderline High 200-239 mg/dl High Risk >240 mg/dl [facility] BLOOD ORDERABLES Final Result [facility]
[address] [place] [address], from Last 3 Months or Most Recently Relevant to Health Maintenance Insurance COUNT INCLUDES THE [facility] MEDICARE ADVANTAGE HMO Advance Directives Documents on File Type Date Recorded Patient Right Of Way Worker Expl anation LIVING WILL - SCAN 05/30/2024 [...] Of Support Discussed With: Patient Care Teams Oracle Software Engineer Relationship Specialty Start Date End Date Arslan Sorensen MD [address] [place] [address] PCP - General Family Medicine 05/21/24
--- OUTSIDE RECORDS SUMMARY | 2025-08-25 14:39 | XMS_ITS | Clinical Summary ---
Author Organization [facility] ([place], [place], [place], [place], [place]) Address [address] [place] [address] Care Team Providers Care Limited Radiology Technician Name Role Phone Unavailable Primary Care Provider [...] 01/24/2018 Falls Risk Screening 10/01/2024 COVID-19 VACCINE ( - season) 2025 Influenza Vaccine (#1) 2025 07/16/2018, 2016 Respiratory Syncytial Virus (RSV) Adult or (1 - 1-dose 75+ series) 2029
--- OUTSIDE RECORDS SUMMARY | 2025-08-25 14:39 | XMS_ITS | Clinical Summary ---
Author Organization [facility] Address [address] [id number] Care Team Providers Care Fretted Instrument Repairer Name Role Phone Pcp, No Primary Care [...] tablet by mouth every 8 hours. Active traMADol (Ultram) 50 MG tablet Take 1 tablet by mouth every 8 hours as needed for severe pain. Active rosuvastatin (Crestor) 20 MG tablet Take 1 tablet by mouth nightly. 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 Encounters Date Type Department Care Team Description 07/17/2025 7:30 AM EDT - 07/17/2025 8:15 AM EDT Surgery Cardiac Manager Client [address] [place] [address] Scott Bustamante MD Vena Cava Filter Removal - Manager Client [[id number] (CPT )] 07/17/2025 6:14 AM EDT - 07/17/2025 1:15 PM EDT Hospital Encounter Cardiac Manager Client [address] [place] [address] Scott Bustamante MD Presence of IVC filter Discharge Disposition: Home or Self Care 07/17/2025 Travel from Last 3 Months Immunizations Immunization [...] Mass Index 29.23 07/17/2025 7:00 AM EDT Plan of Treatment Health Maintenance Due Date Last Done Comments [facility]-Bone Density Scan 1954 [facility]-Hepatitis C Screening 1954 [facility]-Medicare Annual Wellness (AWV) 1954 [facility]-Infant/Child/Adol SDOH Screenings 1954 [facility]- SDOH Screenings 1972 [facility]-Adult SDOH Screenings 1972 CT Colonography 1999 Colonoscopy 1999 FIT-DNA 1999 FIT 1999 FOBT 1999 Sigmoidoscopy 1999 [facility]-Colorectal Cancer Screening 1999 [facility]-Breast Cancer Screening 2004 [facility]-Zoster Vaccines (2 of 2) 12/13/2020 10/18/2020 [facility]-Pneumococcal Vaccine: 50+ Years (3 of 3 - PCV20 or PCV21) 03/17/2025 03/17/2020, 01/24/2017 [id number] Vaccine ( season) 2025 07/27/2023, 08/30/2022, 04/19/2022, Additional history exists [facility]-Influenza Vaccine (#1) 06/01/202507/25, 07/22/2021, 07/24/2019, Additional history exists [facility]-Depression Screening 05/20/2026 05/20/2025, 05/02 [facility]-RSV Vaccine: 60+ Years or (1 - 1-dose 75+ series) 2029 [facility]-DTaP,Tdap,and Td Vaccines (2 - Td or Tdap) 05/16/2032 05/16/2022 [facility]-Diabetes: Hemoglobin A1C Discontinued 08/08/2024, 05/21/2024 [facility]-Obesity Intervention Completed 05/20/2025, 05/02 HPV Vaccines Aged Out No longer eligi [...] on patient's age to complete this topic Procedures Procedure Name Priority Date/Time Associated Diagnosis Comments VENA CAVA FILTER REMOVAL - SHOCK ABSORBER INSTALLER Routine 07/17/2025 10:07 AM EDT Presence of IVC filter POCT CREATININE ISTAT UNSOLICITED RESULTS Routine 07/17/2025 6:52 AM EDT from Last 3 Months Results * VENA CAVA FILTER REMOVAL - SHOCK ABSORBER INSTALLER (07/17/2025 10:07 AM EDT) Anatomical Region Laterality [...] IVC angiography was performed using a 6 Cuban multipurpose catheter. The IVC was patent and [...] (ABNORMAL) POCT creatinine (07/17/2025 6:52 AM EDT) [facility] Creatinine, Point of Care 1.7(H) 0.6 - 1.1 mg/dL 07/17/2025 6:56 AM EDT [facility] POCT eGFR 32 mL/min/1. 73m*2 07/17/2025 6:56 AM EDT [facility]ALTH[facility] Tail Edger ID Sherry Colvin 07/17/2025 6:56 AM EDT [facility] LAB Device ID [id number] 07/17/2025 6:56 AM EDT [facility] Comment 07/17/2025 6:56 AM EDT [facility] Comment:Testing performed on i-STAT at the point of care. Reported eGFRcr in mL/min/1.73m2 is based the CKD-EPI 2020 equation that does not use a race coefficient. Blood Venous blood specimen / Unknown 07/17/2025 6:52 AM EDT 07/17/2025 6:56 AM EDT Scott Bustamante MD LAB POINT OF CARE TE ST DOCKED DEVICE UNSOLICITED RESULTS Final Result [facility] [address] [place] [address] [facility] [address] [place] [address] from Last 3 Months Insurance [facility] MEDICARE Care Teams Fretted Instrument Repairer Relationship Specialty Start Date End Date Pcp, No [address] [place] [address] PCP - General Family Medicine 05/20/25
--- OUTSIDE RECORDS SUMMARY | 2025-08-25 14:39 | XMS_ITS | Referral Summary ---
Author Organization [employer] ([place], [place], [place], [place], [place]) Address [address] [place] [address] Care Team Providers Care Medical Underwriter Name Role Phone Unavailable Primary Care Provider [...] Date Kiran rded Speak language other than Turkish at home Not on file 01/16/2024 Want [...]
--- OUTSIDE RECORDS SUMMARY | 2025-08-25 14:39 | XMS_ITS | Encounter Summary ---
Author Organization [facility] Address [address] [place] [address] Care Team Providers Care Junior Copywriter Name Role Phone Arslan Sorensen MD Primary Care Provider [phone] Encounter Details Date Type Department Care Team (Latest Contact Info) Description 07/08/2025 Travel Social History Tobacco Use Types Packs/Day Years Used Date Smoking Tobacco: Never Passive Smoke Exposure: Never Smokeless Tobacco: Never Comments:None Alcohol Use Standard Drinks/Week Comments Never 0 (1 standard drink = 0.6 oz pur e alcohol) [facility] Utilities Answer Date Recorded In the past 12 months has [employer] electric, gas, oil, or water company threatened to [...] and heating? Not hard at all 05/29/2024 [facility] [place] of Occupat ional Health - Occupational Stress [...] GED or equivalent No 08/11/2024 Preferred Language Russian 08/11/2024 PHQ-2 Answer Date Recorded Retired PHQ-9: Brief Depression Severity Measure Score 0 05/29/2024 Comments Unknown Sex and Gender Information Value Date Recorded Sex Assigned at Female 03/07/2025 10:11 AM EDT Legal Sex Female 11:14 AM EDT Gender Identity Not on file Sexual Orientation Straight 03/07/2025 10 :11 AM EDT documented as of this encounter Plan of Treatment Upcoming Encounters Date Type Department Care Team (Late st Contact Info) Description 11/24/2025 2:00 PM EST Office Visit [facility] [address] [facility] [address] [place] [address] Bandar Carrillo MD [address] [facility] [address] [place] [address] 01/13/2026 1:45 PM EDT Office Visit [facility] [address] [facility] [address] [place] [id number] Anil Rosenbaum MD [address] [facility] [address] [place] [address] documented as of this encounter Visit Diagnoses Not on filedocumented in this encounter Care Teams Junior Copywriter Relationship Specialty Start Date End Date Arslan Sorensen MD [address] [place] [address] PCP - General Family Medicine 05/21/24 documented as of this encounter
--- OUTSIDE RECORDS SUMMARY | 2025-08-25 14:39 | XMS_ITS | Encounter Summary ---
Author Organization Healthcare [facility] [place] [id number] Care Team Providers Care Analytical Technician Name Role Phone Pcp, No Primary Care Provider Unavailabl e Encounter Details Date Type Department Care Team (Latest Contact Info) Description 07/17/2025 Travel Social History Tobacco Use Types Packs/Day [...] as of this encounter Functional Status * Calculated C-SSRS Risk Score (Lifetime/Recent) Answer Date of Assessment Author No Risk Indicated 07/17/2025 7:15 AM EDT Rochelle Dale RN * Question Answer Date of Assessment Author 1. Wish to be (Past 1 Month) No 7:15 AM EDT Lory Dale RN 2. Non-Specific Active Suici natividad Thoughts (Past 1 Month) No 07/17/2025 7:15 AM EDT Cook, Joria K , RN 6. Suicidal Behavior (Lifetime) No 7:15 AM EDT Lory Dale RN documented as of this encounter Plan of Treatment Not on file documented as of this encounter Visit Diagnoses [...] documented as of this encounter Care Teams Analytical Technician Relationship Specialty Start Date End Date Pcp, No [address] [place] [address] PCP - General Family Medicine 05/20/25 documented as of this encounter
--- OUTSIDE RECORDS SUMMARY | 2025-08-25 14:39 | XMS_ITS ---
Author Organization [facility] Address [address] [place] [address] Care Team Providers Care Wood Tool Maker Name Role Phone Arslan Sorensen MD Primary Care Provider [phone] Active Problems Problem Noted Date Diagnosed Date [...] Eliquis until she is seen by her care coordinator, Dr. Sorenson. Preferably before end of the [...] Eliquis until she is seen by her care coordinator, Dr. Sorenson. Preferably before end of the [...] Kerma 687 mGy 0 mGy 687 mGy Fluoro Time 25.9 Minutes 0 Minutes 25.9 Minutes Resolved Problems Problem Noted Date Diagnosed Date Resolved Date Pulmonary embolism 08/08/2024 4
[2025-08-25 15:19] LABS: Hematocrit 36.3 % (37.0-47.0); Hemoglobin 11.6 g/dL (12.2-16.2); Immature Granulocytes % 0.6 %; Mean Corpuscular HGB Conc 32.0 g/dL (31.8-35.4); Mean Corpuscular Hemoglobin 28.6 pg (27.0-31.2); Mean Corpuscular Volume 89.4 fl (81-99); Nucleated Red Blood Cells % 0 %; Platelet Count 289 K/mm3 (142-424); Red Blood Count 4.06 M/mm3 (4.20-5.40); Red Cell Distribution Width-SD 47.3 fL; White Blood Count 6.6 K/mm3 (4.8-10.8)
[2025-08-25 15:37] LABS: Albumin Level 4.2 g/dl (3.5-5.0); Chloride 106 mmol/L (98-107)
[2025-08-25 15:38] LABS: Potassium 4.0 mmoL/L (3.5-5.1); Sodium 137 mmol/L (136-145)
[2025-08-25 15:40] LABS: Alanine Aminotransferase 43 U/L (12-78); Anion Gap 19.0 mEq/L (5-15); Aspartate Amino Transferase 63 U/L (14-36); Bilirubin,Unconjugated 0.3 mg/dL (0.0-1.1); Blood Urea Nitrogen 16 mg/dl (7-17); Carbon Dioxide 16 mmol/L (22.0-30.0); Creatinine,Serum 1.60 mg/dl (0.52-1.04); Estimated Glomerular Filt Rate 32 ml/min (>60); GFR (African American) 38 ML/MIN (>60); Total Protein,Serum 7.4 g/dl (6.3-8.2)
[2025-08-25 15:41] LABS: Alkaline Phosphatase 188 U/L (38-126); Bilirubin,Direct 0.1 mg/dl (0.0-0.4); Bilirubin,Indirect 0.3 mg/dL (0.0-0.9); Bilirubin,Total 0.4 mg/dl (0.2-1.3); Calcium 9.5 mg/dl (8.4-10.2); Cholesterol 141 mg/dl (140-200); Glucose 157 mg/dl (74-100); HDL Cholesterol 52 mg/dl (40-60); Magnesium 1.5 mg/dl (1.6-2.3); Triglycerides 221 mg/dl (30-150)
[2025-08-25 16:02] LABS: Free T4 (Free Thyroxine) 1.12 ng/dl (0.78-2.19)
[2025-08-25] MEDS: SODIUM CHLORIDE 0.9% 10ML SYR (RAD ONLY) 10 ML IV (16:04)
[2025-08-25] MEDS: 0.9 % SODIUM CHLORIDE 50 ML VIAL IV (16:04)
[2025-08-25] MEDS: IOPAMIDOL-370 (76%);100ML BOTTLE 85 ML IV (16:04)
[2025-08-25 16:12] LABS: Thyroid Stimulating Hormone 3.62 uIU/mL (0.465-4.68)
[2025-08-25 16:57] LABS: Hemoglobin A1C 5.8 % (4.0-6.0)
== END 2025-08-25 23:59 | disposition home or self-care (01) ==
LOC: RAD 14:26
PROVIDERS: PCP Nurse Practitioner; Visit Provider Nurse Practitioner
DX: C67.9 Malignant neoplasm of bladder, unspecified (principal); N13.30 Unspecified hydronephrosis; R91.8 Other nonspecific abnormal finding of lung field; R94.31 Abnormal electrocardiogram [ECG] [EKG]; R06.09 Other forms of dyspnea; R42 Dizziness and giddiness; Z95.828 Presence of other vascular implants and grafts; Z86.711 Personal history of pulmonary embolism; Z86.718 Personal history of other venous thrombosis and embolism
CPT/HCPCS: 36415; 71275; 80048; 80061; 80076; 83036; 83735; 84439; 84443; 85025; Q9967

== ENCOUNTER 2025-09-10 13:27 | Outpatient (CLI) | payer MEDICARE, SELFPAY ==
--- NOTE | 2025-09-10 13:30 | CT_ITS ---
FINAL REPORT TECHNIQUE: Axial images through the abdomen and pelvis were performed without contrast. This study was performed with techniques to keep radiation doses as low as reasonably achievable, (ALARA). Individualized dose reduction techniques using automated exposure control or adjustment of mA and/or kV according to the patient's size were employed. CLINICAL HISTORY: Moderate hydronephrosis of the left kidney noted Priors have been sent COMPARISON: 07/03/2025 FINDINGS: Abdomen: There is minimal scarring in the lingula. Diffuse fatty infiltration is noted of the liver. The gallbladder is present. Calcified granulomas are noted in the spleen. The pancreas and adrenal glands are without acute abnormality. Right kidney is unremarkable. An IVC filter is present. There is marked left hydronephrosis and hydroureter to the level of loop ileostomy with a similar appearance to the prior exam. There is a large nonobstructing stone in the lower pole of the left kidney measuring 1.3 cm in greatest dimension. Exophytic structure in the posterior aspect of the left kidney measures 2.0 cm in diameter. Pelvis: Right and left anterior pelvic wall ostomies are noted. There are postsurgical changes at the superior margin of the rectum. The urinary bladder is unremarkable. The appendix is not visualized. There is no pelvic mass or inflammation. IMPRESSION: Stable left hydronephrosis. Nonobstructing large left kidney stone. Diffuse fatty infiltration of the liver. Reviewed, Interpreted and Dictated by Miko Mejía MD Transcribed by Mary Becerril Authenticated and [facility]
== END 2025-09-10 23:59 | disposition home or self-care (01) ==
PROVIDERS: PCP Nurse Practitioner; Visit Provider Nurse Practitioner
DX: N13.30 Unspecified hydronephrosis (principal); N20.0 Calculus of kidney; K76.0 Fatty (change of) liver, not elsewhere classified
CPT/HCPCS: 74176

== ENCOUNTER 2025-09-22 23:57 | Observation (INO) | payer MEDICARE, SELFPAY ==
[2025-09-23] VITALS (25 sets, daily range): BP systolic 90–136; BP diastolic 56–80; PULSE 70–101; RESP 14–28; TEMP 36.5–36.8; O2SAT 96–99; BMI 28.8
--- OUTSIDE RECORDS SUMMARY | 2025-09-23 00:05 | XMS_ITS | Data Portability ---
Author Organization [facility] HUSSEIN KentS [place] CLOSED Address [address] [facility] [address] [place] [address] Care Team Providers Care Yoga Teacher Name Role Phone JATINDER TRAN Referring Provider [...] Organization Details Last Modified Time Details Appointments RECHECK 2024 03:15P Shayy SHELTON MD Not available Not available Not available Lab urinalys is panel, auto [facility], [address], [address], [place], [address], 03/15/2024 10:52:06 urinalys is panel, auto 2023 024 [facility] Extended Services With [facility], [address], [address], [place], [address], 11/18/2023 08:59:[address] referral - Bladder Cancer & Neoadjuv ant chemothe rapy 2023 024 [email or web address] Abhishek Sorenson MD, [address], [place], [address], 12/26/2023 09:22:32 Procedures None recorded . Surgeries cystecto my, complete , with ureteroi goodwin conduit or sigmoid bladder, includin g intestin e anastomo sis (SURG) 2023 024 [email or web address] [facility] Surgery Scheduling, [address], [place], [address], 05/20/2024 12:08:[address], abdomen + pelvis, w/ contrast - CT ABD/PEL W/CONTRA ST PLEASE CALL ELIZABETH SEGUNDO AT #[id number] 5, effectiv e 11/20/19 24 - 02/17/20 24, for procedur e code [id number] 2023 024 [facility] (Centralized Scheduling), [address] [facility], [place], [address], 12/14/2023 15:12:57 Medication Orders None recorded . Patient TargetsNo targets recorded. Patient Instructions Encounter Date Encounter Id Patient Instructions Last Modified By Organization Details Last Modified Time 11/12/2023 [id number] learning about healthy weight [facility] Not available 11/18/2023 08:59:10 Plan for restaging with imaging since it has been since July that she had her TURBT. Depending on imaging results, we may need to consider surgery versus neoadjuvant therapy. [facility] Not available 11/18/2023 08:58:15 12/26/2023 [id number] Plan for referra l to medical oncology for consideration of neoadjuvant chemotherapy. Plan for cystectomy down the road. We talked about cystectomy and urinary diversion today. Will talk in more detail at upcoming appointments. [facility] Not available 12/26/2023 08:13:02 03/10/2024 [id number] Suffering, long discussion about radical cystectomy, and ilial conduit urinary diversion. We talked about Risks benefits, and alternatives and including, but not limited to bleeding, infection, small bowel obstruction, urine, ureteral stricture. We also talked about issues because of her previous surgery and potential open surgery because of this. [facility] Not available 03/15/2024 10:53:15 12/01/2024 [id number] learning about healthy weight [facility] Not available 12/08/2024 18:58:55 - Continue follow-up [...] condition. [email or web address] Not available 12/04/2024 07:24:13 03/09/2025 [id number] - Continue to rest and allow your [...] auto Unknown Analyte Clean Catch Not Available [facility] [place] Extended Services With [address], [place], [address], 11/12/2023 18:47:27 11/12/19 24 11/12/2023 urina lysis panel , auto Unknown Analyte Yellow Not Available [facility] Extended Services With [address], [place], [address], 11/12/2023 18:47:27 11/12/19 24 11/12/2023 urina lysis panel , auto Unknown Analyte Clear Not Available [facility] Extended Services With [address], [place], [address], 11/12/2023 18:47:27 11/12/19 24 11/12/2023 urina lysis panel , auto Unknown Analyte 1.010 Not Available [facility] Extended Services With [address], [place], [address], 11/12/2023 18:47:27 11/12/19 24 11/12/2023 urina lysis panel , auto Unknown Analyte 1.003- 1.035 Not Available [facility] [place] Extended Services With [place] [address], [place], [address], 11/12/2023 18:47:27 11/12/19 24 11/12/2023 urina lysis panel , auto Unknown Analyte 5.0 Not Available [facility] Extended Services With [address], [place], [address], 11/12/2023 18:47:27 11/12/19 24 11/12/2023 urina lysis panel , auto Unknown Analyte 5.0-8. 0 Not Available [facility] [place] Extended Services With [place] [address], [place], [address], 11/12/2023 18:47:27 11/12/19 24 11/12/2023 urina lysis panel , auto Unknown Analyte Negati ve Not Available Critical [facility] [place] Extended Services With [place] [address], [place], [address], 11/12/2023 18:47:27 11/12/19 24 11/12/2023 urina lysis panel , auto Unknown Analyte Negati ve Not Available [facility] [place] Extended Services With [place] [address], [place], [address], 11/12/2023 18:47:27 11/12/19 24 11/12/2023 urina lysis panel , auto Unknown Analyte Negati ve Not Available Critical access hospital [facility] [place] Extended Services With [place] [address], [place], [address], 11/12/2023 18:47:27 11/12/19 24 11/12/2023 urina lysis panel , auto Unknown Analyte Negati ve Not Available [facility] [place] Extended Services With [place] [address], [place], [address], 11/12/2023 18:47:27 11/12/19 24 11/12/2023 urina lysis panel , auto Unknown Analyte Negati ve Not Available [facility] [place] Extended Services With [place] [address], [place], [address], 11/12/2023 18:47:27 11/12/19 24 11/12/2023 urina lysis panel , auto Unknown Analyte Negati ve Not Available Critical [facility] [place] Extended Services With [place] [address], [place], [address], 11/12/2023 18:47:27 11/12/19 24 11/12/2023 urina lysis panel , auto Unknown Analyte Normal Not Available [facility] Extended Services With [place] [address], [place], [address], 11/12/2023 18:47:27 11/12/19 24 11/12/2023 urina lysis panel , auto Unknown Analyte Normal Not Available [facility] Extended Services With [place] [address], [place], [address], 11/12/2023 18:47:27 11/12/19 24 11/12/2023 urina lysis panel , auto Unknown Analyte Negati ve Not Available [facility] Extended Services With [place] [address], [place], [address], 11/12/2023 18:47:27 11/12/19 24 11/12/2023 urina lysis panel , auto Unknown Analyte Negati ve Not Available [facility] Extended Services With [address], [place], [address], 11/12/2023 18:47:27 11/12/19 24 11/12/2023 urina lysis panel , auto Unknown Analyte Normal Not Available [facility] Extended Services With [place] [address], [place], [address], 11/12/2023 18:47:27 11/12/19 24 11/12/2023 urina lysis panel , auto Unknown Analyte Normal 1 mg/dl Not Available [facility] [place] Extended Services With [place] [address], [place], [address], 11/12/2023 18:47:27 11/12/19 24 11/12/2023 urina lysis panel , auto Unknown Analyte Negati ve Not Available Critical [facility] [place] Extended Services With [address], [place], [address], 11/12/2023 18:47:27 11/12/19 24 11/12/2023 urina lysis panel , auto Unknown Analyte Negati ve Not Available Critical [facility] hospital [facility] [place] Extended Services With [address], [place], [address], 11/12/2023 18:47:27 11/12/19 24 11/12/2023 urina lysis panel , auto Unknown Analyte Negati ve Not Available Critical [facility] [place] Extended Services With [place] [address], [place], [address], 11/12/2023 18:47:27 11/12/19 24 11/12/2023 urina lysis panel , auto Unknown Analyte Negati ve Not Available [facility] [place] Extended Services With [address], [place], [address], 11/12/2023 18:47:27 03/11/20 24 03/11/2024 urina lysis panel , auto Unknown Analyte Clean Catch Not Available [facility] [place] Extended Services With [address], [place], [address], 03/11/2024 08:06:22 03/11/20 24 03/11/2024 urina lysis panel , auto Unknown Analyte Yellow Not Available [facility] [place] Extended Services With [address], [place], [address], 03/11/2024 08:06:22 03/11/20 24 03/11/2024 urina lysis panel , auto Unknown Analyte Clear Not Available [facility] [place] Extended Services With [place] [address], [place], [address], 03/11/2024 08:06:22 03/11/20 24 03/11/2024 urina lysis panel , auto Unknown Analyte 1.010 Not Available [facility] Extended Services With [address], [place], [address], 03/11/2024 08:06:22 03/11/20 24 03/11/2024 urina lysis panel , auto Unknown Analyte 1.003- 1.035 Not Available [facility] Extended Services With [address], [place], [address], 03/11/2024 08:06:22 03/11/20 24 03/11/2024 urina lysis panel , auto Unknown Analyte 5.0 Not Available [facility] Extended Services With [address], [place], [address], 03/11/2024 08:06:22 03/11/20 24 03/11/2024 urina lysis panel , auto Unknown Analyte 5.0-8. 0 Not Available [facility] Extended Services With [address], [place], [address], 03/11/2024 08:06:22 03/11/20 24 03/11/2024 urina lysis panel , auto Unknown Analyte Negati ve Not Available Critical access hospital [facility] [place] Extended Services With [address], [place], [address], 03/11/2024 08:06:22 03/11/20 24 03/11/2024 urina lysis panel , auto Unknown Analyte Negati ve Not Available Critical [facility] hospital [facility] [place] Extended Services With [place] [address], [place], [address], 03/11/2024 08:06:22 03/11/20 24 03/11/2024 urina lysis panel , auto Unknown Analyte Negati ve Not Available [facility] [place] [address], [place], [address], 03/11/2024 08:06:22 03/11/20 24 03/11/2024 urina lysis panel , auto Unknown Analyte Negati ve Not Available [facility] Extended Services With [place] [address], [place], [address], 03/11/2024 08:06:22 03/11/20 24 03/11/2024 urina lysis panel , auto Unknown Analyte Negati ve Not Available [facility] Extended Services With [place] [address], [place], [address], 03/11/2024 08:06:22 03/11/20 24 03/11/2024 urina lysis panel , auto Unknown Analyte Negati ve Not Available [facility] Extended Services With [facility] [address], [place], [address], 03/11/2024 08:06:22 03/11/20 24 03/11/2024 urina lysis panel , auto Unknown Analyte Normal Not Available [facility] [place] [facility] With [place] [address], [place], [address], 03/11/2024 08:06:22 03/11/20 24 03/11/2024 urina lysis panel , auto Unknown Analyte Normal Not Available [facility] [place] Extended Services With [facility] [address], [place], [address], 03/11/2024 08:06:22 03/11/20 24 03/11/2024 urina lysis panel , auto Unknown Analyte Negati ve Not Available Critical access hospital [facility] [place] Extended Services With [facility] [address], [place], [address], 03/11/2024 08:06:22 03/11/20 24 03/11/2024 urina lysis panel , auto Unknown Analyte Negati ve Not Available [facility] Extended Services With [place] [address], [place], [address], 03/11/2024 08:06:22 03/11/20 24 03/11/2024 urina lysis panel , auto Unknown Analyte Normal Not Available [facility] [place] [facility] With [place] [address], [place], [address], 03/11/2024 08:06:22 03/11/20 24 03/11/2024 urina lysis panel , auto Unknown Analyte Normal 1 mg/dl Not Available [facility] [place] Extended Services With [facility] [address], [place], [address], 03/11/2024 08:06:22 03/11/20 24 03/11/2024 urina lysis panel , auto Unknown Analyte Negati ve Not Available Critical [facility] [place] Extended Services With [place] [address], [place], [address], 03/11/2024 08:06:22 03/11/20 24 03/11/2024 urina lysis panel , auto Unknown Analyte Negati ve Not Available Critical [facility] hospital [facility] [place] Extended Services With [facility] [address], [place], [address], 03/11/2024 08:06:22 03/11/20 24 03/11/2024 urina lysis panel , auto Unknown Analyte Negati ve Not Available Critical [facility] hospital [facility] [place] Extended Services With [facility] [address] [facility] [address], [place], [address], 03/11/2024 08:06:22 03/11/20 24 03/11/2024 urina lysis panel , auto Unknown Analyte Negati ve Not Available [facility] [address] [facility] [address], [place], [address], 03/11/2024 08:06:22 12/14/19 24 12/14/2023 CT, abdom en + pelvi s, w/ contr ast No observ ation record ed. [facility] Radiology [address] [facility], [place], [address], 12/26/2023 08:11:47 03/17/20 24 02/02/2024 CT, abdom en + pelvi s, w/ contr ast No observ ation record ed. [facility] Not Available 2023 21:33:25 05/21/20 24 05/21/2024 XR, chest , 2 view No observ ation record ed. [facility] Not Available 2023 15:45:32 05/21/20 24 05/21/2024 elect citlali matthewsgr am No observ ation record ed. [facility] Not Available 2023 16:56:16 Result Notes None recorded. Problems Name Problem SNOMED Code Status Onset Date Resolution Date Notes Provider Name and Address Organization Details Recorded Time Malignant neoplasm of urinary bladder 959903398 Active 024 HEBER SHELTON JR, MD [address] [place] [address], [address] , [facility] 08:57:45 Problem Notes None recorded. Procedures Surgical History Date Name Laterality Status Provider Name and Address Organization Details Recorded Time 05/01/20 24 [facility] 12/01/2024 13:04:03 Hysterectomy completed [facility] 11/12/2023 18:46:07 excision of bilateral ovaries completed [facility] 11/12/2023 18:46:25 procedure on urinary bladder completed [facility] 11/12/2023 18:46:38 excision of basal cell carcinoma completed [facility] 11/12/2023 18:46:47 Imaging Results None recorded. Procedure Notes None recorded. Medical Equipment None Reported. Allergies Allergen ID Allergen Name Allergen Category Reaction Reaction Severity Criticality Documentation Date Start Date Code Code System Note Provider Name and Address Organization Details Recorded Time 698199 lisinopri l medicatio n Not available Not available Not available 11/12/2023 08214 RxNorm [facility]3] 18:43:58 Medications Name Sig Start Date Stop [...] Take 4000 mL by oral route as directkitty dAmando 2023 active Not Available Not Available Not Avai lable Vitals Date Recorded Body height Body mass index (BMI) Body weight Provider Name and Address Organization Details Last Updated DateTime 11/12/2023 172.72 cm 33.5 kg/m2 80776.32 g Toby Bee [facility] 11/12/2023 18:43:46 Date Recorded Body height Body mass index (BMI) Body weight Provider Name and Address Organization Details Last Updated DateTime 12/01/2024 172.72 cm 25.2 kg/m2 41970.33 g Toby Bee [facility] 12/01/2024 13:02:51 Date Recorded Body height Body mass index (BMI) Body weight Provider Name and Address Organization Details Last Updated DateTime 12/26/2023 172.72 cm 33.5 kg/m2 92760.32 g Toby Garciat [facility] 12/26/2023 07:56:22 Date Recorded Body height Body mass index (BMI) Body weight Provider Name and Address Organization Details Last Updated DateTime 03/09/2025 172.72 cm 27.4 kg/m2 32784.63 g Janine Espana [facility] 03/09/2025 15:20:43 Date Recorded Body height Body mass index (BMI) Body weight Provider Name and Address Organization Details Last Updated DateTime 03/10/2024 172.72 cm 33.1 kg/m2 37396.14 g Summer Luis [facility] 03/11/2024 08:06:10 Social History Question Answer Notes LastModified by Organizat ion Details LastModified Time Tobacco Smoking Status Never Smoker Toby Garciat [facility] 11/12/2023 18:45:59 What Was The Date Of Your Most Recent Tobacco Screening? 03/09/2025 [email or web address] Information not available 03/09/2025 Sex: Female Functional [...] History Condition Response Coronary Artery Disease N Gout N Other N Kidney Cyst N Kidney Stones N Enlarged Prostate N Heart Arrhythmia N Head Trauma/Injury N Erectile Dysfunction N Emphysema N Sexually Transmitted Disease N Depression Y Pneumonia N Incontinence N Prostate Problems N Cancer Prostate N Paralysis N Anxiety Disorder Y Hemorrhoids N Obesity N Arthritis Y Infertility N Acid Reflux (GERD) Y Hematuria N Cancer Y Stroke N Neck Injury N Previous Radiation [...] N Anesthesia Complications N Genitourinary Disease N Radiation Therapy N Chronic Kidney Disease N Bladder or Kidney Problems Y Back Injury N High Cholesterol Y High PSA N Nervous System Disorder N Liver Disease N Organ Transplant N Dialysis N Allergies/Hayfever N False Teeth N Chronic Obstructive Pulmonary Disease N Parkinson's Disease N Chemotherapy Y Transplant N Anemia N Multiple Sclerosis N Chest Pain N Back Pain N Proteinuria N Heart Attack (IA) N Mental Illness N Ovarian Cancer N Diabetes N Seizures/Epilepsy N Genitourinary problem(s) N Congestive Heart Failure (CHF) N Kidney Failure N Sleep Apnea N Heart Disease N Bronchitis N Hypertension Y Gynecological History Statement/Question Response [...] ICD10 Code Diagnosis IMO Codes Diagnosis Note [id number] HEBER SHELTON JR, MD [facility] EXTENDED SERVICES [address] [facility] [address] 11/12/2023 13:38:38 11/12/2023 19:06:23 Malignant neoplasm of urinary bladder 116346492 C67.9 [id number] HEBER SHELTON JR, MD [address] [place] [address] 12/26/2023 07:55:37 12/26/2023 08:26:44 Malignant neoplasm of urinary bladder 771576057 C67.9 [id number] HEBER SHELTON JR, MD [facility] [address] [place] [address] 03/10/2024 14:00:27 03/10/2024 15:55:18 Malignant neoplasm of urinary bladder 480268626 C67.9 [id number] HEBER SHELTON JR, MD [facility] [address] [place] [address] 12/01/2024 12:57:26 12/01/2024 17:08:30 Malignant neoplasm of urinary bladder 421404362 C67.9 [id number] HEBER SHELTON JR, MD [facility] [address] [place] [address] 03/09/2025 15:08:07 03/09/2025 15:33:20 Malignant neoplasm of urinary bladder 117395829 C67.9 Health Concerns Section Related Observation LastModified by Organization Detai ls LastModified Time None Recorded Concern Status LastModified by Organization Details LastModified Time None Recorded Advance Directives Directive None Recorded Payers Insurance Date Sequence Insurance Name Policy Number Policy Orozco Covered Member ID Orozco Member ID Guarantor Name 03/24/2025 1 BERNA-DIANE: CHRISTINE CORONEL OF [facility] (MEDICARE REPLACEMENT REGIONAL PPO) [id number] Elizabeth Segundo [id number] Elizabeth Segundo Notes Date Note Type [...] at that time. HEBER SHELTON JR, MD [address] [place] [address], [phone], [facility] [place] [facility] 11/18/2023 08:59:13 12/26/2023 text/html patient is in [...] confirms that he/she is physically located in [place] at the time of this visit. Patient [...] best possible care. HEBER SHELTON JR, MD [address] [place] [address], [phone], [facility] [place] [facility] 12/26/2023 08:14:09 03/10/2024 text/html patient is in [...] with surgical therapy. HEBER SHELTON JR, MD [facility] [place], [address], [facility] [place] [facility] 03/15/2024 10:54:13 12/01/2024 text/html The patient is [...] for cancer management. HEBER SHELTON JR, MD [address] [place], [address], [facility] [place] [facility] 12/08/2024 18:58:58 03/09/2025 text/html The patient is [...] general surgery regularly. HEBER SHELTON JR, MD [address] [place], [address], [facility] [place] [facility] 03/23/2025 07:09:30 OBGyn Episode No OBEpisode recorded.
--- OUTSIDE RECORDS SUMMARY | 2025-09-23 00:05 | XMS_ITS | Clinical Summary ---
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 Medications No information available. Medications Administered No information available. Allergies, Adverse Reactions, Alerts No information available. Results No information available. Plan of Care No information available. Procedures No information available. Vital Signs No information available. Immunizations No information available. Advance Directives No information available.
--- OUTSIDE RECORDS SUMMARY | 2025-09-23 00:05 | XMS_ITS | CCD ---
Author Organization Unknown Care Team Providers Care Materials Management Supervisor Name Role Phone Non Engaged, [facility] Primary Care Provider Unav ailable Unavailable Chronic Care Management Unavaila ble Summary Purpose DataExchange Insurance Providers Payer name Policy type / Coverage type Covered democrat ID Effective Begin Date Effective End Date [facility] [id number] Unknown Unknown Family History Family History data not found Medication Administered No Medication Administered data Reason For Visit No Reason For Visit data Medical Equipment No Medical Equipment data Advance Directives No Advance Directive data
--- NOTE | 2025-09-23 00:13 | ECG_ITS ---
APPROVED REPORT Exam: Resting ECG HR:87 bpm ECG Measurements Heart Rate 87 AXES NJ 178 P 50 QRSd 84 QRS -47 QT 375 T 57 QTc 420 Conclusion SINUS RHYTHM LOW QRS VOLTAGE IN PRECORDIAL LEADS [QRS DEFLECTION < 1.0 mV IN CHEST LEADS] PATTERN CONSISTENT WITH PULMONARY DISEASE INFERIOR MYOCARDIAL INFARCTION , OF INDETERMINATE AGE [40+ ms Q WAVE AND/OR ST/T ABNORMALITY IN II/aVF] No STEMI Electronically signed by : GEORGE VALVERDE, 09/23/2025 07:08:54
--- NOTE | 2025-09-23 00:43 | HMH.EDGENADL ---
Discharge Plan Disposition Patient Disposition: Admitted Condition: Fair Prescriptions Prescriptions: No Action alprazolam 0.25 mg tablet 0.25 mg PO BID Patient Comments: TAKE ONE TABLET BY MOUTH TWICE DAILY MAY CAUSE DROWSINESS Eliquis 5 mg tablet 5 mg PO BID Patient Comments: TAKE ONE TABLET BY MOUTH TWICE DAILY DIRECTED buspirone 10 mg tablet 10 mg PO DAILY Patient Comments: TAKE ONE TABLET BY MOUTH TWICE DAILY folic acid 1 mg tablet 1 mg PO DAILY Patient Comments: TAKE ONE TABLET BY MOUTH EVERY DAY quetiapine 50 mg tablet 50 mg PO ONCE HS Patient Comments: TAKE ONE TABLET BY MOUTH EVERY DAY AT BEDTIME sodium bicarbonate 650 mg tablet 650 mg PO Q8H Patient Comments: TAKE ONE TABLET BY MOUTH EVERY 8 HOURS tramadol 50 mg tablet 50 mg PO Q8H Patient Comments: TAKE ONE TABLET BY MOUTH EVERY 8 HOURS FOR arthritis escitalopram oxalate 20 mg tablet 20 mg PO DAILY Patient Comments: TAKE ONE TABLET BY MOUTH EVERY DAY rosuvastatin 20 mg tablet 20 mg PO Patient Comments: TAKE ONE TABLET BY MOUTH EVERY DAY omeprazole 40 mg capsule,delayed release(DR/EC) 40 mg PO DAILY Referrals Follow up/Referrals: Kirstin Krishnan APRN [Primary Care Provider, Medical] - See instructions Clinical Impressions Clinical Impression: Pre-syncope, Dizziness, Orthostatic hypotension, Kidney dysfunction Print Language Print Language: Turkish Discharge ED Provider: [place] Adult HPI General Chief complaint: Dizziness Stated complaint: high bp, BRAUN, dizziness, started falling Time Seen by Provider: 09/23/25 00:43 Mode of Arrival: Ambulatory Source of Information: Patient Description of Symptoms (Recalled from ER Triage Doc. by RN): Pt presents to ER from home with complaints of dizziness and headache. Pt reports that she was sitting on the edge of her bed when she felt dizzy and started to fall backwards onto her bed. Pt denies +LOC. + thinners (eliquis) Denies blurry or double vision at this time. Pt reports that shehas been falling more frequently at home and was recently taken off her blood pressure medication. Known history of carotid stent and bladder cancer History of Present Illness HPI narrative: 70-year-old female presents to the ER with concerns of dizziness, headache, near syncope. Patient has history of previous bladder cancer currently in remission, urostomy, colostomy, history of PE on Eliquis with IVC filter that they have been unable to remove. She states she has had a few episodes of room spinning dizziness exactly like tonight in the last few months. She was evaluated by cardiology in August for this issue. Review of records demonstrate they wanted her to have a CTA chest at that time which on my review demonstrated no PE, stable lung nodules. Plan was to follow-up with cardiology clinic 1 month from her last appointment. Patient states tonight she moved from her wheelchair to the bed and was brushing her teeth on the side of the bed when she felt like the room started to spin. She started to lay down because she felt like she was going to pass out. She states she did not fully lose consciousness but felt like she would. She did not fall or strike her head. No loss of consciousness. She did not have any associated thunderclap headache, chest pain, or difficulty breathing. No nausea or vomiting. She states she has had headache but it was not associated with the dizzy spell specifically. Her reports that he took her blood pressure at the time of her dizzy spell and it was in the 180s. Patient has recently been taken off all blood pressure medications but her blood pressures have been good. When she arrived to the ER she was normotensive and not having any dizziness. Patient reports she has been having episodes of shortness of breath with exertion but they are unpredictable. She states it was not associated with her symptoms tonight, she did not have any chest pain or difficulty breathing. Her symptoms are unpredictable and she states her dizzy spells have not been specifically preceded by anything. She denies any abdominal pain, she states she has never had known urinary infection with her urostomy, denies flank pain or fevers. Normal urine output. She is having normal colostomy output. No other complaints or concerns. Related Data Home Medications ?Medication ?Instructions ?Recorded ?Confirmed omeprazole 40 mg capsule,delayed 40 mg PO DAILY 03/19/18 08/25/25 release alprazolam 0.25 mg tablet 0.25 mg PO BID 03/31/25 08/25/25 apixaban 5 mg tablet (Eliquis) 5 mg PO BID 03/31/25 08/25/25 buspirone 10 mg tablet 10 mg PO DAILY 03/31/25 08/25/25 folic acid 1 mg tablet 1 mg PO DAILY 03/31/25 08/25/25 quetiapine 50 mg tablet 50 mg PO ONCE HS 03/31/25 08/25/25 sodium bicarbonate 650 mg tablet 650 mg PO Q8H 03/31/25 08/25/25 escitalopram oxalate 20 mg tablet 20 mg PO DAILY 07/07/25 08/25/25 rosuvastatin 20 mg tablet 20 mg PO 07/07/25 08/25/25 tramadol 50 mg tablet 50 mg PO Q8H 07/07/25 08/25/25 Allergies Allergy/AdvReac Type Severity Reaction Status Date / Time lisinopril Allergy Mild Hives Verified 08/25/25 13:31 [facility] Disclaimer: The information contained in this section may have been updated after the patient was seen, as this information can be updated by other users. Medical History Arthritis Sinus headache History of gastroesophageal reflux (GERD) History of cataract Allergies Hyperlipidemia Hypertension Surgical History Hx of oophorectomy History of partial hysterectomy H/O eye surgery hole in retina Family History Grandfather Heart attack Grandmother Heart attack Social History Smoking Status: Never smoker alcohol intake: never substance use type: denies use current occupational status: retired Travel in the last 8 weeks?: None Have you lived/traveled outside US in past 30 days?: No Contact w/someone who lives/traveled outside US past 30 days?: No Exposure to someone with infectious disease in past 14 days?: No Do you have a fever (greater than 100.4 F or 38 C)?: No Have you tested positive for COVID-19?: No Exposed to someone with COVID-19 in past 14 days?: No Do you have a sore throat?: No Do you have a cough?: No Do you have any weakness?: Yes Do you have any diarrhea?: No Are you experiencing any unusual bleeding?: No Do you have any muscle aches/pain?: No Do you have any abdominal pain?: No Are you experiencing loss of taste or smell?: No Other Medical History Have you received the Flu Vaccine for this season: No Have you received the Pneumonia Vaccine: Yes ROS Obtained: Yes Systems reviewed as appropriate & no additional complaints except as documented Per HPI Physical Exam General General appearance: alert and in no apparent distress Head Head exam: atraumatic and normocephalic Eye Eye exam: Present PERRL and EOMI; Absent nystagmus ENT ENT exam: Present mucous membranes moist Neck Neck exam: Present normal inspection, full ROM and other (Patient has no reproducible dizziness with movement of the head or neck.) Chest Chest inspection: Present symmetric chest wall rise Respiratory Respiratory exam: Present normal lung sounds bilaterally; Absent respiratory distress, wheezes or stridor Cardiovascular Cardiovascular exam: Present regular rate and normal rhythm Abdominal Exam Abdominal exam: Present soft; Absent distention, tenderness, guarding or rebound Comment: Right anterior urostomy, left anterior colostomy Extremities Exam Extremities exam: Present full ROM and normal capillary refill; Absent edema Back Exam Back exam: Absent CVA tenderness (R) or CVA tenderness (L) Neurological Exam Neurological exam: Present alert, oriented X3 and other (GCS 15, NIH 0, dizziness is not present at this time and does not reproducible or able to be elicited during exam); Absent motor sensory deficit Psychiatric Psychiatric exam: Present normal affect and normal mood Skin Skin exam: Present warm and dry Medical Decision Making Medical Records Medical records reviewed: Yes I reviewed the patient's medical records. Screening: Per USPSTF and CDC recommendations, given the prevalence of disease in our region, it is our hospital?s policy to screen for HIV and viral Hepatitis for all patients aged 18 and over and those with ongoing risk factors. Klever Inquiry Pt receiving controlled substance: No Vital Signs: 09/23/25 00:12 09/23/25 01:44 09/23/25 01:45 Temperature 98.3 F Temperature Source Oral Pulse Rate 92 H 92 H Pulse Rate [Left Radial] 101 H Pulse Rate [Orthostatic Lying Right Radial] Pulse Rate [Orthostatic Sitting Right Radial] Pulse Rate [Orthostatic Standing Right Radial] Respiratory Rate 16 27 H 25 H Blood Pressure Blood Pressure [Orthostatic Lying Right Arm] Blood Pressure [Orthostatic Sitting Right Arm] Blood Pressure [Orthostatic Standing Right Arm] Blood Pressure [Right Arm] 136/70 Blood Pressure Mean Blood Pressure Mean [Right Arm] 92 Blood Pressure Source Blood Pressure Source [Right Arm] Automatic Cuff Blood Pressure Position Blood Pressure Position [Right Arm] Sitting 02 Sat by Pulse Oximetry 99 98 98 Oxygen Delivery Method Room Air Room Air Room Air 09/23/25 01:49 09/23/25 01:49 09/23/25 02:00 Temperature Temperature Source Pulse Rate 92 H 85 Pulse Rate [Left Radial] Pulse Rate [Orthostatic Lying Right Radial] Pulse Rate [Orthostatic Sitting Right Radial] Pulse Rate [Orthostatic Standing Right Radial] Respiratory Rate 21 23 Blood Pressure 126/80 Blood Pressure [Orthostatic Lying Right Arm] Blood Pressure [Orthostatic Sitting Right Arm] Blood Pressure [Orthostatic Standing Right Arm] Blood Pressure [Right Arm] Blood Pressure Mean 94 Blood Pressure Mean [Right Arm] Blood Pressure Source Blood Pressure Source [Right Arm] Blood Pressure Position Blood Pressure Position [Right Arm] 02 Sat by Pulse Oximetry 97 97 Oxygen Delivery Method Room Air Room Air 09/23/25 02:00 09/23/25 02:15 09/23/25 02:30 Temperature Temperature Source Pulse Rate 87 Pulse Rate [Left Radial] Pulse Rate [Orthostatic Lying Right Radial] Pulse Rate [Orthostatic Sitting Right Radial] Pulse Rate [Orthostatic Standing Right Radial] Respiratory Rate 21 Blood Pressure 123/70 107/69 L Blood Pressure [Orthostatic Lying Right Arm] Blood Pressure [Orthostatic Sitting Right Arm] Blood Pressure [Orthostatic Standing Right Arm] Blood Pressure [Right Arm] Blood Pressure Mean 90 81 Blood Pressure Mean [Right Arm] Blood Pressure Source Blood Pressure Source [Right Arm] Blood Pressure Position Blood Pressure Position [Right Arm] 02 Sat by Pulse Oximetry 97 Oxygen Delivery Method Room Air 09/23/25 02:30 09/23/25 02:45 09/23/25 02:55 Temperature Temperature Source Pulse Rate 87 89 81 Pulse Rate [Left Radial] Pulse Rate [Orthostatic Lying Right Radial] Pulse Rate [Orthostatic Sitting Right Radial] Pulse Rate [Orthostatic Standing Right Radial] Respiratory Rate 17 17 16 Blood Pressure 107/69 L Blood Pressure [Orthostatic Lying Right Arm] Blood Pressure [Orthostatic Sitting Right Arm] Blood Pressure [Orthostatic Standing Right Arm] Blood Pressure [Right Arm] Blood Pressure Mean Blood Pressure Mean [Right Arm] Blood Pressure Source Automatic Cuff Blood Pressure Source [Right Arm] Blood Pressure Position Supine Blood Pressure Position [Right Arm] 02 Sat by Pulse Oximetry 96 96 99 Oxygen Delivery Method Room Air Room Air 09/23/25 02:59 09/23/25 02:59 09/23/25 03:00 Temperature Temperature Source Pulse Rate 87 87 Pulse Rate [Left Radial] Pulse Rate [Orthostatic Lying Right Radial] Pulse Rate [Orthostatic Sitting Right Radial] Pulse Rate [Orthostatic Standing Right Radial] Respiratory Rate 23 28 H Blood Pressure 104/59 L Blood Pressure [Orthostatic Lying Right Arm] Blood Pressure [Orthostatic Sitting Right Arm] Blood Pressure [Orthostatic Standing Right Arm] Blood Pressure [Right Arm] Blood Pressure Mean 74 Blood Pressure Mean [Right Arm] Blood Pressure Source Blood Pressure Source [Right Arm] Blood Pressure Position Blood Pressure Position [Right Arm] 02 Sat by Pulse Oximetry 98 98 Oxygen Delivery Method Room Air Room Air 09/23/25 03:00 09/23/25 03:02 09/23/25 03:02 Temperature Temperature Source Pulse Rate 97 H Pulse Rate [Left Radial] Pulse Rate [Orthostatic Lying Right Radial] Pulse Rate [Orthostatic Sitting Right Radial] Pulse Rate [Orthostatic Standing Right Radial] Respiratory Rate 20 Blood Pressure 105/60 L 90/56 L Blood Pressure [Orthostatic Lying Right Arm] Blood Pressure [Orthostatic Sitting Right Arm] Blood Pressure [Orthostatic Standing Right Arm] Blood Pressure [Right Arm] Blood Pressure Mean 74 64 Blood Pressure Mean [Right Arm] Blood Pressure Source Blood Pressure Source [Right Arm] Blood Pressure Position Blood Pressure Position [Right Arm] 02 Sat by Pulse Oximetry 97 Oxygen Delivery Method Room Air 09/23/25 03:05 Temperature Temperature Source Pulse Rate Pulse Rate [Left Radial] Pulse Rate [Orthostatic Lying Right Radial] 87 Pulse Rate [Orthostatic Sitting Right Radial] 87 Pulse Rate [Orthostatic Standing Right Radial] 93 H Respiratory Rate Blood Pressure Blood Pressure [Orthostatic Lying Right Arm] 104/59 L Blood Pressure [Orthostatic Sitting Right Arm] 105/60 L Blood Pressure [Orthostatic Standing Right Arm] 90/56 L Blood Pressure [Right Arm] Blood Pressure Mean Blood Pressure Mean [Right Arm] Blood Pressure Source Blood Pressure Source [Right Arm] Blood Pressure Position Blood Pressure Position [Right Arm] 02 Sat by Pulse Oximetry Oxygen Delivery Method Lab Data Lab Results 09/23/25 00:53: WBC 9.2, RBC 4.05 L, Hgb 11.2 L, Hct 35.6 L, MCV 87.9, MCH 27.7, MCHC 31.5 L, RDW 14.6, Plt Count 368, MPV 10.5 H, Neut % (Auto) 85.5 H, Lymph % (Auto) 8.1 L, [place] % (Auto) 3.9, Eos % (Auto) 1.1, Baso % (Auto) 0.7, Neut # (Auto) 7.9 H, Lymph # (Auto) 0.8, [place] # (Auto) 0.4, Eos # (Auto) 0.1, Baso # (Auto) 0.1, Sodium 134 L, Potassium 4.1, Chloride 105, Carbon Dioxide 20 L, Anion Gap 13.1, BUN 28 H, Creatinine 1.90 H, Estimated Creat Clear 37, Estimated GFR 26 L, Est GFR ( Amer) 32 L, Glucose 148 H, Calcium 9.6, Total Bilirubin 0.6, AST 61 H, ALT 52, Alkaline Phosphatase 273 H, Troponin I < 0.01, Total Protein 8.3 H, Albumin 4.5, Globulin 3.8 H, Albumin/Globulin Ratio 1.2, HCV Ab ACACIA w/Rflx PCR Qn Negative, HIV Ag/Ab Combo Qual Negative 09/23/25 02:59: Sodium 131 L, Potassium 4.2, Chloride 104, Carbon Dioxide 19 L, Anion Gap 12.2, BUN 27 H, Creatinine 1.70 H, Estimated Creat Clear 41, Estimated GFR 30 L, Est GFR ( Amer) 36 L, Glucose 107 H D, Calcium 9.1 09/23/25 00:53 09/23/25 02:59 Orders (Tests/Meds): ED MEDICATIONS Discontinued Medications Generic Name Dose Route Start Last Admin Trade Name Freq PRN Reason Stop Dose Admin Acetaminophen 1,000 mg 09/23/25 01:45 09/23/25 01:55 Acetaminophen 500mg Tab PO 09/23/25 01:46 1,000 mg ONCE ONE Administration Lactated Ringer's 1,000 mls @ 999 mls/hr 09/23/25 01:17 09/23/25 01:33 Lactated Ringer's 1000 Ml Bag IV 09/23/25 02:17 999 mls/hr .Q1H1M ONE Administration Iopamidol 150 ml 09/23/25 01:46 09/23/25 01:48 Iopamidol-370 (76%);100ml Bottle IV 09/23/25 01:47 150 ml ONCE ONE Administration Sodium Chloride 100 ml 09/23/25 01:46 09/23/25 01:48 0.9 % Sodium Chloride 50 Ml Vial IV 09/23/25 01:47 100 ml ONCE ONE Administration Sodium Chloride 10 ml 09/23/25 01:46 09/23/25 01:48 Sodium Chloride 0.9% 10ml Syr (Rad Only) IV 09/23/25 01:47 10 ml ONCE ONE Administration ORDERS Category Date Time Status CT abdomen pelvis w con Stat Cat Scan 09/23/25 01:[address] angio chest PE protocol Stat Cat Scan 09/23/25 00:[address] angio head Stat Cat Scan 09/23/25 00:[address] angio neck Stat Cat Scan 09/23/25 00:[address] head/brain wo con Stat Cat Scan 09/23/25 00:44 Completed CXR --portable [XR chest portable] Stat Exams 09/23/25 00:44 Completed BMP [Basic Metabolic Panel] Stat Lab 09/23/25 02:59 Completed CBC w/Auto Diff [Complete Blood Count Auto Diff] Stat Lab 09/23/25 00:53 Completed CMP [Comprehensive Metabolic Panel] Stat Lab 09/23/25 00:53 Completed HIV Combo Stat Lab 09/23/25 00:53 Completed Hepatitis C Ab Qual. W/ RFX Stat Lab 09/23/25 00:53 Completed Trop I [Troponin I] Stat Lab 09/23/25 00:53 Completed Troponin I Q3H Lab 09/23/25 03:45 Ordered Troponin I Q3H Lab 09/23/25 06:45 Ordered ECG Request Stat Y 09/23/25 00:44 Ordered Medical Decision Narrative: In summary, this 70-year-old female with comorbidities described in the HPI presents to the emergency department today with concerns of room spinning dizzy spell associated with significantly high blood pressure reading at the time. Asymptomatic and normotensive at this time.. On initial evaluation patient is hemodynamically stable, afebrile, GCS 15, NIH 0, no nystagmus, dizziness is not able to be elicited during exam and patient is asymptomatic aside from mild diffuse headache. She states she did not have thunderclap headache or maximal intensity at onset of the headache. She has no chest pain or difficulty breathing, cardiopulmonary exam is benign, abdominal exam does not demonstrate any peritonitic findings or tenderness, urostomy and colostomy appear to be functioning appropriately, no CVA tenderness, no peripheral edema, exam otherwise unremarkable. Differential diagnosis includes but is not limited to headache, intracranial bleed, hypertensive urgency or emergency, I considered the possibility of stroke though I have low suspicion for this since patient only had transient symptoms, also considered vertigo, electrolyte abnormality, dehydration, kidney dysfunction, I considered UTI but patient has urostomy so collecting a UA would be relatively futile since it is going to be contaminated anyways, since patient has no CVA tenderness and no flank pain, no fevers, I am reassured that UTI is likely not contributing, I considered the possibility of ACS, PE, among others as well.. Based on these concerns, I ordered hematologic and serum labs, cardiac workup, CT imaging including angiography's of the head, neck, chest, and CT with contrast of the abdomen pelvis, the abdomen/pelvis CT was specifically ordered to evaluate the kidneys for any evidence of pyelonephritis though I have relatively low suspicion for this at this time. ECG personally interpreted demonstrates sinus rhythm, rate 87, normal axis, normal NM and QTc, evidence of likely old inferior [place], no STEMI. Patient received Tylenol, IV fluids for treatment. Labs personally reviewed demonstrate no leukocytosis, anemia similar to previous and nonactionable, platelets normal, CMP demonstrates slightly worsening kidney function, it appears over the last year the patient's kidney function has been steadily declining. In the last month her creatinine has increased from 1.6 to 1.9 and GFR has worsened from 32-26. With normal urine output and the duration of time from the patient's previous creatinine to now, this does not represent ANDRES. AST and alkaline phosphatase somewhat elevated but this is consistent with previous findings, troponin undetectably low less than 0.01. Due to patient's kidney function worsening, I had extensive discussion with her and her at bedside regarding IV contrast on the risk of contrast-induced nephropathy. We discussed the benefits of IV contrast and evaluating for multiple problems for which we are concerned, but also discussed the potential risk of contrast-induced nephropathy leading to fulminant kidney failure and potentially dialysis. Ultimately after long discussion patient decided to proceed with contrasted exams. CT head personally turbid demonstrates no acute intracranial bleed, mass, or midline shift. See radiology read for final interpretation. CT angiography of the head and neck do not demonstrate areas of significant stenosis, no large vessel occlusion. See radiology reads for final interpretations. CTA PE personally interpreted demonstrates no large PE, see radiology read for final interpretation which mentions mild dilation of the ascending aorta but no aneurysm or dissection, mild hilar adenopathy, lung nodules appear to be stable if not slightly decreased in size, CT abdomen pelvis personally interpreted demonstrates persistent left hydronephrosis, hydroureter, left nonobstructing kidney stone. This appears stable from prior. See radiology read for final interpretation which also discusses calcified splenic granuloma, rectal wall thickening. Orthostatic vitals are positive for hypotension with positional changes despite patient having received IV fluid. Her vitals are otherwise stable and she states she does feel improved compared to prior. I had a discussion with her about admission versus discharge, she states she still very concerned about these episodes of dizziness since she does not understand what provokes them and they are seemingly always associated with severely high blood pressure though she typically does not have high blood pressure. With her worsening kidney function, orthostatic hypotension, episodic dizziness and presyncope, I believe it is appropriate for the patient to be admitted. I discussed this case with the hospitalist, Dr. King, who graciously accepted this patient for admission. She was admitted in stable condition. Critical Care Critical Care Time Critical Care Time: No
--- NOTE | 2025-09-23 00:44 | CT_ITS ---
PROCEDURE INFORMATION: Exam: CTA Neck With Contrast Exam date and time: 09/23/2025 1:34 AM Age: 70 years old Clinical indication: Headache; Additional info: Syncope, headache, carotid stent, increased falls TECHNIQUE: Imaging protocol: Computed tomographic angiography of the neck with contrast. Exam focused on the cervical segments of the vasculature. 3D rendering (Not supervised by radiologist): MIP and/or 3D reconstructed images were created by the technologist. Radiation optimization: All CT scans at this facility use at least one of these dose optimization techniques: automated exposure control; mA and/or kV adjustment per patient size (includes targeted exams where dose is matched to clinical indication); or iterative reconstruction. Contrast material: ISVOUE; Contrast volume: 80 ml; Contrast route: INTRAVENOUS (IV); COMPARISON: CT ANGIO CHEST PE PROTOCOL 08/25/2025 3:53 PM FINDINGS: Right common carotid artery: No stenosis. No dissection or occlusion. Right internal carotid artery: No stenosis of the extracranial segment. No dissection or occlusion. Right external carotid artery: No occlusion or stenosis of the origin. Left common carotid artery: No stenosis. No dissection or occlusion. Left internal carotid artery: No stenosis of the extracranial segment. No dissection or occlusion. Left external carotid artery: No occlusion or stenosis of the origin. Right vertebral artery: No stenosis. No dissection or occlusion. Left vertebral artery: No stenosis. No dissection or occlusion. Soft tissues: Normal. No significant soft tissue swelling. Bones/joints: No acute fracture. IMPRESSION: No stenosis or occlusion. REFERENCES: NASCET CRITERIA. The degree of stenosis in the cervical segment of the internal carotid artery is based on NASCET criteria. Normal is no stenosis. Mild is less than 50% stenosis. Moderate is 50-69% stenosis. Severe is 70% to 99% stenosis. Total occlusion is no detectable patent lumen.
--- NOTE | 2025-09-23 00:44 | CT_ITS ---
PROCEDURE INFORMATION: Exam: CT Head Without Contrast Exam date and time: 09/23/2025 1:32 AM Age: 70 years old Clinical indication: Pain; Headache; Additional info: Syncope, dizziness, headache TECHNIQUE: Imaging protocol: Computed tomography of the head without contrast. Radiation optimization: All CT scans at this facility use at least one of these dose optimization techniques: automated exposure control; mA and/or kV adjustment per patient size (includes targeted exams where dose is matched to clinical indication); or iterative reconstruction. COMPARISON: No relevant prior studies available. FINDINGS: Brain: No evidence for intracranial hemorrhage, mass lesions or acute stroke. Intracranial vascular calcifications. Cerebral ventricles: No ventriculomegaly. Pituitary gland and sella: Negative Paranasal sinuses: Opacification left maxillary sinus. Mastoid air cells: Visualized mastoid air cells are well aerated. Orbital cavities: Bilateral cataract extractions. Bones: Unremarkable. No acute fracture. Soft tissues: Unremarkable. Vasculature: Negative. IMPRESSION: 1. No evidence for intracranial hemorrhage, mass lesions or acute stroke. 2. Intracranial vascular calcifications. 3. Opacification left maxillary sinus. 4. Bilateral cataract extractions.
--- NOTE | 2025-09-23 00:44 | XR_ITS ---
PROCEDURE INFORMATION: Exam: XR Chest Exam date and time: 09/23/2025 1:27 AM Age: 70 years old Clinical indication: Other: Syncope TECHNIQUE: Imaging protocol: Radiologic exam of the chest. Views: 1 view. COMPARISON: CT ANGIO CHEST PE PROTOCOL 08/25/2025 3:53 PM FINDINGS: Lungs: Unremarkable. No consolidation. Pleural spaces: Unremarkable. No pleural effusion. No pneumothorax. Heart/Mediastinum: Unremarkable. No cardiomegaly. Bones/joints: Unremarkable. IMPRESSION: No acute findings.
--- NOTE | 2025-09-23 00:44 | CT_ITS ---
PROCEDURE INFORMATION: Exam: CTA Head With Contrast, Arteriography Exam date and time: 09/23/2025 1:34 AM Age: 70 years old Clinical indication: Headache; Additional info: Syncope, headache, carotid stent, increased falls TECHNIQUE: Imaging protocol: Computed tomographic angiography of the head with contrast. Exam focused on the arteries. 3D rendering (Not supervised by radiologist): MIP and/or 3D reconstructed images were created by the technologist. Radiation optimization: All CT scans at this facility use at least one of these dose optimization techniques: automated exposure control; mA and/or kV adjustment per patient size (includes targeted exams where dose is matched to clinical indication); or iterative reconstruction. Contrast material: ISOVUE; Contrast volume: 80 ml; Contrast route: INTRAVENOUS (IV); COMPARISON: CT HEAD/BRAIN WO CON 09/23/2025 1:32 AM FINDINGS: ANTERIOR CIRCULATION: Right internal carotid artery: Intracranial segment is patent with no significant stenosis. No aneurysm. Right middle cerebral artery: No occlusion or significant stenosis. No aneurysm. Right anterior cerebral artery: No occlusion or significant stenosis. No aneurysm. Left internal carotid artery: Intracranial segment is patent with no significant stenosis. No aneurysm. Left middle cerebral artery: No occlusion or significant stenosis. No aneurysm. Left anterior cerebral artery: No occlusion or significant stenosis. No aneurysm. POSTERIOR CIRCULATION: Right vertebral artery: No occlusion or significant stenosis. No aneurysm. Left vertebral artery: No occlusion or significant stenosis. No aneurysm. Basilar artery: No occlusion or significant stenosis. No aneurysm. Right posterior cerebral artery: No occlusion or significant stenosis. No aneurysm. Left posterior cerebral artery: No occlusion or significant stenosis. No aneurysm. Brain: No definite mass, mass effect, or midline shift. Cerebral ventricles: No ventriculomegaly. Bones/joints: Unremarkable. No acute fracture. Soft tissues: Unremarkable. IMPRESSION: No large vessel stenosis or occlusion.
--- NOTE | 2025-09-23 00:49 | CT_ITS ---
PROCEDURE INFORMATION: Exam: CTA Chest With Contrast Exam date and time: 09/23/2025 1:38 AM Age: 70 years old Clinical indication: Other: Syncope; Additional info: Syncope HX pes TECHNIQUE: Imaging protocol: Computed tomographic angiography of the chest with contrast. Exam focused on the arteries. 3D rendering (Not supervised by radiologist): MIP and/or 3D reconstructed images were created by the technologist. Radiation optimization: All CT scans at this facility use at least one of these dose optimization techniques: automated exposure control; mA and/or kV adjustment per patient size (includes targeted exams where dose is matched to clinical indication); or iterative reconstruction. Contrast material: ISOVUE; Contrast volume: 70 ml; Contrast route: INTRAVENOUS (IV); COMPARISON: CT ANGIO CHEST PE PROTOCOL 08/25/2025 3:53 PM FINDINGS: Pulmonary arteries: No central or large peripheral pulmonary emboli. Aorta: There is mild dilation of the ascending aorta measuring 3.5 cm. No evidence for aortic aneurysm or dissection. Lungs: No focal infiltrates. Spiculated right lung nodule measuring 4.7 mm image 5/60. Calcified right upper lobe granuloma. Peripheral right lung nodule measuring 2.7 mm image 5/69. Medial left upper lobe nodule measuring 3.1 mm image 5/49. Pleural spaces: Unremarkable. No pneumothorax. No pleural effusion. Heart: Unremarkable. No cardiomegaly. No pericardial effusion. Coronary arteries: No coronary artery calcifications.. Lymph nodes: Mild bilateral hilar adenopathy. Bones/joints: Unremarkable. No acute fracture. Soft tissues: Unremarkable. IMPRESSION: 1. There is mild dilation of the ascending aorta measuring 3.5 cm. 2. No evidence for aortic aneurysm or dissection. 3. No central or large peripheral pulmonary emboli. 4. Mild bilateral hilar adenopathy. 5. No focal infiltrates. 6. Spiculated right lung nodule measuring 4.7 mm image 5/60. 7. Peripheral right lung nodule measuring 2.7 mm image 5/69. 8. Medial left upper lobe nodule measuring 3.1 mm image 5/49. For patients at low risk (minimal or absent history of smoking and of other known risk factors), no routine follow-up is indicated. For patients at high risk (history of smoking or of other known risk factors), consider optional CT Chest at 12 months. (Reference: Mayuri) References: MacMahon H, et al. Guidelines for Management of Incidental Pulmonary Nodules Detected on CT Images: From the Fleischner Society 2017. Radiology. 2017;284(1):228-243.
--- NOTE | 2025-09-23 01:00 | CT_ITS ---
PROCEDURE INFORMATION: Exam: CT Abdomen And Pelvis With Contrast Exam date and time: 09/23/2025 1:38 AM Age: 70 years old Clinical indication: Abdominal pain; Additional info: Near syncope, urostomy, look at kidneys for pyelo TECHNIQUE: Imaging protocol: Computed tomography of the abdomen and pelvis with contrast. 3D rendering (Not supervised by radiologist): MIP and/or 3D reconstructed images were created by the technologist. Radiation optimization: All CT scans at this facility use at least one of these dose optimization techniques: automated exposure control; mA and/or kV adjustment per patient size (includes targeted exams where dose is matched to clinical indication); or iterative reconstruction. Contrast material: ISOVUE; Contrast volume: 70 ml; Contrast route: IV; COMPARISON: CT ABDOMEN PELVIS WO CON 09/10/2025 1:35 PM FINDINGS: Diaphragm: Mild hiatal hernia. Liver: Diffuse fatty infiltration of the liver. Gallbladder and biliary ducts: Normal. No calcified stones. No ductal dilation. Pancreas: Pancreas appears normal. Pancreas appears normal. Spleen: Calcified granulomas noted in the spleen. Spleen is normal Adrenal glands: The adrenal glands appear normal. Kidneys and ureters: Redemonstration of marked left hydronephrosis and hydroureter down to the level of a loop ileostomy. Mild urothelial enhancement. Kidneys enhance normally without evidence for pyelonephritis. Small left renal cyst. Large nonobstructing stone lower pole left kidney measuring 1.3 cm. Exophytic structure posterior aspect left kidney measures 2 cm. Right kidney appears normal. Stomach and bowel: Filling defect in the ileal loop may reflect unopacified left ureteral insertion coronal image 3/53. Postsurgical changes to the superior margin of the rectum. Mild rectal wall thickening image 2/97. The stomach is normal. There is a small amount of contrast in the rectum; similar to 09/10/2025. Nonspecific bowel gas pattern. Appendix: Appendix not visualized. Intraperitoneal space: Unremarkable. No free air. No significant fluid collection. Vasculature: IVC filter seen in place. Portal vein, splenic vein, SMV are patent. The aorta demonstrates mild atherosclerotic calcification. Visceral arteries are patent. Lymph nodes: No free air or fluid or adenopathy. Urinary bladder: Postsurgical changes from cystectomy and ileostomy. Reproductive: Unremarkable as visualized. Bones/joints: Unremarkable. No acute fracture. Soft tissues: Unremarkable. Other findings: Right and left anterior pelvic ostomies IMPRESSION: 1. No free air or fluid or adenopathy. 2. Redemonstration of marked left hydronephrosis and hydroureter down to the level of a loop ileostomy. 3. Mild left-sided urothelial enhancement. Urothelial inflammation/ infection excluded. 4. Kidneys enhance normally without evidence for pyelonephritis. 5. Small left renal cyst. 6. Filling defect in the ileal loop may reflect unopacified left ureteral insertion coronal image . Distal ureteral insertion stricture not excluded. 7. Large nonobstructing stone lower pole left kidney measuring 1.3 cm. 8. Exophytic structure posterior aspect left kidney measures 2 cm; consistent with a cyst 9. Right and left anterior pelvic ostomies 10. Postsurgical changes to the superior margin of the rectum. 11. Diffuse fatty infiltration of the liver. 12. Calcified granulomas noted in the spleen. 13. Mild rectal wall thickening image . COMMENTS: 1. For patients with an IVC filter, recommend assessment for a management plan for the patient's IVC filter. If there is no established management plan, recommend referral to an interventional clinician on a nonemergent basis for evaluation. 2. Consistent with the [employer]'s Incidental Findings Committee white paper (J Am Purnima Radiol 2018): Any incidental renal lesion less than 1 cm or classified as too small to characterize, or any incidental cystic renal lesion characterized as simple-appearing, is likely benign. No follow-up imaging is recommended for these lesions per consensus recommendations based on imaging criteria.
[2025-09-23 01:10] LABS: Hematocrit 35.6 % (37.0-47.0); Hemoglobin 11.2 g/dL (12.2-16.2); Immature Granulocytes % 0.7 %; Mean Corpuscular HGB Conc 31.5 g/dL (31.8-35.4); Mean Corpuscular Hemoglobin 27.7 pg (27.0-31.2); Mean Corpuscular Volume 87.9 fl (81-99); Nucleated Red Blood Cells % 0 %; Platelet Count 368 K/mm3 (142-424); Red Blood Count 4.05 M/mm3 (4.20-5.40); Red Cell Distribution Width-SD 46.7 fL; White Blood Count 9.2 K/mm3 (4.8-10.8)
[2025-09-23 01:13] LABS: Alanine Aminotransferase 52 U/L (12-78); Albumin Level 4.5 g/dl (3.5-5.0); Albumin/Globulin Ratio 1.2 (1.1-1.8); Alkaline Phosphatase 273 U/L (38-126); Anion Gap 13.1 mEq/L (5-15); Aspartate Amino Transferase 61 U/L (14-36); Bilirubin,Total 0.6 mg/dl (0.2-1.3); Blood Urea Nitrogen 28 mg/dl (7-17); Calcium 9.6 mg/dl (8.4-10.2); Carbon Dioxide 20 mmol/L (22.0-30.0); Chloride 105 mmol/L (98-107); Creatinine Clearance Estimated 37 mL/min (50-200); Creatinine,Serum 1.90 mg/dl (0.52-1.04); Estimated Glomerular Filt Rate 26 ml/min (>60); GFR (African American) 32 ML/MIN (>60); Globulin 3.8 g/dL (1.3-3.2); Glucose 148 mg/dl (74-100); Potassium 4.1 mmoL/L (3.5-5.1); Sodium 134 mmol/L (136-145); Total Protein,Serum 8.3 g/dl (6.3-8.2)
[2025-09-23] MEDS: LACTATED RINGERS 1000ML 1,000 ML 999 ML IV (01:33)
[2025-09-23] MEDS: SODIUM CHLORIDE 0.9% 10ML SYR (RAD ONLY) 10 ML IV (01:48)
[2025-09-23] MEDS: 0.9 % SODIUM CHLORIDE 50 ML VIAL 100 ML IV (01:48)
[2025-09-23] MEDS: IOPAMIDOL-370 (76%);100ML BOTTLE 150 ML IV (01:48)
[2025-09-23] MEDS: ACETAMINOPHEN 500MG TAB 1000 MG PO (01:55)
[2025-09-23 02:02] LABS: Troponin I < 0.01 ng/ml (0.00-0.034)
[2025-09-23 02:08] LABS: Hepatitis C Ab Qual. W/ RFX NEGATIVE (Negative)
[2025-09-23 03:17] LABS: Anion Gap 12.2 mEq/L (5-15); Blood Urea Nitrogen 27 mg/dl (7-17); Calcium 9.1 mg/dl (8.4-10.2); Carbon Dioxide 19 mmol/L (22.0-30.0); Chloride 104 mmol/L (98-107); Creatinine Clearance Estimated 41 mL/min (50-200); Creatinine,Serum 1.70 mg/dl (0.52-1.04); Estimated Glomerular Filt Rate 30 ml/min (>60); GFR (African American) 36 ML/MIN (>60); Glucose 107 mg/dl (74-100); Potassium 4.2 mmoL/L (3.5-5.1); Sodium 131 mmol/L (136-145)
--- NOTE | 2025-09-23 03:25 | EXP.HP ---
History of Present Illness *Admission Date: 09/23/25 *Reason for visit:: near syncope/vertigo *History of present illness: 70-year-old patient with past medical history of bladder cancer status post urostomy and bilateral colostomy bags, IVC filter status post DVT/PE, GERD, anxiety, hyperlipidemia. Patient presents with vertigo/presyncope. Patient accompanied by her who acted as independent historian. Patient states she was brushing her teeth on the edge of the bed, when she experienced extreme vertigo. Denies nausea, vomiting, chest pain, shortness of breath, fevers, chills, sick contacts, recent travel, dizziness, dysuria, GI bleeding, diarrhea, abdominal pain, recent falls. Patient then asked her to bring her to hospital for evaluation. Patient's BP in emergency room systolic 180, and patient usually suffers from low blood pressure. [facility] Disclaimer: The information contained in this section may have been updated after the patient was seen, as this information can be updated by other users. Medical History (Updated 09/23/25 @ 04:29 by Darren Moya RN) Colostomy in place Bladder cancer Arthritis Sinus headache History of gastroesophageal reflux (GERD) History of cataract Allergies Hyperlipidemia Hypertension Surgical History (Updated 09/23/25 @ 04:29 by Darren Moya RN) History of urostomy Hx of oophorectomy History of partial hysterectomy H/O eye surgery Family History Grandfather Heart attack Grandmother Heart attack Social History Smoking Status: Never smoker alcohol intake: never substance use type: denies use current occupational status: retired Travel in the last 8 weeks?: None Have you lived/traveled outside [place] in past 30 days?: No Contact w/someone who lives/traveled outside US past 30 days?: No Exposure to someone with infectious disease in past 14 days?: No Do you have a fever (greater than 100.4 F or 38 C)?: No Have you tested positive for COVID-19?: No Exposed to someone with COVID-19 in past 14 days?: No Do you have a sore throat?: No Do you have a cough?: No Do you have any weakness?: Yes Do you have any diarrhea?: No Are you experiencing any unusual bleeding?: No Do you have any muscle aches/pain?: No Do you have any abdominal pain?: No Are you experiencing loss of taste or smell?: No Other Medical History Have you received the Flu Vaccine for this season: No Have you received the Pneumonia Vaccine: Yes Review of Systems Review of Systems Review of systems:: pertinent systems reviewed and negative unless documented below Review of systems (narrative): See HPI Meds Home Medications and Allergies Home Medications ?Medication ?Instructions ?Recorded ?Confirmed ?Type omeprazole 40 mg capsule,delayed 40 mg PO DAILY 03/19/18 09/23/25 History release alprazolam 0.25 mg tablet 0.25 mg PO BID 03/31/25 09/23/25 History apixaban 5 mg tablet (Eliquis) 5 mg PO BID 03/31/25 09/23/25 History buspirone 10 mg tablet 10 mg PO BID 03/31/25 09/23/25 History folic acid 1 mg tablet 1 mg PO DAILY 03/31/25 09/23/25 History quetiapine 50 mg tablet 50 mg PO ONCE HS 03/31/25 09/23/25 History sodium bicarbonate 650 mg tablet 650 mg PO Q8H 03/31/25 09/23/25 History escitalopram oxalate 20 mg tablet 20 mg PO DAILY 07/07/25 09/23/25 History rosuvastatin 20 mg tablet 20 mg PO DAILY 07/07/25 09/23/25 History tramadol 50 mg tablet 50 mg PO Q8H 07/07/25 09/23/25 History New Prescriptions to Start Prescriptions: Allergies Allergy/AdvReac Type Severity Reaction Status Date / Time lisinopril Allergy Mild Hives Verified 08/25/25 13:31 Exam Data for Last 24 hours Vital signs and Labs for Last 24 Hours: Temp Pulse Resp BP Pulse Ox O2 Del Method 98.3 F 87 20 104/59 L 97 Room Air 09/23/25 00:12 09/23/25 03:05 09/23/25 03:02 09/23/25 03:05 09/23/25 03:02 09/23/25 03:02 Laboratory Results - last 24 hr 09/23/25 00:53: WBC 9.2, RBC 4.05 L, Hgb 11.2 L, Hct 35.6 L, MCV 87.9, MCH 27.7, MCHC 31.5 L, RDW 14.6, Plt Count 368, MPV 10.5 H, Neut % (Auto) 85.5 H, Lymph % (Auto) 8.1 L, [place] % (Auto) 3.9, Eos % (Auto) 1.1, Baso % (Auto) 0.7, Neut # (Auto) 7.9 H, Lymph # (Auto) 0.8, [place] # (Auto) 0.4, Eos # (Auto) 0.1, Baso # (Auto) 0.1, Sodium 134 L, Potassium 4.1, Chloride 105, Carbon Dioxide 20 L, Anion Gap 13.1, BUN 28 H, Creatinine 1.90 H, Estimated Creat Clear 37, Estimated GFR 26 L, Est GFR ( Amer) 32 L, Glucose 148 H, Calcium 9.6, Total Bilirubin 0.6, AST 61 H, ALT 52, Alkaline Phosphatase 273 H, Troponin I < 0.01, Total Protein 8.3 H, Albumin 4.5, Globulin 3.8 H, Albumin/Globulin Ratio 1.2, HCV Ab ACACIA w/Rflx PCR Qn Negative, HIV Ag/Ab Combo Qual Negative 09/23/25 02:59: Sodium 131 L, Potassium 4.2, Chloride 104, Carbon Dioxide 19 L, Anion Gap 12.2, BUN 27 H, Creatinine 1.70 H, Estimated Creat Clear 41, Estimated GFR 30 L, Est GFR ( Amer) 36 L, Glucose 107 H D, Calcium 9.1 I & O for Last 24 hours: Intake & Output 09/20/25 09/21/25 09/22/25 09/23/25 23:59 23:59 23:59 23:59 Weight 86.183 kg Constitutional Constitutional: no acute distress *Routine HEENT Exam Head: Present normocephalic Eye: Present EOMI ENT: Present mucous membranes moist *Routine Neck Exam Neck: Present supple and full ROM *Routine Respiratory Exam Respiratory: Present CTA bilaterally and normal respiratory effort *Routine Cardiovascular Exam Cardiovascular: Present RRR *Routine Abdominal Exam Abdominal: Present soft and normoactive bowel sounds Comments: Urostomy tube in place, colostomy bag in place *Routine Rectal Exam Rectal:: deferred *Routine Genitalia Exam Genitalia:: deferred *Routine Extremities Exam Extremities: Present full ROM *Routine Skin Exam Skin: Present intact and normal turgor *Routine Neurological Exam Neurological: Present alert, oriented X3 and normal reflexes Assessment and Plan *Assessment and plan (1) Orthostatic hypotension: Status: Acute Category: Medical Code(s): I95.1 - Orthostatic hypotension (2) Dizziness: Status: Acute Category: Medical Code(s): R42 - Dizziness and giddiness (3) Pre-syncope: Status: Acute Category: Medical Code(s): R55 - Syncope and collapse (4) Dizziness: Status: Acute Category: Medical Code(s): R42 - Dizziness and giddiness (5) Presence of IVC filter: Status: Acute Category: Medical Code(s): Z95.828 - Presence of other vascular implants and grafts (6) Hx of pulmonary embolus: Status: Acute Category: Medical Code(s): Z86.711 - Personal history of pulmonary embolism (7) Hx of deep venous thrombosis: Status: Acute Category: Medical Code(s): Z86.718 - Personal history of other venous thrombosis and embolism (8) ANDRES (acute kidney injury): Status: Acute Category: Medical Code(s): N17.9 - Acute kidney failure, unspecified (9) Kidney dysfunction: Status: Acute Category: Medical Code(s): N28.9 - Disorder of kidney and ureter, unspecified (10) Bladder cancer: Status: Acute Qualifiers: Bladder location: unspecified site Qualified Code(s): C67.9 - Malignant neoplasm of bladder, unspecified Category: Medical Code(s): C67.9 - Malignant neoplasm of bladder, unspecified (11) Transaminitis: Status: Acute Category: Medical Code(s): R74.01 - Elevation of levels of liver transaminase levels (12) Elevated liver enzymes: Status: Acute Category: Medical Code(s): R74.8 - Abnormal levels of other serum enzymes Plan 70-year-old with past medical history of hyperlipidemia, GERD, anxiety, PE/DVT on Eliquis, bladder cancer status post urostomy with colostomy bags. Presents with presyncopal/vertigo symptoms. Problems listed below: Presyncope/vertig: ?Portable chest x-ray, CT head, CTA head/neck all reviewed by myself at time of admission with no significant clinical findings. CTA chest with ascending aortic aneurysm 3.5 cm, right lung nodule 4.7mm& 2.7 mm and left lung nodule 3.1 mm. Recommend nodule follow-up with pulmonology as outpatient. ?BUN 27, CR 1.7, GFR 30. Patient admits to drinking copious amounts of water, but concerned patient partially dehydrated. 1 L LR given in emergency room. Will continue 75 cc/h normal saline x 24 hours. ?NA 131, K4.2, CO2 19. Patient has seen cardiology in the past for presyncope issues. Check serial troponins x 2, telemetry monitoring, consult cardiology. Will consider MRI brain if possible during holiday weekend. Patient has IVC filter so will require IVC filter clearance first before proceeding with MRI brain. PT/OT evaluation. Likely repeat orthostatics after hydration. Hypomagnesia: ? Mag 1.5. Ordered 2 g IV magnesium sulfate at time of hospital admission. Elevated transaminases: ? Today patient LFTs are AST 61, ALT 52, alk phos 273. Patient's transaminases previously 08/25 AST 63, ALT 43, alk phos 188. Elevations appear chronic. Denies any abdominal pain. Will monitor during hospitalization but no current intervention required. Bladder cancer: Colostomy Urostomy ? CT abdomen/pelvis shows left hydro which appears chronic. See no indication for emergent urology evaluation. Continue nephrostomy drainage. Continue colostomy management with no acute issues noted during hospitalization. PE/DVT history: Eliquis 5 mg p.o. twice daily Anxiety: BuSpar 10 mg p.o. twice daily, quetiapine 50 mg p.o. daily, alprazolam 0.5mg 3 times daily as needed, escitalopram 20 mg p.o. daily. Hyperlipidemia: Rosuvastatin 20 mg p.o. daily Chronic pain: Tramadol 50 mg p.o. 3 times daily as needed pain PPx Eliquis CODE STATUS: Full FEN: Regular diet MDM ?Patient's acted as independent historian. ? I made decision to admit patient to hospital for vertigo/presyncope, hypomagnesia management. ? I spoke with emergency room provider about patient at time of hospital admission Discharge planning: Will likely span less than 2 midnights in hospital during this hospitalization. 35 minutes of total care time spent on patient progress of, Sy King MD, 09/23/2025
--- NOTE | 2025-09-23 03:40 | PC.NURSE ---
Report called to Darren HONG on [facility]
--- NOTE | 2025-09-23 03:55 | PC.NURSE ---
patient arrived to the floor by w/c @04:00
[2025-09-23] MEDS: 0.9 % SODIUM CHLORIDE 1000ML 1,000 ML 75 ML IV (04:11)
[2025-09-23 04:24] LABS: Troponin I < 0.01 ng/ml (0.00-0.034)
[2025-09-23] MEDS: ACETAMINOPHEN 325MG TAB 650 MG PO (04:32)
[2025-09-23] MEDS: TRAMADOL 50MG TABLET 50 MG PO ×3 (05:10→21:01)
[2025-09-23] MEDS: SODIUM BICARBONATE 650MG TABLET 650 MG PO ×3 (05:10→21:01)
[2025-09-23] MEDS: MAGNESIUM SULFATE IN WATER 2 GM/50 ML PIGGYBACK IV (05:11)
[2025-09-23] MEDS: FOLIC ACID 1MG TABLET 1 MG PO (09:09)
[2025-09-23] MEDS: BUSPIRONE HCL 10 MG TABLET PO ×2 (09:09→21:01)
[2025-09-23] MEDS: APIXABAN 5MG TABLET 5 MG PO ×2 (09:09→21:01)
[2025-09-23] MEDS: ESCITALOPRAM 20MG TABLET 20 MG PO (09:09)
--- NOTE | 2025-09-23 09:24 | HMH.OTEV ---
OT Evaluation Rehab OT IP Evaluation Start: 09/23/25 03:33 Freq: ONCE Status: Active Protocol: Document 09/23/25 09:19 ANETATRACEY (Rec: 09/23/25 09:24 OMAR [id number]) Rehab OT IP Assessment Subjective History 70-year-old patient with past medical history of bladder cancer status post urostomy and bilateral colostomy bags, IVC filter status post DVT/PE, GERD, anxiety, hyperlipidemia. Patient presents with vertigo /presyncope. Patient accompanied by her who acted as independent historian. Patient states she was brushing her teeth on the edge of the bed, when she experienced extreme vertigo. Denies nausea, vomiting, chest pain, shortness of breath, fevers, chills, sick contacts, recent travel, dizziness, dysuria, GI bleeding, diarrhea, abdominal pain, recent falls. Patient then asked her to bring her to hospital for evaluation. Patient's BP in emergency room systolic 180, and patient usually suffers from low blood pressure. Patient lives with in 1 story home. No BRENDON. Patient was independently with ADLs and fx'l mobility. However Patient has been needing to use a RW and w/c more recently for fx'l mobility. No LOB noted. assistance with cooking and cleaning at home. Subjective I use to walk without anything. Objective Patient Orientation Person,Place,Name Right Upper WFL Extremity Gross ROM Left Upper Extremity WFL Gross ROM Bed Mobility bed mobility - supine/sit Assist Level Supervision/Stand by Transfer Training Sit/Stand Transfer Assist Level Contact Guard/Hand Hold Rehab OT IP prob,goals,plan Problems Date of Evaluation: 09/23/25 OT IP Problems Bed Mobility,Transfers,Balance,Self care,Safety Rehab Potential Rehab Potential Good Equipment Needs Assistive Devices Rolling / Wheeled Walker Plan OT intervention Plan Bed Mobility,Transfers,Balance,Self care,Safety, Therapeutic Exercise OT Plan Frequency Daily Duration LOS Discharge Goals Bed Mobility Ability Independent Sit to Stand Chair Supervision/Stand by Transfer Ability Discharge Plan OT Discharge Plan Recommend patient to return home with HH services. If HH services not provided, OT recommend OP therapy services for endurance and overall strengthening for ADLs and fx'l mobility. Educated patient to use call light for all OOB tasks. Eval Complexity Eval Charge Codes 82328 - Low Complexity PHYSICIAN CERTIFICATION: I certify the specified therapy services for Sherry Owen are required, authorized, and reviewed every 30 days.
[2025-09-23 09:59] LABS: Troponin I < 0.01 ng/ml (0.00-0.034)
--- NOTE | 2025-09-23 10:08 | SW/DCPLANNER ---
Spoke with patient regarding home health services once she is medically stable and ready for discharge. Patient stated that she is not interested in home health and that she would be willing for outpatient therapy. Hollie Velazquez
--- NOTE | 2025-09-23 10:37 | HMH.PTEV ---
Physical Therapy Evaluation Rehab PT IP Evaluation Start: 09/23/25 03:33 Freq: ONCE Status: Active Protocol: Document 09/23/25 10:23 SHAYNA (Rec: 09/23/25 10:37 SHAYNA [id number]) Subjective/History History History Pt is a 70 y/o female who presented to [facility] with report of syncope/vertigo. Per history & physical note, patient accompanied by her who acted as independent historian. Patient states she was brushing her teeth on the edge of the bed, when she experienced extreme vertigo. Denies nausea, vomiting, chest pain, shortness of breath, fevers, chills, sick contacts, recent travel, dizziness, dysuria, GI bleeding, diarrhea, abdominal pain, recent falls. Patient then asked her to bring her to hospital for evaluation. Patient's BP in emergency room systolic 180, and patient usually suffers from low blood pressure. Medical History: Colostomy in place, Bladder cancer, Arthritis, Sinus headache, History of gastroesophageal reflux (GERD), History of cataract, Allergies, Hyperlipidemia, Hypertension Subjective Subjective Pt reports she lives in a single story home with her who is retired and in good health. Pt states she uses a rolling walker or wheelchair for mobility depending on how she feels. Pt denies recent falls. She states she does have one entrance to her house without steps to enter that she can use her wheelchair for. Pt reports she is independent with all ADLs and her does the cooking and cleaning. Pt reports over the summer she was ambulating much better without the use of an assistive device. New diagnosis of Yes cancer in past 12 months? [facility] How much help from another person do you currently need... Turning from your None back to your side while in a flat bed without using bedrails? Moving from lying on None back to sitting on the side of a flat bed without using bedrails? Moving to and from a None bed to a chair ( including a wheelchair)? Standing up from a None chair using your arms? (e.g., wheelchair, bedside chair) Walking in hospital A little room? Climbing 3-5 steps A little with a railing? Mobility Score 22 Mobility Level [facility] Mobility Walk 25 feet or more Mobility Calculator Rehab PT IP Eval Objective Appearance Patient Behavior Appropriate,Cooperative Patient Orientation Place,Name,Birthday Difficulty following none instructions Speech Pattern Clear,Appropriate Ambulation Patient Able to Yes Ambulate Ambulation Observation IP General Gait Wide Based Gait Pattern Observation Ambulation Distance 25 (feet) Ambulation Assistive Rolling Walker Device Ambulation Ability Contact Guard/Hand Hold Balance Ability to Arise Able, uses arms to help Sitting Balance Steady, safe Standing Balance Steady, wide stance Dynamic Sitting Good Balance Ability Dynamic Standing Good Balance Ability Transfers Bed Transfer Ability Supervision/Stand by Sit to Stand Bed Contact Guard/Hand Hold Transfer Ability Rehab PT IP prob,goals,plan Problems Date of Evaluation: 09/23/25 PT IP Problems Transfers,Gait,Balance,Self care,Safety Rehab Potential Rehab Potential Good Equipment Needs Assistive Devices Rolling / Wheeled Walker Plan PT Intervention Plan Transfers,Gait,Balance,Self care,Safety,Therapeutic Exercise Other Intervention 1-2x/day Plan PT Plan Frequency Daily Duration LOS Discharge Goals Bed Transfer Ability Independent Sit to Stand Chair Supervision/Stand by Transfer Ability Ambulation Assistive Rolling Walker Device Ambulation Distance 50 (feet) Discharge Plan PT Discharge Plan Pt will benefit from skilled PT while at [facility] and is currently most appropriate to return home with family assist and HHPT. If HHPT not available or desired, outpatient therapy services would be beneficial to improve functional mobility, strength and endurance. Eval Complexity Eval Charge Codes 60045 - Moderate Complexity PHYSICIAN CERTIFICATION: I certify the specified therapy services for Sherry Owen are required, authorized, and reviewed every 30 days.
[2025-09-23 11:39] LABS: Magnesium 1.9 mg/dl (1.6-2.3)
--- NOTE | 2025-09-23 17:16 | PC.NURSE ---
patient is a/ox4 remains on room air. urostomy and colostomy emptied per nursing staff. patient has no complaints this shift. no c/o dizziness. tolerting diet. IV fluids d/c per MD. call light within reach, no further requests at this time.
[2025-09-23] MEDS: PROCHLORPERAZINE 10MG/2ML VIAL 10 MG IV (19:48)
[2025-09-23] MEDS: ATORVASTATIN 20MG TABLET 20 MG PO (21:01)
[2025-09-23] MEDS: PANTOPRAZOLE 40MG TABLET 40 MG PO (21:01)
[2025-09-24] VITALS (10 sets, daily range): BP systolic 91–135; BP diastolic 56–73; PULSE 85–122; RESP 14–20; TEMP 36.5–37.1; O2SAT 94–97; BMI 28.8
[2025-09-24] MEDS: SODIUM BICARBONATE 650MG TABLET 650 MG PO ×3 (04:54→20:35)
[2025-09-24] MEDS: PROCHLORPERAZINE 10MG/2ML VIAL 10 MG IV (05:00)
[2025-09-24 06:49] LABS: Hematocrit 33.6 % (37.0-47.0); Hemoglobin 10.3 g/dL (12.2-16.2); Immature Granulocytes % 0.6 %; Mean Corpuscular HGB Conc 30.7 g/dL (31.8-35.4); Mean Corpuscular Hemoglobin 27.0 pg (27.0-31.2); Mean Corpuscular Volume 88.0 fl (81-99); Nucleated Red Blood Cells % 0 %; Platelet Count 335 K/mm3 (142-424); Red Blood Count 3.82 M/mm3 (4.20-5.40); Red Cell Distribution Width-SD 47.8 fL; White Blood Count 10.1 K/mm3 (4.8-10.8)
[2025-09-24 06:57] LABS: Albumin Level 4.1 g/dl (3.5-5.0); Chloride 110 mmol/L (98-107); Potassium 4.1 mmoL/L (3.5-5.1); Sodium 135 mmol/L (136-145)
[2025-09-24 07:00] LABS: Alanine Aminotransferase 41 U/L (12-78); Albumin/Globulin Ratio 1.3 (1.1-1.8); Alkaline Phosphatase 222 U/L (38-126); Anion Gap 12.1 mEq/L (5-15); Aspartate Amino Transferase 65 U/L (14-36); Bilirubin,Total 0.5 mg/dl (0.2-1.3); Blood Urea Nitrogen 21 mg/dl (7-17); Calcium 9.3 mg/dl (8.4-10.2); Carbon Dioxide 17 mmol/L (22.0-30.0); Creatinine Clearance Estimated 44 mL/min (50-200); Creatinine,Serum 1.60 mg/dl (0.52-1.04); Estimated Glomerular Filt Rate 32 ml/min (>60); GFR (African American) 38 ML/MIN (>60); Globulin 3.2 g/dL (1.3-3.2); Glucose 109 mg/dl (74-100); Total Protein,Serum 7.3 g/dl (6.3-8.2)
[2025-09-24 07:01] LABS: Magnesium 2.4 mg/dl (1.6-2.3)
[2025-09-24] MEDS: BUSPIRONE HCL 10 MG TABLET PO ×2 (08:44→20:35)
[2025-09-24] MEDS: ESCITALOPRAM 20MG TABLET 20 MG PO (08:44)
[2025-09-24] MEDS: FOLIC ACID 1MG TABLET 1 MG PO (08:44)
[2025-09-24] MEDS: APIXABAN 5MG TABLET 5 MG PO ×2 (08:44→20:35)
[2025-09-24] MEDS: ACETAMINOPHEN 325MG TAB 650 MG PO (09:49)
--- NOTE | 2025-09-24 10:31 | XR_ITS ---
PROCEDURE INFORMATION: Exam: XR Chest Exam date and time: 09/24/2025 10:34 AM Age: 70 years old Clinical indication: Fever; Additional info: Fever, hypotension TECHNIQUE: Imaging protocol: Radiologic exam of the chest. Views: 1 view. COMPARISON: CT ANGIO CHEST PE PROTOCOL 09/23/2025 1:38 AM FINDINGS: Lungs: Clear lungs. Pleural spaces: No pneumothorax or pleural effusion. Heart/Mediastinum: Cardiac silhouette is normal. Bones/joints: Unremarkable. IMPRESSION: No acute findings.
[2025-09-24 11:18] LABS: C-Reactive Protein 18.1 mg/L (0-4)
[2025-09-24 11:22] LABS: Adenovirus,PCR Not Detected (NotDetected); Chlamydophila Pneumoniae, PCR Not Detected (NotDetected); Coronavirus 19, PCR Not Detected (NotDetected); Coronovirus HKU1,PCR Not Detected (NotDetected); Influenza A, PCR Not Detected (NotDetected); Influenza AH1, 2009 Not Detected (NotDetected); Influenza AH1, PCR Not Detected (NotDetected); Influenza AH3,PCR Not Detected (NotDetected); Influenza B, PCR Not Detected (NotDetected); Mycoplasma Pneumoniae, PCR Not Detected (NotDetected); Parainfluenza 1, PCR Not Detected (NotDetected); Parainfluenza 2, PCR Not Detected (NotDetected); Parainfluenza 3, PCR Not Detected (NotDetected); Parainfluenza 4, PCR Not Detected (NotDetected)
[2025-09-24] MEDS: LACTATED RINGERS 1000ML 500 ML IV (11:29)
[2025-09-24 11:30] LABS: Procalcitonin 0.185 ng/mL (0.0-2.0)
[2025-09-24 11:33] LABS: NT Pro Brain Natriuretic Pep. 510 pg/mL (0-125)
[2025-09-24] MEDS: TRAMADOL 50MG TABLET 50 MG PO ×2 (12:49→20:35)
[2025-09-24 14:03] LABS: Microscopic, Urine URINE MICROSCOPIC (MICROSCOPIC)
[2025-09-24 14:05] LABS: Bilirubin,Urine Negative (Negative); Color,Urine YELLOW (Yellow); Glucose,Urine (UA) Negative (Negative); Ketones,Urine Negative (Negative); Leukocyte Esterase,Urine 3+ (Negative); PH,Urine 8.0 (5.0-8.5); Protein,Urine 1+ (Negative); Specific Gravity, Urine 1.015 (1.005-1.030); Urobilinogen,Urine 0.2 EU/dl (0.2)
[2025-09-24 14:26] LABS: Amorphous Sediment,Urine Trace /lpf; Bacteria,Urine 3+ /lpf; Mucus,Urine 1+ /lpf; RBC,Urine Occasional #/hpf (0-3); Squamous Epithelial Cell,Urine Occasional #/hpf (0-5); WBC,Urine 50-100 #/hpf (0-3)
[2025-09-24] MEDS: QUETIAPINE 25MG TABLET 25 MG PO (15:00)
[2025-09-24] MEDS: LEVOFLOXACIN/D5W 750 MG/150 ML 750 MG/150 ML PIGGYBACK 100 MG IV (15:00)
--- NOTE | 2025-09-24 15:33 | PC.NURSE ---
Patient very anxious during shift, md aware and new medications added. VS stable. Patient remained on room air and receiving IV antibiotics.
--- NOTE | 2025-09-24 16:18 | P.PN_ITS ---
Subjective *Date: 09/24/25 *Time: 16:29 Interval history: Patient feeling weak, diaphoretic this morning. Orthostatics borderline abnormal. Ordered 500 cc bolus. Sepsis workup revealed UTI with grossly abnormal UA. Started IV levofloxacin. Follow-up response. Added hydroxyzine as needed for anxiety breakthrough. Exam Data for Last 24 hours Vital signs and Labs for Last 24 Hours: Temp Pulse Resp BP Pulse Ox O2 Del Method 97.7 F 97 H 16 124/68 97 Room Air 09/24/25 16:00 09/24/25 16:00 09/24/25 16:00 09/24/25 16:00 09/24/25 16:00 09/24/25 16:00 Laboratory Results - last 24 hr 09/24/25 06:26: WBC 10.1, RBC 3.82 L, Hgb 10.3 L, Hct 33.6 L, MCV 88.0, MCH 27.0, MCHC 30.7 L, RDW 14.9, Plt Count 335, MPV 10.0, Neut % (Auto) 86.0 H, Lymph % (Auto) 7.1 L, [place] % (Auto) 5.0, Eos % (Auto) 0.9, Baso % (Auto) 0.4, Neut # (Auto) 8.7 H, Lymph # (Auto) 0.7, [place] # (Auto) 0.5, Eos # (Auto) 0.1, Baso # (Auto) 0.0, Sodium 135 L, Potassium 4.1, Chloride 110 H, Carbon Dioxide 17 L, Anion Gap 12.1, BUN 21 H, Creatinine 1.60 H, Estimated Creat Clear 44, Estimated GFR 32 L, Est GFR ( Amer) 38 L, Glucose 109 H, Calcium 9.3, Magnesium 2.4 H D, Total Bilirubin 0.5, AST 65 H, ALT 41, Alkaline Phosphatase 222 H, Total Protein 7.3, Albumin 4.1, Globulin 3.2, Albumin/Globulin Ratio 1.3 09/24/25 10:55: C-Reactive Protein 18.1 H, NT-Pro-B Natriuret Pep 510 H, Procalcitonin 0.185 09/24/25 11:18: Chlamy pneumoniae PCR Not detected, Adenovirus (PCR) Not detected, B. pertussis DNA (PCR) Not detected, Coronavirus OC43 (PCR) Not detected, Coronavirus HKU1 (PCR) Not detected, Coronavirus 229E (PCR) Not dete cted, SARS-CoV-2 (PCR) Not detected, Coronavirus NL63 (PCR) Not detected, Human Metapneumovir PCR Not detected, Influenza A (H1) PCR Not detected, Influ A (H1N1/09) PCR Not detected, Influenza A (H3) PCR Not detected, Influenza Type A (PCR) Not detected, Influenza Type B (PCR) Not detected, M. pneumoniae (PCR) Not detected, Parainfluenza 1 (PCR) Not detected, Parainfluenza 2 (PCR) Not detected, Parainfluenza 3 (PCR) Not detected, Parainfluenza 4 (PCR) Not detected, RSV (PCR) Not detected, Entero/Rhino (PCR) Not detected 09/24/25 13:55: Urine Color Yellow, Urine Appearance Cloudy, Urine pH 8.0, Ur Specific [place] 1.015, Urine Protein 1+ A, Urine Glucose (UA) Negative, Urine Ketones Negative, Urine Blood 1+ A, Urine Nitrate Positive A, Urine Bilirubin Negative, Urine Urobilinogen 0.2, Ur Leukocyte Esterase 3+ A, Urine RBC Occasional, Urine WBC 50-100, Ur Squamous Epith Cells Occasional, Amorphous Sediment Trace, Urine Bacteria 3+, Urine Mucus 1+ I & O for Last 24 hours: Intake & Output 09/21/25 09/22/25 09/23/25 09/24/25 23:59 23:59 23:59 23:59 Intake Total 3053.75 / 3103.75 1150 / 1150 Output Total 3040 / 3040 1300 / 1300 Balance 13.75 / 63.75 -150 / -150 Weight 86.137 kg 86.364 kg Constitutional Constitutional: no acute distress Comments: Anxious *Routine HEENT Exam Head: Present normocephalic Eye: Present EOMI and PERRL ENT: Present mucous membranes moist *Routine Neck Exam Neck: Present supple; Absent lymphadenopathy *Routine Respiratory Exam Respiratory: Present CTA bilaterally *Routine Cardiovascular Exam Cardiovascular: Present RRR *Routine Abdominal Exam Abdominal: Present soft and normoactive bowel sounds; Absent tenderness *Routine Extremities Exam Extremities: Absent cyanosis, clubbing or edema *Routine Skin Exam Skin: Present warm; Absent rash *Routine Neurological Exam Neurological: Present alert and oriented X3 Assessment and Plan *Assessment and plan (1) Orthostatic hypotension: Status: Acute Category: Medical Code(s): I95.1 - Orthostatic hypotension (2) Dizziness: Status: Acute Category: Medical Code(s): R42 - Dizziness and giddiness (3) Pre-syncope: Status: Acute Category: Medical Code(s): R55 - Syncope and collapse (4) Dizziness: Status: Acute Category: Medical Code(s): R42 - Dizziness and giddiness (5) Presence of IVC filter: Status: Acute Category: Medical Code(s): Z95.828 - Presence of other vascular implants and grafts (6) Hx of pulmonary embolus: Status: Acute Category: Medical Code(s): Z86.711 - Personal history of pulmonary embolism (7) Hx of deep venous thrombosis: Status: Acute Category: Medical Code(s): Z86.718 - Personal history of other venous thrombosis and embolism (8) ANDRES (acute kidney injury): Status: Acute Category: Medical Code(s): N17.9 - Acute kidney failure, unspecified (9) Kidney dysfunction: Status: Acute Category: Medical Code(s): N28.9 - Disorder of kidney and ureter, unspecified (10) Bladder cancer: Status: Acute Qualifiers: Bladder location: unspecified site Qualified Code(s): C67.9 - Malignant neoplasm of bladder, unspecified Category: Medical Code(s): C67.9 - Malignant neoplasm of bladder, unspecified (11) Transaminitis: Status: Acute Category: Medical Code(s): R74.01 - Elevation of levels of liver transaminase levels (12) Elevated liver enzymes: Status: Acute Category: Medical Code(s): R74.8 - Abnormal levels of other serum enzymes Plan Sherry Owen is a 70-year-old female with past medical history of hyperlipidemia, GERD, anxiety, PE/DVT on Eliquis, bladder cancer status post urostomy with colostomy bags. Presents with presyncopal/vertigo symptoms. Problems listed below: #Presyncope/vertigo #UTI ? Patient presented with weakness, presyncope and borderline positive orthostat ics. ? This morning, patient feels about the same as yesterday, quite anxious this morning. ? Given borderline positive orthostatics again this morning, sepsis workup was initiated and patient was found to have a UTI with grossly abnormal UA. Ordered 500 cc bolus. ? Started IV levofloxacin 750 mg daily, history of resistance to cephalosporins. Will monitor patient overnight for response, follow-up orthostatics in the morning. ? Follow-up blood, urine culture. WBC stable at 10.1 today. ? Follow-up morning CBC. History of bladder cancer: Colostomy Urostomy ? CT abdomen/pelvis shows left hydronephrosis which appears chronic. See no indication for emergent urology evaluation. Continue nephrostomy drainage. Continue colostomy management with no acute issues noted during hospitalization. #Anxiety ? Longstanding history of anxiety since bladder cancer. ? Continue home escitalopram, buspirone, Xanax, quetiapine. ? Started hydroxyzine as needed for anxiety. Elevated transaminases: ? Initial LFTs are AST 61, ALT 52, alk phos 273. Patient's transaminases previously 08/25 AST 63, ALT 43, alk phos 188. Elevations appear chronic. Denies any abdominal pain. Will monitor during hospitalization but no current intervention required. PE/DVT history with IVC filter: Eliquis 5 mg p.o. twice daily Hyperlipidemia: Rosuvastatin 20 mg p.o. daily Chronic pain: Tramadol 50 mg p.o. 3 times daily as needed pain PPx Eliquis CODE STATUS: Full FEN: Regular diet
[2025-09-24] MEDS: ATORVASTATIN 20MG TABLET 20 MG PO (20:35)
[2025-09-24] MEDS: PANTOPRAZOLE 40MG TABLET 40 MG PO (20:35)
[2025-09-24] MEDS: QUETIAPINE 25MG TABLET 50 MG PO (20:35)
[2025-09-25] VITALS: BP 121/72; PULSE 85; PULSE 95; RESP 14; TEMP 37.1; O2SAT 97
[2025-09-25 04:00] VITALS: BP 112/64; PULSE 80; PULSE 87; RESP 16; TEMP 36.9; O2SAT 97; BMI 29.0
[2025-09-25] MEDS: SODIUM BICARBONATE 650MG TABLET 650 MG PO (04:20)
[2025-09-25] MEDS: TRAMADOL 50MG TABLET 50 MG PO (04:20)
[2025-09-25 06:15] LABS: Albumin Level 3.7 g/dl (3.5-5.0); Chloride 110 mmol/L (98-107); Potassium 3.7 mmoL/L (3.5-5.1); Sodium 136 mmol/L (136-145)
[2025-09-25 06:18] LABS: Alanine Aminotransferase 31 U/L (12-78); Albumin/Globulin Ratio 1.1 (1.1-1.8); Alkaline Phosphatase 174 U/L (38-126); Anion Gap 9.7 mEq/L (5-15); Aspartate Amino Transferase 40 U/L (14-36); Bilirubin,Total 0.8 mg/dl (0.2-1.3); Blood Urea Nitrogen 17 mg/dl (7-17); Carbon Dioxide 20 mmol/L (22.0-30.0); Creatinine Clearance Estimated 42 mL/min (50-200); Creatinine,Serum 1.70 mg/dl (0.52-1.04); Estimated Glomerular Filt Rate 30 ml/min (>60); GFR (African American) 36 ML/MIN (>60); Globulin 3.3 g/dL (1.3-3.2); Total Protein,Serum 7.0 g/dl (6.3-8.2)
[2025-09-25 06:19] LABS: Calcium 9.9 mg/dl (8.4-10.2); Glucose 99 mg/dl (74-100); Magnesium 2.2 mg/dl (1.6-2.3)
[2025-09-25 06:20] LABS: Hematocrit 30.3 % (37.0-47.0); Hemoglobin 9.6 g/dL (12.2-16.2); Immature Granulocytes % 0.9 %; Mean Corpuscular HGB Conc 31.7 g/dL (31.8-35.4); Mean Corpuscular Hemoglobin 27.7 pg (27.0-31.2); Mean Corpuscular Volume 87.3 fl (81-99); Nucleated Red Blood Cells % 0 %; Platelet Count 341 K/mm3 (142-424); Red Blood Count 3.47 M/mm3 (4.20-5.40); Red Cell Distribution Width-SD 47.4 fL; White Blood Count 6.9 K/mm3 (4.8-10.8)
[2025-09-25 08:00] VITALS: BP 97/56; BP 98/66; BP 99/60; PULSE 89; PULSE 90; PULSE 92; PULSE 94; RESP 18; TEMP 37.1; O2SAT 97
--- NOTE | 2025-09-25 08:26 | HMH.PHAAMS2 ---
- Antimicrobial Stewardship Review culture & sensitivity review Stewardship interventions: culture & sensitivity review, reviewed - no change Comments: suspected uti, cultures pending, on levofoloxacin empirically
[2025-09-25] MEDS: ESCITALOPRAM 20MG TABLET 20 MG PO (09:02)
[2025-09-25] MEDS: FOLIC ACID 1MG TABLET 1 MG PO (09:02)
[2025-09-25] MEDS: BUSPIRONE HCL 10 MG TABLET PO (09:02)
[2025-09-25] MEDS: APIXABAN 5MG TABLET 5 MG PO (09:02)
--- NOTE | 2025-09-25 10:19 | EXP.CARD.CON ---
History of Present Illness History of Present Illness Consult date: 09/25/25 Chief complaint: Vertigo and dizziness History of present illness: 70-year-old white female recently established in our office August 25 for gradual onset dyspnea on exertion. She has a history of PE and DVT status post IVC filter on Eliqu. She is in a wheelchair status post bladder cancer 2023 with urostomy and bilateral colostomy bags. When she saw us in the office for dyspnea we ordered CTA, echo, stress test. The CTA was negative but she never had a stress or echo. Patient presented here on [place] for vertigo while brushing her teeth. She had her bring her to the hospital. She appears to have been a bit dehydrated and has responded nicely to normal saline. Normal troponin x 2, proBNP 510. UA positive for white blood cells and nitrates. She does have numerous medications that can cause dizziness including Xanax, tramadol, buspirone, Lexapro, quetiapine. EKG shows sinus rhythm without ectopy or acute ischemic changes. She denies palpitations and any cardiac symptoms. [facility] Disclaimer: The information contained in this section may have been updated after the patient was seen, as this information can be updated by other users. Medical History Colostomy in place Bladder cancer Arthritis Sinus headache History of gastroesophageal reflux (GERD) History of cataract Allergies Hyperlipidemia Hypertension Surgical History History of urostomy Hx of oophorectomy History of partial hysterectomy H/O eye surgery Family History Grandfather Heart attack Grandmother Heart attack Social History Smoking Status: Never smoker alcohol intake: never substance use type: denies use current occupational status: retired Travel in the last 8 weeks?: None Have you lived/traveled outside [place] in past 30 days?: No Contact w/someone who lives/traveled outside US past 30 days?: No Exposure to someone with infectious disease in past 14 days?: No Do you have a fever (greater than 100.4 F or 38 C)?: No Have you tested positive for COVID-19?: No Exposed to someone with COVID-19 in past 14 days?: No Do you have a sore throat?: No Do you have a cough?: No Do you have any weakness?: Yes Do you have any diarrhea?: No Are you experiencing any unusual bleeding?: No Do you have any muscle aches/pain?: No Do you have any abdominal pain?: No Are you experiencing loss of taste or smell?: No Review of Systems Constitutional Constitutional: Reports fatigue and Reports weakness Eyes Eyes: Denies loss of vision ENT Ears, Nose, Mouth, and Throat: Denies hearing loss and Denies vertigo *Cardiovascular Cardiovascular: Denies chest pain, Denies dyspnea and Denies syncope *Respiratory Respiratory: Denies cough and Denies dyspnea *Gastrointestinal Gastrointestinal: Denies change in stool character, Denies nausea and Denies vomiting *Musculoskeletal Musculoskeletal: Denies muscle weakness Integumentary/Breasts Skin/Breast: Denies changing lesions *Neurologic Neurologic: Denies loss of vision, Denies syncope, Denies vertigo and Reports weakness Endocrine Endocrine: Reports fatigue Exam Data for Last 24 hours Vital signs and Labs for Last 24 Hours: Temp Pulse Resp BP Pulse Ox O2 Del Method 98.8 F 89 18 99/60 L 97 Room Air 09/25/25 08:00 09/25/25 08:00 09/25/25 08:00 09/25/25 08:00 09/25/25 08:00 09/25/25 09:28 Laboratory Results - last 24 hr 09/24/25 10:55: C-Reactive Protein 18.1 H, NT-Pro-B Natriuret Pep 510 H, Procalcitonin 0.185 09/24/25 11:18: Chlamy pneumoniae PCR Not detected, Adenovirus (PCR) Not detected, B. pertussis DNA (PCR) Not detected, Coronavirus OC43 (PCR) Not detected, Coronavirus HKU1 (PCR) Not detected, Coronavirus 229E (PCR) Not detected, SARS-CoV-2 (PCR) Not detected, Coronavirus NL63 (PCR) Not detected, Human Metapneumovir PCR Not detected, Influenza A (H1) PCR Not detected, Influ A (H1N1/09) PCR Not detected, Influenza A (H3) PCR Not detected, Influenza Type A (PCR) Not detected, Influenza Type B (PCR) Not detected, M. pneumoniae (PCR) Not detected, Parainfluenza 1 (PCR) Not detected, Parainfluenza 2 (PCR) Not detected, Parainfluenza 3 (PCR) Not detected, Parainfluenza 4 (PCR) Not detected, RSV (PCR) Not detected, Entero/Rhino (PCR) Not detected 09/24/25 13:55: Urine Color Yellow, Urine Appearance Cloudy, Urine pH 8.0, Ur Specific [place] 1.015, Urine Protein 1+ A, Urine Glucose (UA) Negative, Urine Ketones Negative, Urine Blood 1+ A, Urine Nitrate Positive A, Urine Bilirubin Negative, Urine Urobilinogen 0.2, Ur Leukocyte Esterase 3+ A, Urine RBC Occasional, Urine WBC 50-100, Ur Squamous Epith Cells Occasional, Amorphous Sediment Trace, Urine Bacteria 3+, Urine Mucus 1+ 09/25/25 05:40: WBC 6.9 D, RBC 3.47 L, Hgb 9.6 L, Hct 30.3 L, MCV 87.3, MCH 27.7, MCHC 31.7 L, RDW 14.9, Plt Count 341, MPV 10.4, Neut % (Auto) 80.0, Lymph % (Auto) 11.1, [place] % (Auto) 6.4, Eos % (Auto) 1.2, Baso % (Auto) 0.4, Neut # (Auto) 5.5, Lymph # (Auto) 0.8, [place] # (Auto) 0.4, Eos # (Auto) 0.1, Baso # (Auto) 0.0, Sodium 136, Potassium 3.7, Chloride 110 H, Carbon Dioxide 20 L, Anion Gap 9.7, BUN 17, Creatinine 1.70 H, Estimated Creat Clear 42, Estimated GFR 30 L, Est GFR ( Amer) 36 L, Glucose 99, Calcium 9.9, Magnesium 2.2, Total Bilirubin 0.8, AST 40 H D, ALT 31, Alkaline Phosphatase 174 H, Total Protein 7.0, Albumin 3.7, Globulin 3.3 H, Albumin/Globulin Ratio 1.1 I & O for Last 24 hours: Intake & Output 09/22/25 09/23/25 09/24/25 09/25/25 23:59 23:59 23:59 23:59 Intake Total 3053.75 / 3103.75 1540 / 1790 660 / 660 Output Total 3040 / 3040 2425 / 2425 550 / 550 Balance 13.75 / 63.75 -885 / -635 110 / 110 Weight 189 lb 14.4 oz 190 lb 6.4 oz 191 lb 12.8 oz Microbiology Reports for the Last 24 Hours: Microbiology 09/24/25 13:55 Urine,Clean Catch Urine Culture - Preliminary Constitutional Constitutional: no acute distress and cooperative *Routine HEENT Exam Eye: Present PERRL *Routine Respiratory Exam Respiratory: Present CTA bilaterally; Absent accessory muscle use, wheezes or crackles *Routine Cardiovascular Exam Cardiovascular: Present RRR, Normal S1 and Normal S2; Absent murmur, gallop or rubs *Routine Extremities Exam Extremities: Present pulses intact; Absent cyanosis or edema *Routine Skin Exam Skin: Present intact; Absent erythema or wounds *Routine Neurological Exam Neurological: Present alert and oriented X3 Routine Psychiatric Exam Psychiatric: Present cooperative Meds Home Medications and Allergies Home Medications ?Medication ?Instructions ?Recorded ?Confirmed ?Type omeprazole 40 mg capsule,delayed 40 mg PO DAILY 03/19/18 09/23/25 History release apixaban 5 mg tablet (Eliquis) 5 mg PO BID 03/31/25 09/23/25 History buspirone 10 mg tablet 10 mg PO BID 03/31/25 09/23/25 History folic acid 1 mg tablet 1 mg PO DAILY 03/31/25 09/23/25 History quetiapine 50 mg tablet 50 mg PO HS 03/31/25 09/23/25 History sodium bicarbonate 650 mg tablet 650 mg PO Q8H 03/31/25 09/23/25 History escitalopram oxalate 20 mg tablet 20 mg PO DAILY 07/07/25 09/23/25 History rosuvastatin 20 mg tablet 20 mg PO DAILY 07/07/25 09/23/25 History tramadol 50 mg tablet 50 mg PO Q8H 07/07/25 09/23/25 History alprazolam 0.5 mg tablet 0.5 mg PO TIDP PRN Anxiety 09/23/25 09/23/25 History New Prescriptions to Start Prescriptions: Allergies Allergy/AdvReac Type Severity Reaction Status Date / Time lisinopril Allergy Mild Hives Verified 08/25/25 13:31 Assessment and Plan *Assessment and plan (1) Orthostatic hypotension: Status: Acute Category: Medical Code(s): I95.1 - Orthostatic hypotension (2) Dizziness: Status: Acute Category: Medical Code(s): R42 - Dizziness and giddiness (3) Pre-syncope: Status: Acute Category: Medical Code(s): R55 - Syncope and collapse Plan Dizziness and presyncope - Likely multifactorial secondary to UTI, dehydration, polypharmacy - Symptoms resolved - Clear CV etiology or concerns Dyspnea on exertion - This is chronic over the past several months - EKG, serial troponin, proBNP unremarkable here, patient denies anginal symptoms - I recommended she proceed with the outpatient stress test and 2D echocardiogram ordered in August. Our office will call her to reschedule History of DVT/PE/IVC filter - CTA here negative - Continue home dose Eliquis 2.5 mg twice daily CV stable, will sign off
--- NOTE | 2025-09-25 11:06 | EXP.DC.SUM ---
General Admission date:: 09/23/25 HPI HPI HPI: 70-year-old patient with past medical history of bladder cancer status post urostomy and bilateral colostomy bags, IVC filter status post DVT/PE, GERD, anxiety, hyperlipidemia. Patient presents with vertigo/presyncope. Patient accompanied by her who acted as independent historian. Patient states she was brushing her teeth on the edge of the bed, when she experienced extreme vertigo. Denies nausea, vomiting, chest pain, shortness of breath, fevers, chills, sick contacts, recent travel, dizziness, dysuria, GI bleeding, diarrhea, abdominal pain, recent falls. Patient then asked her to bring her to hospital for evaluation. Patient's BP in emergency room systolic 180, and patient usually suffers from low blood pressure. Hospital Course Hospital Course Hospital Course: Sherry Owen is a 70-year-old female with past medical history of hyperlipidemia, GERD, anxiety, PE/DVT on Eliquis, bladder cancer status post urostomy with colostomy bags. Presents with presyncopal/vertigo symptoms. Problems listed below: #Presyncope/vertigo #UTI ? Patient presented with weakness, presyncope and borderline positive orthostatics. ? Given borderline positive orthostatics, sepsis workup was initiated and patient was found to have a UTI with grossly abnormal UA. ? Clinically improved with gentle IV fluid resuscitation and IV levofloxacin 750 mg daily, history of resistance to cephalosporins. Patient feels much better this morning. Ambulating without dizziness or issues. ? Discharged with levofloxacin 750 mg every 48 hours for 3 more doses. Will follow-up on urine culture. History of bladder cancer: Colostomy Urostomy ? CT abdomen/pelvis shows left hydronephrosis which appears chronic. No indication for emergent urology evaluation. Continue nephrostomy drainage. Continue colostomy management with no acute issues noted during hospitalization. #Anxiety ? Longstanding history of anxiety since bladder cancer. ? Continue home escitalopram, buspirone, Xanax, quetiapine. Elevated transaminases: ? Initial LFTs are AST 61, ALT 52, alk phos 273. Patient's transaminases previously 08/25 AST 63, ALT 43, alk phos 188. Elevations appear chronic. Denies any abdominal pain, leukocytosis, fevers. PE/DVT history with IVC filter: Eliquis 5 mg p.o. twice daily Hyperlipidemia: Rosuvastatin 20 mg p.o. daily Chronic pain: Tramadol 50 mg p.o. 3 times daily as needed pain Exam Data for Last 24 hours Vital signs and Labs for Last 24 Hours: Temp Pulse Resp BP Pulse Ox O2 Del Method 98.8 F 89 18 99/60 L 97 Room Air 09/25/25 08:00 09/25/25 08:00 09/25/25 08:00 09/25/25 08:00 09/25/25 08:00 09/25/25 09:28 Laboratory Results - last 24 hr 09/24/25 10:55: C-Reactive Protein 18.1 H, NT-Pro-B Natriuret Pep 510 H, Procalcitonin 0.185 09/24/25 11:18: Chlamy pneumoniae PCR Not detected, Adenovirus (PCR) Not detected, B. pertussis DNA (PCR) Not detected, Coronavirus OC43 (PCR) Not detected, Coronavirus HKU1 (PCR) Not detected, Coronavirus 229E (PCR) Not detected, SARS-CoV-2 (PCR) Not detected, Coronavirus NL63 (PCR) Not detected, Human Metapneumovir PCR Not detected, Influenza A (H1) PCR Not detected, Influ A (H1N1/09) PCR Not detected, Influenza A (H3) PCR Not detected, Influenza Type A (PCR) Not detected, Influenza Type B (PCR) Not detected, M. pneumoniae (PCR) Not detected, Parainfluenza 1 (PCR) Not detected, Parainfluenza 2 (PCR) Not detected, Parainfluenza 3 (PCR) Not detected, Parainfluenza 4 (PCR) Not detected, RSV (PCR) Not detected, Entero/Rhino (PCR) Not detected 09/24/25 13:55: Urine Color Yellow, Urine Appearance Cloudy, Urine pH 8.0, Ur Specific Flushing 1.015, Urine Protein 1+ A, Urine Glucose (UA) Negative, Urine Ketones Negative, Urine Blood 1+ A, Urine Nitrate Positive A, Urine Bilirubin Negative, Urine Urobilinogen 0.2, Ur Leukocyte Esterase 3+ A, Urine RBC Occasional, Urine WBC 50-100, Ur Squamous Epith Cells Occasional, Amorphous Sediment Trace, Urine Bacteria 3+, Urine Mucus 1+ 09/25/25 05:40: WBC 6.9 D, RBC 3.47 L, Hgb 9.6 L, Hct 30.3 L, MCV 87.3, MCH 27.7, MCHC 31.7 L, RDW 14.9, Plt Count 341, MPV 10.4, Neut % (Auto) 80.0, Lymph % (Auto) 11.1, Deuel % (Auto) 6.4, Eos % (Auto) 1.2, Baso % (Auto) 0.4, Neut # (Auto) 5.5, Lymph # (Auto) 0.8, Deuel # (Auto) 0.4, Eos # (Auto) 0.1, Baso # (Auto) 0.0, Sodium 136, Potassium 3.7, Chloride 110 H, Carbon Dioxide 20 L, Anion Gap 9.7, BUN 17, Creatinine 1.70 H, Estimated Creat Clear 42, Estimated GFR 30 L, Est GFR ( Amer) 36 L, Glucose 99, Calcium 9.9, Magnesium 2.2, Total Bilirubin 0.8, AST 40 H D, ALT 31, Alkaline Phosphatase 174 H, Total Protein 7.0, Albumin 3.7, Globulin 3.3 H, Albumin/Globulin Ratio 1.1 Temp Pulse Resp BP Pulse Ox O2 Del Method 98.8 F 89 18 99/60 L 97 Room Air 09/25/25 08:00 09/25/25 08:00 09/25/25 08:00 09/25/25 08:00 09/25/25 08:00 09/25/25 09:28 Laboratory Results - last 24 hr 09/24/25 10:55: C-Reactive Protein 18.1 H, NT-Pro-B Natriuret Pep 510 H, Procalcitonin 0.185 09/24/25 11:18: Chlamy pneumoniae PCR Not detected, Adenovirus (PCR) Not detected, B. pertussis DNA (PCR) Not detected, Coronavirus OC43 (PCR) Not detected, Coronavirus HKU1 (PCR) Not detected, Coronavirus 229E (PCR) Not detected, SARS-CoV-2 (PCR) Not detected, Coronavirus NL63 (PCR) Not detected, Human Metapneumovir PCR Not detected, Influenza A (H1) PCR Not detected, Influ A (H1N1/09) PCR Not detected, Influenza A (H3) PCR Not detected, Influenza Type A (PCR) Not detected, Influenza Type B (PCR) Not detected, M. pneumoniae (PCR) Not detected, Parainfluenza 1 (PCR) Not detected, Parainfluenza 2 (PCR) Not detected, Parainfluenza 3 (PCR) Not detected, Parainfluenza 4 (PCR) Not detected, RSV (PCR) Not detected, Entero/Rhino (PCR) Not detected 09/24/25 13:55: Urine Color Yellow, Urine Appearance Cloudy, Urine pH 8.0, Ur Specific Flushing 1.015, Urine Protein 1+ A, Urine Glucose (UA) Negative, Urine Ketones Negative, Urine Blood 1+ A, Urine Nitrate Positive A, Urine Bilirubin Negative, Urine Urobilinogen 0.2, Ur Leukocyte Esterase 3+ A, Urine RBC Occasional, Urine WBC 50-100, Ur Squamous Epith Cells Occasional, Amorphous Sediment Trace, Urine Bacteria 3+, Urine Mucus 1+ 09/25/25 05:40: WBC 6.9 D, RBC 3.47 L, Hgb 9.6 L, Hct 30.3 L, MCV 87.3, MCH 27.7, MCHC 31.7 L, RDW 14.9, Plt Count 341, MPV 10.4, Neut % (Auto) 80.0, Lymph % (Auto) 11.1, Deuel % (Auto) 6.4, Eos % (Auto) 1.2, Baso % (Auto) 0.4, Neut # (Auto) 5.5, Lymph # (Auto) 0.8, Deuel # (Auto) 0.4, Eos # (Auto) 0.1, Baso # (Auto) 0.0, Sodium 136, Potassium 3.7, Chloride 110 H, Carbon Dioxide 20 L, Anion Gap 9.7, BUN 17, Creatinine 1.70 H, Estimated Creat Clear 42, Estimated GFR 30 L, Est GFR ( Amer) 36 L, Glucose 99, Calcium 9.9, Magnesium 2.2, Total Bilirubin 0.8, AST 40 H D, ALT 31, Alkaline Phosphatase 174 H, Total Protein 7.0, Albumin 3.7, Globulin 3.3 H, Albumin/Globulin Ratio 1.1 I & O for Last 24 hours: Intake & Output 09/22/25 09/23/25 09/24/25 09/25/25 23:59 23:59 23:59 23:59 Intake Total 3053.75 / 3103.75 1540 / 1790 660 / 660 Output Total 3040 / 3040 2425 / 2425 750 / 750 Balance 13.75 / 63.75 -885 / -635 -90 / -90 Weight 86.137 kg 86.364 kg 86.999 kg Intake & Output 09/22/25 09/23/25 09/24/25 09/25/25 23:59 23:59 23:59 23:59 Intake Total 3053.75 / 3103.75 1540 / 1790 660 / 660 Output Total 3040 / 3040 2425 / 2425 550 / 550 Balance 13.75 / 63.75 -885 / -635 110 / 110 Weight 189 lb 14.4 oz 190 lb 6.4 oz 191 lb 12.8 oz Microbiology Reports for the Last 24 Hours: Microbiology 09/24/25 11:00 Blood Blood Culture - Preliminary NO GROWTH AFTER 24 HOURS 09/24/25 10:55 Blood Blood Culture - Preliminary NO GROWTH AFTER 24 HOURS 09/24/25 13:55 Urine,Clean Catch Urine Culture - Preliminary Microbiology 09/24/25 13:55 Urine,Clean Catch Urine Culture - Preliminary Constitutional Constitutional: no acute distress and cooperative *Routine HEENT Exam Eye: Present PERRL *Routine Respiratory Exam Respiratory: Present CTA bilaterally; Absent accessory muscle use, wheezes or crackles *Routine Cardiovascular Exam Cardiovascular: Present RRR, Normal S1 and Normal S2; Absent murmur, gallop or rubs *Routine Extremities Exam Extremities: Present pulses intact; Absent cyanosis or edema *Routine Skin Exam Skin: Present intact; Absent erythema or wounds *Routine Neurological Exam Neurological: Present alert and oriented X3 Routine Psychiatric Exam Psychiatric: Present cooperative Results Data Completed and Pending Labs on day of discharge: Labs from last 24 hours 09/25/25 09/24/25 09/24/25 05:40 13:55 11:18 WBC 6.9 D RBC 3.47 L Hgb 9.6 L Hct 30.3 L MCV 87.3 MCH 27.7 MCHC 31.7 L RDW 14.9 Plt Count 341 MPV 10.4 Neut % (Auto) 80.0 Lymph % (Auto) 11.1 Deuel % (Auto) 6.4 Eos % (Auto) 1.2 Baso % (Auto) 0.4 Neut # (Auto) 5.5 Lymph # (Auto) 0.8 Deuel # (Auto) 0.4 Eos # (Auto) 0.1 Baso # (Auto) 0.0 Sodium 136 Potassium 3.7 Chloride 110 H Carbon Dioxide 20 L Anion Gap 9.7 BUN 17 Creatinine 1.70 H Estimated Creat Clear 42 Estimated GFR 30 L Est GFR ( Amer) 36 L Glucose 99 Calcium 9.9 Magnesium 2.2 Total Bilirubin 0.8 AST 40 H D ALT 31 Alkaline Phosphatase 174 H C-Reactive Protein NT-Pro-B Natriuret Pep Total Protein 7.0 Albumin 3.7 Globulin 3.3 H Albumin/Globulin Ratio 1.1 Procalcitonin Urine Color Yellow Urine Appearance Cloudy Urine pH 8.0 Ur Specific Flushing 1.015 Urine Protein 1+ A Urine Glucose (UA) Negative Urine Ketones Negative Urine Blood 1+ A Urine Nitrate Positive A Urine Bilirubin Negative Urine Urobilinogen 0.2 Ur Leukocyte Esterase 3+ A Urine RBC Occasional Urine WBC 50-100 Ur Squamous Epith Cells Occasional Amorphous Sediment Trace Urine Bacteria 3+ Urine Mucus 1+ Chlamy pneumoniae PCR Not detected Adenovirus (PCR) Not detected B. pertussis DNA (PCR) Not detected Coronavirus OC43 (PCR) Not detected Coronavirus HKU1 (PCR) Not detected Coronavirus 229E (PCR) Not detected SARS-CoV-2 (PCR) Not detected Coronavirus NL63 (PCR) Not detected Human Metapneumovir PCR Not detected Influenza A (H1) PCR Not detected Influ A (H1N1/09) PCR Not detected Influenza A (H3) PCR Not detected Influenza Type A (PCR) Not detected Influenza Type B (PCR) Not detected M. pneumoniae (PCR) Not detected Parainfluenza 1 (PCR) Not detected Parainfluenza 2 (PCR) Not detected Parainfluenza 3 (PCR) Not detected Parainfluenza 4 (PCR) Not detected RSV (PCR) Not detected Entero/Rhino (PCR) Not detected 09/24/25 10:55 WBC RBC Hgb Hct MCV MCH MCHC RDW Plt Count MPV Neut % (Auto) Lymph % (Auto) Deuel % (Auto) Eos % (Auto) Baso % (Auto) Neut # (Auto) Lymph # (Auto) Deuel # (Auto) Eos # (Auto) Baso # (Auto) Sodium Potassium Chloride Carbon Dioxide Anion Gap BUN Creatinine Estimated Creat Clear Estimated GFR Est GFR ( Amer) Glucose Calcium Magnesium Total Bilirubin AST ALT Alkaline Phosphatase C-Reactive Protein 18.1 H NT-Pro-B Natriuret Pep 510 H Total Protein Albumin Globulin Albumin/Globulin Ratio Procalcitonin 0.185 Urine Color Urine Appearance Urine pH Ur Specific Flushing Urine Protein Urine Glucose (UA) Urine Ketones Urine Blood Urine Nitrate Urine Bilirubin Urine Urobilinogen Ur Leukocyte Esterase Urine RBC Urine WBC Ur Squamous Epith Cells Amorphous Sediment Urine Bacteria Urine Mucus Chlamy pneumoniae PCR Adenovirus (PCR) B. pertussis DNA (PCR) Coronavirus OC43 (PCR) Coronavirus HKU1 (PCR) Coronavirus 229E (PCR) SARS-CoV-2 (PCR) Coronavirus NL63 (PCR) Human Metapneumovir PCR Influenza A (H1) PCR Influ A (H1N1/09) PCR Influenza A (H3) PCR Influenza Type A (PCR) Influenza Type B (PCR) M. pneumoniae (PCR) Parainfluenza 1 (PCR) Parainfluenza 2 (PCR) Parainfluenza 3 (PCR) Parainfluenza 4 (PCR) RSV (PCR) Entero/Rhino (PCR) Preliminary micro results at discharge 09/24/25 11:00 Blood Culture - Preliminary Blood NO GROWTH AFTER 24 HOURS 09/24/25 10:55 Blood Culture - Preliminary Blood NO GROWTH AFTER 24 HOURS 09/24/25 13:55 Urine Culture - Preliminary Urine,Clean Catch DS: Diagnosis Discharge Diagnosis (1) Orthostatic hypotension: Status: Acute Code(s): I95.1 - Orthostatic hypotension (2) Dizziness: Status: Acute Code(s): R42 - Dizziness and giddiness (3) Pre-syncope: Status: Acute Code(s): R55 - Syncope and collapse Meds Home Medications and Allergies Home Medications ?Medication ?Instructions ?Recorded ?Confirmed ?Type omeprazole 40 mg capsule,delayed 40 mg PO DAILY 03/19/18 09/23/25 History release apixaban 5 mg tablet (Eliquis) 5 mg PO BID 03/31/25 09/23/25 History buspirone 10 mg tablet 10 mg PO BID 03/31/25 09/23/25 History folic acid 1 mg tablet 1 mg PO DAILY 03/31/25 09/23/25 History quetiapine 50 mg tablet 50 mg PO HS 03/31/25 09/23/25 History sodium bicarbonate 650 mg tablet 650 mg PO Q8H 03/31/25 09/23/25 History escitalopram oxalate 20 mg tablet 20 mg PO DAILY 07/07/25 09/23/25 History rosuvastatin 20 mg tablet 20 mg PO DAILY 07/07/25 09/23/25 History tramadol 50 mg tablet 50 mg PO Q8H 07/07/25 09/23/25 History alprazolam 0.5 mg tablet 0.5 mg PO TIDP PRN Anxiety 09/23/25 09/23/25 History levofloxacin 750 mg tablet 750 mg PO Q48H #3 tabs 09/25/25 Rx New Prescriptions to Start Prescriptions: levofloxacin Scott Fernandez Allergies Allergy/AdvReac Type Severity Reaction Status Date / Time lisinopril Allergy Mild Hives Verified 08/25/25 13:31 Discharge Plan Disposition Patient Disposition: Home, Self-Care Condition: Fair Follow up Plan Follow up with: Kirstin Krishnan APRN [Primary Care Provider, Medical] - Enter time for follow up Referral Note: Call Sunday for appointment Prescriptions/Medication Reconciliation: New levofloxacin 750 mg tablet 750 mg PO Q48H Qty: 3 0RF Continued Eliquis 5 mg tablet 5 mg PO BID Patient Comments: TAKE ONE TABLET BY MOUTH TWICE DAILY DIRECTED buspirone 10 mg tablet 10 mg PO BID Patient Comments: TAKE ONE TABLET BY MOUTH TWICE DAILY folic acid 1 mg tablet 1 mg PO DAILY Patient Comments: TAKE ONE TABLET BY MOUTH EVERY DAY quetiapine 50 mg tablet 50 mg PO HS Patient Comments: TAKE ONE TABLET BY MOUTH EVERY DAY AT BEDTIME sodium bicarbonate 650 mg tablet 650 mg PO Q8H Patient Comments: TAKE ONE TABLET BY MOUTH EVERY 8 HOURS tramadol 50 mg tablet 50 mg PO Q8H Patient Comments: TAKE ONE TABLET BY MOUTH EVERY 8 HOURS FOR arthritis escitalopram oxalate 20 mg tablet 20 mg PO DAILY Patient Comments: TAKE ONE TABLET BY MOUTH EVERY DAY rosuvastatin 20 mg tablet 20 mg PO DAILY Patient Comments: TAKE ONE TABLET BY MOUTH EVERY DAY omeprazole 40 mg capsule,delayed release(DR/EC) 40 mg PO DAILY alprazolam 0.5 mg tablet 0.5 mg PO TIDP PRN (Reason: Anxiety) Problem Reconciliation Problems Reviewed?: Yes Patient Discharge Instructions Patient Instructions: DI for Orthostatic Hypotension, DI for Vertigo Print Language: Tajik Providers Primary Care Provider: Kirstin Krishnan Admit Provider: Tong Perez Attending Provider: Tong Perez
--- NOTE | 2025-09-28 10:31 | SW/DCPLANNER ---
Spoke with patient on the phone. Patient stated that she is doing good. Patient stated that she is aware of her upcoming appointment. Patient stated that she was able to get her new medicine picked up from clinic pharmacy. Patient stated that she has no concerns or questions at this time. Hollie Velazquez
== END 2025-09-25 12:54 | disposition home or self-care (01) ==
LOC: ER 09-23 03:26 → 2ND 09-23 03:29
PROVIDERS: Internal Medicine; Student in an Organized Health Care Education/Training Program; Admitting Provider Internal Medicine Adolescent Medicine; Emergency Provider Emergency Medicine; PCP Nurse Practitioner; Visit Provider Internal Medicine Adolescent Medicine
DX: I95.1 Orthostatic hypotension (principal); R42 Dizziness and giddiness; Z95.828 Presence of other vascular implants and grafts; Z86.711 Personal history of pulmonary embolism; Z86.718 Personal history of other venous thrombosis and embolism; N17.9 Acute kidney failure, unspecified; N28.9 Disorder of kidney and ureter, unspecified; C67.9 Malignant neoplasm of bladder, unspecified; R74.01 Elevation of levels of liver transaminase levels; R74.8 Abnormal levels of other serum enzymes; K21.9 Gastro-esophageal reflux disease without esophagitis; I10 Essential (primary) hypertension; E78.5 Hyperlipidemia, unspecified; Z90.711 Acquired absence of uterus with remaining cervical stump; Z90.722 Acquired absence of ovaries, bilateral; Z88.6 Allergy status to analgesic agent; Z79.899 Other long term (current) drug therapy; Z79.01 Long term (current) use of anticoagulants; R94.31 Abnormal electrocardiogram [ECG] [EKG]; R51.9 Headache, unspecified; Z98.41 Cataract extraction status, right eye; Z98.42 Cataract extraction status, left eye; I67.2 Cerebral atherosclerosis; R10.9 Unspecified abdominal pain; N28.1 Cyst of kidney, acquired; D73.89 Other diseases of spleen
CPT/HCPCS: 0223U; 36415; 70450; 70496; 70498; 71045; 71275; 74177; 80048; 80053; 81001; 83735; 83880; 84145; 84484; 85025; 86140; 86803; 87040; 87086; 87088; 87186; 87389; 93005; 97162; 97165; 97530; 99285; G0378; J0780; J1956; J3475; J7030; J7120; Q9967